=== PATIENT | male | born 1955 | race Caucasian/White ===

== ENCOUNTER → 2016-06-13 | Outpatient (CLI) | payer BC, OTHER ==
[~2016-06-13] MED LIST: ATOR-24 PO; DILT120C68 PO; ENOX120I SQ; GABA1CAP5 PO; INSDGI SC; INSDGIPEN SC; LISI1TAB3 PO; MELA1TAB54 PO; MELATAB2 PO; NVLGI SC; NVLGI/PEN SC; NYST100033 TOP; NYSTATIN POWDER EXT; PIOG1TAB23 PO; SIMV20TA2 PO; TADA20TA PO; TEMA30CA4 PO; TRAZ100T29 PO; VENL150C PO; VENL150T33 PO; VNTHFA/IN INH
--- NOTE | 2016-06-14 05:36 | PAP/PSG TECHNICIAN REPORT ---
[facility] Business Applications Analyst Polysomnogram Report Study name: None Report date: 06/14/2016 Study date: 06/13/2016 Referring Physician: Dr. Rodríguez Name: MAGGIE PIERRE Interpreting Physician: Zenon Rodríguez D.O. Date of : 1955 Business Applications Analyst: Alex Hooper RPSGT. Sex: Male Age: 60 StudyType: PSG Weight: 280 lbs 16 INCHES Height: 60 years, Height 6' 1" Neck Circum: BMI: 36.94 Medications: INSULIN SYRINGE, BD PEN NEEDLE, LANTUS, NOVOLOG FLEX PEM, LISINOPRIL 30 MG, GABAPENTIN 400 MG, ATORVASTATIN CALCIUM 40 MG, MELATONIN 5 MG, TEMAZEPAM 30 MG, CIALIS 20 MG, ENOXAPAIN SODIUM, EFFEXOR XR 150 MG, NYSTATIN, ERGOCALCIFEROL Patient History PATIENT HAS HISTORY OF HYPERTENSION AND DIABETES. HIS STATES THAT HE HE STOPS BREATHING AT NIGHT AND HAS SOME SNORING. THE PATIENT'S NORMAL BEDTIME IS AROUND 12:30 AM. PATIENT ALSO HAS HISTORY OF INSOMNIA. HE IS HERE TODAY FOR AN EVALUATION OF FRANCES. ESS= 7 RM 2 Parameters Monitored NPSG: E1-M2, E2-M1, Fp1-M2, Fp2-M1, F3-M2, F4-M2, F4-M1, C3-M2, C4-M2, C4-M1, O1-M2, O2-M2, O2-M1, T3-M2, T4-M1, P3-M2, P4-M1, CHIN1, CHIN2, HR, EKG, Legs, PFLOW, SNOR, FLOW, CFLOW, Tidal Volume, THOR, ABDO, SpO2, PLTH, CPRESS, ETCO2 Wave, ETCO2, pH Sleep Architecture Sleep Stages Time at Lights Off 10:40:26 PM STAGES Time (min.) TST (%) Time at Lights On 5:08:56 AM Wake 299.5 -- Total Recording Time (TRT) 389.00 min. N1 28.0 31 Total Sleep Period (TSP) 346.0 min. N2 61.0 69 Total Sleep Time (TST) 89.0min. N3 0.0 0 Awake Time 300.0 min. REM 0.0 0 Wake after Sleep Onset 272.5 min. Sleep Efficiency (SE) 23 % Sleep Onset Latency (SUKHWINDER) 27.0 min. Number of Stage 1 Shifts None Awakenings 35 Stage Changes 115 Number of REM periods N/A REM 0.0 0 REM Latency NONE min. NREM 89.0 100 Body Position Analysis Supine Right Left Side Prone Vertical Total Sleep Time (min.) 242.3 40.9 14.5 55.35 0.0 0.0 Total Sleep Time (%) 38% 46% 16% 62 0% N/A% Total Sleep Time REM (min.) 0.0 0.0 0.0 None 0.0 0.0 Total Sleep Time NREM (min.) 33.7 40.9 14.5 None 0.0 0.0 Intermittent Wake (min.) 208.7 78.8 12.0 None 0.0 0.0 Total Sleep Period (%) 61% None None None None None Arousals Myoclonus (PLM) * Events Count Index Events Count Index Spontaneous 31 21 Events Awake (PLMW) 293 58.7 Respiratory 63 42.5 Events Asleep w/ Arousal (PLMA) 14 9.4 PLM 11 9 Events Asleep w/o Arousal (PLMS) 123 82.9 Snoring 18 12 Total Asleep 137 92.4 Total 123 83 Total 430 66 Respiratory Analysis * CA OA MA CH H RERA Total Count 3 6 0 0 102 2 111 Index 2.0 4.0 0.0 0 68.8 1 76.2 Mean Duration 17.7 12.7 0.0 0.00 14.1 14.5 14.1 Longest Duration 20.6 15.0 0.0 0.00 0.0 16.3 21.6 Respiratory Event Summary Total Supine ~Supine Right Left Prone REM NREM Apneas Count 9 7 2 2 0 N/A N/A 9 Index 6.1 12 2 2.9 0.0 N/A N/A 6 Hypopneas (4% Desat) Count 102 46 56 51 5 N/A N/A 102 Index 68.8 82.0 61 74.9 20.7 N/A N/A 68.8 Apneas & All Hypopneas Count 111 53 58 53 5 N/A N/A 111 Index 74.8 95 63 78 21 N/A N/A 74.8 Respiratory Events (Psychologist Engineering+All Hyp+RERA) Count 111 54 59 53 6 N/A N/A 111 Index 76.2 96 64 77.8 24.8 N/A N/A 76.2 Respiratory Related Arousal Count 63 54 33 29 4 N/A N/A 63 Index 42.5 53 36 43 17 N/A N/A 42 Snoring Analysis Supine Right Left Prone REM NREM Total Snore duration 7.0 min Snores count 37 174 44 N/A N/A 255 255 Snore mean duration 1.7 Sec Snores index 66 255 182 N/A N/A 171.9 171.9 TST with snoring (%) 7.9% Desaturation Event Summary: Minimum %SpO2 Event Count Mean/Min/Max Duration(sec.) Desaturation Index % Time In Bed > 90 104 14.9 / 6.0 / 51.5 53.2 33.0 86 - 90 95 14.8 / 6.0 / 51.5 24.7 64.9 81 - 85 0 N/A 0.0 2.1 76 - 80 0 N/A 0.0 0.0 71 - 75 0 N/A 0.0 0.0 66 - 70 0 N/A 0.0 0.0 61 - 65 0 N/A 0.0 0.0 56 - 60 0 N/A 0.0 0.0 51 - 55 0 N/A 0.0 0.0 < 50 0 N/A 0.0 0.0 Total REM NREM Awake <50% 0.0 min. 0.0 min. 0.0 min. 0.0 min. 51 - 60% 0.0 min. 0.0 min. 0.0 min. 0.0 min. 61 - 70% 0.0 min. 0.0 min. 0.0 min. 0.0 min. 71 - 80% 0.0 min. 0.0 min. 0.0 min. 0.0 min. 81 - 90% 238.3 min. 0.0 min. 72.7 min. 165.6 min. 91 - 100% 117.3 min. 0.0 min. 16.2 min. 101.1 min. Average 90 0 89 90 Minimum SpO2 83 N/A 83 83 Desaturation Event Index 20.1 0.0 73.5 4.6 # Desat. Events below 89% 123 N/A 104 19 Time(%) with Saturation below 89% 22.2 0.0 12.3 9.9 Time(min.) with Saturation below 89% 78.8 0.0 43.7 35.1 Time (mins) REM (mins) NREM (mins) % of TST SpO2 Below 90% 107 N/A N107 67.1 SpO2 Below 88% 25 0 0 32 Heart Rate Analysis Min (bpm) Max (bpm) Average (bpm) Awake 65 188 84 NREM 63 94 83 REM N/A N/A N/A Overall 63 94 83 Supplemental O2 Values Minimum O2 level: None Value Start Time End Time Business Applications Analyst Comments Mr. Pierre slept in the right, left and supine positions. PAC's noted. Leg movements noted. No bruxism noted. Snoring was noted and scored as a 3 on a scale of 1 through 5. (0=no snoring, 5=snoring loud enough to be heard through a closed door or down the bueno way) Mr. Pierre awoke to use the restroom 2 times during the night. Mr. Pierre stated I did not sleep as well as I do when I am in my own bed. I determined that this patient was not a good fit for a split study due to the limited amount of the sleep time the patient achieved. This patient has history of insomnia and really struggled to maintain sleep for the study. It was also noted that the patient did not take his normal sleep medication because he never got a refill for it. The patient said that he usually sleeps better during the day and will wake up around noon. The final report will be interpreted and signed by a sleep physician. The completed physician report will then be placed in the patient medical record. Therapy (cm H2O) 0 TIB (min.) 388.5 TST (min.) 89.0 Sleep Onset (min.) 27.0 REM Onset From Sleep (min.) NONE Sleep Efficiency % 23 Wakefulness (%) 77 Wakefulness (min.) 300.0 NREM 1 (%) 31 NREM 1 (min.) 28.0 NREM 2 (%) 69 NREM 2 (min.) 61.0 NREM 3 (%) 0 NREM 3 (min.) 0.0 REM (%) 0 REM (min.) 0.0 # Arousals 123 Arousal Index 83 # Snore 255 Snore Index 171.9 AHI 74.8 AHI Supine 95 AHI Non-Supine 63 NREM AHI 74.8 REM AHI N/A RDI 76.2 # Obstructive Apnea 6 # Central Apnea 3 # Mixed Apnea 0 # Hypopneas 102 RERAs 2 Total Respiratory Events 118 Time Below SpO2 89% (min.) 43.7 Mean NREM SpO2 (%) 89 Mean REM SpO2 (%) N/A Mean Sleep SpO2 (%) 89 Min NREM SpO2 (%) 83 Min REM SpO2 (%) N/A Position Supine (min.) 242.3 Position Non-supine (min.) 55.3 LM Index Sleep 92.4 LM Index NREM 92.4 LM Index REM N/A Mean Heart Rate (bpm) 83 Min Heart Rate (bpm) 63
--- NOTE | 2016-06-17 12:54 | POLYSOMNOGRAPH REPORT ---
CLINICAL DATA: The patient is a 60-year-old male with a BMI elevated at 36.94. He is referred by Dr. Freed and Dr. Ling. His history is that of snoring, observed apneas and chronic insomnia. He also has disturbed nocturnal sleep. The [place] Sleepiness Scale score was 7 out of a possible 24. This was a diagnostic sleep study done in the sleep lab. SLEEP ARCHITECTURE: The patient had a total sleep period of 346 minutes with total sleep time of 89 minutes. The sleep efficiency was severely reduced at 23%. The sleep latency was 27 minutes. Wake after sleep onset was elevated at 272.5 minutes. There were 35 awakenings. Sleep consisted of stage N1 31%, stage N2 69%, stage N3 0%, REM sleep 0%. AROUSAL DATA: The patient had a total of 123 arousals for an index of 83.5. These consisted of 31 spontaneous arousals, 63 respiratory arousals, 11 PLM arousals and 18 snoring arousals. PLM DATA: The patient had 137 periodic limb movements of sleep for an index of 92.4. However, the PLM arousal index was only 9.4. EKG: The underlying rhythm was normal sinus. He had PACs. The minimum heart rate was 63 and the maximum was 94. RESPIRATORY DATA: The patient had a total of 111 events including 3 central apneas, 6 obstructive apneas and 102 hypopneas. The apnea-hypopnea index was severely elevated at 74.8 events per hour. There were 63 respiratory arousals for a respiratory arousal index of 42.5. OXIMETRY DATA: The patient's lowest oxygen saturation was 83%. He had a total of 238.3 minutes with saturations between 81 and 90%. There was a total of 25 minutes with saturations less than 88%. FINANCIAL REPORTING SPECIALIST COMMENTS: The patient slept in the right, left and supine positions. Snoring was noted as a score of 3 on a scale of 1 through 5. The database software technician determined the patient was not a good fit for a split study due to the limited amount of sleep time the patient achieved. IMPRESSION: 1. Obstructive sleep apnea -- severe. 2. Periodic limb movement disorder. 3. Insomnia. COMMENTS: The patient had a very poor sleep efficiency. This was in part related to the fact he did not take the temazepam he typically takes at home. Apparently, he had run out of his medicines and not gotten it refilled. For the time that he did sleep, he had severe sleep apnea. He had frequent respiratory events and arousals. There were frequent periodic limb movements but just with a modest number of arousals. These do not need treatment at present. The underlying sleep apnea should be treated first. The patient has comorbidities including hypertension and diabetes. RECOMMENDATIONS: 1. It is advised that the patient be given a trial of nasal CPAP or BiPAP. 2. Weight reduction is advised in light of the significant elevation of body mass index. 3. The patient ideally should avoid sleeping in the supine position if possible. 4. Further suggestions will be made after the trial of nasal CPAP.
== END | disposition home or self-care (01) ==
LOC: C.NEUR 20:00
PROVIDERS: ATTEND Internal Medicine Pulmonary Disease
DX: G47.30 Sleep apnea, unspecified (principal)

== ENCOUNTER → 2016-06-24 | Day surgery (SDC) | payer BC, OTHER ==
[2016-06-14 13:12] VITALS: BMI 37.0
[~2016-06-24] VITALS: Ht 185.4 cm; Wt 129.1 kg
[~2016-06-24] MED LIST changes: +ATROPINE SULFATE 0.1 MG/ML 5ML SYR IV PRN; +EpHEDrine SULFATE INJ 50 MG/ML AMP IV PRN; -INSDGI SC; +LIDOCAINE HCL 2% 2 ML VIAL (20MG/ML) ONE; -MELA1TAB54 PO; -NVLGI SC; -PIOG1TAB23 PO; +PROPOFOL IV EMULSION 10 MG/ML 20 ML VIAL IV ONE; -SIMV20TA2 PO; +SODIUM CHLORIDE 0.9% 500ML 500 ML IV ONE; -TEMA30CA4 PO; -VENL150T33 PO
[2016-06-24 09:00] VITALS: Ht 185.4 cm; Wt 129.1 kg
--- NOTE | 2016-06-24 09:08 | Endo History and Physical ---
History & Physical Date of Service: Jun 24, 2016. Chief Complaint: History of colon polyps Referring Physician: Dr. Ling History of Present Illness 60 yo CM who presents for colonoscopy secondary to history of polyps Past Surgical History Hx Cardiac Surgery: No Hx Internal Defibrillator: No Hx Pacemaker: No Hx Abdominal Surgery: Yes (UMBILICAL HERNIA) Hx of Implantable Prosthesis: No Hx Post-Op Nausea and Vomiting: No Hx Cancer Surgery: No Hx Thoracic Surgery: No Hx Orthopedic: Yes (LEFT KNEE ARTHROSCOPY) Hx Urinary Tract Surgery: No Family History IBD Social History Smoking Status: Current Some Day Smoker Hx Substance Use: No Hx Alcohol Use: Yes (OCCASSIONALLY) Allergies Coded Allergies: Lanolin (Verified Allergy, Unknown, WOOL WAX ALCOHOL, 06/14/16) Moxifloxacin (Verified Allergy, Unknown, hives, 06/14/16) pt SOAPCLEAN (Verified Allergy, Unknown, DETERGENTS, 06/14/16) Aspirin (Verified Adverse Reaction, Mild, STOMACH DISTRESS, 06/14/16) Current Medications Reported Home Medications Medications Dose Route/Sig Max Daily Dose Days Date Category Dose Instructions Trazodone (Trazodone HCl) 100 Mg Tab 100 Mg PO HS 06/14/16 Reported [Nystatin Powder] 1 Dose EXT DIRECTED PRN 06/14/16 Reported Novolog Flexpen (Insulin Aspart) 100 Units/Ml Inj 1 Dose SC TID 06/14/16 Reported 35 UNITS AM 45 UNITS AT LUNCH 120 UNITS AT HS IN ADDITION TO SLIDING SCALE FOR ALL ABOVE Melatonin Maximum Strengt (Melatonin) 5 Mg Tab 3 Tab PO HS 30 06/14/16 Reported Zestril (Lisinopril) 30 Mg Tab 30 Mg PO QAM 06/14/16 Reported Lantus Solostar (Insulin Glargine) 100 Unit/Ml Inj 1 Dose SC AMPM 06/14/16 Reported 60 UNITS AM 40 UNITS PM Neurontin (Gabapentin) 400 Mg Cap 400 Mg PO BID 06/14/16 Reported Lovenox (Enoxaparin Sodium) 120 Mg/0.8 Ml Inj 120 Mg SQ Q12H 06/14/16 Reported Effexor Xr (Venlafaxine Hcl) 150 Mg Cap 1 Cap PO QAM 30 06/14/16 Reported Tiazac (Diltiazem HCl) 120 Mg Capcr 120 Mg PO QAM 06/14/16 Reported Lipitor (Atorvastatin Calcium) 40 Mg Tab 40 Mg PO QAM 06/14/16 Reported Vital Signs Weight (Kilograms): 129.09 Height (Feet): 6 Height (Inches): 1 Physical Exam General Appearance: WD/WN, no apparent distress Respiratory/Chest: Auscultation: breath sounds normal Cardiovascular: Heart Auscultation: RRR Abdomen: Bowel Sounds: normal Inspection & Palpation: soft, non-distended, no tenderness, guarding & rebound Assessment and Plan Assessment: 60 yo CM who presents for colonoscopy secondary to history of polyps Plan: Proceed with colonoscopy.
--- NOTE | 2016-06-24 09:48 | Discharge Instructions ---
Endoscopy Patient Instructions Date / Procedure(s) Performed Jun 24, 2016. Colonoscopy Allergy Information Coded Allergies: Lanolin (Verified Allergy, Unknown, WOOL WAX ALCOHOL, 06/14/16) Moxifloxacin (Verified Allergy, Unknown, hives, 06/14/16) pt SOAPCLEAN (Verified Allergy, Unknown, DETERGENTS, 06/14/16) Aspirin (Verified Adverse Reaction, Mild, STOMACH DISTRESS, 06/14/16) Discharge Date / Findings Jun 24, 2016. Colon polyp Diverticulosis Internal hemorrhoids Medication Instructions OK to resume all medications today as prescribed Reported Home Medications Medications Dose Route/Sig Max Daily Dose Days Date Category Dose Instructions Trazodone (Trazodone HCl) 100 Mg Tab 100 Mg PO HS 06/14/16 Reported [Nystatin Powder] 1 Dose EXT DIRECTED PRN 06/14/16 Reported Novolog Flexpen (Insulin Aspart) 100 Units/Ml Inj 1 Dose SC TID 06/14/16 Reported 35 UNITS AM 45 UNITS AT LUNCH 120 UNITS AT HS IN ADDITION TO SLIDING SCALE FOR ALL ABOVE Melatonin Maximum Strengt (Melatonin) 5 Mg Tab 3 Tab PO HS 30 06/14/16 Reported Zestril (Lisinopril) 30 Mg Tab 30 Mg PO QAM 06/14/16 Reported Lantus Solostar (Insulin Glargine) 100 Unit/Ml Inj 1 Dose SC AMPM 06/14/16 Reported 60 UNITS AM 40 UNITS PM Neurontin (Gabapentin) 400 Mg Cap 400 Mg PO BID 06/14/16 Reported Lovenox (Enoxaparin Sodium) 120 Mg/0.8 Ml Inj 120 Mg SQ Q12H 06/14/16 Reported Effexor Xr (Venlafaxine Hcl) 150 Mg Cap 1 Cap PO QAM 30 06/14/16 Reported Tiazac (Diltiazem HCl) 120 Mg Capcr 120 Mg PO QAM 06/14/16 Reported Lipitor (Atorvastatin Calcium) 40 Mg Tab 40 Mg PO QAM 06/14/16 Reported Provider Instructions Activity Restrictions - No exercising or heavy lifting for 24 hours. - Do not drink alcohol the day of the procedure. - Do not drive a car or operate machinery until the day after the procedure. - Do not make any important decisions or sign important papers in 24 hours after the procedure. Following Day: - Return to full activity which may include returning to work/school. Diet Start your diet with liquids and light foods (jello, soup, juice, toast). Then eat your usual diet if not nauseated. Treatment For Common After Affects For mild abdominal pain, bloating, or excessive gas: - Rest - Eat lightly - Lie on right side Follow-Up Information Follow-up with Dr. Ling as scheduled Anesthesia Information What You Should Know You have had a procedure that required some medicine to reduce anxiety and discomfort. This treatment is called moderate sedation. After receiving the treatment, you may be sleepy, but you will be able to breathe on your own. The effects of the treatment may last for several hours. Follow these instructions along with Activity/Diet recommendations noted above: * Do NOT do anything where dizziness or clumsiness would be dangerous. * Rest quietly at home today, then you can be up and about tomorrow. * Have a responsible person stay with you the rest of today. * You may have had an I.V. today. If so, you may take the dressing off later today. Recommendations Call your doctor if: * Trouble breathing * Continuous vomiting for more than 24 hours * Temperature above 101 degrees * Severe abdominal pain or bloating * Pain not relieved by pain medicine ordered * There is increased drainage or redness from any incision * A large amount of rectal bleeding greater than 2-3 tablespoons. (If you had a polyp/s removed or have hemorrhoids, a small amount of blood - from the rectum is to be expected.) * You have any unanswered questions or concerns. IN THE EVENT OF A SERIOUS EMERGENCY, GO TO THE NEAREST EMERGENCY ROOM Your discharge instructions were prepared by provider Fletcher Rivero. Patient Instructions Signature Page Abdiaziz Haney Patient (or Guardian) Signature/Date: I have read and understand the instructions given to me by my caregivers. Caregiver/RN/Doctor Signature/Date: The above-named patient and/or guardian has received patient instructions on this date. + Original Patient Signature Page (only) stays with chart. Please make copy for patient.
--- NOTE | 2016-06-24 09:53 | GI REPORT ---
Procedure Date: 06/24/2016 9:24 AM Procedure: Colonoscopy Indications: High risk colon cancer surveillance: Personal history of colonic polyps Medicines: Monitored Anesthesia Care Complications: No immediate complications. Estimated Blood Loss: Estimated blood loss: none. Procedure: Pre-Anesthesia Assessment: - Prior to the procedure, a History and Physical was performed, and patient medications and allergies were reviewed. The patient's tolerance of previous anesthesia was also reviewed. The risks and benefits of the procedure and the sedation options and risks were discussed with the patient. All questions were answered, and informed consent was obtained. Prior Anticoagulants: The patient has taken Lovenox (enoxaparin), last dose was 1 day prior to procedure. ASA Grade Assessment: III - A patient with severe systemic disease. After reviewing the risks and benefits, the patient was deemed in satisfactory condition to undergo the procedure. After I obtained informed consent, the scope was passed under direct vision. Throughout the procedure, the patient's blood pressure, pulse, and oxygen saturations were monitored continuously. The On-site loaner was introduced through the anus and advanced to the terminal ileum. The colonoscopy was performed without difficulty. The patient tolerated the procedure well. The quality of the bowel preparation was good. The terminal ileum, ileocecal valve, appendiceal orifice, and rectum were photographed. Findings: A 6 mm polyp was found in the transverse colon. The polyp was sessile. The polyp was removed with a hot snare. Resection and retrieval were complete. Multiple small-mouthed diverticula were found in the sigmoid colon. Non-bleeding internal hemorrhoids were found during retroflexion. The hemorrhoids were small. Impression: - One 6 mm polyp in the transverse colon, removed with a hot snare. Resected and retrieved. - Diverticulosis in the sigmoid colon. - Non-bleeding internal hemorrhoids. Recommendation: - Resume previous diet. - Continue present medications. - Repeat colonoscopy for surveillance based on pathology results. - Return to primary care physician as previously scheduled. Fletcher Rivero, DO 06/24/2016 9:51:43 AM This report has been signed electronically. Note Initiated On: 06/24/2016 9:24 AM
--- NOTE | 2016-06-24 10:08 | Anesthesiology Progress Note ---
Anesthesia Post Op Note Date & Time Jun 24, 2016 at 10:07 Vital Signs Pain Intensity: 0 Vital Signs Past 12 Hours Date Time Temp Pulse Resp B/P Pulse Ox O2 Delivery O2 Flow Rate FiO2 06/24/16 10:02 78 16 146/90 96 Room Air 06/24/16 09:47 75 16 137/80 95 Room Air 06/24/16 09:15 36.5 74 20 179/100 94 Room Air Notes Mental Status: alert / awake / arousable, participated in evaluation Pt Amnestic to Procedure: Yes Nausea / Vomiting: adequately controlled Pain: adequately controlled Airway Patency, RR, SpO2: stable & adequate BP & HR: stable & adequate Hydration State: stable & adequate Anesthetic Complications: no major complications apparent
[2016-06-24 10:17] VITALS: BP 151/97; PULSE 70; O2SAT 95
== END | disposition home or self-care (01) ==
LOC: C.GI 08:45
PROVIDERS: ATTEND Internal Medicine
DX: Z12.11 Encounter for screening for malignant neoplasm of colon (principal); D12.3 Benign neoplasm of transverse colon; Z86.010 Personal history of colon polyps; K57.90 Diverticulosis of intestine, part unspecified, without perforation or abscess without bleeding; K64.8 Other hemorrhoids

== ENCOUNTER → 2016-06-26 | Outpatient (CLI) | payer BC, OTHER ==
[~2016-06-26] VITALS: Ht 185.4 cm; Wt 130.8 kg
[~2016-06-26] MED LIST changes: -ATROPINE SULFATE 0.1 MG/ML 5ML SYR IV PRN; -EpHEDrine SULFATE INJ 50 MG/ML AMP IV PRN; -LIDOCAINE HCL 2% 2 ML VIAL (20MG/ML) ONE; -PROPOFOL IV EMULSION 10 MG/ML 20 ML VIAL IV ONE; -SODIUM CHLORIDE 0.9% 500ML 500 ML IV ONE
[2016-06-26 11:40] VITALS: BP 159/95; PULSE 91; Ht 185.4 cm; Wt 130.8 kg
== END | disposition home or self-care (01) ==
LOC: C.NEUR 10:51
PROVIDERS: ATTEND Internal Medicine Pulmonary Disease
DX: G47.33 Obstructive sleep apnea (adult) (pediatric) (principal); E66.9 Obesity, unspecified; J34.2 Deviated nasal septum

== ENCOUNTER → 2016-08-13 | Outpatient (CLI) | payer BC, OTHER ==
[2016-08-13 12:23] LABS: BASO % 0.5 %; BASO ABS # 0.04 K/uL (0-0.2); COMPLETE YES; EOS % 2.6 %; HEMATOCRIT 46.7 % (42-52); IG% 0.3 %; LYMPH % 21.2 %; LYMPH ABS # 1.62 K/uL (1.2-3.4); MEAN CELL VOLUME 88.4 fL (80-100); MEAN CORPUSCULAR HGB CONC 32.8 g/dl (32-36); MEAN PLATELET VOLUME 12.2 fL (7.4-10.4); MONO % 8.6 %; NEUT % 66.8 %; PLATELET COUNT 207 K/uL (130-400); RED BLOOD COUNT 5.28 M/uL (4.7-6.1); WHITE BLOOD COUNT 7.64 K/uL (4.8-10.8)
[2016-08-13 12:28] LABS: URINE APPEARANCE CLEAR (CLEAR); URINE BILIRUBIN NEG (NEG); URINE COLOR YELLOW; URINE EPITHELIAL CELL AUTO 0-5 /lpf (0-5); URINE NITRITE NEG (NEG); URINE SPECIFIC GRAVITY 1.022 (1.000-1.030); UROBILINOGEN NEG (NEG); ZZUR CULT IF INDIC CLEAN CATCH NO
[2016-08-13 12:37] LABS: MANUAL MICROSCOPIC REQUIRED? NO; REVIEW REQ? NO
[2016-08-13 12:42] LABS: BLOOD UREA NITROGEN 26 mg/dl (7-18); BUN/CREATININE RATIO 17.5 (10-20); CALCIUM 8.8 mg/dl (8.5-10.1); CARBON DIOXIDE 27 mmol/L (21-32); CHLORIDE 101 mmol/L (98-107); GLUCOSE 428 mg/dl (70-99); PHOSPHORUS 2.4 mg/dl (2.5-4.9); SODIUM 138 mmol/L (136-145)
[2016-08-13 12:49] LABS: ESTIMATED AVERAGE GLUCOSE 255 mg/dl; HA1C FLAG Normal (Normal)
[2016-08-13 12:57] LABS: URINE PROTIEN/CREAT RATIO 0.5 (0-0.2); URINE TOTAL PROTEIN 19.1 mg/dl (0-11.9)
[2016-08-13 13:04] LABS: BETA-HYDROXYBUTYRATE 1.04 mg/dL (0.2-2.81)
== END | disposition home or self-care (01) ==
LOC: C.LABBFT 08:43
PROVIDERS: ATTEND Internal Medicine Nephrology
DX: Z11.59 Encounter for screening for other viral diseases (principal); E29.1 Testicular hypofunction; E11.65 Type 2 diabetes mellitus with hyperglycemia; N18.3 Chronic kidney disease, stage 3 (moderate)

== ENCOUNTER → 2016-08-28 | Outpatient (CLI) | payer BC, OTHER ==
[~2016-08-28] VITALS: Ht 182.9 cm; Wt 128.0 kg
[2016-08-28 10:13] VITALS: BP 154/87; PULSE 91; Ht 182.9 cm; Wt 128.0 kg
== END | disposition home or self-care (01) ==
LOC: C.NEUR 09:30
PROVIDERS: ATTEND Internal Medicine Pulmonary Disease
DX: G47.33 Obstructive sleep apnea (adult) (pediatric) (principal); E66.9 Obesity, unspecified; J34.2 Deviated nasal septum

== ENCOUNTER → 2016-11-14 | Outpatient (CLI) | payer BC, OTHER ==
[2016-11-14 17:34] LABS: BLOOD UREA NITROGEN 23 mg/dl (7-18)
[2016-11-14 17:44] LABS: FERRITIN 155.1 ng/ml (8.0-388.0)
[2016-11-14 17:47] LABS: PROLACTIN 7.65 ng/mL
== END | disposition home or self-care (01) ==
LOC: C.LABBFT 12:23
PROVIDERS: ATTEND Internal Medicine Endocrinology, Diabetes & Metabolism
DX: E29.1 Testicular hypofunction (principal); G47.33 Obstructive sleep apnea (adult) (pediatric)

== ENCOUNTER 2017-02-12 19:21 | Inpatient (IN) | payer BC, OTHER ==
[~2017-02-12] VITALS: Ht 185.4 cm; Wt 124.1 kg
[~2017-02-12 19:21] MED LIST changes: -NYST100033 TOP; -TADA20TA PO; -VNTHFA/IN INH
[2017-02-12] MEDS ORDERED: SODIUM CHLORIDE 0.9% 1000ML 1,000 ML IV STA (19:44)
[2017-02-12] MEDS ORDERED: SODIUM CHLORIDE 0.9% 1000ML 1,000 ML IV ONE (19:44)
[2017-02-12] MEDS ORDERED: VNTHFA/IN INH (20:05)
[2017-02-12] MEDS ORDERED: TADA20TA PO (20:05)
[2017-02-12] MEDS ORDERED: NYST100033 TOP (20:05)
--- NOTE | 2017-02-12 20:08 | EMERGENCY ROOM VISIT NOTE ---
History Report prepared by Cruz: Lindsey Casey Under the Supervision of: Dr. Sha Mondragon M.D. First contact with patient: 19:33 Chief Complaint: DIZZY Stated Complaint: VERY WEAK, FAINTING History of Present Illness The patient is a 61 year old male who presents to the Emergency Room with complaints of constant dizziness beginning a couple days ago. The patient notes that he has stomach cramps three weeks ago that lasted two weeks. Last weekend, he had an episode of severe abdominal pain that has not resided. He also notes he is fatigued and urinating more than normal. He denies fever, chest pain, or blood in his stool. The patient has a history of neuropathy, diabetes, high cholesterol and hypertension. The patient is on blood thinners for previous DVTs Source of History: patient, spouse/significant other Onset: a couple days ago Timing: constant Associated Symptoms: + abdominal pain, + urinary symptoms, + fatigue, No fevers, No chest pain Note: Pt denies blood in stool. Review of Systems See HPI for pertinent positives & negatives. A total of 10 systems reviewed and were otherwise negative. Past Medical & Surgical Medical Problems: (1) Anemia (2) Deep venous thrombosis of lower extremity (3) Diabetes (4) Gall stone pancreatitis (5) Yo filter in place (6) Hypercholesteremia (7) Hypertension Surgical Problems: (1) H/O hernia repair Old medical records were reviewed. Nurse's notes were reviewed and I agree with. Family History no pertinent family history stated. Social History Smoking Status: Current Every Day Smoker Alcohol Use: none Marital Status: Current/Historical Medications Scheduled Atorvastatin (Lipitor), 40 MG PO QAM Diltiazem Hcl Ext Rel (Tiazac), 120 MG PO QAM Enoxaparin (Lovenox), 120 MG SQ Q12H Gabapentin (Neurontin), 400 MG PO BID Insulin Aspart (Novolog Flexpen), 1 DOSE SC TID Insulin Glargine (Lantus Solostar), 50 DOSE SC AMPM Lisinopril (Zestril), 30 MG PO QAM Melatonin (Melatonin Maximum Strengt), 3 TAB PO HS Nystatin (Topical) (Nystatin), 1 APPLN TOP PRN UD Tadalafil (Cialis), 20 MG PO UD Trazodone Hcl (Trazodone), 100 MG PO HS Venlafaxine Hcl (Effexor Xr), 1 CAP PO QAM Scheduled PRN Albuterol Hfa (Ventolin Hfa), 2 PUFF INH Q4 PRN for SOB/Wheezing Allergies Coded Allergies: Lanolin (Verified Allergy, Unknown, WOOL WAX ALCOHOL, 06/14/16) Moxifloxacin (Verified Allergy, Unknown, hives, 06/14/16) pt SOAPCLEAN (Verified Allergy, Unknown, DETERGENTS, 06/14/16) Aspirin (Verified Adverse Reaction, Mild, STOMACH DISTRESS, 06/14/16) Physical Exam Vital Signs Date Time Temp Pulse Resp B/P (MAP) Pulse Ox O2 Delivery O2 Flow Rate FiO2 02/13/17 00:15 92 20 144/97 94 Room Air 02/12/17 22:27 89 18 137/95 98 Room Air 02/12/17 19:26 36.9 93 18 126/77 94 Room Air Physical Exam General: Non ill appearing middle aged male in no acute distress, breathing comfortably on room air. Normal speech HEENT: Normal cephalic atraumatic. Pupils are equal round and reactive to light. Sclerae anicteric. Extraocular movements are intact. Oropharynx is pink with moist mucous membranes. No swelling of the mouth lips or tongue. Neck: Supple with a midline trachea. No meningeal signs or stiffness, no JVD or bruits. No Stridor. Chest: Clear to auscultation bilaterally. No wheezes or rhonchi. No increased work of breathing. Heart: regular rate and rhythm. Abdomen: Soft nontender, nondistended without rebound guarding or rigidity. Extremities: No cyanosis clubbing or edema. No calf tenderness or assymetry Spine/Back. Non tender to palpation. No CVA tenderness Skin: Good turgor without rashes. Neurologic exam: Cranial nerves two through 12 are intact. Motor and sensation are intact and symmetrical throughout. Medical Decision & Procedures ER Provider Diagnostic Interpretation: Radiology results as stated below per my review and radiologist interpretation: CHEST ONE VIEW PORTABLE FINDINGS: Lung volumes are diminished. There is no pneumothorax or pleural effusion. There is no evidence of pulmonary edema. There is no consolidation to suggest pneumonia. Mild left basilar opacity suggests atelectasis. The appearance of the chest is unchanged. IMPRESSION: No acute cardiopulmonary findings. No change in appearance of the chest. Electronically signed by: Clovis Bender M.D. CT OF THE ABDOMEN AND PELVIS WITHOUT CONTRAST FINDINGS: A small gallstone is noted within the gallbladder. There is no pericholecystic infiltration. Note is made of moderate infiltration centered on the pancreatic head which is mildly enlarged and edematous. Evaluation is suboptimal on this unenhanced exam. There is no biliary or pancreatic ductal dilatation. A 4 mm calcification within the uncinate process of the pancreas is unlikely to represent a common bile duct calculus. Unenhanced images of the spleen, adrenal glands are unremarkable. There are small bilateral renal calculi which measure up to 3 mm. There are no ureteral calculi. There is no evidence for a bowel obstruction. The appendix is normal. An IVC filter is in place. There is a fat-containing umbilical hernia. There are no suspicious osseous lesions. There is no lymphadenopathy. IMPRESSION: 1. Moderate infiltration centered on the pancreatic head extending into the mesentery. The findings are consistent with acute pancreatitis. A follow-up abdominal CT in one month is recommended to exclude the unlikely possibility of an underlying mass. 2. Cholelithiasis. 4 mm calcification within the uncinate process of the pancreas is unlikely to represent a common bile duct calculus given its inferior location. This may reflect the sequela of chronic pancreatitis. 3. Bilateral nephrolithiasis. No ureteral calculi. Electronically signed by: Clovis Bender M.D. Laboratory Results 02/12/17 21:22 Red Blood Count 5.36, Mean Corpuscular Volume 83.2, Mean Corpuscular Hemoglobin 29.0, Mean Corpuscular Hemoglobin Concent 34.8, Neutrophils (%) (Auto) 71.8, Lymphocytes (%) (Auto) 16.3, Monocytes (%) (Auto) 9.2, Eosinophils (%) (Auto) 2.0, Basophils (%) (Auto) 0.5, Neutrophils # (Auto) 5.79, Lymphocytes # (Auto) 1.31, Monocytes # (Auto) 0.74, Eosinophils # (Auto) 0.16, Basophils # (Auto) 0.04 Test 02/12/17 20:11 02/12/17 20:17 02/12/17 21:22 02/12/17 23:49 Prothrombin Time 10.3 SECONDS (9.0-12.0) Prothromb Time International Ratio 1.0 (0.9-1.1) Activated Partial Thromboplast Time 27.8 SECONDS (21.0-31.0) Partial Thromboplastin Ratio 1.1 Est Creatinine Clear Calc Drug Dose 46.5 ml/min Total Bilirubin 0.7 mg/dl (0.2-1) Direct Bilirubin 0.1 mg/dl (0-0.2) Aspartate Amino Transf (AST/SGOT) 10 U/L (15-37) Alanine Aminotransferase (ALT/SGPT) 24 U/L (12-78) Alkaline Phosphatase 130 U/L (45-117) Total Protein 7.8 gm/dl (6.4-8.2) Albumin 3.3 gm/dl (3.4-5.0) Lipase 664 U/L (73-393) Beta-Hydroxybutyric Acid 2.19 mg/dL (0.2-2.81) Bedside Troponin I < 0.030 ng/ml (0-0.045) White Blood Count 8.06 K/uL (4.8-10.8) Red Blood Count 5.36 M/uL (4.7-6.1) Hemoglobin 16.1 g/dL (14.0-18.0) Hematocrit 46.2 % (42-52) Mean Corpuscular Volume 83.2 fL (80-100) Mean Corpuscular Hemoglobin 29.0 pg (25-34) Mean Corpuscular Hemoglobin Concent 34.8 g/dl (32-36) Platelet Count 154 K/uL (130-400) Neutrophils (%) (Auto) 71.8 % Lymphocytes (%) (Auto) 16.3 % Monocytes (%) (Auto) 9.2 % Eosinophils (%) (Auto) 2.0 % Basophils (%) (Auto) 0.5 % Neutrophils # (Auto) 5.79 K/uL (1.4-6.5) Lymphocytes # (Auto) 1.31 K/uL (1.2-3.4) Monocytes # (Auto) 0.74 K/uL (0.11-0.59) Eosinophils # (Auto) 0.16 K/uL (0-0.5) Basophils # (Auto) 0.04 K/uL (0-0.2) Immature Granulocyte % (Auto) 0.2 % Immature Granulocyte # (Auto) 0.02 K/uL (0.00-0.02) Test 02/13/17 00:06 Bedside Glucose 513 mg/dl (70-99) Laboratory studies as stated above per my review. Medications Administered Medications (Trade) Dose Ordered Sig/Bob Route Start Time Stop Time Status Last Admin Dose Admin Sodium Chloride 1,000 ml @ 999 mls/hr Q1H1M STAT IV 02/12/17 19:44 02/12/17 20:44 DC 02/12/17 20:32 999 MLS/HR Sodium Chloride 1,000 ml @ 200 mls/hr Q5H ONCE IV 02/12/17 19:44 02/13/17 00:43 02/12/17 20:32 200 MLS/HR Insulin Human Regular (novoLIN-R U-100 PER UNIT) 10 units NOW STAT IV 02/12/17 21:28 02/12/17 21:29 DC 02/12/17 23:18 10 UNITS ECG Indication: other (Dizziness) Rate (beats per minute): 83 Rhythm: normal sinus Findings: no ectopy, other (LVH) Comparison ECG Date: 12/09/14 Change: no significant change ED Course 1934: Past medical records reviewed. The patient was evaluated in room B8, and a complete history and physical examination were performed. 1943: Sodium Chloride 1000 ml @ 200 mls/hr IV, Sodium Chloride 1000 ml @ 999 mls /hr IV. 2127: Insulin Human Regular 10 units IV. 2133: [facility] The patient will be evaluated for further management. 2137: Upon reevaluation, the patient is resting comfortably. I discussed the results and treatment plan with the patient. He verbalized agreement of the treatment plan. The patient will be evaluated for further management. Medical Decision Differential diagnosis includes but is not limited to: anemia, cardiac disease, infection intraabdominal process, and electrolyte metabolic abnormality. This patient comes in as described above. He was placed in room B8. He comes in with feeling dizziness and just not feeling well. He looks well on exam and is stable vital signs. He does have multiple medical problems. IV access established and he was hydrated with IV normal saline and was given 1 L IV normal saline bolus and 200 mL an hour IV normal saline. His blood work came back markedly abnormal with a blood sugar in 100s however he is not acidotic and is not in DKA. He was given regular insulin 10 units IV. His lipase is moderately elevated and a CAT scan of asthma is abdomen shows pancreatitis findings. Additionally, he was hyponatremic with 124 although some of this may be pseudohyponatremia. His BUN and creatinine are elevated compared to baseline and likely prerenal. I do think he needs to be admitted for further treatment and evaluation and hydration. I have consulted Dr. Flores who saw the patient in the ER. Medication Reconcilliation Current Medication List: was personally reviewed by me Blood Pressure Screening Patient's blood pressure: Normal blood pressure Consults Time Called: 2129 Consulting Physician: Dr. Gilbert[facility] Returned Call: [phone] Discussed the patient's case. The patient will be evaluated for further management. Impression Primary Impression: Hyperglycemia Additional Impressions: Hyponatremia Dehydration Pancreatitis Scribe Attestation The scribe's documentation has been prepared under my direction and personally reviewed by me in its entirety. I confirm that the note above accurately reflects all work, treatment, procedures, and medical decision making performed by me. Departure Information Dispostion Being Evaluated By Hospitalist Referrals Johann Ling M.D. (PCP) Patient Instructions My [facility] Problem Qualifiers
--- NOTE | 2017-02-12 20:18 | DIAGNOSTIC IMAGING REPORT ---
CHEST ONE VIEW PORTABLE CLINICAL HISTORY: Chest pain. COMPARISON STUDY: Chest CT November 26, 2013. FINDINGS: Lung volumes are diminished. There is no pneumothorax or pleural effusion. There is no evidence of pulmonary edema. There is no consolidation to suggest pneumonia. Mild left basilar opacity suggests atelectasis. The appearance of the chest is unchanged. IMPRESSION: No acute cardiopulmonary findings. No change in appearance of the chest. Electronically signed by: Clovis Bender M.D. 02/12/2017 8:17 PM Dictated Date/Time: 02/12/2017 8:16 PM
[2017-02-12 20:44] LABS: PARTIAL THROMBOPLASTIN RATIO 1.1; PROTHROMBIN TIME (PATIENT) 10.3 SECONDS (9.0-12.0)
[2017-02-12 20:59] LABS: BUN/CREATININE RATIO 17.7 (10-20); CALCIUM 10.2 mg/dl (8.5-10.1); CREATININE 2.2 mg/dl (0.60-1.40); POTASSIUM 4.9 mmol/L (3.5-5.1)
--- NOTE | 2017-02-12 21:15 | DIAGNOSTIC IMAGING REPORT ---
CT OF THE ABDOMEN AND PELVIS WITHOUT CONTRAST CLINICAL HISTORY: Abdominal pain and weakness. COMPARISON STUDY: CT of the abdomen and pelvis June 04, 2013. TECHNIQUE: Axial images of the abdomen and pelvis were obtained without IV contrast. Images were reviewed in the axial, sagittal, and coronal planes. A dose lowering technique was utilized adhering to the principles of ALARA. FINDINGS: A small gallstone is noted within the gallbladder. There is no pericholecystic infiltration. Note is made of moderate infiltration centered on the pancreatic head which is mildly enlarged and edematous. Evaluation is suboptimal on this unenhanced exam. There is no biliary or pancreatic ductal dilatation. A 4 mm calcification within the uncinate process of the pancreas is unlikely to represent a common bile duct calculus. Unenhanced images of the spleen, adrenal glands are unremarkable. There are small bilateral renal calculi which measure up to 3 mm. There are no ureteral calculi. There is no evidence for a bowel obstruction. The appendix is normal. An IVC filter is in place. There is a fat-containing umbilical hernia. There are no suspicious osseous lesions. There is no lymphadenopathy. IMPRESSION: 1. Moderate infiltration centered on the pancreatic head extending into the mesentery. The findings are consistent with acute pancreatitis. A follow-up abdominal CT in one month is recommended to exclude the unlikely possibility of an underlying mass. 2. Cholelithiasis. 4 mm calcification within the uncinate process of the pancreas is unlikely to represent a common bile duct calculus given its inferior location. This may reflect the sequela of chronic pancreatitis. 3. Bilateral nephrolithiasis. No ureteral calculi. Electronically signed by: Clovis Bender M.D. 02/12/2017 9:13 PM Dictated Date/Time: 02/12/2017 8:47 PM
[2017-02-12 21:19] LABS: BETA-HYDROXYBUTYRATE 2.19 mg/dL (0.2-2.81)
[2017-02-12] MEDS ORDERED: NovoLIN-R INSULIN PER UNIT CHARGE IV STA (21:28)
[2017-02-12 22:25] LABS: HEMATOCRIT 46.2 % (42-52); MEAN CELL VOLUME 83.2 fL (80-100); MEAN CORPUSCULAR HGB CONC 34.8 g/dl (32-36); PLATELET COUNT 154 K/uL (130-400); RED BLOOD COUNT 5.36 M/uL (4.7-6.1); WHITE BLOOD COUNT 8.06 K/uL (4.8-10.8)
[2017-02-12 22:30] LABS: BASO % 0.5 %; BASO ABS # 0.04 K/uL (0-0.2); COMPLETE YES; IG% 0.2 %; LYMPH % 16.3 %; LYMPH ABS # 1.31 K/uL (1.2-3.4); MONO % 9.2 %; NEUT % 71.8 %
--- NOTE | 2017-02-12 22:55 | History and Physical ---
History & Physical Date & Time of Service: Feb 12, 2017 at 22:55 Chief Complaint: Very Weak, Fainting Primary Care Physician: Johann Ling M.D. History of Present Illness Source: patient 61-year-old male with a past medical history of diabetes mellitus type II, hyperlipidemia, hypertension, DVT present to the ER with complaints of dizziness and tiredness. 3 weeks ago he had nausea and vomiting and diarrhea which resolved in about 2 weeks and over the weekend he developed abdominal pain in the mid abdominal area , 5/10 in severity with no radiation. He denied any fevers or chills but noticed that he had increased urinary frequency. Denied any dysuria, hematuria. Denies any chest pain, shortness of breath, palpitations but complained of persistent tiredness and dizziness. Denies any hearing loss or tinnitus. Denies any bright red bleeding per rectum or melena. Past Medical/Surgical History Medical Problems: (1) Anemia Status: Resolved (2) Deep venous thrombosis of lower extremity Status: Chronic (3) Diabetes Status: Chronic (4) Yo filter in place Status: Chronic (5) Hypercholesteremia Status: Chronic (6) Hypertension Status: Chronic Surgical Problems: (1) H/O hernia repair Status: Resolved Family History Noncontributory Social History Smoking Status: Current Every Day Smoker Smokeless Tobacco Use: No Alcohol Use: none Drug Use: none Marital Status: Housing status: lives with family Occupational Status: employed Immunizations History of Influenza Vaccine: No History of Tetanus Vaccine?: Yes Tetanus Immunization Date: Dec 21, 2003 History of Pneumococcal: No Pneumococcal Date: Dec 21, 2007 History of Hepatitis B Vaccine: No Multi-Drug Resistant Organisms History of MDRO: No Allergies Coded Allergies: Lanolin (Verified Allergy, Unknown, WOOL WAX ALCOHOL, 06/14/16) Moxifloxacin (Verified Allergy, Unknown, hives, 06/14/16) pt SOAPCLEAN (Verified Allergy, Unknown, DETERGENTS, 06/14/16) Aspirin (Verified Adverse Reaction, Mild, STOMACH DISTRESS, 06/14/16) Home Medications Scheduled Atorvastatin (Lipitor), 40 MG PO QAM Diltiazem Hcl Ext Rel (Tiazac), 120 MG PO QAM Enoxaparin (Lovenox), 120 MG SQ Q12H Gabapentin (Neurontin), 400 MG PO BID Insulin Aspart (Novolog Flexpen), 1 DOSE SC TID Insulin Glargine (Lantus Solostar), 50 DOSE SC AMPM Lisinopril (Zestril), 30 MG PO QAM Melatonin (Melatonin Maximum Strengt), 3 TAB PO HS Nystatin (Topical) (Nystatin), 1 APPLN TOP PRN UD Tadalafil (Cialis), 20 MG PO UD Trazodone Hcl (Trazodone), 100 MG PO HS Venlafaxine Hcl (Effexor Xr), 1 CAP PO QAM Scheduled PRN Albuterol Hfa (Ventolin Hfa), 2 PUFF INH Q4 PRN for SOB/Wheezing Review of Systems Constitutional: + problem reported (dizziness and lightheadedness), No fever, No chills Eyes: No worsening of vision ENT: No hearing loss Respiratory: No cough, No sputum Cardiovascular: No chest pain Abdomen: + pain (mid abdominal area), + nausea, + vomiting Musculoskeletal: No joint pain Genitourinary - Male: No hematuria, No dysuria Neurologic: No memory loss Psychiatric: No depression symptoms Endocrine: No fatigue Hematologic / Lymphatic: No abnormal bleeding/bruising Integumentary: No rash Physical Exam Vital Signs Date Time Temp Pulse Resp B/P (MAP) Pulse Ox O2 Delivery O2 Flow Rate FiO2 02/12/17 22:27 89 18 137/95 98 Room Air 02/12/17 19:26 36.9 93 18 126/77 94 Room Air General Appearance: WD/WN, no apparent distress Head: atraumatic ENT: normal ENT inspection, hearing grossly normal Neck: supple Respiratory/Chest: chest non-tender, lungs clear Cardiovascular: regular rate, rhythm Abdomen/GI: normal bowel sounds, soft, + tenderness (mid abdominal area), + pertinent finding (umbilical hernia) Extremities/Musculoskelatal: no pedal edema Neurologic/Psych: alert, normal mood/affect, oriented x 3 Skin: normal color Diagnostics Laboratory Results Results Past 24 Hours Test 02/12/17 20:11 02/12/17 20:17 02/12/17 21:22 Range/Units Prothrombin Time 10.3 9.0-12.0 SECONDS Prothromb Time International Ratio 1.0 0.9-1.1 Activated Partial Thromboplast Time 27.8 21.0-31.0 SECONDS Partial Thromboplastin Ratio 1.1 Sodium Level 124 136-145 mmol/L Potassium Level 4.9 3.5-5.1 mmol/L Chloride Level 88 98-107 mmol/L Carbon Dioxide Level 28 21-32 mmol/L Anion Gap 8.0 3-11 mmol/L Blood Urea Nitrogen 39 7-18 mg/dl Creatinine 2.20 0.60-1.40 mg/dl Est Creatinine Clear Calc Drug Dose 46.5 ml/min Estimated GFR () 35.6 Estimated GFR (Non- 30.7 BUN/Creatinine Ratio 17.7 10-20 Random Glucose 859 70-99 mg/dl Calcium Level 10.2 8.5-10.1 mg/dl Total Bilirubin 0.7 0.2-1 mg/dl Direct Bilirubin 0.1 0-0.2 mg/dl Aspartate Amino Transf (AST/SGOT) 10 15-37 U/L Alanine Aminotransferase (ALT/SGPT) 24 12-78 U/L Alkaline Phosphatase 130 45-117 U/L Total Protein 7.8 6.4-8.2 gm/dl Albumin 3.3 3.4-5.0 gm/dl Lipase 664 73-393 U/L Beta-Hydroxybutyric Acid 2.19 0.2-2.81 mg/dL Bedside Troponin I < 0.030 0-0.045 ng/ml White Blood Count 8.06 4.8-10.8 K/uL Red Blood Count 5.36 4.7-6.1 M/uL Hemoglobin 16.1 14.0-18.0 g/dL Hematocrit 46.2 42-52 % Mean Corpuscular Volume 83.2 80-100 fL Mean Corpuscular Hemoglobin 29.0 25-34 pg Mean Corpuscular Hemoglobin Concent 34.8 32-36 g/dl Platelet Count 154 130-400 K/uL Neutrophils (%) (Auto) 71.8 % Lymphocytes (%) (Auto) 16.3 % Monocytes (%) (Auto) 9.2 % Eosinophils (%) (Auto) 2.0 % Basophils (%) (Auto) 0.5 % Neutrophils # (Auto) 5.79 1.4-6.5 K/uL Lymphocytes # (Auto) 1.31 1.2-3.4 K/uL Monocytes # (Auto) 0.74 0.11-0.59 K/uL Eosinophils # (Auto) 0.16 0-0.5 K/uL Basophils # (Auto) 0.04 0-0.2 K/uL Immature Granulocyte % (Auto) 0.2 % Immature Granulocyte # (Auto) 0.02 0.00-0.02 K/uL Diagnostic Radiology CHEST ONE VIEW PORTABLE CLINICAL HISTORY: Chest pain. COMPARISON STUDY: Chest CT November 26, 2013. FINDINGS: Lung volumes are diminished. There is no pneumothorax or pleural effusion. There is no evidence of pulmonary edema. There is no consolidation to suggest pneumonia. Mild left basilar opacity suggests atelectasis. The appearance of the chest is unchanged. IMPRESSION: No acute cardiopulmonary findings. No change in appearance of the chest. CT OF THE ABDOMEN AND PELVIS WITHOUT CONTRAST CLINICAL HISTORY: Abdominal pain and weakness. COMPARISON STUDY: CT of the abdomen and pelvis June 04, 2013. TECHNIQUE: Axial images of the abdomen and pelvis were obtained without IV contrast. Images were reviewed in the axial, sagittal, and coronal planes. A dose lowering technique was utilized adhering to the principles of ALARA. FINDINGS: A small gallstone is noted within the gallbladder. There is no pericholecystic infiltration. Note is made of moderate infiltration centered on the pancreatic head which is mildly enlarged and edematous. Evaluation is suboptimal on this unenhanced exam. There is no biliary or pancreatic ductal dilatation. A 4 mm calcification within the uncinate process of the pancreas is unlikely to represent a common bile duct calculus. Unenhanced images of the spleen, adrenal glands are unremarkable. There are small bilateral renal calculi which measure up to 3 mm. There are no ureteral calculi. There is no evidence for a bowel obstruction. The appendix is normal. An IVC filter is in place. There is a fat-containing umbilical hernia. There are no suspicious osseous lesions. There is no lymphadenopathy. IMPRESSION: 1. Moderate infiltration centered on the pancreatic head extending into the mesentery. The findings are consistent with acute pancreatitis. A follow-up abdominal CT in one month is recommended to exclude the unlikely possibility of an underlying mass. 2. Cholelithiasis. 4 mm calcification within the uncinate process of the pancreas is unlikely to represent a common bile duct calculus given its inferior location. This may reflect the sequela of chronic pancreatitis. 3. Bilateral nephrolithiasis. No ureteral calculi. Electronically signed by: Clovis Bender M.D. 02/12/2017 9:13 PM Electronically signed by: Clovis Bender M.D. 02/12/2017 8:17 PM Impression Assessment and Plan 61-year-old male with a past medical history of diabetes mellitus type II, hyperlipidemia, hypertension, DVT present to the ER with complaints of dizziness and tiredness. Associated with abdominal pain and nausea and vomiting. Acute on chronic pancreatitis: - Likely secondary to gallstones as evidenced by CT - CT abdomen and pelvis revealed findings consistent with acute pancreatitis and calcification suggestive of chronic pancreatitis - Lipase at 664, alkaline phosphatase at 130 - Nothing by mouth - Continue IV fluids - GI consult Nonketotic hyperglycemia: - Blood sugars on arrival at 859, received 10 units of regular insulin in the ER - 50 units twice a day Lantus with sliding scale, later added insulin drip due to persistent hyperglycemia - Hemoglobin A1c in August 2016 was 10.5 - Recheck hemoglobin A1c -Monitor electrolytes Pseudohyponatremia: Sodium on arrival at 124, likely secondary to elevated blood sugar - Corrected sodium 136 - Continue IV fluids and monitor Acute kidney injury: - Creatinine at 2.2, baseline at 1.6 - Likely secondary to dehydration - Continue IV fluids Dizziness or lightheadedness/fatigue: - Secondary to dehydration/hyperglycemia - Orthostatic vitals, monitor blood sugars - IV hydration -Hayde is currently on hold History of DVT: - Has a [place] filter - Continue Lovenox Depression: - Continue Effexor Peripheral neuropathy: - Continue Neurontin Hypertension: - Continue Zestril and diltiazem Attending Addendum: I have physically seen and examined this patient, have directed the resident's medical activities, and agree with the H&P as noted above with the following exceptions as noted. The patient is awake, alert and oriented 3, well-developed and well-nourished , normocephalic and atraumatic, lying in bed and in no acute distress. HEENT--PERRL, EOMI, mucous membranes and oropharynx dry. Neck--supple, no JVD or bruits, thyroid normal, trachea midline, no adenopathy. Heart--normal S1 and S2, no extra beats, no murmurs, rubs or gallops. Lungs--clear bilaterally with good air movement, no respiratory distress, no accessory muscle use. Abdomen--normal bowel sounds and soft, nontender and nondistended, no hernias or masses, no organomegaly. Extremities--no cyanosis, clubbing or edema. There are good distal pulses b/l. Dermatologic--normal skin turgor, normal color, warm and dry, no abnormal lymph nodes, no rash. Neurologic--cranial nerves II through XII grossly intact, motor and sensory examination normal. Rheumatologic--normal range of motion, nontender, muscles and joints. Psychiatric--normal affect. Assessment and Plan: Acute on chronic pancreatitis-- CT does not suggest gallstone etiology, this is only a single gallstone within the gallbladder, although additional gallbladder studies may be performed. Lipase mildly elevated at 664, will repeat daily labs in the a.m. Nothing by mouth. Normal saline at 100 mils per hour due to mild increase in acute kidney injury. Consult gastroenterology. Nonketotic hyperglycemia-- Patient admits that his blood sugar is usually in the 280 and above range. Suspect his insulin requirements are significantly higher than his present usage. For now we'll continue Lantus from increased from 50 twice a day to 60 twice a day and hydrate with IV fluids. He did receive IV regular insulin 10 units in the ED. His dosages of insulin will ultimately likely need to be significantly higher, probably closer to 90 units subcutaneous twice a day to get better control. Acute kidney injury/pseudohyponatremia-- Had noted above IV fluids, serial BMP and magnesium levels. Hold lisinopril, continue diltiazem. Level of Care Telemetry Advanced Directives Existing Advance Directive: No Existing Living Will: No Existing Power of Beadworker: No Resuscitation Status FULL RESUSCITATION VTE Prophylaxis VTE Risk Assessment Done? Y/N: Yes Risk Level: Moderate Given or contraindicated: Enoxaparin (Lovenox)SQ Social Service Consult None Apply Resident Tracking Resident Involvement: Resident Care Provided Care Provided: Adult Hospital Medicine
[2017-02-12] MEDS ORDERED: ONDANSETRON INJ 2 MG/ML 2 ML VIAL IV PRN (23:00)
[2017-02-12] MEDS ORDERED: ACETAMINOPHEN 325 MG TAB PO PRN (23:00)
[2017-02-12] MEDS ORDERED: POLYETHYLENE (MIRALAX) 17 GM PACK PO PRN (23:00)
[2017-02-12] MEDS ORDERED: ALBUTEROL HFA 8 GM INHALER INH PRN (23:30)
[2017-02-13 00:46] LABS: BUN/CREATININE RATIO 18.2 (10-20); CALCIUM 10.2 mg/dl (8.5-10.1); CREATININE 2.1 mg/dl (0.60-1.40); POTASSIUM 3.9 mmol/L (3.5-5.1)
[2017-02-13 00:54] VITALS: BP 132/79; PULSE 91; TEMP 37; O2SAT 92; BMI 34.7
[2017-02-13 00:57] LABS: BETA-HYDROXYBUTYRATE 2.93 mg/dL (0.2-2.81)
[2017-02-13] MEDS ORDERED: INSULIN GLARGINE SOLOSTAR 100 UNITS/ML 3 ML PEN SC SCH (01:15)
[2017-02-13] MEDS ORDERED: GLUCOSE 40% GEL 15 GM TUBE PO PRN (01:30)
[2017-02-13] MEDS ORDERED: GLUCOSE 10 TABS/TUBE PO PRN (01:30)
[2017-02-13] MEDS ORDERED: DEXTROSE 50% 50 ML SYR IV PRN (01:30)
[2017-02-13] MEDS ORDERED: GLUCAGON FOR INJ 1 MG VIAL SQ PRN (01:30)
[2017-02-13] MEDS: SODIUM CHLORIDE 0.9% 1000ML 1,000 ML IV SCH ×2 (01:49→08:28)
[2017-02-13 04:00] VITALS: BP 130/75; PULSE 94; TEMP 36.9; O2SAT 91
[2017-02-13] MEDS: INSULIN ASPART 100 UNITS/ML 3 ML PEN SC SCH ×6 (05:27→20:47)
[2017-02-13] MEDS: ENOXAPARIN 120 MG/0.8 ML SYR SQ SCH ×2 (05:27→15:55)
[2017-02-13 05:43] LABS: HEMATOCRIT 45.2 % (42-52); MEAN CORPUSCULAR HEMOGLOBIN 29.9 pg (25-34); MEAN CORPUSCULAR HGB CONC 35.6 g/dl (32-36); MEAN PLATELET VOLUME 12.3 fL (7.4-10.4); PLATELET COUNT 185 K/uL (130-400); RED BLOOD COUNT 5.38 M/uL (4.7-6.1); WHITE BLOOD COUNT 10.11 K/uL (4.8-10.8)
[2017-02-13 06:25] LABS: ALB/GLOB RATIO 0.7 (0.9-2); BUN/CREATININE RATIO 19.1 (10-20); CALCIUM 9.5 mg/dl (8.5-10.1); CREATININE 1.8 mg/dl (0.60-1.40); MAGNESIUM 2.3 mg/dl (1.8-2.4); PHOSPHORUS 2.8 mg/dl (2.5-4.9); POTASSIUM 4.2 mmol/L (3.5-5.1)
[2017-02-13 06:39] LABS: BETA-HYDROXYBUTYRATE 5.5 mg/dL (0.2-2.81)
[2017-02-13 07:12] LABS: ESTIMATED AVERAGE GLUCOSE 309 mg/dl; HA1C FLAG Normal (Normal)
[2017-02-13] MEDS ORDERED: INSULIN IV INFUSION PROTOCOL SCH (07:15)
[2017-02-13] MEDS ORDERED: PHARMACY GLYCEMIC MGMT CONSULT PRN (07:15)
[2017-02-13 07:32] VITALS: BP 139/87; PULSE 104; TEMP 37; O2SAT 92
[2017-02-13] MEDS ORDERED: INSULIN HUMAN REGULAR IV BOLUS 3 UNIT in SYRINGE 0 ML IV SCH (08:00)
[2017-02-13] MEDS: INSULIN REGULAR 250 UNITS in SODIUM CHLORIDE 0.9% 250ML 250 ML IV SCH ×5 (08:28→18:32)
[2017-02-13] MEDS ORDERED: ALBUTEROL HFA 8 GM INHALER INH PRN (08:45)
[2017-02-13] MEDS: LACTATED RINGER'S 1000ML 1,000 ML IV SCH ×4 (08:59→23:03)
[2017-02-13] MEDS: LISINOPRIL 20 MG TAB PO SCH (09:00)
[2017-02-13] MEDS: NYSTATIN POWDER 15GM BTL EXT SCH ×3 (09:00→20:44)
[2017-02-13] MEDS: ATORVASTATIN 20 MG TAB PO SCH (09:00)
[2017-02-13] MEDS: GABAPENTIN 400 MG CAP PO SCH ×2 (09:00→20:43)
[2017-02-13] MEDS: DILTIAZEM HCL 120 MG EXT REL CAP PO SCH (09:00)
[2017-02-13] MEDS: VENLAFAXINE HCL XR 150 MG CAPXR PO SCH (09:00)
--- NOTE | 2017-02-13 10:09 | Gastrointestinal Consultation ---
Gastrointestinal Consultation Date of Consultation: Feb 13, 2017 Attending Physician: Dr. Walters Consulting Physician: Rhonda Grijalva PA-C Reason for Consultation: Pancreatitis History of Present Illness Patient is a 61 year old male with a past medical history of type 2 diabetes mellitus, hyperlipidemia, hypertension, & DVT who presented to the hospital after experiencing 3 weeks of epigastric discomfort. He reports his symptoms were accompanied by nausea, vomiting, & diarrhea for the first two weeks. These symptoms resolved, however his pain persisted. He reports he finally presented to the hospital because his forced him to be evaluated. He reports his pain is an aching pain that begins in the epigastric region and radiates to the back. He rates it as a 5/10 in severity. Upon presentation to the hospital, a CT scan noted moderate infiltration of the pancreatic head that appeared enlarged and edematous. Unfortunately, no contrast was given for the imaging study so evaluation was somewhat limited. There was a small 4 mm calcification noted within the uncinate process of the pancreas, but was not felt to represent a stone in the CBD. His LFTs & bilirubin are unremarkable. The patient 's lipase was 664 upon presentation to the hospital. He reports that his abdominal pain is improving. His Lipase is 470 today. He is a poorly controlled type 2 diabetic as evidenced by his HA1C of 12.4. He is unsure which particular diabetes meds he takes, but the chart reflects he is prescribed Novalog & Lantus. His glucose is 482. His BUN/CR is 34/1.8. The patient denies family history of pancreatic issues or GI malignancy. Past Medical/Surgical History Medical Problems: (1) Dehydration Status: Acute (2) Hyperglycemia Status: Acute (3) Hyponatremia Status: Acute (4) Pancreatitis Status: Acute Past Medical History: DM2, HLD, HTN, DVT Past Surgical History: [place] filter placement hernia repair Social History Smoking Status: Current Every Day Smoker Alcohol Use: none Marital Status: Allergies Coded Allergies: Lanolin (Verified Allergy, Unknown, WOOL WAX ALCOHOL, 06/14/16) Moxifloxacin (Verified Allergy, Unknown, hives, 06/14/16) pt SOAPCLEAN (Verified Allergy, Unknown, DETERGENTS, 06/14/16) Aspirin (Verified Adverse Reaction, Mild, STOMACH DISTRESS, 06/14/16) Current Medications Home Meds and Scripts Medications Dose Route/Sig Max Daily Dose Days Date Category Dose Instructions Nystatin (Nystatin (Topical)) 100,000 Unit/Gm Pow 1 Appln TOP PRN UD 02/12/17 Reported Ventolin Hfa (Albuterol) 200 Puffs/57759 Mcg Aers 2 Puff INH Q4 PRN 02/12/17 Reported Cialis (Tadalafil) 20 Mg Tab 20 Mg PO UD 02/12/17 Reported Trazodone (Trazodone HCl) 100 Mg Tab 100 Mg PO HS 06/14/16 Reported Novolog Flexpen (Insulin Aspart) 100 Units/Ml Inj 1 Dose SC TID 06/14/16 Reported 35 UNITS AM 45 UNITS AT LUNCH 120 UNITS AT HS IN ADDITION TO SLIDING SCALE FOR ALL ABOVE Melatonin Maximum Strengt (Melatonin) 5 Mg Tab 3 Tab PO HS 30 06/14/16 Reported Zestril (Lisinopril) 30 Mg Tab 30 Mg PO QAM 06/14/16 Reported Lantus Solostar (Insulin Glargine) 100 Unit/Ml Inj 50 Dose SC AMPM 06/14/16 Reported 60 UNITS AM 40 UNITS PM Neurontin (Gabapentin) 400 Mg Cap 400 Mg PO BID 06/14/16 Reported Lovenox (Enoxaparin Sodium) 120 Mg/0.8 Ml Inj 120 Mg SQ Q12H 06/14/16 Reported Effexor Xr (Venlafaxine Hcl) 150 Mg Cap 1 Cap PO QAM 30 06/14/16 Reported Tiazac (Diltiazem HCl) 120 Mg Capcr 120 Mg PO QAM 06/14/16 Reported Lipitor (Atorvastatin Calcium) 40 Mg Tab 40 Mg PO QAM 06/14/16 Reported Review of Systems Constitutional: No fever, No chills Eyes: No problem reported Respiratory: No problem reported Cardiac: No chest pain Abdomen: + pain, + nausea, No vomiting, No diarrhea, No constipation, No GI bleeding Musculoskeletal: No joint pain Neuro: No problem reported Psych: No problem reported Skin: No problem reported Physical Exam Date Time Temp Pulse Resp B/P (MAP) Pulse Ox O2 Delivery O2 Flow Rate FiO2 02/13/17 08:00 Room Air 02/13/17 07:32 37.0 104 18 139/87 (104) 92 02/13/17 04:00 36.9 94 20 130/75 (93) 91 Room Air 02/13/17 04:00 Room Air 02/13/17 00:54 37.0 91 20 132/79 92 Room Air 02/13/17 00:15 92 20 144/97 94 Room Air 02/12/17 22:27 89 18 137/95 98 Room Air 02/12/17 19:26 36.9 93 18 126/77 94 Room Air General Appearance: WD/WN, no apparent distress Eyes: normal inspection, PERRL Respiratory/Chest: lungs clear, normal breath sounds Cardiovascular: regular rate, rhythm Abdomen: normal bowel sounds, non tender, soft Extremities: non-tender Neurologic/Psych: alert, oriented x 3 Skin: normal color Laboratory Results Last 24 Hours Test 02/12/17 20:11 02/12/17 20:17 02/12/17 21:22 02/12/17 23:49 Prothrombin Time 10.3 SECONDS Prothromb Time International Ratio 1.0 Activated Partial Thromboplast Time 27.8 SECONDS Partial Thromboplastin Ratio 1.1 Sodium Level 124 mmol/L 132 mmol/L Potassium Level 4.9 mmol/L 3.9 mmol/L Chloride Level 88 mmol/L 97 mmol/L Carbon Dioxide Level 28 mmol/L 28 mmol/L Anion Gap 8.0 mmol/L 7.0 mmol/L Blood Urea Nitrogen 39 mg/dl 38 mg/dl Creatinine 2.20 mg/dl 2.10 mg/dl Est Creatinine Clear Calc Drug Dose 46.5 ml/min 48.8 ml/min Estimated GFR () 35.6 37.7 Estimated GFR (Non- 30.7 32.5 BUN/Creatinine Ratio 17.7 18.2 Random Glucose 859 mg/dl 590 mg/dl Calcium Level 10.2 mg/dl 10.2 mg/dl Total Bilirubin 0.7 mg/dl Direct Bilirubin 0.1 mg/dl Aspartate Amino Transf (AST/SGOT) 10 U/L Alanine Aminotransferase (ALT/SGPT) 24 U/L Alkaline Phosphatase 130 U/L Total Protein 7.8 gm/dl Albumin 3.3 gm/dl Lipase 664 U/L Beta-Hydroxybutyric Acid 2.19 mg/dL 2.93 mg/dL Bedside Troponin I < 0.030 ng/ml White Blood Count 8.06 K/uL Red Blood Count 5.36 M/uL Hemoglobin 16.1 g/dL Hematocrit 46.2 % Mean Corpuscular Volume 83.2 fL Mean Corpuscular Hemoglobin 29.0 pg Mean Corpuscular Hemoglobin Concent 34.8 g/dl Platelet Count 154 K/uL Neutrophils (%) (Auto) 71.8 % Lymphocytes (%) (Auto) 16.3 % Monocytes (%) (Auto) 9.2 % Eosinophils (%) (Auto) 2.0 % Basophils (%) (Auto) 0.5 % Neutrophils # (Auto) 5.79 K/uL Lymphocytes # (Auto) 1.31 K/uL Monocytes # (Auto) 0.74 K/uL Eosinophils # (Auto) 0.16 K/uL Basophils # (Auto) 0.04 K/uL Immature Granulocyte % (Auto) 0.2 % Immature Granulocyte # (Auto) 0.02 K/uL Test 02/13/17 00:06 02/13/17 01:31 02/13/17 04:03 02/13/17 05:20 Bedside Glucose 513 mg/dl 542 mg/dl 419 mg/dl White Blood Count 10.11 K/uL Red Blood Count 5.38 M/uL Hemoglobin 16.1 g/dL Hematocrit 45.2 % Mean Corpuscular Volume 84.0 fL Mean Corpuscular Hemoglobin 29.9 pg Mean Corpuscular Hemoglobin Concent 35.6 g/dl RDW Standard Deviation 40.3 fL RDW Coefficient of Variation 13.2 % Platelet Count 185 K/uL Mean Platelet Volume 12.3 fL Sodium Level 134 mmol/L Potassium Level 4.2 mmol/L Chloride Level 99 mmol/L Carbon Dioxide Level 31 mmol/L Anion Gap 4.0 mmol/L Blood Urea Nitrogen 34 mg/dl Creatinine 1.80 mg/dl Est Creatinine Clear Calc Drug Dose 56.5 ml/min Estimated GFR () 45.4 Estimated GFR (Non- 39.2 BUN/Creatinine Ratio 19.1 Random Glucose 482 mg/dl Estimated Average Glucose 309 mg/dl Hemoglobin A1c 12.4 % Calcium Level 9.5 mg/dl Phosphorus Level 2.8 mg/dl Magnesium Level 2.3 mg/dl Total Bilirubin 0.8 mg/dl Aspartate Amino Transf (AST/SGOT) 7 U/L Alanine Aminotransferase (ALT/SGPT) 23 U/L Alkaline Phosphatase 100 U/L Total Protein 7.3 gm/dl Albumin 2.9 gm/dl Globulin 4.4 gm/dl Albumin/Globulin Ratio 0.7 Lipase 470 U/L Beta-Hydroxybutyric Acid 5.50 mg/dL Hepatitis C Antibody Screen NEG Test 02/13/17 06:30 02/13/17 07:30 Bedside Glucose 443 mg/dl 347 mg/dl Impression Patient is a 61 year old male with acute pancreatitis in the setting of poorly- controlled diabetes, hyperlipidemia, & recent viral infection. Plan 1) NPO. 2) Aggressive IV fluid hydration. 3) Pain control and anti-emetics per primary team. 4) Agree with radiology--CT scan (with contrast) in 1 month to exclude underlying pancreatic mass. 5) Recommend optimizing control of blood sugars. Recommend patient get established with an agent contract clerk as an outpatient for his poorly controlled type 2 diabetes mellitus. Would recommend continuation of his outpatient statin therapy as well and consideration of a baby aspirin daily. 6) Supportive care per primary team. Thank you for allowing us to participate in the care of this patient. If you should have any further questions or concerns, do not hesitate to contact us. Agree with [facility] Real as above Abd: Soft, NT, ND, +BS Continue current therapy Continue supportive care Consider advancing diet in AM if pain free
[2017-02-13 11:17] VITALS: BP 120/73; PULSE 96; TEMP 37.4; O2SAT 96
[2017-02-13 11:19] VITALS: BMI 34.3
[2017-02-13 11:21] VITALS: Ht 185.4 cm; Wt 124.1 kg
[2017-02-13 12:36] LABS: BUN/CREATININE RATIO 19.4 (10-20); CALCIUM 9.1 mg/dl (8.5-10.1); CREATININE 1.6 mg/dl (0.60-1.40)
[2017-02-13] MEDS ORDERED: INSULIN GLARGINE SOLOSTAR 100 UNITS/ML 3 ML PEN SC ONE (13:30)
--- NOTE | 2017-02-13 13:42 | Pharmacy Progress Note ---
Glycemic Control Intl Consult Date of Service Feb 13, 2017. Scope Glycemic Pharmacist consulted by Dr Sanchez on 02/13/17 for glycemic control and to write orders per [facility] inpatient glycemic control protocol Objective Weight (Kilograms): 117.800 Accuchecks BSG (last 24hrs): Test 02/12/17 20:11 02/12/17 23:49 02/13/17 00:06 02/13/17 01:31 Random Glucose 859 mg/dl (70-99) 590 mg/dl (70-99) Bedside Glucose 513 mg/dl (70-99) 542 mg/dl (70-99) Test 02/13/17 04:03 02/13/17 05:20 02/13/17 06:30 02/13/17 07:30 Bedside Glucose 419 mg/dl (70-99) 443 mg/dl (70-99) 347 mg/dl (70-99) Random Glucose 482 mg/dl (70-99) Test 02/13/17 09:29 02/13/17 10:49 Bedside Glucose 161 mg/dl (70-99) 157 mg/dl (70-99) Laboratory Data (last 24hrs) Test 02/12/17 20:11 02/12/17 21:22 02/12/17 23:49 02/13/17 05:20 Anion Gap 8.0 mmol/L 7.0 mmol/L 4.0 mmol/L BUN/Creatinine Ratio 17.7 18.2 19.1 Blood Urea Nitrogen 39 mg/dl 38 mg/dl 34 mg/dl Creatinine 2.20 mg/dl 2.10 mg/dl 1.80 mg/dl Potassium Level 4.9 mmol/L 3.9 mmol/L 4.2 mmol/L Sodium Level 124 mmol/L 132 mmol/L 134 mmol/L White Blood Count 8.06 K/uL 10.11 K/uL Red Blood Count 5.36 M/uL Hemoglobin 16.1 g/dL Hematocrit 46.2 % Mean Corpuscular Volume 83.2 fL Mean Corpuscular Hemoglobin 29.0 pg Mean Corpuscular Hemoglobin Concent 34.8 g/dl Platelet Count 154 K/uL Neutrophils (%) (Auto) 71.8 % Lymphocytes (%) (Auto) 16.3 % Monocytes (%) (Auto) 9.2 % Eosinophils (%) (Auto) 2.0 % Basophils (%) (Auto) 0.5 % Neutrophils # (Auto) 5.79 K/uL Lymphocytes # (Auto) 1.31 K/uL Monocytes # (Auto) 0.74 K/uL Eosinophils # (Auto) 0.16 K/uL Basophils # (Auto) 0.04 K/uL Hemoglobin A1c 12.4 % HbA1c Test 02/13/17 05:20 Hemoglobin A1c 12.4 % (4.5-5.6) H Recent Pertinent Medications Outpatient Anti-diabetic Regimen: * per patient: * Lantus per scale in morning (scale starts at 50 units but typically gives self 65-70 units) * Lantus 40 units in evening * Novolog with meals about 65-70 units * per diabetes notes in [employer] * Lantus 40 units in evening * Novolog 40 units with meals (twice daily for TDD of 120 units) The patient is currently receiving: * Basal insulin: Lantus 50 units at 0152 * Correctional Insulin: PATIENT ON INSULIN GTT * Prandial insulin: PATIENT ON INSULIN GTT Risk Factors for Insulin Resistance: * Infection: pancreatitis * IVF: LR @ 200 mls/hr * Diet: NPO Assessment & Plan ASSESSMENT: * ADA & AACE recommend a goal blood sugar range 140-180 mg/dl for the majority of critically ill & non-critically ill patients. However, more stringent targets may be selected in individual cases. * Mr Haney is a 61 y/o M with a PMH of HTN and DVT admitted with pancreatitis. His A1C is 12.4% indicating patient is not controlled. * I interviewed the patient this morning via telephone. The patient could not recall his doses of insulin very well and had some hesitancy. I'm not sure if patient is a reliable historian. The doses that he reports differ vastly from diabetes notes in [employer] which indicate diet (drinks many sugary drinks) and immobility are barroso problems for patient. Patient notes he misses doses maybe two times per week. His blood sugars in the morning are around 250 mg/dL and 300 mg/dL in the evening. Patient's HbA1C has increased recently from 10 to 12%. * The patient initially presented with blood sugars in the 800s. He was given 10 units IV insulin in ED and started on home dose of Lantus 50 units SQ BID ( first dose at 0152). Patient's blood sugars remained in the 400s and an insulin infusion was started. In the mid-morning, the patient's insulin infusion stabilized at 1.7 units/hr. He remains NPO for pancreatitis. * Since the patient received Lantus 50 units at 0200, it is reasonable to project his total daily dose is probably around 80-90 units/day. Plan to give Lantus 40 units today to equal 90 units plus additional 20 units at bedtime if blood sugar over 200 mg/dL. Based upon this total basal insulin dose, plan for correction factor of 10. PLAN FOR INPATIENT GLYCEMIC CONTROL: * Starting IV insulin infusion per moderate (moderate/severe) stress protocol -- > discontinue at 1930, 6 hours after SQ Lantus given * Goal Range 140 - 180 mg/dl * In the critical care setting, continuous IV insulin infusion has been shown to be the best method for achieving glycemic targets. * Basal insulin with LANTUS 40 units SQ x 1 then Lantus 20 units tonight if BSG greater than 180 mg/dL. Lantus 45 units SQ BID starting tomorrow evening. * Correctional Insulin with NOVOLOG / REGULAR per scale ACHS or Q6hrs while NPO * Goal Range: Low 110 mg/dL - High 140 mg/dL * Correction Factor: 10 mg/dL/unit * Nutritional / Prandial insulin per carb ratio of 1 unit per 3 grams CHO consumed * Please note that the plan above was derived based on current level of insulin resistance and hospital stress. These recommendations are appropriate for inpatient admission only. Plan of care upon discharge will need to be reassessed to avoid potential outpatient hypo/hyperglycemia. Thank you.
--- NOTE | 2017-02-13 15:41 | Family Medicine Progress Note ---
Progress Note Date of Service Feb 13, 2017. Subjective Pt evaluation today including: conversation w/ patient, physical exam, chart review, lab review, review of studies Pain: 8/10 intermittent epigastric pain Voiding: no voiding problems, no incontinence Constitutional: No fever, No chills, No sweats, No fatigue Respiratory: No cough, No sputum, No wheezing, No shortness of breath Cardiovascular: No chest pain Abdomen: + pain, No nausea, No vomiting, No diarrhea, No constipation Medications Current Inpatient Medications Medications (Trade) Dose Ordered Sig/Bob Route Start Time Stop Time Status Last Admin Dose Admin Acetaminophen (Tylenol Tab) 650 mg Q4H PRN PO 02/12/17 23:00 03/14/17 22:59 Ondansetron HCl (Zofran Inj) 4 mg Q6H PRN IV 02/12/17 23:00 03/14/17 22:59 Polyethylene (Miralax Powder Packet) 17 gm DAILY PRN PO 02/12/17 23:00 03/14/17 22:59 Atorvastatin Calcium (Lipitor Tab) 40 mg QAM PO 02/13/17 09:00 03/15/17 08:59 Diltiazem HCl (TIAzac CAP) 120 mg QAM PO 02/13/17 09:00 03/15/17 08:59 Enoxaparin Sodium (Lovenox Inj) 120 mg Q12H SQ 02/13/17 04:00 03/15/17 03:59 02/13/17 05:27 120 MG Gabapentin (Neurontin Cap) 400 mg BID PO 02/13/17 09:00 03/15/17 08:59 Lisinopril (Zestril Tab) 30 mg QAM PO 02/13/17 09:00 03/15/17 08:59 Nystatin (Mycostatin Powder) 1 appln TID EXT 02/13/17 09:00 03/15/17 08:59 02/13/17 14:22 1 APPLN Trazodone HCl (Desyrel Tab) 100 mg HS PO 02/13/17 21:00 03/15/17 20:59 Venlafaxine HCl (effeXOR EXTENDED REL CAP) 150 mg QAM PO 02/13/17 09:00 03/15/17 08:59 Glucose (Glucose 40% Gel) 15-30 GRAMS 15 GRAMS... UD PRN PO 02/13/17 01:30 03/15/17 01:29 Glucose (Glucose Chew Tab) 4-8 Tablets 4 Tabl... UD PRN PO 02/13/17 01:30 03/15/17 01:29 Dextrose (Dextrose 50% 50ML Syringe) 25-50ML OF 50% DW IV FOR... UD PRN IV 02/13/17 01:30 03/15/17 01:29 Glucagon (Glucagon Inj) 1 mg UD PRN SQ 02/13/17 01:30 03/15/17 01:29 Miscellaneous Information (Consult Glycemic Management Pharmacy) 1 ea UD PRN N/A 02/13/17 07:15 03/15/17 07:14 Insulin Human Regular 250 units/ Sodium Chloride 252.5 ml @ 0 mls/hr DAILY@1130 IV 02/13/17 08:00 02/13/17 19:30 02/13/17 14:37 2.4 MLS/HR Insulin Aspart (novoLOG ASPART) SLIDING SCALE PCHS AR 02/13/17 09:00 02/13/17 19:30 Albuterol (Ventolin Hfa Inhaler) 2 puffs Q4 PRN INH 02/13/17 08:45 03/14/17 23:29 Lactated Ringer's 1,000 ml @ 200 mls/hr Q5H IV 02/13/17 08:45 03/15/17 08:44 02/13/17 14:22 200 MLS/HR Miscellaneous (Stop Order) 1 ea ONE ONCE N/A 02/13/17 19:30 02/13/17 19:31 Insulin Aspart (novoLOG ASPART) SLIDING SCALE ACHS AR 02/13/17 21:00 03/15/17 20:59 Insulin Aspart (novoLOG ASPART) SLIDING SCALE TODAY@0000,0400 AR 02/14/17 00:00 02/14/17 04:01 Miscellaneous Information (Pending Order) 1 ea TODAY@2100 N/A 02/13/17 21:00 02/13/17 21:01 Insulin Glargine (Lantus Solostar Pen) 20 units HS PRN SC 02/13/17 21:00 02/13/17 23:59 Insulin Glargine (Lantus Solostar Pen) 45 units BID AR 02/14/17 09:00 03/16/17 08:59 Objective Vital Signs Date Time Temp Pulse Resp B/P (MAP) Pulse Ox O2 Delivery O2 Flow Rate FiO2 02/13/17 12:50 Room Air 02/13/17 12:00 Room Air 02/13/17 11:17 37.4 96 16 120/73 (89) 96 Room Air 02/13/17 08:00 Room Air 02/13/17 07:32 37.0 104 18 139/87 (104) 92 02/13/17 04:00 36.9 94 20 130/75 (93) 91 Room Air 02/13/17 04:00 Room Air 02/13/17 00:54 37.0 91 20 132/79 92 Room Air 02/13/17 00:15 92 20 144/97 94 Room Air 02/12/17 22:27 89 18 137/95 98 Room Air 02/12/17 19:26 36.9 93 18 126/77 94 Room Air Physical Exam General Appearance: WD/WN, no apparent distress Eyes: normal inspection, sclerae normal Neck: supple, trachea midline Respiratory/Chest: chest non-tender, lungs clear, normal breath sounds Cardiovascular: regular rate, rhythm, no edema, no gallop Abdomen: normal bowel sounds, soft, + tenderness (2/10 with palpatiion) Extremities: no pedal edema, no calf tenderness Neurologic/Psychiatric: alert, normal mood/affect, oriented x 3 Laboratory Results Results Past 24 Hours Test 02/12/17 20:11 02/12/17 20:17 02/12/17 21:22 02/12/17 23:49 Range/Units Prothrombin Time 10.3 9.0-12.0 SECONDS Prothromb Time International Ratio 1.0 0.9-1.1 Activated Partial Thromboplast Time 27.8 21.0-31.0 SECONDS Partial Thromboplastin Ratio 1.1 Sodium Level 124 132 136-145 mmol/L Potassium Level 4.9 3.9 3.5-5.1 mmol/L Chloride Level 88 97 98-107 mmol/L Carbon Dioxide Level 28 28 21-32 mmol/L Anion Gap 8.0 7.0 3-11 mmol/L Blood Urea Nitrogen 39 38 7-18 mg/dl Creatinine 2.20 2.10 0.60-1.40 mg/dl Est Creatinine Clear Calc Drug Dose 46.5 48.8 ml/min Estimated GFR () 35.6 37.7 Estimated GFR (Non- 30.7 32.5 BUN/Creatinine Ratio 17.7 18.2 10-20 Random Glucose 859 590 70-99 mg/dl Calcium Level 10.2 10.2 8.5-10.1 mg/dl Total Bilirubin 0.7 0.2-1 mg/dl Direct Bilirubin 0.1 0-0.2 mg/dl Aspartate Amino Transf (AST/SGOT) 10 15-37 U/L Alanine Aminotransferase (ALT/SGPT) 24 12-78 U/L Alkaline Phosphatase 130 45-117 U/L Total Protein 7.8 6.4-8.2 gm/dl Albumin 3.3 3.4-5.0 gm/dl Lipase 664 73-393 U/L Beta-Hydroxybutyric Acid 2.19 2.93 0.2-2.81 mg/dL Bedside Troponin I < 0.030 0-0.045 ng/ml White Blood Count 8.06 4.8-10.8 K/uL Red Blood Count 5.36 4.7-6.1 M/uL Hemoglobin 16.1 14.0-18.0 g/dL Hematocrit 46.2 42-52 % Mean Corpuscular Volume 83.2 80-100 fL Mean Corpuscular Hemoglobin 29.0 25-34 pg Mean Corpuscular Hemoglobin Concent 34.8 32-36 g/dl Platelet Count 154 130-400 K/uL Neutrophils (%) (Auto) 71.8 % Lymphocytes (%) (Auto) 16.3 % Monocytes (%) (Auto) 9.2 % Eosinophils (%) (Auto) 2.0 % Basophils (%) (Auto) 0.5 % Neutrophils # (Auto) 5.79 1.4-6.5 K/uL Lymphocytes # (Auto) 1.31 1.2-3.4 K/uL Monocytes # (Auto) 0.74 0.11-0.59 K/uL Eosinophils # (Auto) 0.16 0-0.5 K/uL Basophils # (Auto) 0.04 0-0.2 K/uL Immature Granulocyte % (Auto) 0.2 % Immature Granulocyte # (Auto) 0.02 0.00-0.02 K/uL Test 02/13/17 00:06 02/13/17 01:31 02/13/17 04:03 02/13/17 05:20 Range/Units Bedside Glucose 513 542 419 70-99 mg/dl White Blood Count 10.11 4.8-10.8 K/uL Red Blood Count 5.38 4.7-6.1 M/uL Hemoglobin 16.1 14.0-18.0 g/dL Hematocrit 45.2 42-52 % Mean Corpuscular Volume 84.0 80-100 fL Mean Corpuscular Hemoglobin 29.9 25-34 pg Mean Corpuscular Hemoglobin Concent 35.6 32-36 g/dl RDW Standard Deviation 40.3 36.4-46.3 fL RDW Coefficient of Variation 13.2 11.5-14.5 % Platelet Count 185 130-400 K/uL Mean Platelet Volume 12.3 7.4-10.4 fL Sodium Level 134 136-145 mmol/L Potassium Level 4.2 3.5-5.1 mmol/L Chloride Level 99 98-107 mmol/L Carbon Dioxide Level 31 21-32 mmol/L Anion Gap 4.0 3-11 mmol/L Blood Urea Nitrogen 34 7-18 mg/dl Creatinine 1.80 0.60-1.40 mg/dl Est Creatinine Clear Calc Drug Dose 56.5 ml/min Estimated GFR () 45.4 Estimated GFR (Non- 39.2 BUN/Creatinine Ratio 19.1 10-20 Random Glucose 482 70-99 mg/dl Estimated Average Glucose 309 mg/dl Hemoglobin A1c 12.4 4.5-5.6 % Calcium Level 9.5 8.5-10.1 mg/dl Phosphorus Level 2.8 2.5-4.9 mg/dl Magnesium Level 2.3 1.8-2.4 mg/dl Total Bilirubin 0.8 0.2-1 mg/dl Aspartate Amino Transf (AST/SGOT) 7 15-37 U/L Alanine Aminotransferase (ALT/SGPT) 23 12-78 U/L Alkaline Phosphatase 100 45-117 U/L Total Protein 7.3 6.4-8.2 gm/dl Albumin 2.9 3.4-5.0 gm/dl Globulin 4.4 2.5-4.0 gm/dl Albumin/Globulin Ratio 0.7 0.9-2 Lipase 470 73-393 U/L Beta-Hydroxybutyric Acid 5.50 0.2-2.81 mg/dL Hepatitis C Antibody Screen NEG NEG Test 02/13/17 06:30 02/13/17 07:30 02/13/17 09:29 02/13/17 10:49 Range/Units Bedside Glucose 443 347 161 157 70-99 mg/dl Test 02/13/17 11:39 02/13/17 12:06 02/13/17 12:25 02/13/17 13:31 Range/Units Bedside Glucose 177 183 181 70-99 mg/dl Sodium Level 140 136-145 mmol/L Potassium Level 4.0 3.5-5.1 mmol/L Chloride Level 105 98-107 mmol/L Carbon Dioxide Level 30 21-32 mmol/L Anion Gap 5.0 3-11 mmol/L Blood Urea Nitrogen 31 7-18 mg/dl Creatinine 1.60 0.60-1.40 mg/dl Est Creatinine Clear Calc Drug Dose 63.5 ml/min Estimated GFR () 52.4 Estimated GFR (Non- 45.2 BUN/Creatinine Ratio 19.4 10-20 Random Glucose 189 70-99 mg/dl Calcium Level 9.1 8.5-10.1 mg/dl Test 02/13/17 14:32 Range/Units Bedside Glucose 205 70-99 mg/dl Assessment and Plan Patient is a 61 year old male that presents with a 3 week history of epigastric pain 1) Acute on Chronic Pancreatitis - Most likely related to chronic metabolic issues including severely uncontrolled diabetes with blood glucose of 859 on presentation - CT Scan: Moderate infiltration centered on the pancreatic head extending into the mesentery. The findings are consistent with acute pancreatitis. Follow-up abdominal CT in one month is recommended to exclude the unlikely possibility of an underlying mass. - Lipase improved from 664 --> 470 - IV Fluids --> Lactate Ringers at 200mls/hr - NPO - GI Consult --> Continue with fluids and keep NPO 2) Nonketotic Hyperglycemia - Uncontrolled Diabetes Mellitus --> Current home dose of Lantus 50mg BID with questionable diet and postprandial coverage - Sugars became well controlled on IV Insulin Drip - Blood sugars on arrival at 859, received 10 units of regular insulin in the ER - Hemoglobin A1c today found to be 12.4, was previously 10.5 in August - CMP q6h 3) Pseudohyponatremia - Resolved with IV Insulin therapy --> 139 this evening - Sodium on arrival at 124, likely secondary to elevated blood sugar - Continue IV fluids and CMP ordered for tomorrow 4) Acute kidney injury - Creatinine at 2.2, baseline at 1.6 - Likely secondary to dehydration - Continue IV fluids 5) Dizziness or lightheadedness/fatigue - Resolved this morning with IV hydration - Secondary to dehydration/hyperglycemia - Continue IV Lactate Ringers 6) History of DVT - Has a Colton filter - Continue Lovenox 7) Depression - Continue Effexor 8) Peripheral neuropathy - Continue Neurontin 9) Hypertension - Continue Zestril and diltiazem 10) Disposition - Plan to hopefully transition to PO tomorrow and continue to monitor Resident Physician Supervision Note: I interviewed and examined the patient. Discussed with Dr. Rizo and agree with findings and plan as documented in the note. Any exceptions or clarifications are listed here: None Documented By: Delmar Walters feeling better less abdominal pain vitals noted nad abd soft surprisingly nontender no guarding/rebound labs reviewed, outpt records reviewed pancreatitis - appearing to be acute on chronic probably from uncontrolled DM and metabolic duress -IVF, NPO but since improving so much can have sips/meds uncontrolled DM -insulin gtt for now, extensive education to be done Resident Tracking Resident Involvement: Resident Care Provided Care Provided: Adult Hospital Medicine
[2017-02-13 16:56] LABS: BUN/CREATININE RATIO 19.5 (10-20); CALCIUM 9.3 mg/dl (8.5-10.1); CREATININE 1.5 mg/dl (0.60-1.40)
[2017-02-13] MEDS ORDERED: [UNRECOGNIZED DRUG - REMARK] ONE (19:30)
[2017-02-13 19:31] VITALS: BP 146/94; PULSE 94; TEMP 36.9; O2SAT 95
[2017-02-13] MEDS: TRAZODONE HCL 100 MG TAB PO SCH (20:44)
[2017-02-13] MEDS ORDERED: INSULIN GLARGINE SOLOSTAR 100 UNITS/ML 3 ML PEN SC PRN (21:00)
[2017-02-13] MEDS ORDERED: MELATONIN PO SCH (21:00)
[2017-02-14] VITALS: BP 159/93; PULSE 96; TEMP 37; O2SAT 92
[2017-02-14 04:00] VITALS: BP 147/90; PULSE 94; TEMP 37; O2SAT 95
[2017-02-14] MEDS: LACTATED RINGER'S 1000ML 1,000 ML IV SCH ×5 (04:13→23:22)
[2017-02-14] MEDS: INSULIN ASPART 100 UNITS/ML 3 ML PEN SC SCH ×5 (04:15→17:33)
[2017-02-14] MEDS: ENOXAPARIN 120 MG/0.8 ML SYR SQ SCH ×2 (04:16→15:14)
[2017-02-14 07:07] LABS: HEMATOCRIT 44.9 % (42-52); MEAN CELL VOLUME 85.7 fL (80-100); MEAN CORPUSCULAR HEMOGLOBIN 29.4 pg (25-34); MEAN CORPUSCULAR HGB CONC 34.3 g/dl (32-36); MEAN PLATELET VOLUME 11.7 fL (7.4-10.4); PLATELET COUNT 181 K/uL (130-400); RED BLOOD COUNT 5.24 M/uL (4.7-6.1); WHITE BLOOD COUNT 10.13 K/uL (4.8-10.8)
[2017-02-14 07:46] LABS: BUN/CREATININE RATIO 16.7 (10-20); CALCIUM 8.9 mg/dl (8.5-10.1); CREATININE 1.4 mg/dl (0.60-1.40); MAGNESIUM 1.8 mg/dl (1.8-2.4); POTASSIUM 3.4 mmol/L (3.5-5.1)
[2017-02-14 07:48] VITALS: BP 154/75; PULSE 92; TEMP 36.6; O2SAT 94
[2017-02-14 07:54] LABS: ALB/GLOB RATIO 0.7 (0.9-2); CHOLESTEROL/HDL RATIO 6.7
[2017-02-14] MEDS: NYSTATIN POWDER 15GM BTL EXT SCH ×3 (08:42→20:24)
[2017-02-14] MEDS: LISINOPRIL 20 MG TAB PO SCH (08:42)
[2017-02-14] MEDS: DILTIAZEM HCL 120 MG EXT REL CAP PO SCH (08:42)
[2017-02-14] MEDS: ATORVASTATIN 20 MG TAB PO SCH (08:42)
[2017-02-14] MEDS: GABAPENTIN 400 MG CAP PO SCH ×2 (08:42→21:18)
[2017-02-14] MEDS: VENLAFAXINE HCL XR 150 MG CAPXR PO SCH (08:42)
[2017-02-14] MEDS: INSULIN GLARGINE SOLOSTAR 100 UNITS/ML 3 ML PEN SC SCH ×2 (08:48→20:28)
[2017-02-14] MEDS: POTASSIUM CHLORIDE 20 MEQ TABCR PO SCH (08:58)
--- NOTE | 2017-02-14 09:59 | Pharmacy Progress Note ---
Glycemic Control Progress Note Date of Service Feb 14, 2017. Scope Glycemic Pharmacist consulted for glycemic control to write orders per [facility] inpatient glycemic control protocol. Objective Accuchecks BSG (last 24hrs): Test 02/13/17 10:49 02/13/17 11:39 02/13/17 12:06 02/13/17 12:25 Bedside Glucose 157 mg/dl (70-99) 177 mg/dl (70-99) 183 mg/dl (70-99) Random Glucose 189 mg/dl (70-99) Test 02/13/17 13:31 02/13/17 14:32 02/13/17 15:28 02/13/17 16:22 Bedside Glucose 181 mg/dl (70-99) 205 mg/dl (70-99) 178 mg/dl (70-99) Random Glucose 182 mg/dl (70-99) Test 02/13/17 16:40 02/13/17 17:28 02/13/17 18:31 02/13/17 19:50 Bedside Glucose 173 mg/dl (70-99) 156 mg/dl (70-99) 138 mg/dl (70-99) 141 mg/dl (70-99) Test 02/14/17 00:05 02/14/17 04:12 02/14/17 06:40 02/14/17 07:03 Bedside Glucose 136 mg/dl (70-99) 147 mg/dl (70-99) 171 mg/dl (70-99) Random Glucose 180 mg/dl (70-99) HbA1c: Test 02/13/17 05:20 Hemoglobin A1c 12.4 % (4.5-5.6) H Recent Pertinent Medications The patient is currently receiving: * Basal insulin: Lantus 45 units every 12 hours * Correctional Insulin: Novolog Correction per scale ACHS + overnight accuchecks Goal Range: Low 140 mg/dL - High 180 mg/dL Correction Factor: 10 mg/dL/unit * Prandial insulin: Per carb ratio of 1 unit per 3 grams CHO consumed Outpatient Anti-Diabetic Meds * per patient: * Lantus per scale in morning (scale starts at 50 units but typically gives self 65-70 units) * Lantus 40 units in evening * Novolog with meals about 65-70 units * per diabetes notes in [employer] * Lantus 40 units in evening * Novolog 40 units with meals (twice daily for TDD of 120 units) Assessment & Plan ASSESSMENT: * See progress note from 02/13 for more background info, in short: * Pt receiving SQ basal bolus insulin regimen for hyperglycemia secondary to significantly uncontrolled baseline DM (outpatient regimen on hold),stress/ infection * Patient is currently receiving an average of 100 units of insulin per day * 90 units of basal insulin - patient NPO * BSGs ranging 136 - 180 mg/dl over the past 24hrs * Changes needed to insulin regimen: * AM Fasting BSG = 171 mg/dl. This is slightly above goal range for patient based on inpatient targets and co-morbidities but Lantus doses were given earlier yesterday so this may be the reason. * Current CF/CR reflective of ~100 units/day of basal. Will continue for now and adjust if necessary PLAN FOR INPATIENT GLYCEMIC CONTROL: * Continue Lantus 45 units BID * Continue Novolog but change to q6h since patient NPO * Continue CF 10 * Continue CR 3 RECOMMENDATIONS FOR DISCHARGE: * Will wait to see what BSGs look like w/ current basal dose but patient may require close to 100 units/day in basal dosing - more to follow * Please note that the plan above was derived based on current level of insulin resistance and hospital stress. These recommendations are appropriate for inpatient admission only. Plan of care upon discharge will need to be reassessed to avoid potential outpatient hypo/hyperglycemia. Thank you.
[2017-02-14 11:57] VITALS: BP 170/93; PULSE 91; TEMP 36.9; O2SAT 93
--- NOTE | 2017-02-14 12:35 | Clinical Documentation Query ---
CLINICAL DOCUMENTATION QUERY Dr. BEATTY, In your clinical opinion is this patient being managed for: ( x ) Diabetes Mellitus type II with Hyperosmolar hyperglycemic state (HHS) ( ) Not Agree ( ) Other explanation of clinical findings (Please Explain) ( ) Unable to determine (Please Define) ( ) Need to Discuss The medical record reflects the following clinical findings, treatment, and risk factors. Clinical Indicators:61 yo male presenting with abd, fatigue, increased urination, abd cramps. Random glucose 859, Na 124, Cr 2.20, Beta hydroxybutyric acid 2.93/5.50 Treatment: 1L NSS bolus, then continuous IV fluids, IV insulin gtt, lantus, diabetic education Risk Factors:uncontrolled DM, pancreatitis, Older names for HHS are: hyperosmolar hyperglycemic nonketotic coma (HHNC), hyperosmolar non-ketotic coma (HONK), nonketotic hyperosmolar coma, and hyperosmolar hyperglycemic nonketotic syndrome. Please clarify and document your clinical opinion in the progress notes and discharge summary. Terms such as "probable", "suspected", "likely", "questionable", "possible", or "still to be ruled out" are acceptable. IF IN AGREEMENT, YOU MUST DOCUMENT ABOVE DIAGNOSTIC STATEMENT IN DAILY PROGRESS NOTES AND DISCHARGE SUMMARY. This document is not part of the patient's record. Please clarify and document your clinical opinion in the progress notes and discharge summary. Terms such as "probable", "suspected", "likely", "questionable", "possible", or "still to be ruled out" are acceptable. IF IN AGREEMENT, YOU MUST DOCUMENT ABOVE DIAGNOSTIC STATEMENT IN DAILY PROGRESS NOTES AND DISCHARGE SUMMARY. This document is not part of the patient's record. Thank You, Tracy Moon, RN [phone]
--- NOTE | 2017-02-14 12:37 | Clinical Documentation Query ---
CLINICAL DOCUMENTATION QUERY Dr. HOPKINS, In your clinical opinion is this patient being managed for: ( ) Diabetes Mellitus type II with Hyperosmolar hyperglycemic state (HHS) ( ) Not Agree ( ) Other explanation of clinical findings (Please Explain) ( ) Unable to determine (Please Define) ( ) Need to Discuss The medical record reflects the following clinical findings, treatment, and risk factors. Clinical Indicators:61 yo male presenting with abd, fatigue, increased urination, abd cramps. Random glucose 859, Na 124, Cr 2.20, Beta hydroxybutyric acid 2.93/5.50 Treatment: 1L NSS bolus, then continuous IV fluids, IV insulin gtt, lantus, diabetic education Risk Factors:uncontrolled DM, pancreatitis, Older names for HHS are: hyperosmolar hyperglycemic nonketotic coma (HHNC), hyperosmolar non-ketotic coma (HONK), nonketotic hyperosmolar coma, and hyperosmolar hyperglycemic nonketotic syndrome. Please clarify and document your clinical opinion in the progress notes and discharge summary. Terms such as "probable", "suspected", "likely", "questionable", "possible", or "still to be ruled out" are acceptable. IF IN AGREEMENT, YOU MUST DOCUMENT ABOVE DIAGNOSTIC STATEMENT IN DAILY PROGRESS NOTES AND DISCHARGE SUMMARY. This document is not part of the patient's record. Thank You, Tracy Moon RN [phone]
[2017-02-14] MEDS: POTASSIUM CHLR 10 MEQ / WTR 10 MEQ in PREMIXED WATER 100 ML IV SCH ×2 (12:39→14:06)
[2017-02-14 15:17] VITALS: BP 154/94; PULSE 87; TEMP 37; O2SAT 95
[2017-02-14 19:06] VITALS: BP 154/100; PULSE 92; TEMP 37; O2SAT 96
--- NOTE | 2017-02-14 19:15 | Family Medicine Progress Note ---
Progress Note Date of Service Feb 14, 2017. Subjective Pt evaluation today including: conversation w/ patient, physical exam, chart review, lab review, review of studies Pain: No pain reported this morning Voiding: no voiding problems, no incontinence Patient resting comfortably in bed this morning with no acute complaints. Denies any abdominal pain, nausea, or vomiting Constitutional: No fever, No chills, No fatigue Respiratory: No cough, No sputum, No wheezing Cardiovascular: No chest pain, No palpitations Abdomen: No pain, No nausea, No vomiting Medications Current Inpatient Medications Medications (Trade) Dose Ordered Sig/Bob Route Start Time Stop Time Status Last Admin Dose Admin Acetaminophen (Tylenol Tab) 650 mg Q4H PRN PO 02/12/17 23:00 03/14/17 22:59 Ondansetron HCl (Zofran Inj) 4 mg Q6H PRN IV 02/12/17 23:00 03/14/17 22:59 Polyethylene (Miralax Powder Packet) 17 gm DAILY PRN PO 02/12/17 23:00 03/14/17 22:59 Atorvastatin Calcium (Lipitor Tab) 40 mg QAM PO 02/13/17 09:00 03/15/17 08:59 Diltiazem HCl (TIAzac CAP) 120 mg QAM PO 02/13/17 09:00 03/15/17 08:59 Enoxaparin Sodium (Lovenox Inj) 120 mg Q12H SQ 02/13/17 04:00 03/15/17 03:59 02/14/17 15:14 120 MG Gabapentin (Neurontin Cap) 400 mg BID PO 02/13/17 09:00 03/15/17 08:59 02/13/17 20:43 400 MG Lisinopril (Zestril Tab) 30 mg QAM PO 02/13/17 09:00 03/15/17 08:59 Nystatin (Mycostatin Powder) 1 appln TID EXT 02/13/17 09:00 03/15/17 08:59 02/14/17 14:06 1 APPLN Trazodone HCl (Desyrel Tab) 100 mg HS PO 02/13/17 21:00 03/15/17 20:59 02/13/17 20:44 100 MG Venlafaxine HCl (effeXOR EXTENDED REL CAP) 150 mg QAM PO 02/13/17 09:00 10/7/17 08:59 Glucose (Glucose 40% Gel) 15-30 GRAMS 15 GRAMS... UD PRN PO 02/13/17 01:30 03/15/17 01:29 Glucose (Glucose Chew Tab) 4-8 Tablets 4 Tabl... UD PRN PO 02/13/17 01:30 03/15/17 01:29 Dextrose (Dextrose 50% 50ML Syringe) 25-50ML OF 50% DW IV FOR... UD PRN IV 02/13/17 01:30 03/15/17 01:29 Glucagon (Glucagon Inj) 1 mg UD PRN SQ 02/13/17 01:30 03/15/17 01:29 Miscellaneous Information (Consult Glycemic Management Pharmacy) 1 ea UD PRN N/A 02/13/17 07:15 03/15/17 07:14 Albuterol (Ventolin Hfa Inhaler) 2 puffs Q4 PRN INH 02/13/17 08:45 03/14/17 23:29 Lactated Ringer's 1,000 ml @ 200 mls/hr Q5H IV 02/13/17 08:45 03/15/17 08:44 02/14/17 15:14 200 MLS/HR Insulin Glargine (Lantus Solostar Pen) 45 units BID SC 02/14/17 09:00 03/16/17 08:59 02/14/17 08:48 45 UNITS Potassium Chloride (Klor-Con Tab) 40 meq QAM PO 02/14/17 09:00 03/16/17 08:59 Insulin Aspart (novoLOG ASPART) SLIDING SCALE Q6 SC 02/14/17 12:00 03/16/17 11:59 02/14/17 12:47 15 UNITS Objective Vital Signs Date Time Temp Pulse Resp B/P (MAP) Pulse Ox O2 Delivery O2 Flow Rate FiO2 02/14/17 16:00 Room Air 02/14/17 15:17 37.0 87 20 154/94 (114) 95 Room Air 02/14/17 12:00 Room Air 02/14/17 11:57 36.9 91 16 170/93 (118) 93 Room Air 02/14/17 08:00 Room Air 02/14/17 07:48 36.6 92 16 154/75 (101) 94 Room Air 02/14/17 04:00 37.0 94 16 147/90 (109) 95 Room Air 02/14/17 04:00 Room Air 02/14/17 00:00 37.0 96 20 159/93 (115) 92 Room Air 02/14/17 00:00 Room Air 02/13/17 20:00 Room Air 02/13/17 19:31 36.9 94 18 146/94 (111) 95 Room Air Physical Exam General Appearance: WD/WN, no apparent distress Respiratory/Chest: chest non-tender, lungs clear, normal breath sounds Cardiovascular: regular rate, rhythm, no edema, no gallop Abdomen: normal bowel sounds, soft, + tenderness (1/10 epigastric tenderness with palpation) Neurologic/Psychiatric: alert, normal mood/affect, oriented x 3 Laboratory Results Results Past 24 Hours Test 02/13/17 19:50 02/14/17 00:05 02/14/17 04:12 02/14/17 06:40 Range/Units Bedside Glucose 141 136 147 70-99 mg/dl White Blood Count 10.13 4.8-10.8 K/uL Red Blood Count 5.24 4.7-6.1 M/uL Hemoglobin 15.4 14.0-18.0 g/dL Hematocrit 44.9 42-52 % Mean Corpuscular Volume 85.7 80-100 fL Mean Corpuscular Hemoglobin 29.4 25-34 pg Mean Corpuscular Hemoglobin Concent 34.3 32-36 g/dl RDW Standard Deviation 41.7 36.4-46.3 fL RDW Coefficient of Variation 13.3 11.5-14.5 % Platelet Count 181 130-400 K/uL Mean Platelet Volume 11.7 7.4-10.4 fL Sodium Level 140 136-145 mmol/L Potassium Level 3.4 3.5-5.1 mmol/L Chloride Level 105 98-107 mmol/L Carbon Dioxide Level 30 21-32 mmol/L Anion Gap 5.0 3-11 mmol/L Blood Urea Nitrogen 23 7-18 mg/dl Creatinine 1.40 0.60-1.40 mg/dl Est Creatinine Clear Calc Drug Dose 73.4 ml/min Estimated GFR () 61.5 Estimated GFR (Non- 53.1 BUN/Creatinine Ratio 16.7 10-20 Random Glucose 180 70-99 mg/dl Calcium Level 8.9 8.5-10.1 mg/dl Magnesium Level 1.8 1.8-2.4 mg/dl Total Bilirubin 0.8 0.2-1 mg/dl Aspartate Amino Transf (AST/SGOT) 14 15-37 U/L Alanine Aminotransferase (ALT/SGPT) 20 12-78 U/L Alkaline Phosphatase 71 45-117 U/L Total Protein 6.5 6.4-8.2 gm/dl Albumin 2.6 3.4-5.0 gm/dl Globulin 3.9 2.5-4.0 gm/dl Albumin/Globulin Ratio 0.7 0.9-2 Triglycerides Level 347 0-150 mg/dl Cholesterol Level 221 0-200 mg/dl HDL Cholesterol 33 mg/dl LDL Cholesterol, Calculated 119 mg/dl VLDL Cholesterol, Calculated 69 mg/dl Cholesterol/HDL Ratio 6.7 Test 02/14/17 07:03 02/14/17 11:05 02/14/17 16:35 Range/Units Bedside Glucose 171 158 72 70-99 mg/dl Assessment and Plan Patient is a 61 year old male that presents with a 3 week history of epigastric pain 1) Acute on Chronic Pancreatitis - Patient denies any current abdominal pain and started liquid diet - Advance as tolerated to low fat diabetic diet - Most likely related to chronic metabolic issues including severely uncontrolled diabetes with blood glucose of 859 on presentation - CT Scan: Moderate infiltration centered on the pancreatic head extending into the mesentery. The findings are consistent with acute pancreatitis. Follow-up abdominal CT in one month is recommended to exclude the unlikely possibility of an underlying mass. - Lipase improved from 664 --> 470 - Hypertriglyceridemia - 347 - IV Fluids --> Lactate Ringers at 200mls/hr - GI Consult 2) Diabetes mellitus type 2 with Hyperosmolar Hyperglycemic state (HHS) - Uncontrolled Diabetes Mellitus --> Current home dose of Lantus 50mg BID with questionable diet and postprandial coverage - Converted from Insulin drip to Lantus 45mg BID + ISS - Blood sugars on arrival at 859, received 10 units of regular insulin in the ER - Hemoglobin A1c today found to be 12.4, was previously 10.5 in August 3) Hypokalemia (3.4) - Most likely dilutional secondary to IV fluids - Repleted with 40mEq IV K+ 4) Pseudohyponatremia - Resolved with IV Insulin therapy --> 139 this evening - Sodium on arrival at 124, likely secondary to elevated blood sugar - Continue IV fluids and CMP ordered for tomorrow 5) Acute kidney injury - Creatinine at 2.2, baseline at 1.6 - Likely secondary to dehydration - Continue IV fluids 6) Dizziness or lightheadedness/fatigue - Resolved this morning with IV hydration - Secondary to dehydration/hyperglycemia - Continue IV Lactate Ringers 7) History of DVT - Has a Yo filter - Continue Lovenox 8) Depression - Continue Effexor 9) Peripheral neuropathy - Continue Neurontin 10) Hypertension - Continue Zestril and diltiazem 11) Disposition - Plan to transition to regular diet tomorrow and discharge home Resident Physician Supervision Note: I interviewed and examined the patient. Discussed with Dr. Rizo and agree with findings and plan as documented in the note. Any exceptions or clarifications are listed here: None Documented By: Delmar Walters feeling better eating better no new complaints nad breathing unlabored no pallor or icterus acute on chronic pancreatitis due to uncontrolled DM - improving uncontrolled DM - improving, educated extensively by R2, reviewed by me, pt expresses better understanding of DM2 and need for better self care. encouraged to also check 2hr pp glucoses at times to learn from eating Resident Tracking Resident Involvement: Resident Care Provided Care Provided: Adult Hospital Medicine
[2017-02-14] MEDS: TRAZODONE HCL 100 MG TAB PO SCH (21:18)
[2017-02-15] VITALS (8 sets, daily range): BP systolic 113–167; BP diastolic 65–115; PULSE 85–101; TEMP 36.7–37.2; O2SAT 93–97
[2017-02-15] MEDS: INSULIN ASPART 100 UNITS/ML 3 ML PEN SC SCH ×2 (00:33→06:00)
[2017-02-15] MEDS: LACTATED RINGER'S 1000ML 1,000 ML IV SCH ×2 (04:21→09:08)
[2017-02-15] MEDS: ENOXAPARIN 120 MG/0.8 ML SYR SQ SCH (04:22)
[2017-02-15 07:32] LABS: BUN/CREATININE RATIO 11.8 (10-20); CALCIUM 7.8 mg/dl (8.5-10.1); CREATININE 1.3 mg/dl (0.60-1.40); POTASSIUM 3.2 mmol/L (3.5-5.1)
[2017-02-15 07:39] LABS: ALB/GLOB RATIO 0.6 (0.9-2)
[2017-02-15] MEDS: DILTIAZEM HCL 120 MG EXT REL CAP PO SCH (08:36)
[2017-02-15] MEDS: POTASSIUM CHLORIDE 20 MEQ TABCR PO SCH (08:36)
[2017-02-15] MEDS: NYSTATIN POWDER 15GM BTL EXT SCH ×2 (08:37→13:04)
[2017-02-15] MEDS ORDERED: INSULIN GLARGINE SOLOSTAR 100 UNITS/ML 3 ML PEN SC SCH (09:00)
[2017-02-15] MEDS: VENLAFAXINE HCL XR 150 MG CAPXR PO SCH (09:05)
[2017-02-15] MEDS: ATORVASTATIN 20 MG TAB PO SCH (09:05)
[2017-02-15] MEDS: GABAPENTIN 400 MG CAP PO SCH (09:06)
[2017-02-15] MEDS: LISINOPRIL 20 MG TAB PO SCH (09:06)
--- NOTE | 2017-02-15 10:30 | Pharmacy Progress Note ---
Glycemic Control Progress Note Date of Service Feb 15, 2017. Scope Glycemic Pharmacist consulted for glycemic control to write orders per [facility] inpatient glycemic control protocol. Objective Accuchecks BSG (last 24hrs): Test 02/14/17 11:05 02/14/17 16:35 02/14/17 20:09 02/15/17 00:13 Bedside Glucose 158 mg/dl (70-99) 72 mg/dl (70-99) 232 mg/dl (70-99) 170 mg/dl (70-99) Test 02/15/17 06:09 02/15/17 06:20 02/15/17 08:32 Bedside Glucose 71 mg/dl (70-99) 97 mg/dl (70-99) Random Glucose 66 mg/dl (70-99) HbA1c: Test 02/13/17 05:20 Hemoglobin A1c 12.4 % (4.5-5.6) H Recent Pertinent Medications The patient is currently receiving: * Basal insulin: Lantus 45 units every 12 hours * Correctional Insulin: Novolog Correction per scale ACHS Goal Range: Low 110 mg/dL - High 140 mg/dL Correction Factor: 10 mg/dL/unit * Prandial insulin: Per carb ratio of 1 unit per 3 grams CHO consumed Outpatient Anti-Diabetic Meds [Oral Agents] [Basal Insulin] [Bolus Insulin] or [GLP-1 RA] Assessment & Plan ASSESSMENT: * See progress note from 02/14 for more background info, in short: * Pt receiving SQ basal bolus insulin regimen for hyperglycemia secondary to significantly uncontrolled baseline DM (outpatient regimen on hold),stress/ infection * Patient is currently receiving an average of 113 units of insulin per day * BSGs ranging 72-232 mg/dl over the past 24hrs * Changes needed to insulin regimen: * AM Fasting BSG = 71 mg/dl. This is below goal range for patient based on inpatient targets and co-morbidities so will decrease basal by ~20% * Will also loosen the CF PLAN FOR INPATIENT GLYCEMIC CONTROL: * Decrease Lantus to 36 units BID * Change Novolog to ACHS now that patient taking po * LOOSEN CF to 15 * Continue CR of 3 RECOMMENDATIONS FOR DISCHARGE: * Will wait to see what BSGs look like w/ current basal dose but patient may require close to ~70 units/day in basal dosing - more to follow * Please note that the plan above was derived based on current level of insulin resistance and hospital stress. These recommendations are appropriate for inpatient admission only. Plan of care upon discharge will need to be reassessed to avoid potential outpatient hypo/hyperglycemia. Thank you.
--- NOTE | 2017-02-15 10:37 | Discharge Instructions ---
Discharge Instructions Date of Service Feb 15, 2017. Admission Reason for Admission: Gall Stone Pancreatitis, Hyperglycemia Discharge Discharge Diagnosis / Problem: Uncontrolled type 2 DM, pancreatitis Discharge Goals Goal(s): Improve disease control Activity Recommendations Activity Limitations: per Instructions/Follow-up section Exercise/Sports Limitations: as tolerated May Resume Sexual Activity: when tolerated Shower/Bathe: no limitations Driving or Machine Use: no limitations . Instructions / Follow-Up Instructions / Follow-Up Your pancreatitis will slowly improve with time. We recommend you also maintain a low fat diet to avoid making it worse. Items high in fat include chicken fat, steaks, and other fatty foods. A major contributor to this disease occurring was your diabetes. We can tell your diabetes needs to be better controlled by a blood test called a Hemoglobin A1c. As we discussed, the reason we care about your diabetes is because high sugar levels can clog arteries. Once arteries are clogged with sugar, it is hard to get the arteries back and clean again. Eventually, this damages your eyes, kidneys, and feet, AND puts you at higher risk of strokes and heart attacks. We can prevent ALL of those by keeping your sugar levels lower. We want you to CHANGE YOUR DIET - and this can definitely help keep your blood sugars low, to stop you from further clogging any arteries. Check your blood sugar TWO HOURS after you eat anything. If it is above 150, then the food you ate is something you should eat less of. This is a great way to figure out what foods are best for you. It would be helpful for you to keep a log of the food you eat and the sugar level you get as well. As well as diet changes, EXERCISE is crucial as well. We recommend doing exercise for at least 150 minutes per week - that's about 5 times per week, 30 minutes each, or however else you want to arrange it. We recommend exercise that is high-intensity, for example walking briskly, then going faster for 2 minutes, then slowing down for another 2 minutes, then repeating. Please follow up with your primary care doctor, Dr Ling, in the next week. Show him a log of your blood sugars as well. Eventually, as you continue to change your diet and increase exercise, you may need less insulin. The goal would be to be so well controlled that you don't need any --- and that IS possible! Stay motivated, but please contact us if you have any questions or concerns. Current Hospital Diet Patient's current hospital diet: Low Fat Diet, Diabetes Type 1 Diet Discharge Diet Recommended Diet: Diabetes Type 2 Diet, Low Fat Diet Pending Studies Studies pending at discharge: no Laboratory Results Hemoglobin A1c Test 02/13/17 05:20 Range/Units Estimated Average Glucose 309 mg/dl Hemoglobin A1c 12.4 H 4.5-5.6 % Lipid Panel Test 02/14/17 06:40 Range/Units Triglycerides Level 347 H 0-150 mg/dl Cholesterol Level 221 H 0-200 mg/dl HDL Cholesterol 33 mg/dl Cholesterol/HDL Ratio 6.7 LDL Cholesterol, Calculated 119 mg/dl Medical Emergencies . Who to Call and When: Medical Emergencies: If at any time you feel your situation is an emergency, please call 911 immediately. . Non-Emergent Contact Non-Emergency issues call your: Primary Care Provider . . "Provider Documentation" section prepared by Jamila Yang. . VTE Core Measure Inpt VTE Proph given/why not?: Enoxaparin (Lovenox)SQ
--- NOTE | 2017-02-15 10:38 | Discharge Summary ---
Discharge Summary Date of Service Feb 15, 2017. (Jamila Yang MD) Discharge Summary Admission Date: Feb 12, 2017 at 23:14 Discharge Date: Feb 15, 2017 Discharge Disposition: Home Principal Diagnosis: Pancreatitis Problems/Secondary Diagnoses: Uncontrolled Type 2 DM Immunizations: Have You Had Influenza Vaccine: No History of Tetanus Vaccine?: Yes Tetanus Immunization Date: Dec 21, 2003 History of Pneumococcal: No Pneumococcal Date: Dec 21, 2007 History of Hepatitis B Vaccine: No Procedures: CT A/P IMPRESSION: 1. Moderate infiltration centered on the pancreatic head extending into the mesentery. The findings are consistent with acute pancreatitis. A follow-up abdominal CT in one month is recommended to exclude the unlikely possibility of an underlying mass. 2. Cholelithiasis. 4 mm calcification within the uncinate process of the pancreas is unlikely to represent a common bile duct calculus given its inferior location. This may reflect the sequela of chronic pancreatitis. 3. Bilateral nephrolithiasis. No ureteral calculi. CXR: IMPRESSION: No acute cardiopulmonary findings. No change in appearance of the chest. (Jamila Yang MD) Medication Reconciliation Continued Medications: Albuterol Hfa (Ventolin Hfa) 200 Puffs/92395 Mcg Aers 2 PUFF INH Q4 PRN for SOB/Wheezing, #18 Atorvastatin (Lipitor) 40 Mg Tab 40 MG PO QAM, TAB Diltiazem Hcl Ext Rel (Tiazac) 120 Mg Capcr 120 MG PO QAM, CAP Enoxaparin (Lovenox) 120 Mg/0.8 Ml Inj 120 MG SQ Q12H, SYR Gabapentin (Neurontin) 400 Mg Cap 400 MG PO BID, CAP Insulin Aspart (Novolog Flexpen) 100 Units/Ml Inj 1 DOSE SC TID 35 UNITS AM 45 UNITS AT LUNCH 120 UNITS AT HS IN ADDITION TO SLIDING SCALE FOR ALL ABOVE Insulin Glargine (Lantus Solostar) 100 Unit/Ml Inj 50 DOSE SC AMPM, PEN 60 UNITS AM 40 UNITS PM Lisinopril (Zestril) 30 Mg Tab 30 MG PO QAM, TAB Melatonin (Melatonin Maximum Strengt) 5 Mg Tab 3 TAB PO HS for 30 Days, #30 TAB 1 Refill Nystatin (Topical) (Nystatin) 100,000 Unit/Gm Pow 1 APPLN TOP PRN UD, #60 Tadalafil (Cialis) 20 Mg Tab 20 MG PO UD, TAB Trazodone Hcl (Trazodone) 100 Mg Tab 100 MG PO HS, TAB Venlafaxine Hcl (Effexor Xr) 150 Mg Cap 1 CAP PO QAM for 30 Days, #30 CAP 2 Refills Discharge Exam Review of Systems: Constitutional: No fever, No chills, No sweats Eyes: No worsening of vision ENT: No hearing loss Respiratory: No cough, No sputum, No wheezing Cardiovascular: No chest pain, No orthopnea Abdomen: No pain, No nausea Musculoskeletal: No joint pain, No muscle pain Genitourinary - Male: No hematuria, No dysuria, No urinary frequency, No urinary urgency Neurologic: No memory loss, No paralysis, No weakness Psychiatric: No depression symptoms, No anhedonism Endocrine: No fatigue Hematologic / Lymphatic: No abnormal bleeding/bruising Integumentary: No rash Physical Exam: General Appearance: WD/WN, no apparent distress Eyes: normal inspection, PERRL ENT: hearing grossly normal Neck: supple, no JVD Respiratory/Chest: chest non-tender, lungs clear, normal breath sounds, no respiratory distress Cardiovascular: regular rate, rhythm, no murmur, normal peripheral pulses Abdomen / GI: normal bowel sounds, non tender, soft Extremities: no calf tenderness, no pedal edema Neurologic/Psychiatric: alert, normal mood/affect, oriented x 3 Skin: no rash Lymphatic: no adenopathy (Jamila Yang MD) Hospital Course HPI per admitting Dr Sanchez: 61-year-old male with a past medical history of diabetes mellitus type II, hyperlipidemia, hypertension, DVT present to the ER with complaints of dizziness and tiredness. 3 weeks ago he had nausea and vomiting and diarrhea which resolved in about 2 weeks and over the weekend he developed abdominal pain in the mid abdominal area , 5/10 in severity with no radiation. He denied any fevers or chills but noticed that he had increased urinary frequency. Denied any dysuria, hematuria. Denies any chest pain, shortness of breath, palpitations but complained of persistent tiredness and dizziness. Denies any hearing loss or tinnitus. Denies any bright red bleeding per rectum or melena. HOSPITAL COURSE: Acute pancreatitis - Demonstrated on CT scan. Per CT report, recommended a [address] to evaluate for underlying mass - Diet advanced to low fat diabetic diet. - Underlying issue likely from uncontrolled DM. He had a blood glc of 859 on admission. He also has hypertriglyceridemia. Type 2 DM, with HbA1c 12.4% - Extensive education provided to patient. He was motivated during our conversations to change his lifestyle and diet. - Advised to track his BSG's for the next few weeks and call them into his PCPs. Advised to have a low-carb diet, and with regards to foods he should or should not be eating, he will check a 2 hour postprandial glc and eat less of that food if it is above 150. - For now, home insulin regime has been continued, with the expectation it will be adjusted as his diet improves Pseudohyponatremia - Resolved with correction of glucose, and was 140 on discharge Acute renal insufficiency - Cr 1.3 on discharge History of DVT, s/p [place] filter placement - Lovenox continued during admission and for dc Depression - Continue Effexor Peripheral neuropathy - Continue Neurontin Hypertension - Continue Zestril and diltiazem Discharged home in good condition on 02/15/17 Follow up: - BSG's over next few weeks, and adjusting insulin requirements. - Ensuring he changes his diet and lifestyle - CT in 1 mo to evaluate pancreas Total Time Spent: Greater than 30 minutes This includes examination of the patient, discharge planning, medication reconciliation, and communication with other providers. (Jamila Yang MD) Resident Physician Supervision Note: I interviewed and examined the patient. Discussed with Dr. Yang and agree with findings and plan as documented in the note. Any exceptions or clarifications are listed here: None Documented By: Delmar Walters feeling good eating good no abdominal pain vitals noted nad breathing unlabored no pallor or icterus abd soft nd nt acute on what appears to be chronic pancreatitis - improved. appears due to uncontrolled DM2. work on better control. repeat imaging in a month as above uncontrolled DM - educated extensively. set concrete goals and points to work on. close outpt f/u (Delmar Walters, D.O.) Discharge Instructions Please refer to the electronic Patient Visit Report (Discharge Instructions) for additional information. (Jamila Yang MD) Additional Copies To Johann Ling M.D. Resident Tracking Resident Involvement: Resident Care Provided Care Provided: [facility] (Jamila Yang MD)
[2017-02-15] MEDS ORDERED: INSULIN ASPART 100 UNITS/ML 3 ML PEN SC SCH (11:00)
== END 2017-02-15 14:00 | disposition home or self-care (01) | DRG 438 ==
LOC: C.EDB 19:22 → C.MED 23:14 → ENRESERV 23:26
PROVIDERS: ADMIT Family Medicine; ATTEND Family Medicine
DX: K85.90 Acute pancreatitis without necrosis or infection, unspecified (principal); E11.00 Type 2 diabetes mellitus with hyperosmolarity without nonketotic hyperglycemic-hyperosmolar coma (NKHHC); N17.9 Acute kidney failure, unspecified; K86.1 Other chronic pancreatitis; E78.5 Hyperlipidemia, unspecified; I10 Essential (primary) hypertension; F17.200 Nicotine dependence, unspecified, uncomplicated; Z79.4 Long term (current) use of insulin; F32.9 Major depressive disorder, single episode, unspecified; G62.9 Polyneuropathy, unspecified; E11.65 Type 2 diabetes mellitus with hyperglycemia

== ENCOUNTER → 2017-02-19 | Outpatient (CLI) | payer BC, OTHER ==
[~2017-02-19] MED LIST changes: +NYST100033 TOP; -NYSTATIN POWDER EXT; +TADA20TA PO; +VNTHFA/IN INH
[2017-02-19 17:18] LABS: BASO % 1.3 %; COMPLETE YES; EOS % 1.8 %; HEMATOCRIT 47.4 % (42-52); IG% 0.5 %; LYMPH % 25.3 %; LYMPH ABS # 1.95 K/uL (1.2-3.4); MEAN CELL VOLUME 87.8 fL (80-100); MEAN CORPUSCULAR HEMOGLOBIN 29.3 pg (25-34); MEAN CORPUSCULAR HGB CONC 33.3 g/dl (32-36); MONO % 11.4 %; NEUT % 59.7 %; PLATELET COUNT 252 K/uL (130-400); WHITE BLOOD COUNT 7.72 K/uL (4.8-10.8)
[2017-02-19 17:39] LABS: MANUAL MICROSCOPIC REQUIRED? NO; REVIEW REQ? NO; URINE APPEARANCE CLEAR (CLEAR); URINE BILIRUBIN NEG (NEG); URINE COLOR YELLOW; URINE NITRITE NEG (NEG); URINE SPECIFIC GRAVITY 1.027 (1.000-1.030); UROBILINOGEN NEG (NEG); ZZUR CULT IF INDIC CLEAN CATCH NO
[2017-02-19 17:46] LABS: ALT/SGPT 35 U/L (12-78); AST/SGOT 27 U/L (15-37); BLOOD UREA NITROGEN 24 mg/dl (7-18); BUN/CREATININE RATIO 14.1 (10-20); CALCIUM 9.7 mg/dl (8.5-10.1); CARBON DIOXIDE 30 mmol/L (21-32); CHLORIDE 99 mmol/L (98-107); GLUCOSE 283 mg/dl (70-99); MAGNESIUM 1.9 mg/dl (1.8-2.4); POTASSIUM 4.5 mmol/L (3.5-5.1); SODIUM 134 mmol/L (136-145); URINE PROTIEN/CREAT RATIO 0.2 (0-0.2); URINE TOTAL PROTEIN 34.9 mg/dl (0-11.9)
[2017-02-19 17:51] LABS: ALB/GLOB RATIO 0.8 (0.9-2); ALKALINE PHOSPHATASE 90 U/L (45-117); AMYLASE 50 U/L (25-115); PHOSPHORUS 2.9 mg/dl (2.5-4.9)
== END | disposition home or self-care (01) ==
LOC: C.LAB1850 15:43
PROVIDERS: ATTEND Internal Medicine Nephrology
DX: E29.1 Testicular hypofunction (principal); G47.33 Obstructive sleep apnea (adult) (pediatric); E11.65 Type 2 diabetes mellitus with hyperglycemia; N18.3 Chronic kidney disease, stage 3 (moderate); K85.90 Acute pancreatitis without necrosis or infection, unspecified

== ENCOUNTER → 2017-03-06 | Outpatient (CLI) | payer BC, OTHER ==
[~2017-03-06] MED LIST changes: +GADAVIST IV PRN
--- NOTE | 2017-03-06 15:29 | DIAGNOSTIC IMAGING REPORT ---
BRAIN COMBO FOR PITUITARY CLINICAL HISTORY: 61 years-old Male presenting with low testosterone. TECHNIQUE: Multisequence, multiplanar MR imaging of the brain was performed before and after the administration of intravenous contrast. IV contrast: 13 mL of Gadavist. COMPARISON: None. FINDINGS: Upper convexity of the pituitary gland is unexpected in a male patient of this age. Postcontrast imaging demonstrates no significant focal heterogeneity of the mildly enlarged pituitary gland to suggest an underlying microadenoma. The pituitary gland measures up to 8 mm in thickness. Ventricles and sulci normal in size. Limited foci of subcortical white matter T2/FLAIR hyperintensity, nonspecific but likely indicative of chronic small vessel ischemic change. No mass effect or midline shift. No restricted diffusion to suggest acute ischemia. No hemorrhage. No extra-axial fluid collection. T2 skull base flow voids preserved. Cranial nerves at the skull base normal. Bone marrow signal intensity within the calvarium within normal limits. IMPRESSION: 1. Enlarged pituitary gland. No evidence of a focal microadenoma. This may suggest pituitary hyperplasia. Electronically signed by: Jeffery Bejarano M.D. 03/06/2017 3:28 PM Dictated Date/Time: 03/06/2017 3:21 PM
== END | disposition home or self-care (01) ==
LOC: C.MRI 14:06
PROVIDERS: ATTEND Internal Medicine
DX: E29.1 Testicular hypofunction (principal); E23.6 Other disorders of pituitary gland

== ENCOUNTER → 2017-03-17 | Outpatient (CLI) | payer BC ==
[~2017-03-17] MED LIST changes: -GADAVIST IV PRN; +OPTIRAY 320 IV PRN
--- NOTE | 2017-03-17 12:54 | DIAGNOSTIC IMAGING REPORT ---
CT ABD/PELVIS IV AND ORAL CONT CLINICAL HISTORY: Abnormal CT scan with probable common bile duct calculus. Study. COMPARISON STUDY: 02/12/2017 TECHNIQUE: Following the IV administration of 93 mL of Optiray-320, CT scan of the abdomen and pelvis was performed from the lung bases to the proximal femurs. Images are reviewed in the axial, sagittal, and coronal planes. IV contrast was administered without complication. A dose lowering technique was utilized adhering to the principles of ALARA. CT DOSE: 1564.77 mGy.cm FINDINGS: Lower chest: There are bibasal atelectatic changes. Liver: The contrast-enhanced liver is normal in size, contour, and attenuation. There is no intrahepatic biliary ductal dilatation. The hepatic veins and portal veins are patent. Gallbladder: Unremarkable. Spleen: Normal in size and attenuation. Pancreas: The previously described peripancreatic infiltration has largely resolved. There is a stable nonspecific 4 x 4 x 8 mm calcification within the pancreatic head. This appears to lie inferior to the common bile duct. There is inhomogeneous enhancement of the pancreatic head. This is nonspecific but could represent the sequela of pancreatitis. A pancreatic mass could appear similar. There is however no evidence of ductal dilatation. Adrenal glands: Unremarkable. Kidneys: There is a 1 cm right renal cyst. There is no hydronephrosis. Bowel: There are no transition zones indicate bowel obstruction. There is no acute diverticulitis. The appendix appears normal. There is a fat-containing umbilical hernia containing a small knuckle of small bowel. No obstructive changes are evident. Peritoneum: There is no intraperitoneal free air or abdominal ascites. Vasculature: The abdominal aorta is normal in course and caliber. There is an indwelling IVC filter. Inferior struts extend beyond the IVC lumen. Adenopathy: There is no pathologic adenopathy by size criteria Pelvic viscera: The bladder, and pelvic viscera are unremarkable. Skeletal structures: There are multiple subcutaneous anterior abdominal wall nodules as well as infiltration the subcutaneous fat. This likely relates to prior injection sites. IMPRESSION: 1. No evidence of bowel obstruction. No evidence of free air 2. The previously identified peripancreatic infiltration has largely resolved 3. Inhomogeneous enhancement of the pancreatic head. While nonspecific this may represent the sequela of pancreatitis 4. 4 x 4 x 8 mm calcification within the pancreatic head. This appears to lie inferior to the common bile duct 5. No evidence of ductal dilatation 6. Umbilical hernia containing a small knuckle of small bowel. No current obstructive changes Electronically signed by: Rashaad Cherry M.D. 03/17/2017 12:52 PM Dictated Date/Time: 03/17/2017 12:44 PM
== END | disposition home or self-care (01) ==
LOC: C.CTS 11:40
PROVIDERS: ATTEND Internal Medicine
DX: R93.8 Abnormal findings on diagnostic imaging of other specified body structures (principal); K86.89 Other specified diseases of pancreas; K42.9 Umbilical hernia without obstruction or gangrene

== ENCOUNTER → 2017-04-22 | Outpatient (CLI) | payer BC ==
[~2017-04-22] MED LIST changes: -OPTIRAY 320 IV PRN
[2017-04-22 17:46] LABS: PROSTATE SPECIFIC ANTIGEN 3.1 ng/ml (0.000-4.000); THYROID STIMULATING HORMONE 1.68 uIu/ml (0.300-4.500)
[2017-04-23 06:07] LABS: ESTIMATED AVERAGE GLUCOSE 220 mg/dl; HA1C FLAG Normal (Normal)
== END | disposition home or self-care (01) ==
LOC: C.LABBFT 12:57
PROVIDERS: ATTEND Internal Medicine Endocrinology, Diabetes & Metabolism
DX: E23.7 Disorder of pituitary gland, unspecified (principal); E34.9 Endocrine disorder, unspecified; E11.65 Type 2 diabetes mellitus with hyperglycemia

== ENCOUNTER → 2017-06-12 | Outpatient (CLI) | payer BC ==
[~2017-06-12] VITALS: Ht 185.4 cm; Wt 277.6 kg
[~2017-06-12] MED LIST changes: +GABA-1220 PO; -GABA1CAP5 PO; +LISI-863 PO; -LISI1TAB3 PO; -VENL150C PO; +VENL150C2 PO
[2017-06-12 14:21] VITALS: BP 150/90; PULSE 97; Ht 185.4 cm; Wt 277.6 kg
== END | disposition home or self-care (01) ==
LOC: C.NEUR 13:50
PROVIDERS: ATTEND Internal Medicine Pulmonary Disease
DX: G47.33 Obstructive sleep apnea (adult) (pediatric) (principal); E66.9 Obesity, unspecified

== ENCOUNTER → 2017-06-27 | Outpatient (CLI) | payer BC ==
[~2017-06-27] MED LIST changes: -LISI-863 PO; +LISI1TAB3 PO; +VENL150C PO; -VENL150C2 PO
[2017-06-27 16:57] LABS: ALBUMIN 2.9 gm/dl (3.4-5.0); ALT/SGPT 32 U/L (12-78); BLOOD UREA NITROGEN 26 mg/dl (7-18); CALCIUM 8.5 mg/dl (8.5-10.1); CARBON DIOXIDE 31 mmol/L (21-32); CHOLESTEROL 124 mg/dl (0-200); CREATININE 1.51 mg/dl (0.60-1.40); POTASSIUM 4.7 mmol/L (3.5-5.1); SODIUM 135 mmol/L (136-145)
[2017-06-27 19:05] LABS: GLUCOSE 375 mg/dl (70-99)
[2017-06-27 19:36] LABS: LDL CHOLESTEROL CALCULATED 43 mg/dl
[2017-06-28 07:43] LABS: HEMOGLOBIN A1C 9.3 % (4.5-5.6)
--- NOTE | 2017-07-18 14:47 | CODING QUERY NO DIAGNOSIS ---
: 1955 TREATMENT RENDERED WITHOUT A DIAGNOSIS To promote full compliance with coding requirements relating to patient care, physician participation is requested in all cases of clerk stenographer uncertainty. Please assist us with providing a diagnosis/symptom for the test(s) below: A diagnosis/symptom was not documented on your Order. A valid diagnosis/symptom is required to bill all insurances. Please remember that we are unable to code a diagnosis of rule out, probable, possible, questionable, or suspected. Tests that require a diagnosis: DOS: 06/27/17 * Beta Hydroxybutyrate DIAGNOSIS: Provider Signature: Date: Thank you Perla Garcia Health Information Management Once completed, please kindly fax back to [phone] For questions please call [phone]
== END | disposition home or self-care (01) ==
LOC: C.LABBFT 13:54
PROVIDERS: ATTEND Physician Assistant
DX: E29.1 Testicular hypofunction (principal); E11.65 Type 2 diabetes mellitus with hyperglycemia; N18.3 Chronic kidney disease, stage 3 (moderate); E11.22 Type 2 diabetes mellitus with diabetic chronic kidney disease

== ENCOUNTER → 2017-08-05 | Outpatient (CLI) | payer BC ==
[2017-08-06 06:48] LABS: HEMOGLOBIN A1C 9.6 % (4.5-5.6)
== END | disposition home or self-care (01) ==
LOC: C.LAB1850 15:43
PROVIDERS: ATTEND Physician Assistant
DX: E11.65 Type 2 diabetes mellitus with hyperglycemia (principal)

== ENCOUNTER 2017-08-19 20:53 | Emergency (ER) | payer BC ==
[~2017-08-19] VITALS: Ht 188 cm; Wt 124.5 kg
[2017-08-19 21:12] VITALS: TEMP 36.9; Ht 188 cm; Wt 124.5 kg
[2017-08-19 22:51] LABS: BASO ABS # 0.08 K/uL (0-0.2); EOS ABS # 0.16 K/uL (0-0.5); HEMATOCRIT 47.6 % (42-52); IG# 0.04 K/uL (0.00-0.02); LYMPH ABS # 1.99 K/uL (1.2-3.4); MEAN CELL VOLUME 86.2 fL (80-100); MEAN CORPUSCULAR HGB CONC 33.6 g/dl (32-36); MEAN PLATELET VOLUME 11.3 fL (7.4-10.4); MONO % 11.3 %; NEUT % 60.2 %; NEUT ABS # 4.78 K/uL (1.4-6.5); PLATELET COUNT 190 K/uL (130-400); RED CELL DISTRIBUTION WIDTH CV 13.4 % (11.5-14.5); RED CELL DISTRIBUTION WIDTH SD 42.6 fL (36.4-46.3); WHITE BLOOD COUNT 7.95 K/uL (4.8-10.8)
[2017-08-19 23:01] LABS: PTT PATIENT 26.3 SECONDS (21.0-31.0)
--- NOTE | 2017-08-19 23:04 | DIAGNOSTIC IMAGING REPORT ---
RIGHT LOWER EXTREMITY VENOUS DOPPLER CLINICAL HISTORY: Right leg pain. Hx DVT COMPARISON STUDY: Bilateral lower extremity venous Doppler April 20, 2011. TECHNIQUE: Sonography of the deep venous system of the right lower extremity was performed. Compression and augmentation were evaluated. FINDINGS: There is nonocclusive thrombus within the right femoral vein. Similar findings were shown on exam of April 20, 2011. No additional sites of deep venous thrombus within the right lower extremity were identified. IMPRESSION: Nonocclusive thrombus within the right femoral vein. Although age indeterminate, this is likely chronic when correlating with exam of April 20, 2011. Electronically signed by: Clovis Bender M.D. 08/19/2017 11:02 PM Dictated Date/Time: 08/19/2017 11:01 PM
[2017-08-19 23:10] LABS: ALBUMIN 3.3 gm/dl (3.4-5.0); CALCIUM 8.6 mg/dl (8.5-10.1); CREATININE 1.65 mg/dl (0.60-1.40); POTASSIUM 4.1 mmol/L (3.5-5.1)
[2017-08-19 23:14] LABS: TOTAL PROTEIN 7.5 gm/dl (6.4-8.2)
--- NOTE | 2017-08-19 23:41 | EMERGENCY ROOM VISIT NOTE ---
ED Visit Note First contact with patient: 22:13 I have personally seen and evaluated the patient with the physician delivery assistant. I agree with the diagnostic/management decisions and have personally been involved in these decisions and agree with the diagnosis.
[2017-08-20 00:40] VITALS: BP 178/97; PULSE 89; O2SAT 94
--- NOTE | 2017-08-20 02:11 | EMERGENCY ROOM VISIT NOTE ---
History First contact with patient: 22:13 Chief Complaint: OTHER COMPLAINT Stated Complaint: POSSIBLE BLOOD CLOT IN R LEG,DIZZINESS History of Present Illness The patient is a 61 year old male who presents to the Emergency Room with complaints of increasing pain into his right lower leg over the past week. The patient states it feels more swollen than normal. He also reports that he has some mild dizziness for the past day, but admits this may be from his sugar which is poorly regulated. The patient is a diabetic and has a long-standing history of DVT. He uses Lovenox daily for treatment. He has a Yo filter. The patient does not have chest pain, chest tightness, or shortness of breath. No abdominal pain. He rates his discomfort a 4/10. He admits to being under increased stressors after his 29-year-old son following a bout of cancer less than a month ago. Review of Systems More than 10 systems were reviewed and otherwise negative with the exception of history of present illness. Past Medical/Surgical History Medical Problems: (1) Anemia (2) Deep venous thrombosis of lower extremity (3) Diabetes (4) Gall stone pancreatitis (5) [place] filter in place (6) Hypercholesteremia (7) Hypertension Surgical Problems: (1) H/O hernia repair Family History No additional pertinent family history Social History Smoking Status: Current Some Day Smoker Alcohol Use: none Drug Use: none Marital Status: Occupation Status: employed Current/Historical Medications Scheduled Atorvastatin (Lipitor), 40 MG PO QAM Diltiazem Hcl Ext Rel (Tiazac), 120 MG PO QAM Enoxaparin (Lovenox), 120 MG SQ Q12H Gabapentin (Neurontin), 400 MG PO BID Insulin Glargine (Lantus Solostar), 45 UNITS SC HS Lisinopril (Zestril), 30 MG PO QAM Melatonin (Melatonin Maximum Strengt), 15 MG PO HS Nystatin (Topical) (Nystatin), 1 APPLN TOP PRN UD Tadalafil (Cialis), 20 MG PO UD Trazodone Hcl (Trazodone), 100 MG PO HS Venlafaxine Hcl (Effexor Xr), 150 MG PO QAM Miscellaneous Medications Insulin Aspart (Novolog Flexpen), 1 DOSE SC Physical Exam Vital Signs Date Time Temp Pulse Resp B/P (MAP) Pulse Ox O2 Delivery O2 Flow Rate FiO2 08/20/17 00:40 89 20 178/97 94 08/19/17 23:27 80 24 175/102 96 Room Air 08/19/17 22:37 77 08/19/17 21:12 36.9 91 20 182/91 92 Room Air Physical Exam VITALS: Vitals are noted on the nurse's note and reviewed by myself. Vital signs stable. GENERAL: Well-developed, well-nourished, white male, who is in no acute distress and resting comfortably. Patient is cooperative with the examination. HEART: Regular rate and rhythm without murmurs gallops or rubs. LUNGS: Clear to auscultation bilaterally without wheezes, rales or rhonchi. No retractions or accessory muscle use. MUSCULOSKELETAL: There is mild right lower extremity edema when compared to the left. No palpable cord or significant ecchymosis or erythema. Neurovascular status appears intact distally. NEURO: Patient was alert and oriented to person place and time. CN II through XII grossly intact. Medical Decision & Procedures ER Provider Diagnostic Interpretation: RIGHT LOWER EXTREMITY VENOUS DOPPLER CLINICAL HISTORY: Right leg pain. Hx DVT COMPARISON STUDY: Bilateral lower extremity venous Doppler April 20, 2011. TECHNIQUE: Sonography of the deep venous system of the right lower extremity was performed. Compression and augmentation were evaluated. FINDINGS: There is nonocclusive thrombus within the right femoral vein. Similar findings were shown on exam of April 20, 2011. No additional sites of deep venous thrombus within the right lower extremity were identified. IMPRESSION: Nonocclusive thrombus within the right femoral vein. Although age indeterminate, this is likely chronic when correlating with exam of April 20, 2011. Laboratory Results 08/19/17 22:35 Red Blood Count 5.52, Mean Corpuscular Volume 86.2, Mean Corpuscular Hemoglobin 29.0, Mean Corpuscular Hemoglobin Concent 33.6, Mean Platelet Volume 11.3, Neutrophils (%) (Auto) 60.2, Lymphocytes (%) (Auto) 25.0, Monocytes (%) (Auto) 11.3, Eosinophils (%) (Auto) 2.0, Basophils (%) (Auto) 1.0, Neutrophils # (Auto ) 4.78, Lymphocytes # (Auto) 1.99, Monocytes # (Auto) 0.90, Eosinophils # (Auto ) 0.16, Basophils # (Auto) 0.08 08/19/17 22:35 Test 08/19/17 22:35 08/19/17 22:41 White Blood Count 7.95 K/uL (4.8-10.8) Red Blood Count 5.52 M/uL (4.7-6.1) Hemoglobin 16.0 g/dL (14.0-18.0) Hematocrit 47.6 % (42-52) Mean Corpuscular Volume 86.2 fL (80-100) Mean Corpuscular Hemoglobin 29.0 pg (25-34) Mean Corpuscular Hemoglobin Concent 33.6 g/dl (32-36) Platelet Count 190 K/uL (130-400) Mean Platelet Volume 11.3 fL (7.4-10.4) Neutrophils (%) (Auto) 60.2 % Lymphocytes (%) (Auto) 25.0 % Monocytes (%) (Auto) 11.3 % Eosinophils (%) (Auto) 2.0 % Basophils (%) (Auto) 1.0 % Neutrophils # (Auto) 4.78 K/uL (1.4-6.5) Lymphocytes # (Auto) 1.99 K/uL (1.2-3.4) Monocytes # (Auto) 0.90 K/uL (0.11-0.59) Eosinophils # (Auto) 0.16 K/uL (0-0.5) Basophils # (Auto) 0.08 K/uL (0-0.2) RDW Standard Deviation 42.6 fL (36.4-46.3) RDW Coefficient of Variation 13.4 % (11.5-14.5) Immature Granulocyte % (Auto) 0.5 % Immature Granulocyte # (Auto) 0.04 K/uL (0.00-0.02) Prothrombin Time 10.2 SECONDS (9.0-12.0) Prothromb Time International Ratio 1.0 (0.9-1.1) Activated Partial Thromboplast Time 26.3 SECONDS (21.0-31.0) Partial Thromboplastin Ratio 1.0 Anion Gap 6.0 mmol/L (3-11) Est Creatinine Clear Calc Drug Dose 64.3 ml/min Estimated GFR () 50.4 Estimated GFR (Non- 43.5 BUN/Creatinine Ratio 18.9 (10-20) Calcium Level 8.6 mg/dl (8.5-10.1) Magnesium Level 2.0 mg/dl (1.8-2.4) Total Bilirubin 0.7 mg/dl (0.2-1) Aspartate Amino Transf (AST/SGOT) 22 U/L (15-37) Alanine Aminotransferase (ALT/SGPT) 34 U/L (12-78) Alkaline Phosphatase 97 U/L (45-117) Total Protein 7.5 gm/dl (6.4-8.2) Albumin 3.3 gm/dl (3.4-5.0) Globulin 4.2 gm/dl (2.5-4.0) Albumin/Globulin Ratio 0.8 (0.9-2) Beta-Hydroxybutyric Acid 1.02 mg/dL (0.2-2.81) Thyroid Stimulating Hormone (TSH) 1.750 uIu/ml (0.300-4.500) Bedside Troponin I < 0.030 ng/ml (0-0.045) ED Course Physical exam and history were performed. Nursing notes, EMR, and Medication List were personally reviewed. Patient appears to have reports of some right lower leg swelling which is noted on examination. He is also with some mild dizziness today, but states that his sugar has been abnormal because he is under increased stress and has been traveling due to the of son. EKG was performed and reviewed by myself as normal sinus rhythm at 77 bpm without ischemia or ectopy. IV access was established and labs were obtained. Chest x-ray was ordered as well ultrasound of the right lower leg. The patient was placed on a lining baster. The patient is reviewed. He does not have a significantly elevated white blood cell count, gross anemia, bandemia, or significant electrolyte imbalance. Troponin 1 is negative. Chest x-ray does not show acute process. Ultrasound reveals what appears to be a chronic DVT when compared to ultrasound of 2011. The patient's blood sugar is greater than 300, but his ketones are negative. He states he can use his home insulin. I discussed the case with my attending physician, Dr. Morton, who also independently evaluated the patient. Overall we feel the patient is stable for discharge home. We suspect that his clot is chronic and he is adequately treated with Lovenox and a Yo filter. The patient will need to have close monitoring of his glucose, and ultimately will be referred back to his primary care physician. The patient understands importance of returning to the ER with any new, worsening, or concerning symptoms. He was pleased with this plan and voiced understanding. The chart was completed utilizing [employer] Speech Voice Recognition Software. Grammatical errors, random word insertions, pronoun errors, and incomplete sentences are an occasional consequence of this system due to software limitations, ambient noise, and hardware issues. Any formal questions or concerns about the content, text, or information contained within the body of this dictation should be directly addressed to the provider for clarification. . Medical Decision Differential diagnosis: Etiologies such as DVT, musculoskeletal, infection, joint effusion, trauma, lymphedema, idiopathic, CHF, as well as others were entertained.. Impression Primary Impression: Deep venous thrombosis of lower extremity Additional Impressions: Pain in right leg Hyperglycemia Departure Information Dispostion Home / Self-Care Condition GOOD Forms HOME CARE DOCUMENTATION FORM, IMPORTANT VISIT INFORMATION Patient Instructions My [facility] Additional Instructions You were seen and evaluated today on an emergency basis only. This is not a substitute for, or an effort to provide, complete comprehensive medical care. It is not possible to recognize and treat all injuries or illnesses in a single emergency department visit. For this reason it is recommended that you followup with your primary care physician later this week for a recheck of your condition. Continue your Lovenox as prescribed Monitor your sugar closely at home You are welcome to return to the emergency department anytime with new, worsening, or concerning symptoms. Problem Qualifiers
--- NOTE | 2017-08-20 06:41 | DIAGNOSTIC IMAGING REPORT ---
CHEST 2 VIEWS ROUTINE HISTORY: 61 years-old Male Dizzy acute dizziness COMPARISON: Chest radiograph 02/12/2017 TECHNIQUE: PA and lateral views of the chest FINDINGS: Cardiac silhouette is within normal limits. There is mild right hemidiaphragmatic elevation with linear subsegmental bibasilar opacities. No pneumothorax, pleural effusion or overt pulmonary edema. Bones of the chest appear grossly intact. Cholecystectomy clips noted. IMPRESSION: Mild subsegmental bibasilar atelectasis/scarring without acute process. The above report was generated using voice recognition software. It may contain grammatical, syntax or spelling errors. Electronically signed by: Go Felipe M.D. 08/20/2017 6:39 AM Dictated Date/Time: 08/20/2017 6:38 AM
== END 2017-08-20 00:40 | disposition home or self-care (01) ==
LOC: C.EDB 20:54 → C.EDA 08-20 00:40
DX: I82.411 Acute embolism and thrombosis of right femoral vein (principal); M79.661 Pain in right lower leg; E11.65 Type 2 diabetes mellitus with hyperglycemia; I10 Essential (primary) hypertension; E78.5 Hyperlipidemia, unspecified; D64.9 Anemia, unspecified; F17.200 Nicotine dependence, unspecified, uncomplicated; Z86.718 Personal history of other venous thrombosis and embolism; Z95.828 Presence of other vascular implants and grafts; Z79.01 Long term (current) use of anticoagulants; Z79.84 Long term (current) use of oral hypoglycemic drugs

== ENCOUNTER → 2017-10-13 | Outpatient (CLI) | payer BC ==
[~2017-10-13] MED LIST changes: -VNTHFA/IN INH
--- NOTE | 2017-10-14 06:17 | PAP/PSG TECHNICIAN REPORT ---
[facility] Narcotics Investigator Polysomnogram Report Study name: None Report date: 10/14/2017 Study date: 10/13/2017 Referring Physician: Dr. Rodríguez Name: MAGGIE HANEY Interpreting Physician: Zenon Rodríguez D.O. Date of : 1955 Narcotics Investigator: [place] Reza RPSGT. Sex: Male Age: 61 Study Type: PSG PAP Weight: 244 lbs Height: 61 years, Height 6' 1" BMI: 32.19 Medications: ANDROGEL PUMP, ATORVASTATIN 40 MG, CIALIS 20 MG, DILTIAZEM 120 MG, EFFEXOR 150 MG, ENOXAPARIN 120 MG/0.8 ML, GABAPENTIN 400 MG, LANTUS 100 UNIT/ML, LISINOPRIL 30 MG, MELATONIN 5 MG, NOVOLOG FLEXPEN 100 UNIT/ML, NYSTATIN, TRAZODONE 100 MG Patient History 61 yr-old male here for a CPAP treatment study. He was unable to tolerate CPAP in the past. He is back after his last sleep study showed continued severe FRANCES. He chose a Mirage FX Soft edge nasal mask size standard from [email or web address]. The test was started on room air and 4 CMH2O. ETCO2 testing was not utilized during this study. Room 1 Parameters Monitored NPSG: E1-M2, E2-M1, Fp1-M2, Fp2-M1, F3-M2, F4-M2, F4-M1, C3-M2, C4-M2, C4-M1, O1-M2, O2-M2, O2-M1, T3-M2, T4-M1, P3-M2, P4-M1, CHIN1, CHIN2, HR, EKG, Legs, PFLOW, SNOR, FLOW, CFLOW, Tidal Volume, THOR, ABDO, SpO2, PLTH, CPRESS, ETCO2 Wave, ETCO2, pH Sleep Architecture Sleep Stages Time at Lights Off 11:07:31 PM STAGES Time (min.) TST (%) Time at Lights On 5:30:01 AM Wake 34.5 -- Total Recording Time (TRT) 382.50 min. N1 39.5 11 Total Sleep Period (TSP) 378.5 min. N2 280.0 80 Total Sleep Time (TST) 348.0min. N3 28.5 8 Awake Time 34.5 min. REM 0.0 0 Wake after Sleep Onset 30.5 min. Sleep Efficiency (SE) 91 % Sleep Onset Latency (SUKHWINDER) 4.0 min. Number of Stage 1 Shifts None Awakenings 16 Stage Changes 112 Number of REM periods N/A REM 0.0 0 REM Latency NONE min. NREM 348.0 100 Body Position Analysis Supine Right Left Side Prone Vertical Total Sleep Time (min.) 298.7 72.9 4.3 77.15 0.0 0.0 Total Sleep Time (%) 78% 21% 1% 22 0% N/A% Total Sleep Time REM (min.) 0.0 0.0 0.0 None 0.0 0.0 Total Sleep Time NREM (min.) 270.9 72.9 4.3 None 0.0 0.0 Intermittent Wake (min.) 27.9 4.6 2.0 None 0.0 0.0 Total Sleep Period (%) 78% None None None None None Arousals Myoclonus (PLM) * Events Count Index Events Count Index Spontaneous 13 2 Events Awake (PLMW) 52 90.4 Respiratory 12 2.2 Events Asleep w/ Arousal (PLMA) 68 11.7 PLM 66 12 Events Asleep w/o Arousal (PLMS) 384 66.2 Snoring 5 1 Total Asleep 452 77.9 Total 96 17 Total 504 79 Respiratory Analysis * CA OA MA CH H RERA Total Count 6 3 0 0 28 3 37 Index 1.0 0.5 0.0 0 4.8 1 6.9 Mean Duration 15.6 13.9 0.0 0.00 16.5 18.1 16.3 Longest Duration 19.0 14.6 0.0 0.00 0.0 19.3 23.3 Respiratory Event Summary Total Supine ~Supine Right Left Prone REM NREM Apneas Count 9 8 1 1 0 N/A N/A 9 Index 1.6 2 1 0.8 0.0 N/A N/A 2 Hypopneas (4% Desat) Count 28 24 4 4 0 N/A N/A 28 Index 4.8 5.3 3 3.3 0.0 N/A N/A 4.8 Apneas & All Hypopneas Count 37 32 5 5 0 N/A N/A 37 Index 6.4 7 4 4 0 N/A N/A 6.4 Respiratory Events (Emergency Medical Tech+All Hyp+RERA) Count 37 34 6 6 0 N/A N/A 37 Index 6.9 8 5 4.9 0.0 N/A N/A 6.9 Respiratory Related Arousal Count 12 34 4 4 0 N/A N/A 13 Index 2.2 2 3 3 0 N/A N/A 2 Snoring Analysis Supine Right Left Prone REM NREM Total Snore duration 11.6 min Snores count 272 98 3 N/A N/A 373 373 Snore mean duration 1.9 Sec Snores index 60 81 42 N/A N/A 64.3 64.3 TST with snoring (%) 3.3% Desaturation Event Summary: Minimum %SpO2 Event Count Mean/Min/Max Duration(sec.) Desaturation Index % Time In Bed > 90 88 20.5 / 7.5 / 58.8 22.0 66.0 86 - 90 24 15.8 / 6.0 / 58.8 11.8 33.7 81 - 85 0 N/A 0.0 0.4 76 - 80 0 N/A 0.0 0.0 71 - 75 0 N/A 0.0 0.0 66 - 70 0 N/A 0.0 0.0 61 - 65 0 N/A 0.0 0.0 56 - 60 0 N/A 0.0 0.0 51 - 55 0 N/A 0.0 0.0 < 50 0 N/A 0.0 0.0 Total REM NREM Awake <50% 0.0 min. 0.0 min. 0.0 min. 0.0 min. 51 - 60% 0.0 min. 0.0 min. 0.0 min. 0.0 min. 61 - 70% 0.0 min. 0.0 min. 0.0 min. 0.0 min. 71 - 80% 0.0 min. 0.0 min. 0.0 min. 0.0 min. 81 - 90% 123.9 min. 0.0 min. 115.6 min. 8.3 min. 91 - 100% 240.2 min. 0.0 min. 221.8 min. 18.3 min. Average 91 0 91 91 Minimum SpO2 82 N/A 82 85 Desaturation Event Index 15.2 0.0 15.2 17.4 # Desat. Events below 89% 63 N/A 58 5 Time(%) with Saturation below 89% 3.6 0.0 3.1 0.5 Time(min.) with Saturation below 89% 13.1 0.0 11.4 1.7 Time (mins) REM (mins) NREM (mins) % of TST SpO2 Below 90% 88 N/A N88 8.7 SpO2 Below 88% 16 0 0 1 Heart Rate Analysis Min (bpm) Max (bpm) Average (bpm) Awake 49 127 74 NREM 46 127 69 REM N/A N/A N/A Overall 46 127 69 Supplemental O2 Values Minimum O2 level: None Value Start Time End Time Narcotics Investigator Comments Mr. Haney slept in the right, left, and supine positions. No cardiac arrhythmias were noted. PLMs were noted. His legs would move shaking his entire body at times. No bruxism noted. CPAP was initiated at +4 CMH2O and up-titrated to a level of +9 CMH2O, Cflex 2. A Mirage FX Soft edge nasal mask size standard from [email or web address] was used during titration. He awoke to use the restroom one time during the night. Mr. Haney stated that he slept the same as usual. The final report will be interpreted and signed by a sleep physician. The completed physician report will then be placed in the patient medical record. CPAP REPORT Therapy Detail Time / Page # Comment CPAP 4 cm H2O Nasal Mask Flex Pressure Relief Humidifier on 11:05:48 PM / pg. 382 CPAP 6 cm H2O Nasal Mask Flex Pressure Relief Humidifier on 11:46:40 PM / pg. 464 INCREASED FOR HYPOPNEAS CPAP 7 cm H2O Nasal Mask Flex Pressure Relief Humidifier on 1:07:50 AM / pg. 626 INCREASED FOR HYPOPNEAS CPAP 8 cm H2O Nasal Mask Flex Pressure Relief Humidifier on 2:51:03 AM / pg. 833 INCREASED FOR HYPOPNEAS AND RERAS CPAP 9 cm H2O Nasal Mask Flex Pressure Relief Humidifier on 5:00:33 AM / pg. 1092 INCREASED FOR HYPOPNEAS Therapy Event: Therapy (cm H20) 4 6 7 8 9 Total Time at Pressure (min.) 39.2 81.2 103.2 129.5 29.5 TST at Pressure (min.) 34.2 73.7 86.7 124.5 29.0 # Periods 1 1 1 1 1 Sleep Onset (min.) 4.0 0.0 0.0 0.0 0.0 REM Onset (min.) N/A N/A N/A N/A N/A Sleep Efficiency % 87 90 84 96 98 Wakefulness (%) 12.8 9.2 16.0 3.9 1.7 Wakefulness (min.) 5.0 7.5 16.5 5.0 0.5 NREM 1 (%) 17.0 5.4 7.3 11.6 20.2 NREM 1 (min.) 6.7 4.3 7.5 15.0 6.0 NREM 2 (%) 70.2 64.5 67.1 83.4 78.1 NREM 2 (min.) 27.5 52.3 69.2 108.0 23.0 NREM 3 (%) 0.0 20.9 9.7 1.2 0.0 NREM 3 (min.) 0.0 17.0 10.0 1.5 0.0 REM (%) 0.0 0.0 0.0 0.0 0.0 REM (min.) 0.0 0.0 0.0 0.0 0.0 # Arousals 19 17 29 23 8 Arousal Index 33.4 13.8 20.1 11.1 16.6 # Snore 75 130 130 22 16 Snore Index 131.8 105.9 89.9 10.6 33.1 AHI 12.3 8.1 6.9 3.9 4.1 AHI Supine 51.2 19.9 6.9 3.9 4.1 AHI Non-Supine 7.8 1.3 N/A N/A N/A NREM AHI 12.3 8.1 6.9 3.9 4.1 REM AHI N/A N/A N/A N/A N/A RDI 14.1 8.1 7.6 3.9 6.2 # Obstructive 0 2 1 0 0 # Central Ap 0 0 2 4 0 # Mixed 0 0 0 0 0 # Hypopneas 7 8 7 4 2 RERAS 1 0 1 0 1 Total Respiratory Events 8 10 11 8 3 Time Below SpO2 89.00% (min.) 0.8 2.7 4.0 2.7 1.2 Mean NREM SpO2 (%) 91 91 91 91 91 Mean REM SpO2 (%) N/A N/A N/A N/A N/A Mean Sleep SpO2 (%) 91 91 91 91 91 Min NREM SpO2 (%) 85 85 82 84 86 Min REM SpO2 (%) N/A N/A N/A N/A N/A Position Supine (min.) 3.5 27.1 86.7 124.5 29.0 Position Non-supine (min.) 30.6 46.5 0.0 0.0 0.0 LM Index Sleep 181.0 189.8 53.3 14.9 16.6 LM Index NREM 181.0 189.8 53.3 14.9 16.6 LM Index REM N/A N/A N/A N/A N/A Mean Heart Rate (bpm) 70 74 69 66 65 Min Heart Rate (bpm) 50 52 46 50 51
--- NOTE | 2017-10-18 14:19 | POLYSOMNOGRAPH REPORT ---
CLINICAL DATA: The patient is a 61-year-old male with a history of snoring, observed apneas, insomnia, and fatigue. He had a diagnostic sleep study done on 06/13/2016. His apnea hypopnea index was severely elevated at 74.8. He did not do well with treatment by auto CPAP. This was an in-lab overnight CPAP titration study. His BMI is 32.19. SLEEP ARCHITECTURE: The total sleep period was 378.5 minutes. The total sleep time was 348 minutes. The sleep efficiency was normal at 91%. The sleep latency was only 4 minutes. Wake after sleep onset was 30.5 minutes. Sleep consisted of stage N1 of 11%, stage N2 of 80%, stage N3 of 8%, stage REM 0%. AROUSAL DATA: The patient had a total of 96 arousals including 13 spontaneous arousals, 12 respiratory arousals, 66 PLM arousals, and 5 snoring arousals. The arousal index was 17. PLM DATA: The patient had 452 periodic limb movements for a PLM index of 77.9. There were 68 arousals associated with limb movements for a PLM arousal index of 11.7. EKG: The underlying cardiac rhythm was normal sinus with some degree of sinus arrhythmia. There were rare extrasystoles. The cardiac rates ranged from 46 to 90 beats per minute. The average heart rate was 69 beats per minute. RESPIRATORY DATA: The patient's respiratory events were treated with nasal CPAP, which was titrated to a final pressure of 9 cm. He had a total of 37 respiratory events including 6 central apneas, 3 obstructive apneas, and 28 hypopneas. In addition, there were 3 RERAs. The longest apnea was 19 seconds. The mean duration of the hypopneas was 16.5 seconds. The apnea hypopnea index was 6.4 events per hour. OXIMETRY DATA: The average saturation for the night was 91%. The minimum saturation was 82%. There was a total of 13.1 minutes with saturations less than 89%. DESIGN STUDIO CONSULTANT COMMENTS: Mr. Haney slept in the right, left, and supine positions. PLMs were noted. His legs would move shaking his entire body at times. No bruxism noted. CPAP was initiated at 4 cm and uptitrated to a level of 9 cm with C-Flex 2. ResMed Mirage FX soft edge nasal mask was utilized. He awakened to use the restroom one time during the night. Mr. Haney stated that he slept the same as usual. IMPRESSION: Obstructive sleep apnea, much improved with nasal CPAP at 9 cm. COMMENTS: The patient had a normal sleep efficiency. This was dramatically better than during his diagnostic sleep study when the sleep efficiency was only 23%. Although his sleep efficiency was normal, his sleep architecture was abnormal from the perspective of no REM sleep at all. He does take Effexor, which can suppress REM sleep. He tolerated CPAP well. His apnea hypopnea index was dramatically improved compared with his diagnostic study. The limb movements were severe for the first 2 hours but then became much less frequent for the rest of the night. No treatment is necessary at present for the underlying limb movement disorder. RECOMMENDATIONS: 1. It is advised that the patient be started on nasal CPAP at 9 cm with C-Flex 2. 2. It is advised that he be given a ResMed Mirage FX soft edge nasal mask size standard. 3. Weight loss is advised in light of the elevation of body mass index at 32.19. 4. It is suggested that he avoid sleeping in the supine position as there are typically more respiratory events while supine.
== END | disposition home or self-care (01) ==
LOC: C.NEUR 20:00
PROVIDERS: ATTEND Internal Medicine Pulmonary Disease
DX: G47.33 Obstructive sleep apnea (adult) (pediatric) (principal)

== ENCOUNTER → 2017-12-29 | Outpatient (CLI) | payer BC, OTHER ==
[~2017-12-29] MED LIST changes: +LISI-863 PO; -LISI1TAB3 PO; -VENL150C PO; +VENL150C71 PO
== END | disposition home or self-care (01) ==
LOC: C.MAMM 14:11
PROVIDERS: ATTEND Internal Medicine Endocrinology, Diabetes & Metabolism
DX: E55.9 Vitamin D deficiency, unspecified (principal); R79.89 Other specified abnormal findings of blood chemistry; R93.8 Abnormal findings on diagnostic imaging of other specified body structures; E23.0 Hypopituitarism

== ENCOUNTER 2023-04-06 18:39 | Inpatient (IN) ==
--- NOTE | 2023-04-06 18:59 | Emergency Department Note ---
Impression & Plan Deep venous thrombosis of lower extremity, Yo filter in place ED Provider Note NAME: MAGGIE PIERRE AGE: 67 SEX: M : 1955 ARRIVES VIA: Walk-In INFORMANT: Patient, ED PROVIDER(S): Zane Callahan MD CHIEF COMPLAINT: Thigh pain MEDICAL DECISION MAKING: Patient presents with thigh pain. Patient did have a right hip x-ray along with a DVT ultrasound. The patient has not been taking his blood thinning medication but does have an IVC filter in place. Patient's DVT ultrasound with extensive DVT in the right lower extremity. I did speak with Dr. Newton who recommended heparin and inpatient treatment. Blood work was obtained heparin was ordered. Blood work shows a normal white count H&H and platelet count. Patient's kidney function with a creatinine 1.64 which is about baseline. Glucose 195 not DKA anion gap is not elevated and bicarb is normal. I did speak with Dr. Flynn and the patient was admitted to the medicine service. Critical Care: I have personally spent 36 minutes of critical care time in direct management of this patient. This includes bedside care, interpretation of diagnostic studies, and testing, discussion with consultants, patient, and family members, and other require inpatient management activities. This 36 minutes is in excess of all separately billable procedures. Discussion w/ other healthcare providers: Dr. Newton hematology Dr. Flynn inpatient medicine service Prior /Outside records reviewed: I reviewed a primary care visit from March 31, [address] Macdonald. Patient does have a known history of type 2 diabetes and was seen for shortness of breath with exertion. Patient does have a history of DVT with lupus anticoagulant. Patient does have an IVC filter in place. Differential diagnosis: DVT, limb ischemia, musculoskeletal pain, infection, joint effusion, trauma, lymphedema, idiopathic, CHF, as well as other pathologies. Diagnostics, as interpreted by me: ECG: None Cardiac monitoring: An order was placed for continuous cardiac monitoring. The monitor shows a rate of 88 with sinus rhythm. Patient was placed on pulse oximetry Medical decision rules: None Imaging studies: I informally interpreted the patient's DVT ultrasound which does show DVT with formal report to follow. HPI: Patient presents due to concern for right thigh pain. Patient states that he developed this morning describes it is in the right mid and lateral thigh. The patient has not been taking his Xarelto for his blood clots of the last month as he has been confused and further history obtained from the states that he eats at different times of day and thus has not been taking it on a regular basis. Patient does have at home. [facility] here in [place]. Patient denies any chest pains or shortness of breath no nausea vomiting. The patient denies any falls or trauma and denies any inciting event i.e. overuse or injury. The patient did take 3G exercise Tylenol prior to arrival and did state that improved symptoms. PAST MEDICAL HISTORY: See Below PAST SURGICAL HISTORY: See Below SOCIAL HISTORY: See Below HOME MEDICATIONS: See Below ALLERGIES: See Below VITALS: See Below PHYSICAL EXAMINATION: GENERAL: NAD, non-toxic. EYE EXAM: Normal conjunctiva. PERRL, no anisocoria and EOM's grossly intact w/o pain. OROPHARYNX: Moist mucus membranes, grossly normal dentition. NECK: Supple, no nuchal rigidity, no adenopathy, non-tender. No signs of meningismus. FROM of the neck with good chin to chest and neck extension. No stridor. LUNGS: Clear to auscultation. Normal chest wall mechanics. HEART: NSR, no MRG. ABDOMEN: Abdomen soft, non-tender, no masses, no rebound or guarding. BACK: No CVA TTP. SKIN: No rashes and no bruising. UPPER EXTREMITIES: Upper extremities are grossly normal. LOWER EXTREMITIES: Reproducible right hip pain, no reproducible thigh pain and no overlying skin changes crepitus or ecchymosis, good DP pulse, neurovascular tact distally. NEURO EXAM: A&O x3, cranial nerves II-XII grossly intact, normal speech, moves all 4 extremities. Past Med/Surg History Medical History Anxiety and depression Chronic pain syndrome Deep venous thrombosis of lower extremity (04/23/11) Diabetes mellitus type 2, uncontrolled Diabetic peripheral neuropathy Dyslipidemia GERD (gastroesophageal reflux disease) [place] filter in place History of COVID-19 05/2021 *FLU LIKE SYMPTOMS (ALL RESOLVED) Hypertension Insulin pump in place PTSD (post-traumatic stress disorder) Severe sleep apnea HAS NOT USED CPAP MACHINE IN YEARS Stage III chronic kidney disease Systemic lupus erythematosus REASON FOR LOVENOX Surgical History H/O inguinal hernia repair History of arthroscopy of knee History of cholecystectomy History of colonoscopy History of colonoscopy History of umbilical hernia repair Family History Unknown Brain cancer Mother Nephrolithiasis Myocardial infarction Sister Nephrolithiasis Other No family history of adverse response to anesthesia Denies family history of Ovarian cancer Prostate cancer Diabetes Coronary heart disease Breast cancer Colorectal cancer Social History Smoking Status: Light tobacco smoker Tobacco Type: Cigars Age Started Using Tobacco: 61; Age Quit Using Tobacco: 64; Cigarettes Per Day: smokes 1 cigar weekly IN THE SUMMER TIME ONLY; Second Hand Exposure: Yes (hx); Do You Dip or Chew Tobacco: No; Hx Alcohol Use: No Hx Substance Use: No Preferred Language: [place] Communication Ability: Effective Visual Impairment: No Limitations Hearing Ability: Use of Hearing Aid Counter Maker Required: No Beliefs That Will Affect Care: None marital status: Current Living Situation: Spouse current occupational status: retired current occupation: retired from career as a [employer] Feels Safe at Home: Yes Childhood Exposure to Second-Hand Smoke: Yes Diet: regular caffeine: Yes Dental Care, Regularly: Yes Physical Activity Frequency: Does not Exercise Seatbelt Use: always Sunscreen Use: Yes Assistive Devices: Glasses Allergies Allergies Allergy/AdvReac Type Severity Reaction Status Date / Time lanolin Allergy Intermediate WOOL WAX Verified 03/31/23 12:58 ALCOHOL moxifloxacin Allergy Intermediate hives Verified 03/31/23 12:58 aspirin AdvReac Mild STOMACH Verified 03/31/23 12:58 DISTRESS SOAPCLEAN Allergy Unknown DETERGENTS Uncoded 03/31/23 12:58 CAUSED RASH Home Meds Home Medications Medication Instructions Recorded Confirmed trazodone 100 mg tablet 100 mg PO HS 11/16/18 04/06/23 venlafaxine 150 mg 150 mg PO QAM 11/16/18 04/06/23 capsule,extended release 24 hr lorazepam 0.5 mg tablet 0.5 mg PO Q8H PRN Anxiety #15 tabs 12/29/18 04/06/23 lisinopril 20 mg tablet 20 mg PO QAM 04/05/23 10/29/23 dulaglutide 0.75 mg/0.5 mL 0.75 mg subcut .COMPLEX 03/05/23 04/06/23 subcutaneous pen injector (Trulicity) Previous Rx's Medication Instructions Recorded atorvastatin 80 mg tablet 80 mg PO QPM Hyperlipidemia #90 03/04/22 tabs famotidine 20 mg tablet 20 mg PO BID #180 tabs 06/13/22 gabapentin 400 mg capsule 400 mg PO BID #180 caps 01/28/23 diltiazem HCl 360 mg capsule,24 360 mg PO QAM #90 caps 03/18/23 hr,extended release metoprolol succinate 50 mg 50 mg PO DAILY #90 tabs 03/27/23 tablet,extended release 24 hr nitroglycerin 0.4 mg sublingual 0.4 mg sublingual Q5M PRN chest 03/27/23 tablet pain #25 tabs insulin glargine 100 unit/mL (3 20 unit (0.2 mL) subcut QAM #15 mL 03/31/23 mL) subcutaneous pen rivaroxaban 20 mg tablet 20 mg PO QPM #90 tabs 03/31/23 Results & Data (ED) Vital Signs Vital Signs - 24 hr 04/06/23 18:51 04/06/23 21:11 04/06/23 21:18 Temperature 36.7 C Temperature Source Temporal Artery Scan Pulse Rate 97 H 81 Pulse Rate [Right Finger] 90 Pulse Rhythm Regular Pulse Rhythm [Right Finger] Regular Pulse Strength [Right Finger] Normal Respiratory Rate 18 18 Respiratory Effort / Characteristics Non-Labored Non-Labored Spontaneous Respiratory Depth Normal Normal Respiratory Pattern Regular Regular Blood Pressure 152/94 H Blood Pressure [Right Arm] 165/109 H Blood Pressure Mean 113 Blood Pressure Mean [Right Arm] 127 Pulse Oximetry 95 96 96 Oxygen Delivery Method Room Air Room Air Room Air Sepsis Recent Fever Within 48 Hours No Sepsis New/Unexplained Change in Mental Status N/A Sepsis Action Taken by Nursing No Action Required 04/06/23 19:20 Temperature Temperature Source Pulse Rate 86 Pulse Rate [Right Finger] Pulse Rhythm Pulse Rhythm [Right Finger] Pulse Strength [Right Finger] Respiratory Rate Respiratory Effort / Characteristics Respiratory Depth Respiratory Pattern Blood Pressure Blood Pressure [Right Arm] Blood Pressure Mean Blood Pressure Mean [Right Arm] Pulse Oximetry Oxygen Delivery Method Sepsis Recent Fever Within 48 Hours Sepsis New/Unexplained Change in Mental Status Sepsis Action Taken by Prison Medications Current Medication List: was personally reviewed by me Laboratory Data Attestation: I reviewed the patient's lab results. 04/06/23 21:19 04/06/23 21:19 Lab Results 04/06/23 04/06/23 04/06/23 Range/Units 21:19 21:19 21:19 WBC 7.16 (4.8-10.8) K/ul RBC 5.21 (4.70-6.10) M/uL Hgb 14.9 (14.0-18.0) g/dl Hct 45.9 (42.0-52.0) % MCV 88.1 (80.0-100.0) fL MCH 28.6 (25.0-34.0) pg MCHC 32.5 (32.0-36.0) g/dL RDW Std Deviation 42.2 (36.4-46.3) fL RDW Coeff of Na 13.1 (11.5-14.5) % Plt Count 218 (130-400) K/uL MPV 10.6 (9.4-12.4) fL Immature Gran % (Auto) 0.3 % Neut % (Auto) 55.6 % Lymph % (Auto) 30.4 % Freestone % (Auto) 9.5 % Eos % (Auto) 3.2 % Baso % (Auto) 1.0 % Neut # (Auto) 3.98 (1.40-6.50) K/uL Lymph # (Auto) 2.18 (1.20-3.40) K/uL Fre[place] # (Auto) 0.68 H (0.11-0.59) K/uL Eos # (Auto) 0.23 (0.00-0.50) K/uL Baso # (Auto) 0.07 (0.00-0.20) K/uL Immature Gran # (Auto) 0.02 (0.01-0.20) K/uL PT 10.4 (9.0-12.0) Seconds INR 0.9 (0.9-1.1) APTT 25.4 (21.0-31.0) Seconds PTT Ratio 0.9 Sodium 139 (136-145) mmol/L Potassium 4.4 (3.5-5.1) mmol/L Chloride 106 (98-107) mmol/L Carbon Dioxide 31 (21-32) mmol/L Anion Gap 2 L (3-11) BUN 22 (6-23) mg/dl Creatinine 1.64 H (0.6-1.4) mg/dl Est Cr Clr Drug Dosing 56.2 ml/min Est GFR ( Amer) 48.7 ml/min Est GFR (Non-Af Amer) 42.0 ml/min BUN/Creatinine Ratio 13.4 (10-20) Glucose 195 H (70-99(Fasting)) mg/dl Calcium 9.0 (8.6-10.3) mg/dl Magnesium 1.9 (1.7-2.4) mg/dl Total Bilirubin 0.6 (0.2-1.0) mg/dl AST 21 (13-39) U/L ALT 26 (7-52) U/L Alkaline Phosphatase 69 (34-104) U/L Total Protein 6.8 (6.0-8.3) gm/dl Albumin 3.4 (3.4-5.0) gm/dl Globulin 3.4 (2.5-4.0) gm/dl Albumin/Globulin Ratio 1.0 (0.9-2) Administered Medications Heparin Sodium/Dextrose (Heparin Sodium/Dextrose) 25,000 units in 500 mls @ 34 mls/hr IV .[id number] [facility]; Protocol Stop: 05/06/23 21:29 Last Admin: 04/06/23 22:36 Dose: 1,700 units/hr, 34 mls/hr Documented By: CYNDI Co-signed By: DONOVAN Discontinued Medications Heparin Sodium (Porcine) (Heparin Sod (Porcine) 1000 Unit/Ml) 7,000 units IV NOW ONE Stop: 04/06/23 22:31 Last Admin: 04/06/23 22:35 Dose: 7,000 units Documented By: CYNDI Co-signed By: DONOVAN Heparin Sodium/Dextrose (Heparin Iv Adult Wt-Based Standard With Bolus Protocol) 1 each IV NOW STA; Protocol Stop: 04/06/23 21:12 Last Admin: 04/06/23 22:39 Dose: Not Given Documented By: CYNDI Imaging Data Radiologist's Impression: Hip/Pelvis X-Ray 04/06/23 19:18 XR hip RT 2V w pelvis HISTORY: 67 years-old Male hip pain acute right hip pain COMPARISON: 12/07/2022 TECHNIQUE: AP view of the pelvis with 2 views of the right hip FINDINGS: Mild osteoarthritis of the hips. No acute fracture, dislocation or avascular necrosis. Partially imaged IVC filter. Unremarkable soft tissues. IMPRESSION: No acute fracture or dislocation. ACT 112: Negative or not required by law. The above report was generated using voice recognition software. It may contain grammatical, syntax or spelling errors. Electronically signed by: Thomas Felipe M.D. 04/06/2023 7:49 PM Venous Doppler Study 04/06/23 19:18 CR Exam(s): US VENOUS RIGHT LOWER EXTREMITY EXAM: US Duplex Right Lower Extremity Veins CLINICAL HISTORY: Pain. TECHNIQUE: Real-time duplex ultrasound scan of the right lower extremity veins integrating B-mode two-dimensional vascular structure, Doppler spectral analysis, color flow Doppler imaging and compression. COMPARISON: DVT scan 10/20/2021. FINDINGS: Deep veins: Near-complete occlusive thrombus of the right femoral vein, popliteal vein, peroneal and posterior tibial veins. Superficial veins: Unremarkable. No thrombus in the visualized great saphenous vein. Soft tissues: No acute findings. No popliteal cyst. IMPRESSION: Near-complete occlusive thrombus of the right femoral vein, popliteal vein, peroneal and posterior tibial veins. Communications: Call Doctor DVT acute, progressing Electronically signed by: Tequila Yo MD 04/06/23 20:59 PM Discharge Plan Visit Data Chief Complaint: Leg Injury/Pain Stated Complaint: PAIN IN R LEG ED Provider: Zane Callahan Discharge Problem: Deep venous thrombosis of lower extremity, [place] filter in place Forms Stand Alone Forms: My [facility] [place] Prescriptions Prescriptions: No Action atorvastatin 80 mg tablet 80 mg PO QPM Qty: 90 3RF famotidine 20 mg tablet 20 mg PO BID Qty: 180 3RF gabapentin 400 mg capsule 400 mg PO BID Qty: 180 3RF diltiazem HCl 360 mg capsule,extended release 24 hr 360 mg PO QAM Qty: 90 3RF metoprolol succinate 50 mg tablet extended release 24 hr 50 mg PO DAILY Qty: 90 3RF nitroglycerin 0.4 mg tablet, sublingual 0.4 mg sublingual Q5M PRN (Reason: chest pain) Qty: 25 1RF Rx Instructions: until response; do not exceed 3 doses per episode rivaroxaban 20 mg tablet 20 mg PO QPM Qty: 90 3RF Rx Instructions: must administer with evening meal Trulicity 0.75 mg/0.5 mL pen injector 0.75 mg subcut .COMPLEX Rx Instructions: 0.75 mg subcutaneously weekly; lorazepam 0.5 mg tablet 0.5 mg PO Q8H PRN (Reason: Anxiety) Qty: 15 insulin glargine 100 unit/mL (3 mL) insulin pen 20 unit subcut QAM Qty: 15 2RF venlafaxine 150 mg capsule,extended release 24hr 150 mg PO QAM trazodone 100 mg tablet 100 mg PO HS lisinopril 20 mg tablet 20 mg PO QAM Rx Instructions: *Note dose* Referrals Referrals: Dennis Macdonald DO [Primary Care Provider] -
--- NOTE | 2023-04-06 19:51 | XRay Report ---
XR hip RT 2V w pelvis HISTORY: 67 years-old Male hip pain acute right hip pain COMPARISON: 12/07/2022 TECHNIQUE: AP view of the pelvis with 2 views of the right hip FINDINGS: Mild osteoarthritis of the hips. No acute fracture, dislocation or avascular necrosis. Partially imag ed IVC filter. Unremarkable soft tissues. IMPRESSION: No acute fracture or dislocation. ACT 112: Negative or not required by law. The above report was generated using voice recognition software. It may contain grammatical, syntax o r spelling errors. Electronically signed by: Thomas Felipe M.D. 04/06/2023 7:49 PM
--- NOTE | 2023-04-06 21:01 | Ultrasound Report ---
Exam(s): US VENOUS RIGHT LOWER EXTREMITY EXAM: US Duplex Right Lower Extremity Veins CLINICAL HISTORY: Pain. TECHNIQUE: Real-time duplex ultrasound scan of the right lower extremity veins integrating B-mode two-dimensional vascular structure, Doppler spectral analysis, color flow Doppler imaging and compression. COMPARISON: DVT scan 10/20/2021. FINDINGS: Deep veins: Near-complete occlusive thrombus of the right femoral vein, popliteal vein, peroneal and posterior tibial veins. Superficial veins: Unremarkable. No thrombus in the visualized great saphenous vein. Soft tissues: No acute findings. No popliteal cyst. IMPRESSION: Near-complete occlusive thrombus of the right femoral vein, popliteal vein, peroneal and posterior tibial veins. Communications: Call Doctor DVT acute, progressing Electronically signed by: Tequila Yo MD 04/06/23 20:59 PM
[2023-04-06] MEDS ORDERED: Heparin IV Adult Wt-Based Standard WITH Bolus Protocol IV STA (21:11)
[2023-04-06] MEDS ORDERED: HEPARIN SOD (PORCINE) 1000 UNIT/ML IV ONE ×2 (21:30→22:30)
--- NOTE | 2023-04-06 21:45 | History & Physical Report ---
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 #DVT -presented with 2 days R thigh pain. He is with increased clotting risk due to antiphospholipid syndrome and lupus anticoagulant. Has history or recurrent DVT. With IVC filter in place and on chronic anticoagulation however has not been taking his xarelto for the past month. Vitals wnl, afebrile. -US R LE: Near-complete occlusive thrombus of the right femoral vein, popliteal vein, peroneal and posterior tibial veins. -started on heparin gtt in ED. Continue this for now. Should be able to transition back on to xarelto in the morning. May require loading dose. #CAD -cont. lisinopril, metoprolol, statin -unable to tolerate aspirin in the past -scheduled for outpatient in upcoming weeks for suspected ischemia. Follows with cardiology. #HTN -cont. lisinopril, diltiazem, metoprolol #CKD -followed by Dr. Hernandez.Stage IIIA2. Baseline creatinine 1.6-1.9. -Cr 1.64 on admission. #HLD -cont. statin #DM2 -hold home medications. -cont. lantus 20units qpm + SSI #Diabetic neuropathy -cont. gabapentin #GERD -cont. famotidine #Anxiety/depression -cont. trazodone, venlafaxine #Insomnia -cont. trazodone, melatonin DVT ppx: heparin gtt FEN/GI: HH, DM2 Code Status: full Dispo: [employer] (2) Shortness of breath on exertion: (3) Yo filter in place: (4) Diabetic nephropathy: (5) retirement current use of anticoagulant therapy: (6) Uncontrolled type 2 diabetes mellitus with insulin therapy: (7) Obesity: (8) Stage III chronic kidney disease: (9) Dyslipidemia: (10) Hypertension: (11) Anxiety: (12) Depression: (13) Insomnia: (14) CAD (coronary artery disease): (15) Antiphospholipid syndrome: (16) Lupus anticoagulant disorder: History of Present Illness Chief Complaint: Leg pain Primary Care Provider: Dennis Macdonald DO 67 yo male with PMHx HLD, DM2, HTN, diabetic neuropathy, CKD, GERD, CAD, anxiety, depression, insomnia, antiphospholipid syndrome, lupus anticoagulant, and 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 2 days ago started feeling pain in his right leg from his lateral knee up to his hip. Otherwise denies headache, chest pain, abdominal pain, nausea, vomiting, fatigue, new extremity weakness/numbness/tingling. Does endorse some chronic changes in his bowel movements but attributes this to diabetic medications. Also with chronic shortness of breath on exertion which is being evaluated by cardiology. With his history of thrombophilia and recurrent DVT, he does have a IVC filter in place has been on chronic anticoagulation. He states that he is supposed to be on Xarelto however has not been taking his medication for the last month. He says this is because he is supposed to take the medication with meals and his meals are so sporadic that he just forgets to take the medication. Allergies Allergy/AdvReac Type Severity Reaction Status Date / Time lanolin Allergy Intermediate WOOL WAX Verified 03/31/23 12:58 ALCOHOL moxifloxacin Allergy Intermediate hives Verified 03/31/23 12:58 aspirin AdvReac Mild STOMACH Verified 03/31/23 12:58 DISTRESS SOAPCLEAN Allergy Unknown DETERGENTS Uncoded 03/31/23 12:58 CAUSED RASH Home Medications Medication Instructions Recorded Confirmed Type trazodone 100 mg tablet 100 mg PO HS 11/16/18 04/06/23 History venlafaxine 150 mg 150 mg PO QAM 11/16/18 04/06/23 History capsule,extended release 24 hr lorazepam 0.5 mg tablet 0.5 mg PO Q8H PRN Anxiety #15 tabs 12/29/18 04/06/23 History atorvastatin 80 mg tablet 80 mg PO QPM Hyperlipidemia #90 03/04/22 04/06/23 Rx tabs famotidine 20 mg tablet 20 mg PO BID #180 tabs 06/13/22 04/06/23 Rx lisinopril 20 mg tablet 20 mg PO QAM 09/11/22 04/06/23 History gabapentin 400 mg capsule 400 mg PO BID #180 caps 01/28/23 04/06/23 Rx dulaglutide 0.75 mg/0.5 mL 0.75 mg subcut .COMPLEX 03/05/23 04/06/23 History subcutaneous pen injector (Trulicity) diltiazem HCl 360 mg capsule,24 360 mg PO QAM #90 caps 03/18/23 04/06/23 Rx hr,extended release metoprolol succinate 50 mg 50 mg PO DAILY #90 tabs 03/27/23 04/06/23 Rx tablet,extended release 24 hr nitroglycerin 0.4 mg sublingual 0.4 mg sublingual Q5M PRN chest 03/27/23 04/06/23 Rx tablet pain #25 tabs insulin glargine 100 unit/mL (3 20 unit (0.2 mL) subcut QAM #15 mL 03/31/23 04/06/23 Rx mL) subcutaneous pen rivaroxaban 20 mg tablet 20 mg PO QPM #90 tabs 03/31/23 04/06/23 Rx Past Med/Surg History Medical History Anxiety and depression Chronic pain syndrome Deep venous thrombosis of lower extremity (04/23/11) Diabetes mellitus type 2, uncontrolled Diabetic peripheral neuropathy Dyslipidemia GERD (gastroesophageal reflux disease) [place] filter in place History of COVID-19 05/2021 *FLU LIKE SYMPTOMS (ALL RESOLVED) Hypertension Insulin pump in place PTSD (post-traumatic stress disorder) Severe sleep apnea HAS NOT USED CPAP MACHINE IN YEARS Stage III chronic kidney disease Systemic lupus erythematosus REASON FOR LOVENOX Surgical History H/O inguinal hernia repair History of arthroscopy of knee History of cholecystectomy History of colonoscopy History of colonoscopy History of umbilical hernia repair Family History Unknown Brain cancer Mother Nephrolithiasis Myocardial infarction Sister Nephrolithiasis Other No family history of adverse response to anesthesia Denies family history of Ovarian cancer Prostate cancer Diabetes Coronary heart disease Breast cancer Colorectal cancer Social History Smoking Status: Current some day smoker Tobacco Type: Cigars Age Started Using Tobacco: 61; Age Quit Using Tobacco: 64; Cigarettes Per Day: 1 per week; Second Hand Exposure: No; Do You Dip or Chew Tobacco: No; Hx Alcohol Use: No Hx Substance Use: No Preferred Language: Greenlandic Communication Ability: Effective Visual Impairment: No Limitations Hearing Ability: Use of Hearing Aid Sighter Required: No Beliefs That Will Affect Care: None marital status: Current Living Situation: Spouse current occupational status: retired 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 AOx3. Vitals as above. HEENT: No scleral injection or discharge. Moist mucous membranes. Neck: Supple without lymphadenopathy or thyromegaly. Trachea midline. Lungs: Clear to auscultation bilaterally with good effort. No wheezes/rales/rhonchi. Cardiac: Regular rate and rhythm.No murmurs.Trace lower extremity edema. 2+ distal peripheral pulses. Abdomen: Bowel sounds present. Soft, nontender, and nondistended.No guarding. No hepatosplenomegaly. MSK: No cyanosis or clubbing. Extremities motor strength 5/5. Mildly tender anterolateral R thigh without erythema/warmth. Skin: No rashes, warm, dry. Neurologic: no focal deficits Results & Data Results & Data Vital Signs (Past 12 Hours) Vital Signs Temp Pulse Pulse Resp BP BP Pulse Ox 04/06/23 21:18 81 96 04/06/23 21:11 90 18 165/109 H 96 04/06/23 18:51 36.7 C 97 H 18 152/94 H 95 O2 Del Method 04/06/23 21:18 Room Air 04/06/23 21:11 Room Air 04/06/23 18:51 Room Air Laboratory Results Laboratory Results WBC 7.16 K/ul (4.8-10.8) 04/06/23 21:19 RBC 5.21 M/uL (4.70-6.10) 04/06/23 21:19 Hgb 14.9 g/dl (14.0-18.0) 04/06/23 21:19 Hct 45.9 % (42.0-52.0) 04/06/23 21:19 MCV 88.1 fL (80.0-100.0) 04/06/23 21:19 MCH 28.6 pg (25.0-34.0) 04/06/23 21:19 MCHC 32.5 g/dL (32.0-36.0) 04/06/23 21:19 RDW Std Deviation 42.2 fL (36.4-46.3) 04/06/23 21:19 RDW Coeff of Na 13.1 % (11.5-14.5) 04/06/23 21:19 Plt Count 218 K/uL (130-400) 04/06/23 21:19 MPV 10.6 fL (9.4-12.4) 04/06/23 21:19 Immature Gran % (Auto) 0.3 % 04/06/23 21:19 Neut % (Auto) 55.6 % 04/06/23 21:19 Lymph % (Auto) 30.4 % 04/06/23 21:19 Crane % (Auto) 9.5 % 04/06/23 21:19 Eos % (Auto) 3.2 % 04/06/23 21:19 Baso % (Auto) 1.0 % 04/06/23 21:19 Neut # (Auto) 3.98 K/uL (1.40-6.50) 04/06/23 21:19 Lymph # (Auto) 2.18 K/uL (1.20-3.40) 04/06/23 21:19 Crane # (Auto) 0.68 K/uL (0.11-0.59) H 04/06/23 21:19 Eos # (Auto) 0.23 K/uL (0.00-0.50) 04/06/23 21:19 Baso # (Auto) 0.07 K/uL (0.00-0.20) 04/06/23 21:19 Immature Gran # (Auto) 0.02 K/uL (0.01-0.20) 04/06/23 21:19 PT 10.4 Seconds (9.0-12.0) 04/06/23 21:19 INR 0.9 (0.9-1.1) 04/06/23 21:19 APTT 25.4 Seconds (21.0-31.0) 04/06/23 21:19 PTT Ratio 0.9 04/06/23 21:19 Sodium 139 mmol/L (136-145) 04/06/23 21:19 Potassium 4.4 mmol/L (3.5-5.1) 04/06/23 21:19 Chloride 106 mmol/L (98-107) 04/06/23 21:19 Carbon Dioxide 31 mmol/L (21-32) 04/06/23 21:19 Anion Gap 2 (3-11) L 04/06/23 21:19 BUN 22 mg/dl (6-23) 04/06/23 21:19 Creatinine 1.64 mg/dl (0.6-1.4) H 04/06/23 21:19 Est Cr Clr Drug Dosing 56.2 ml/min 04/06/23 21:19 Est GFR ( Amer) 48.7 ml/min 04/06/23 21:19 Est GFR (Non-Af Amer) 42.0 ml/min 04/06/23 21:19 BUN/Creatinine Ratio 13.4 (10-20) 04/06/23 21:19 Glucose 195 mg/dl (70-99(Fasting)) H 04/06/23 21:19 Calcium 9.0 mg/dl (8.6-10.3) 04/06/23 21:19 Magnesium 1.9 mg/dl (1.7-2.4) 04/06/23 21:19 Total Bilirubin 0.6 mg/dl (0.2-1.0) 04/06/23 21:19 AST 21 U/L (13-39) 04/06/23 21:19 ALT 26 U/L (7-52) 04/06/23 21:19 Alkaline Phosphatase 69 U/L (34-104) 04/06/23 21:19 Total Protein 6.8 gm/dl (6.0-8.3) 04/06/23 21:19 Albumin 3.4 gm/dl (3.4-5.0) 04/06/23 21:19 Globulin 3.4 gm/dl (2.5-4.0) 04/06/23 21:19 Albumin/Globulin Ratio 1.0 (0.9-2) 04/06/23 21:19 Impressions Hip/Pelvis X-Ray 04/06/23 19:18 XR hip RT 2V w pelvis HISTORY: 67 years-old Male hip pain acute right hip pain COMPARISON: 12/07/2022 TECHNIQUE: AP view of the pelvis with 2 views of the right hip FINDINGS: Mild osteoarthritis of the hips. No acute fracture, dislocation or avascular necrosis. Partially imaged IVC filter. Unremarkable soft tissues. IMPRESSION: No acute fracture or dislocation. ACT 112: Negative or not required by law. The above report was generated using voice recognition software. It may contain grammatical, syntax or spelling errors. Electronically signed by: Thomas Felipe M.D. 04/06/2023 7:49 PM Venous Doppler Study 04/06/23 19:18 CR Exam(s): US VENOUS RIGHT LOWER EXTREMITY EXAM: US Duplex Right Lower Extremity Veins CLINICAL HISTORY: Pain. TECHNIQUE: Real-time duplex ultrasound scan of the right lower extremity veins integrating B-mode two-dimensional vascular structure, Doppler spectral analysis, color flow Doppler imaging and compression. COMPARISON: DVT scan 10/20/2021. FINDINGS: Deep veins: Near-complete occlusive thrombus of the right femoral vein, popliteal vein, peroneal and posterior tibial veins. Superficial veins: Unremarkable. No thrombus in the visualized great saphenous vein. Soft tissues: No acute findings. No popliteal cyst. IMPRESSION: Near-complete occlusive thrombus of the right femoral vein, popliteal vein, peroneal and posterior tibial veins. Communications: Call Doctor DVT acute, progressing Electronically signed by: Tequila Yo MD 04/06/23 20:59 PM Supervising Physician Co-Signing Physician Notes Attending addendum: I have physically seen this patient, have supervised the medical residents activities, and agree with the H&P unless as otherwise noted. Assessment and Plan: Extensive left lower extremity DVT- [facility] an unknown medication, which should not pathology, and has been off for a month at this time History of IVC filter Anticoagulation with Xarelto would still be recommended due to history of diabetes and prevention of venous ulcerations over time CAD/hypertension- Continue lisinopril, metoprolol and diltiazem History of aspirin intolerance Question of ischemia Consult cardiology CKD- Follows with Dr. Hernandez Creatinine at baseline of 1.64 Resident Activity Tracking Resident Involvement: Resident Care Provided Care Provided: Adult Hospital Medicine (4) Diabetic nephropathy Diabetes mellitus type: type 2 Qualified Code(s): E11.21 - Type 2 diabetes mellitus with diabetic nephropathy (7) Obesity Body mass index: BMI 35.0-35.9 Obesity classification: adult class 2 (BMI 35 - 39.9) Obesity type: due to excess calories Serious obesity comorbidity presence: with serious comorbidity Qualified Code(s): E66.01 - Morbid (severe) obesity due to excess calories; Z68.35 - Body mass index [BMI] 35.0-35.9, adult (8) Stage III chronic kidney disease Chronic kidney disease stage 3 subtype: stage 3b (GFR 30-44) Qualified Code(s): N18.32 - Chronic kidney disease, stage 3b (10) Hypertension Hypertension type: unspecified Qualified Code(s): I10 - Essential (primary) hypertension
[2023-04-06 21:48] LABS: Albumin Level 3.4 gm/dl (3.4-5.0); BUN Creatinine Ratio 13.4 (10-20); Bilirubin,Total 0.6 mg/dl (0.2-1.0); Creatinine Clr Calc Pharmacy 56.2 ml/min; Est GFR (African American) 48.7 ml/min; Globulin 3.4 gm/dl (2.5-4.0); Magnesium 1.9 mg/dl (1.7-2.4); Potassium 4.4 mmol/L (3.5-5.1); Total Protein 6.8 gm/dl (6.0-8.3)
[2023-04-06 22:03] LABS: INR 0.9 (0.9-1.1); Partial Thromboplastin Ratio 0.9; Partial Thromboplastin Time 25.4 Seconds (21.0-31.0); Prothrombin Time 10.4 Seconds (9.0-12.0)
[2023-04-06 22:25] LABS: Basophils # (auto) 0.07 K/uL (0.00-0.20); Eosinophils # (auto) 0.23 K/uL (0.00-0.50); Eosinophils % (auto) 3.2 %; Hematocrit (blood only) 45.9 % (42.0-52.0); Hemoglobin 14.9 g/dl (14.0-18.0); Immature Granulocytes # (auto) 0.02 K/uL (0.01-0.20); Immature Granulocytes % (auto) 0.3 %; Lymphocytes # (auto) 2.18 K/uL (1.20-3.40); Lymphocytes % (auto) 30.4 %; Mean Corpuscular Hemoglobin 28.6 pg (25.0-34.0); Mean Corpuscular Hgb Conc 32.5 g/dL (32.0-36.0); Mean Corpuscular Volume 88.1 fL (80.0-100.0); Mean Platelet Volume 10.6 fL (9.4-12.4); Monocytes # (auto) 0.68 K/uL (0.11-0.59); Monocytes % (auto) 9.5 %; Neutrophils # (auto) 3.98 K/uL (1.40-6.50); Neutrophils % (auto) 55.6 %; Platelet Count 218 K/uL (130-400); RDW Coefficient of Variation 13.1 % (11.5-14.5); RDW Standard Deviation 42.2 fL (36.4-46.3); Red Blood Count 5.21 M/uL (4.70-6.10); White Blood Count 7.16 K/ul (4.8-10.8)
[2023-04-06] MEDS ORDERED: FAMOTIDINE 20 MG TAB PO ONE (22:31)
[2023-04-06] MEDS ORDERED: ATORVASTATIN 40 MG TAB PO STA (22:31)
[2023-04-06] MEDS ORDERED: LANTUS PER UNIT CHARGE SQ STA (22:31)
[2023-04-06] MEDS ORDERED: traZODone HCL 100 MG TAB PO STA (22:31)
[2023-04-06] MEDS ORDERED: VENLAFAXINE HCL XR 150 MG CAPXR PO STA (22:31)
[2023-04-06] MEDS ORDERED: GABAPENTIN 400 MG CAP PO STA (22:31)
[2023-04-06] MEDS: HEPARIN SODIUM/DEXTROSE 25,000 UNITS/500 ML BAG IV SCH (22:36)
[2023-04-06] MEDS: MELATONIN 3 MG TAB PO SCH (23:04)
[2023-04-07] MEDS ORDERED: GLUCAGON FOR INJ 1 MG VIAL SQ PRN (01:03)
[2023-04-07] MEDS ORDERED: ONDANSETRON 4 MG OD TAB PO PRN (01:03)
[2023-04-07] MEDS ORDERED: GLUCOSE 10 TAB/TUBE PO PRN (01:03)
[2023-04-07] MEDS ORDERED: DEXTROSE 50% 50 ML SYRINGE IV PRN (01:03)
[2023-04-07] MEDS ORDERED: CARBOHYDRATES FOR HYPOGLYCEMIA PO PRN (01:03)
[2023-04-07] MEDS ORDERED: GLUCOSE 40% GEL 15 GM TUBE PO PRN (01:03)
[2023-04-07] MEDS ORDERED: POLYETHYLENE (MIRALAX) 17 GM PACK PO PRN (01:03)
[2023-04-07] MEDS ORDERED: ACETAMINOPHEN 325 MG TAB PO PRN (01:03)
[2023-04-07 05:52] LABS: Partial Thromboplastin Ratio 4.2
[2023-04-07] MEDS ORDERED: MoRPHine SULFATE 2 MG/ML CARP IV PRN (06:13)
[2023-04-07 06:29] LABS: Partial Thromboplastin Time 119.3 Seconds (21.0-31.0)
[2023-04-07] MEDS: dilTIAZem HCL 180 MG CAPCR PO SCH (08:34)
[2023-04-07] MEDS: lisinopril 20 MG TAB PO SCH (08:34)
[2023-04-07] MEDS: FAMOTIDINE 20 MG TAB PO SCH ×2 (08:34→20:02)
[2023-04-07] MEDS: METOPROLOL SUCC 50MG EXT REL TAB PO SCH (08:34)
[2023-04-07] MEDS: GABAPENTIN 400 MG CAP PO SCH ×2 (08:34→20:01)
--- NOTE | 2023-04-07 08:35 | Hospitalist Progress Note ---
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 -US R LE: Near-complete occlusive thrombus of the right femoral vein, popliteal vein, peroneal and posterior tibial veins. -started on heparin gtt in ED. Continue this for now. Should be able to transition back on to xarelto in the morning. will require loading dose. (2) Shortness of breath on exertion: Plan: CAD recently questined if unstable CAD recent lexiscan had some reversable perfusion defect and pt symptomatic with exertion -cont. lisinopril, metoprolol, statin -unable to tolerate aspirin in the past, not on plavix( aspirin was due to stomach upset) -cardiology considering cardiac catherization tentatively planned for 04/08/23. (3) Uncontrolled type 2 diabetes mellitus with insulin therapy: Plan: DM2 -hold home medications. -cont. lantus 20units qpm + SSI Diabetic neuropathy-cont. gabapentin CKD 3 likely also contributed to by DM followed by Dr Hernandez (4) Depression: Plan: Anxiety/depression -cont. trazodone, venlafaxine Insomnia, melatonin (5) [facility] current use of anticoagulant therapy: Plan DVT ppx: heparin gtt Code Status: full Admission and Anticipated Discharge Date Admission Date: April 06, 2023 Subjective Patient is with improved leg discomfort discomfort is mostly around his knee and up to his thigh. Palpation was in the process of having a catheterization performed for exertional dyspnea which does persist. Cardiology consult we will plan on diagnostic catheterization on 04/08/2023 Physical Exam Physical Exam: Patient awake alert appropriate. Legs have changes of chronic venous stasis. He has no palpable cords. Edema is trace. Card exam is regular lungs are clear Results & Data Results & Data Vital Signs (Past 12 Hours) Vital Signs Temp Pulse Pulse Resp BP Pulse Ox O2 Del Method 04/07/23 08:09 98.1 F 80 20 175/80 H 97 Room Air 04/07/23 07:24 79 04/07/23 06:26 81 04/07/23 05:52 97.7 F 84 18 165/103 H 96 Room Air 04/07/23 04:00 79 16 177/102 H 96 Room Air 04/07/23 00:09 97 H 20 182/110 H 95 Room Air 04/06/23 23:28 100 H 04/06/23 21:18 81 96 Room Air 04/06/23 21:11 90 18 165/109 H 96 Room Air Laboratory Results Reviewed CBC reviewed chemistry PG Care Time/CCT Total # of Minutes Spent Total Time Spent with Patient: Total time spent is greater than 50% in coordination of care (as documented) at patient's floor/unit and/or counseling patient: Coding Level of Care Code 51613 SUB INP/OBS CARE 235MIN Diagnoses Deep venous thrombosis of lower extremity I82.411 Affected thrombotic vein of extremity: femoral Chronicity: acute Laterality: right Shortness of breath on exertion R06.02 Uncontrolled type 2 diabetes mellitus with insulin therapy E11.65; Z79.4 Depression F32.A [facility] current use of anticoagulant therapy Z79.01 (1) Deep venous thrombosis of lower extremity Affected thrombotic vein of extremity: femoral Chronicity: acute Laterality: right Qualified Code(s): I82.411 - Acute embolism and thrombosis of right femoral vein
[2023-04-07] MEDS: INSULIN ASPART PER UNIT CHARGE SC SCH ×4 (08:36→19:57)
[2023-04-07] MEDS: oxyCODONE HCL IR 5 MG TAB (IMMEDIATE RELEASE) PO PRN (10:04)
--- NOTE | 2023-04-07 13:13 | Electrocardiogram Report ---
Test Reason : Blood Pressure : / mmHG Vent. Rate : 081 BPM Atrial Rate : 081 BPM P-R Int : 196 ms QRS Dur : 096 ms QT Int : 380 ms P-R-T Axes : 042 -27 014 degrees QTc Int : 441 ms Normal sinus rhythm Incomplete right bundle branch block Minimal voltage criteria for LVH, may be normal variant Abnormal ECG When compared with ECG of 27-MAR-2023 14:12, (unconfirmed) Nonspecific T wave abnormality no longer evident in Lateral leads Confirmed by Johann Haynes ([id number]) on 04/07/2023 1:12:38 PM Referred By: REFERRED SELF Confirmed By:Greg Haynes
[2023-04-07 13:33] LABS: Partial Thromboplastin Ratio 2.7
[2023-04-07] MEDS: HEPARIN SODIUM/DEXTROSE 25,000 UNITS/500 ML BAG IV SCH ×2 (14:00→15:54)
--- NOTE | 2023-04-07 16:12 | Cardiology Consultation ---
Date of Consultation April 07, 2023 Assessment & Plan (1) Abnormal nuclear stress test: (2) Shortness of breath on exertion: Plan 1. Dyspnea on exertion: Several months worth of dyspnea with normal left ventricular function. BNP also normal effectively ruling out diastolic dys function as well. His evaluation did include to assessments of cardiac perfusion, 1 which was mildly abnormal. Based on the persistent nature of his symptoms he was advised to consider coronary angiography. We did discuss the risks, benefits and alternatives. He understood and will plan on a right and left heart catheterization tomorrow. In the absence of significant coronary disease alternate etiologies for the dyspnea, possibly pulmonary should be explored. 2. Abnormal stress test: His exercise echocardiogram was sub maximal and essentially nondiagnostic. Although, he did have significant dyspnea there was no evidence of ischemia. Perfusion imaging suggested inferolateral wall defect. Certainly has risk factors for coronary disease to include his diabetes and hypertension. History of Present Illness Reason for Consultation: Dyspnea on exertion. Abnormal stress test Requesting Physician: Janice Attending Physician: Abdiaziz Camacho MD History of Present Illness The patient is a 67-year-old gentleman without a known history of cardiac disease who is currently admitted to the hospital with a right lower extremity DVT. The patient has a history of possible antiphospholipid syndrome and lupus anticoagulant. He has had DVTs before and is prescribed chronic anticoagulation. It seems as if the patient did not take his prescribed Xarelto for some time due to an unpredictable eating schedule and concerns about taking the medication without food. He began to have symptoms of discomfort in the right leg and presented to the hospital where he was discovered to have the DVT. Patient had previously been evaluated in the cardiology clinic for symptoms of exertional dyspnea. Seems that his symptoms have been progressive over the past 4-5 months. Now they are quite severe in nature occurring even light activity. Did undergo an outpatient evaluation which initially involved exercise echocardiography. However, the patient was only able to exercise for about 2 minutes before he became severely dyspneic. That evaluation did not demonstrate ischemia but he went on to have a perfusion study as well which was suggestive of mild ischemia in the inferior wall. Based on his symptoms and abnormal stress test he was advised to consider coronary angiography. At the time of the interview the patient is feeling well. He was resting in bed. I did describe the risks and potential benefits of the procedure with specific attention to potential renal dysfunction. He is willing to proceed. Allergies Allergy/AdvReac Type Severity Reaction Status Date / Time lanolin Allergy Intermediate WOOL WAX Verified 03/31/23 12:58 ALCOHOL moxifloxacin Allergy Intermediate hives Verified 03/31/23 12:58 aspirin AdvReac Mild STOMACH Verified 03/31/23 12:58 DISTRESS SOAPCLEAN Allergy Unknown DETERGENTS Uncoded 03/31/23 12:58 CAUSED RASH Home Medications Medication Instructions Recorded Confirmed Type trazodone 100 mg tablet 100 mg PO HS 11/16/18 04/06/23 History venlafaxine 150 mg 150 mg PO QAM 11/16/18 04/06/23 History capsule,extended release 24 hr lorazepam 0.5 mg tablet 0.5 mg PO Q8H PRN Anxiety #15 tabs 12/29/18 04/06/23 History atorvastatin 80 mg tablet 80 mg PO QPM Hyperlipidemia #90 03/04/22 04/06/23 Rx tabs famotidine 20 mg tablet 20 mg PO BID #180 tabs 06/13/22 04/06/23 Rx lisinopril 20 mg tablet 20 mg PO QAM 09/11/22 04/06/23 History gabapentin 400 mg capsule 400 mg PO BID #180 caps 01/28/23 04/06/23 Rx dulaglutide 0.75 mg/0.5 mL 0.75 mg subcut .COMPLEX 03/05/23 04/06/23 History subcutaneous pen injector (Trulicity) diltiazem HCl 360 mg capsule,24 360 mg PO QAM #90 caps 03/18/23 04/06/23 Rx hr,extended release metoprolol succinate 50 mg 50 mg PO DAILY #90 tabs 03/27/23 04/06/23 Rx tablet,extended release 24 hr nitroglycerin 0.4 mg sublingual 0.4 mg sublingual Q5M PRN chest 03/27/23 04/06/23 Rx tablet pain #25 tabs insulin glargine 100 unit/mL (3 20 unit (0.2 mL) subcut QAM #15 mL 03/31/23 04/06/23 Rx mL) subcutaneous pen rivaroxaban 20 mg tablet 20 mg PO QPM #90 tabs 03/31/23 04/06/23 Rx Patient History Medical History Anxiety and depression Chronic pain syndrome Deep venous thrombosis of lower extremity (04/23/11) Diabetes mellitus type 2, uncontrolled Diabetic peripheral neuropathy Dyslipidemia GERD (gastroesophageal reflux disease) [place] filter in place History of COVID-19 05/2021 *FLU LIKE SYMPTOMS (ALL RESOLVED) Hypertension Insulin pump in place PTSD (post-traumatic stress disorder) Severe sleep apnea HAS NOT USED CPAP MACHINE IN YEARS Stage III chronic kidney disease Systemic lupus erythematosus REASON FOR LOVENOX Surgical History H/O inguinal hernia repair History of arthroscopy of knee History of cholecystectomy History of colonoscopy History of colonoscopy History of umbilical hernia repair Family History Unknown Brain cancer Mother Nephrolithiasis Myocardial infarction Sister Nephrolithiasis Other No family history of adverse response to anesthesia Denies family history of Ovarian cancer Prostate cancer Diabetes Coronary heart disease Breast cancer Colorectal cancer Social History Smoking Status: Current some day smoker Tobacco Type: Cigars Age Started Using Tobacco: 61; Age Quit Using Tobacco: 64; Cigarettes Per Day: 1 per week; Second Hand Exposure: No; Do You Dip or Chew Tobacco: No; Hx Alcohol Use: No Hx Substance Use: No Preferred Language: Citizen Of [place] Communication Ability: Effective Visual Impairment: No Limitations Hearing Ability: Use of Hearing Aid Assistant Housekeeping Manager Required: No Beliefs That Will Affect Care: None marital status: Current Living Situation: Spouse current occupational status: retired 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 Mood and affect appeared normal. He answered all questions appropriately. HEENT: Pupils are equal and reactive to light and accommodation. Extraocular movements are intact. The sclerae are anicteric. Neuro: Cranial nerves intact Lungs: Clear to auscultation bilaterally. He has good air movement without use of accessory muscles. No rales wheezes or rhonchi. Cardiac: Heart demonstrates a regular rate and rhythm. Normal S1 and S2. No murmurs on examination. Pulses: The patient has palpable radial pulses bilaterally that are equal in intensity Extremities: There was no evidence of hypoperfusion. There is no cyanosis or clubbing. There is no edema. Skin: I did not appreciate any rashes on examination today. Results & Data Vital Signs (Past 12 Hours) Vital Signs Temp Pulse Pulse Resp BP Pulse Ox O2 Del Method 04/07/23 15:03 36.6 C 56 L 19 130/82 96 Room Air 04/07/23 11:03 36.4 C L 73 19 161/97 H 96 Room Air 04/07/23 08:09 36.7 C 80 20 175/80 H 97 Room Air 04/07/23 07:24 79 04/07/23 06:26 81 04/07/23 05:52 36.5 C 84 18 165/103 H 96 Room Air Laboratory Results Abnormal Lab Results 04/06/23 04/06/23 04/06/23 21:19 21:19 21:19 WBC 7.16 RBC 5.21 Hgb 14.9 Hct 45.9 MCV 88.1 MCH 28.6 MCHC 32.5 RDW Std Deviation 42.2 RDW Coeff of Na 13.1 Plt Count 218 MPV 10.6 Immature Gran % (Auto) 0.3 Neut % (Auto) 55.6 Lymph % (Auto) 30.4 Coffee % (Auto) 9.5 Eos % (Auto) 3.2 Baso % (Auto) 1.0 Neut # (Auto) 3.98 Lymph # (Auto) 2.18 Coffee # (Auto) 0.68 H Eos # (Auto) 0.23 Baso # (Auto) 0.07 Immature Gran # (Auto) 0.02 PT 10.4 INR 0.9 APTT 25.4 PTT Ratio 0.9 Sodium 139 Potassium 4.4 Chloride 106 Carbon Dioxide 31 Anion Gap 2 L BUN 22 Creatinine 1.64 H Est Cr Clr Drug Dosing 56.2 Est GFR ( Amer) 48.7 Est GFR (Non-Af Amer) 42.0 BUN/Creatinine Ratio 13.4 Glucose 195 H POC Glucose Calcium 9.0 Magnesium 1.9 Total Bilirubin 0.6 AST 21 ALT 26 Alkaline Phosphatase 69 Total Protein 6.8 Albumin 3.4 Globulin 3.4 Albumin/Globulin Ratio 1.0 04/06/23 04/07/23 04/07/23 23:09 04:37 07:55 WBC RBC Hgb Hct MCV MCH MCHC RDW Std Deviation RDW Coeff of Na Plt Count MPV Immature Gran % (Auto) Neut % (Auto) Lymph % (Auto) Coffee % (Auto) Eos % (Auto) Baso % (Auto) Neut # (Auto) Lymph # (Auto) Coffee # (Auto) Eos # (Auto) Baso # (Auto) Immature Gran # (Auto) PT INR APTT 119.3 H* PTT Ratio 4.2 Sodium Potassium Chloride Carbon Dioxide Anion Gap BUN Creatinine Est Cr Clr Drug Dosing Est GFR ( Amer) Est GFR (Non-Af Amer) BUN/Creatinine Ratio Glucose POC Glucose 165 H 125 H Calcium Magnesium Total Bilirubin AST ALT Alkaline Phosphatase Total Protein Albumin Globulin Albumin/Globulin Ratio 04/07/23 04/07/23 11:45 12:22 WBC RBC Hgb Hct MCV MCH MCHC RDW Std Deviation RDW Coeff of Na Plt Count MPV Immature Gran % (Auto) Neut % (Auto) Lymph % (Auto) Coffee % (Auto) Eos % (Auto) Baso % (Auto) Neut # (Auto) Lymph # (Auto) Coffee # (Auto) Eos # (Auto) Baso # (Auto) Immature Gran # (Auto) PT INR APTT 77.0 H* PTT Ratio 2.7 Sodium Potassium Chloride Carbon Dioxide Anion Gap BUN Creatinine Est Cr Clr Drug Dosing Est GFR ( Amer) Est GFR (Non-Af Amer) BUN/Creatinine Ratio Glucose POC Glucose 170 H Calcium Magnesium Total Bilirubin AST ALT Alkaline Phosphatase Total Protein Albumin Globulin Albumin/Globulin Ratio Diagnostic Findings Echocardiogram dated 01/17/2023: Patient she has 70% maximum predicted heart rate. No evidence of inducible ischemia at the workload achieved. Baseline echocardiogram demonstrated hyperdynamic left ventricular function with an ejection fraction of 70%. No significant valvular heart disease. Echocardiogram performed at the [facility] 12/27/2022: Normal LV systolic function with ejection fraction of 60 65%. Mild LVH. No significant valvular heart disease, normal estimated pulmonary pressures Cardiac perfusion study dated 02/06/2023: Abnormal, mild perfusion defect involving the mid to distal inferolateral wall. Gated images suggest ejection fraction of 60% ECG Additional Comments: EKG obtained on 04/06/2023: Normal sinus rhythm with incomplete right bundle branch block PG Care Time/CCT Total # of Minutes Spent Total Time Spent with Patient: Total time spent is greater than 50% in coordination of care (as documented) at patient's floor/unit and/or counseling patient: Coding Level of Care Code 81342 INT INP/OBS CARE 3/75MIN Diagnoses Abnormal nuclear stress test R94.39 Shortness of breath on exertion R06.02
[2023-04-07] MEDS: VENLAFAXINE HCL XR 150 MG CAPXR PO SCH (20:01)
[2023-04-07] MEDS: ATORVASTATIN 40 MG TAB PO SCH (20:02)
[2023-04-07] MEDS: MELATONIN 3 MG TAB PO SCH (20:05)
[2023-04-07 20:44] LABS: Partial Thromboplastin Ratio 2.4
[2023-04-07 20:50] LABS: Partial Thromboplastin Time 67.9 Seconds (21.0-31.0)
[2023-04-07] MEDS: LANTUS PER UNIT CHARGE SQ SCH (21:09)
[2023-04-07] MEDS: SODIUM CHLORIDE 0.9% 1,000 ML IV SCH (21:18)
[2023-04-08] MEDS: oxyCODONE HCL IR 5 MG TAB (IMMEDIATE RELEASE) PO PRN (01:08)
[2023-04-08 04:11] LABS: Partial Thromboplastin Ratio 2.3
[2023-04-08 04:26] LABS: Partial Thromboplastin Time 64.5 Seconds (21.0-31.0)
--- NOTE | 2023-04-08 06:16 | Billing Data ---
Date of Service April 08, 2023 Coding Level of Care Code 91501 INT INP/OBS CARE
[2023-04-08] MEDS: SODIUM CHLORIDE 0.9% 1,000 ML IV SCH ×3 (06:51→19:14)
[2023-04-08] MEDS ORDERED: Nursing to Pharmacy Communication SCH ×3 (08:30→18:45)
[2023-04-08] MEDS: INSULIN ASPART PER UNIT CHARGE SC SCH ×5 (08:59→20:42)
[2023-04-08] MEDS: FAMOTIDINE 20 MG TAB PO SCH ×2 (09:03→20:39)
[2023-04-08] MEDS: METOPROLOL SUCC 50MG EXT REL TAB PO SCH (09:03)
[2023-04-08] MEDS: dilTIAZem HCL 180 MG CAPCR PO SCH (09:03)
[2023-04-08] MEDS: lisinopril 20 MG TAB PO SCH (09:03)
[2023-04-08] MEDS: GABAPENTIN 400 MG CAP PO SCH ×2 (09:03→20:40)
[2023-04-08 09:16] LABS: BUN Creatinine Ratio 14.9 (10-20); Calcium 8.9 mg/dl (8.6-10.3); Creatinine Clr Calc Pharmacy 52.9 ml/min; Est GFR (Non-African American) 38.9 ml/min
[2023-04-08] MEDS: HEPARIN SODIUM/DEXTROSE 25,000 UNITS/500 ML BAG IV SCH ×2 (11:02→13:58)
--- NOTE | 2023-04-08 11:02 | Pre Anesthesia Assessment ---
Date of Service April 08, 2023 Pre Sedation Assessment Vital Signs Temp Pulse Pulse Resp BP BP Pulse Ox 04/08/23 10:57 75 18 165/105 H 95 04/08/23 07:39 65 04/08/23 07:12 36.5 C 68 19 145/93 H 93 04/08/23 03:18 36.9 C 56 L 16 144/87 H 94 04/07/23 23:48 36.3 C L 61 18 147/78 H 95 04/07/23 23:31 52 L 04/07/23 19:15 36.9 C 60 16 142/100 H 95 04/07/23 16:17 55 L 04/07/23 15:03 36.6 C 56 L 19 130/82 96 04/07/23 11:03 36.4 C L 73 19 161/97 H 96 O2 Del Method 04/08/23 10:57 Room Air 04/08/23 07:39 04/08/23 07:12 Room Air 04/08/23 03:18 Room Air 04/07/23 23:48 Room Air 04/07/23 23:31 04/07/23 19:15 Room Air 04/07/23 16:17 04/07/23 15:03 Room Air 04/07/23 11:03 Room Air Cardiovascular + regular rate and + regular rhythm Respiratory + respiratory effort normal Pre-Sedation Airway Assessment Smoking Status: Current some day smoker Hx Sleep Apnea: Yes Hx Difficult Intubation: No Short, Thick Neck: No Thyromental Distance: > or= 3.5 Finger Breadths Oral Cavity: + WNL Mallampati Class: III ASA: ASA3 Procedure Planning Contraindications for Sedation: none Current Medications Reviewed: Yes Notes The planned sedation has been discussed with the patient. Informed Consent was obtained. I have identified the patient, determined the appropriateness of sedation and have assessed the patient immediately prior to the procedure. All medicine(s) and interventions are by my order.
[2023-04-08] MEDS ORDERED: MIDAZOLAM HCL 1 MG/ML 2ML VIAL ONE (11:12)
[2023-04-08] MEDS ORDERED: NITROGLYCERIN/D5W 100MCG/ML 20ML SYR ONE (11:12)
[2023-04-08] MEDS ORDERED: fentaNYL citrate PF 100 MCG/2 ML VIAL ONE (11:12)
[2023-04-08] MEDS ORDERED: HEPARIN (PORCINE) 1000 UNIT/ML 10 ML (CATH LAB USE ONLY) ONE (11:12)
[2023-04-08] MEDS ORDERED: niCARdipine HCL INJ 2.5 MG/ML 10 ML AMP ONE (11:12)
[2023-04-08 11:52] LABS: iSTAT Arterial Blood Gas HCO3 28 meg/L (19-24); iSTAT Arterial Blood Gas pCO2 51 mmHg (35-46); iSTAT Arterial Blood Gas pH 7.34 (7.35-7.45); iSTAT Arterial Blood Gas pO2 36 mmHg (80-95); iSTAT Carbon Dioxide 29 mmol/L (24-31); iSTAT Hematocrit 42 % (42-52); iSTAT Hemoglobin 14.3 g/dl (14.0-18.0); iSTAT Potassium 3.9 mmol/L (3.3-5.0); iSTAT Sodium 138 mmol/L (135-144)
--- NOTE | 2023-04-08 11:55 | Post Anesthesia Assessment ---
Date of Service April 08, 2023 Post Sedation Assessment Vital Signs Temp Pulse Pulse Resp BP BP Pulse Ox 04/08/23 10:57 75 18 165/105 H 95 04/08/23 07:39 65 04/08/23 07:12 36.5 C 68 19 145/93 H 93 04/08/23 03:18 36.9 C 56 L 16 144/87 H 94 04/07/23 23:48 36.3 C L 61 18 147/78 H 95 04/07/23 23:31 52 L 04/07/23 19:15 36.9 C 60 16 142/100 H 95 04/07/23 16:17 55 L 04/07/23 15:03 36.6 C 56 L 19 130/82 96 O2 Del Method 04/08/23 10:57 Room Air 04/08/23 07:39 04/08/23 07:12 Room Air 04/08/23 03:18 Room Air 04/07/23 23:48 Room Air 04/07/23 23:31 04/07/23 19:15 Room Air 04/07/23 16:17 04/07/23 15:03 Room Air Recovery Score Activity: Moves 4 extremities Respiration: Deep Breath/Cough Circulation: +/-20-49% PreAnes Value Consciousness: Fully Awake Oxygen Saturation: > 92% On Room Air Discharge Sedation Level of Care: Fast Track Phase II Post Sedation Plan On clinical assessment, the patient appears to have tolerated the sedation without complications. Patient is recovering as anticipated. Patient will continue to be monitored by nursing and may be discharged when sedation discharge criteria are met per below protocol. Upon Completions of procedure up to 15 minutes continue every 5 minute vital signs and the P.A.R. score; then discharge to a Phase I or Fast Track to Phase II per the following guidelines: * Discharge Patient to appropriate Phase II area if PAR is 8 or greater or return to pre- procedure baseline. The post - procedure orders will be as directed. * If PAR score is less than 8 or not return to pre-procedure baseline then patient will follow Phase I monitoring till PAR is reached for Phase II. The Phase I may be done in procedure room or may call to secure a Phase I area. * If naloxone or flumazenil are used for reversal, hold in Phase I for continued monitoring from when last reversal dose was given for a minimum of 60 minutes or longer pending the nurse and/or physician discretion of patient condition before discharge to Phase II. Please call the Sedation Physician to re-evaluate and complete post-note for discharge to Phase II area. Do NOT discharge from procedure sedation or Phase 1 until post- sedation evaluation note is complete by procedure /sedation MD Sedation Discharge Instructions to be given to the patient at discharge to home.
--- NOTE | 2023-04-08 11:55 | Cardiac Catheterization ---
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 Cardiac Status Clinical evaluation leading to the procedure CAD Presenation: Positive Stress Test Diagnostic Physicians Name: Johann Haynes MD Closure Device Recommendations: Medical Therapy and/or Counseling Cardiac Cath Procedure Full Procedure Date April 08, 2023 Pre-Procedure Diagnosis Pre-Procedure Diagnosis: Positive Stress Test AUC Score AUC Score: 7 Post-Procedure Diagnosis Post-Procedure Diagnosis: Normal Coronary Arteries and Normal Intracardiac Pressures Procedure(s) Performed Procedure(s) Performed: Coronary Angiography, Left Heart Cath and Right Heart Cath Mechanic Foreman Johann Haynes MD Major Gifts Manager(s) none Estimated Blood Loss Estimated Blood Loss: 10cc Medication(s) Medication(s): Fentanyl, Heparin, Lidocaine 1%, Nicardipine, Nitroglycerin and Versed Summary of Findings Procedure performed: Left heart catheterization, right heart catheterization, selective coronary angiography Staff credit counselor: Johann Haynes MD Indication: The patient is a 67-year-old gentleman with a history of severe dyspnea on exertion. Prior outpatient testing suggested reversible ischemia in the inferior wall. Procedure in detail: The patient was informed of the risks benefits and alternatives to the intended procedure, he understood such and wished to proceed. He was taken to the cardiac catheterization suite in a fasting state. Conscious sedation was administered per protocol and the patient was monitored electrocardiographically throughout today's procedure. A sterile IV was placed in the right antecubital vein. This IV was exchanged for an a 6 Jordanian venous sheath. The sheath was used facilitate passage of balloon tipped PA catheter for measurement of intrapulmonary an intracardiac pressures. Cardiac output was also obtained. Catheter was subsequently removed. Attention was then directed to the radial area. The right wrist area was prepped and draped in usual sterile fashion. This area was anesthetized using subcutaneous administration of a lidocaine solution. The right radial artery was then accessed using Seldinger technique, and a arterial sheath was placed at this site over a guidewire. The sheath was used to facilitate passage of the cardiac catheter for coronary angiography and left heart catheterization. Coronary angiogram was then obtained in multiple orthogonal views prior to removal of the catheter. At the conclusion of the procedure the sheath was removed and hemostasis was achieved at the access site using manual pressure. The patient tolerated procedure well, there were no immediate complications. Equipment used: 5 Jordanian tiger 4 Findings: Coronary angiography Left main: Left main was very short in the rest nearly dual ostial physiology. No disease or obstruction Left anterior descending: Left anterior descending was a large transapical vessel. It produced a very large 1st diagonal branch. There was no obstructive disease in this vessel Left circumflex: Left circumflex was a codominant vessel. It produced several obtuse marginal branches including a large 1st and 2nd obtuse marginal with a diminutive 3rd and 4th and a medium-size 5th met obtuse marginal. No obstructive disease in this distribution Right coronary: Right coronary produce the PDA and a small PLB branch. No obstructive disease in this vessel. Hemodynamics Fixed cardiac output was 6.9 liters/minute with an index of 2.9 Thermodilution cardiac output was 5 liters/minutes Impression: Short left main Codominant right coronary system No obstructive coronary disease Normal intracardiac and intrapulmonary pressures Normal cardiac output No evidence of aortic stenosis Hemodynamics Rest Ao:: 104/63 mm of mercury Final Ao: 120/85 mm of mercury LV: 104/0 mm of mercury LVEDP 10 mm of mercury RA: Mean 7 mm of mercury RV: 24/2 mm of mercury PA: 27/13 mm of mercury with an average of 18 mm Hg PW: 9 mm of mercury Recommendations Recommendations: Medical Therapy and/or Counseling Specimens Specimens: None Radiation Exposure (mGy) 1116 Contrast (mls) Twenty Procedural Complication(s) None Disposition PCU I attest to the content of the Intraoperative Record and any orders documented therein. Any exceptions are noted below. [facility] Card Cath Procedure Codes Cardiac Catheterization Procedure 1: Cardiovascular Cath Procedures: 76222 Coronaries & LHC (+/-LV) & RHC Moderate Sedation Procedure 1: Sedation/Anesthesia: 05443 Mod Sedation by the same physician;Init15 Min Child Age 5 & Up Procedure 2: Sedation/Anesthesia: 47727 Mod Sedation by the same physician; Ea [id number] Minutes PG Care Time/CCT Total # of Minutes Spent Total Time Spent with Patient: Total time spent is greater than 50% in coordination of care (as documented) at patient's floor/unit and/or counseling patient:
--- NOTE | 2023-04-08 14:58 | Hospitalist Progress Note ---
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 he typically follows with the [facility] anticoagulation clinic, [id number] informed that recent testing for antiphospholipid syndrome did not confirm this in order to confirm lupus anticoagulant -US R LE: Near-complete occlusive thrombus of the right femoral vein, popliteal vein, peroneal and posterior tibial veins. -started on heparin gtt in ED. Continue this for now. [facility] will see if was a Coumadin failure had a wilfrid conversation with the patient to see if this was considered a Xarel to failure if he was noncompliant he would not admit nor refute the fact that he was with or without compliance however he states that he preferred the Lovenox injections understanding that he only take it once a day and that even at the maximum dosage of syringe which be 150 it still underdosing for him. He said he is willing to take that risk and prefers the Lovenox he says he was on Lovenox for years and had no problems. He subsequently is discharged on 150 mg of Lovenox once a day and I did personally phoned the [place] anticoagulation clinic and they will follow-up with him in short order (2) Shortness of breath on exertion: Plan: CAD recent lexiscan had some reversable perfusion defect and pt symptomatic with exertion Left heart cath with non occlusive disease -cont. lisinopril, metoprolol, statin -unable to tolerate aspirin in the past, with dyspnea will consider outpt pulmonary referral (3) Uncontrolled type 2 diabetes mellitus with insulin therapy: Plan: DM2 -hold home medications. -cont. lantus 20units qpm + SSI Diabetic neuropathy-cont. gabapentin CKD 3 likely also contributed to by DM followed by Dr Hernandez does have some minor [place] post procedure will recommend outpatient laboratory follow-up (4) Depression: Plan: Anxiety/depression -cont. trazodone, venlafaxine Insomnia, melatonin (5) skilled nursing current use of anticoagulant therapy: Plan DVT ppx: heparin gtt Code Status: full Admission and Anticipated Discharge Date Admission Date: April 06, [address] [facility] non occlusive disease. no intervnetion will convert to anticoagulation Physical Exam Physical Exam: Patient awake alert appropriate. Legs have changes of chronic venous stasis. He has no palpable cords. Edema is trace. Card exam is regular lungs are clear Results & Data Results & Data Vital Signs (Past 12 Hours) Vital Signs Temp Pulse Pulse Resp BP BP BP 04/08/23 12:50 97.7 F 64 18 161/98 H 04/08/23 12:15 74 16 141/78 H 04/08/23 12:00 78 18 155/91 H 04/08/23 10:57 75 18 165/105 H 04/08/23 07:39 65 04/08/23 07:12 97.7 F 68 19 145/93 H 04/08/23 03:18 98.4 F 56 L 16 144/87 H Pulse Ox O2 Del Method 04/08/23 12:50 94 Room Air 04/08/23 12:15 95 Room Air 04/08/23 12:00 95 Room Air 04/08/23 10:57 95 Room Air 04/08/23 07:39 04/08/23 07:12 93 Room Air 04/08/23 03:18 94 Room Air PG Care Time/CCT Total # of Minutes Spent Total Time Spent with Patient: Total time spent is greater than 50% in coordination of care (as documented) at patient's floor/unit and/or counseling patient: Coding Level of Care Code 47532 SUB INP/OBS CARE 2/35MIN Diagnoses Deep venous thrombosis of lower extremity I82.411 Affected thrombotic vein of extremity: femoral Chronicity: acute Laterality: right Shortness of breath on exertion R06.02 Uncontrolled type 2 diabetes mellitus with insulin therapy E11.65; Z79.4 Depression 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
--- NOTE | 2023-04-08 17:10 | Cardiology Progress Note ---
Date of Service April 08, 2023 Assessment & Plan (1) Abnormal nuclear stress test: (2) Shortness of breath on exertion: Plan 1. Dyspnea on exertion: Unclear etiology. Described as severe by the patient. I do not think there is a cardiac etiology given his evaluation to date. No coronary disease. Normal LV function. No significant valvular heart disease. Normal pulmonary and cardiac pressures. I think his current evaluation should be directed elsewhere, i.e. pulmonary or perhaps laryngeal spasm. 2. Abnormal stress test: False-positive. Angiographically normal coronary arteries. Based on his degree of renal insufficiency we will continue hydration this evening. Very little contrast used for his angiography today. He should refrain from lifting greater than 5 lb or heavy use of the right hand for 7 days. Systemic anticoagulation can be resumed immediately. Admission and Anticipated Discharge Date Admission Date: April 06, 2023 Subjective This afternoon the patient was feeling well. No significant discomfort at the site of his radial or antecubital access sites. No breathing difficulty of bed. Still some discomfort involving the right leg and buttock. Review of Systems Review of Systems: Per HPI Physical Exam Physical Exam: The patient is alert and oriented. Mood and affect appeared normal. He answered all questions appropriately. HEENT: Pupils are equal and reactive to light and accommodation. Extraocular movements are intact. The sclerae are anicteric. Neuro: Cranial nerves intact Lungs: Normal respiratory effort Cardiac: Heart demonstrates a regular rate and rhythm. Normal S1 and S2. No murmurs on examination. Pulses: Good radial pulse bilaterally. Good perfusion of the right hand. No hematoma or ecchymosis at the radial access site. Extremities: There was no evidence of hypoperfusion. There is no cyanosis or clubbing. Skin: I did not appreciate any rashes on examination today. ENMT: Mallampati Class: III Respiratory: normal respiratory effort Cardiovascular: Rate/Rhythm: regular rate and regular rhythm Results & Data Vital Signs (Past 12 Hours) Vital Signs Temp Pulse Pulse Resp BP BP BP 04/08/23 15:10 60 18 136/84 04/08/23 14:10 61 20 145/84 H 04/08/23 13:10 74 18 160/90 H 04/08/23 12:50 36.5 C 64 18 161/98 H 04/08/23 12:15 74 16 141/78 H 04/08/23 12:00 78 18 155/91 H 04/08/23 10:57 75 18 165/105 H 04/08/23 07:39 65 04/08/23 07:12 36.5 C 68 19 145/93 H Pulse Ox O2 Del Method 04/08/23 15:10 96 Room Air 04/08/23 14:10 94 Room Air 04/08/23 13:10 95 Room Air 04/08/23 12:50 94 Room Air 04/08/23 12:15 95 Room Air 04/08/23 12:00 95 Room Air 04/08/23 10:57 95 Room Air 04/08/23 07:39 04/08/23 07:12 93 Room Air Laboratory Results Abnormal Lab Results 04/07/23 04/07/23 04/07/23 19:43 19:51 23:43 POC Hgb POC Hct APTT 67.9 H* PTT Ratio 2.4 POC pH POC pCO2 POC pO2 POC HCO3 POC Total CO2 POC Base Excess POC ABG O2 Sat POC Sodium Sodium POC Potassium Potassium Chloride Carbon Dioxide Anion Gap BUN Creatinine Est Cr Clr Drug Dosing Est GFR ( Amer) Est GFR (Non-Af Amer) BUN/Creatinine Ratio Glucose POC Glucose 117 H 131 H Calcium 04/08/23 04/08/23 04/08/23 03:10 03:13 06:24 POC Hgb POC Hct APTT 64.5 H* PTT Ratio 2.3 POC pH POC pCO2 POC pO2 POC HCO3 POC Total CO2 POC Base Excess POC ABG O2 Sat POC Sodium Sodium 136 POC Potassium Potassium 4.0 Chloride 103 Carbon Dioxide 28 Anion Gap 5 BUN 26 H Creatinine 1.75 H Est Cr Clr Drug Dosing 52.9 Est GFR ( Amer) 45.0 Est GFR (Non-Af Amer) 38.9 BUN/Creatinine Ratio 14.9 Glucose 176 H POC Glucose 144 H Calcium 8.9 04/08/23 04/08/23 04/08/23 11:37 13:25 16:46 POC Hgb 14.3 POC Hct 42 APTT PTT Ratio POC pH 7.34 L POC pCO2 51 H POC pO2 36 L POC HCO3 28 H POC Total CO2 29 POC Base Excess 2.0 H POC ABG O2 Sat 64.0 L POC Sodium 138 Sodium POC Potassium 3.9 Potassium Chloride Carbon Dioxide Anion Gap BUN Creatinine Est Cr Clr Drug Dosing Est GFR ( Amer) Est GFR (Non-Af Amer) BUN/Creatinine Ratio Glucose POC Glucose 149 H 113 H Calcium Diagnostic Findings Cardiac catheterization today revealed normal coronary arteries without obstructive coronary disease. Normal LV filling pressures. Normal pulmonary pressures. PG Care Time/CCT Total # of Minutes Spent Total Time Spent with Patient: Total time spent is greater than 50% in coordination of care (as documented) at patient's floor/unit and/or counseling patient: Coding Level of Care Code 98650 SUB INP/OBS CARE 2/35MIN Diagnoses Abnormal nuclear stress test R94.39 Shortness of breath on exertion R06.02
[2023-04-08] MEDS: ATORVASTATIN 40 MG TAB PO SCH (20:39)
[2023-04-08] MEDS: LANTUS PER UNIT CHARGE SQ SCH (20:43)
[2023-04-08] MEDS: MELATONIN 3 MG TAB PO SCH (21:01)
[2023-04-08] MEDS: VENLAFAXINE HCL XR 150 MG CAPXR PO SCH (21:01)
[2023-04-08 21:26] LABS: Partial Thromboplastin Ratio 1.7
[2023-04-08 21:30] LABS: Partial Thromboplastin Time 48.5 Seconds (21.0-31.0)
[2023-04-09] MEDS: SODIUM CHLORIDE 0.9% 1,000 ML IV SCH (05:53)
[2023-04-09] MEDS: oxyCODONE HCL IR 5 MG TAB (IMMEDIATE RELEASE) PO PRN (05:54)
[2023-04-09 07:06] LABS: iSTAT Arterial Blood Gas HCO3 25 meg/L (19-24); iSTAT Arterial Blood Gas pCO2 44 mmHg (35-46); iSTAT Arterial Blood Gas pH 7.37 (7.35-7.45); iSTAT Arterial Blood Gas pO2 59 mmHg (80-95); iSTAT Carbon Dioxide 26 mmol/L (24-31); iSTAT Hematocrit 42 % (42-52); iSTAT Hemoglobin 14.3 g/dl (14.0-18.0); iSTAT Potassium 3.8 mmol/L (3.3-5.0); iSTAT Sodium 138 mmol/L (135-144)
[2023-04-09 07:29] LABS: Partial Thromboplastin Ratio 1.9
[2023-04-09] MEDS ORDERED: ENOXAPARIN 1.5 MG/KG SQ SCH (08:30)
[2023-04-09] MEDS: dilTIAZem HCL 180 MG CAPCR PO SCH (08:39)
[2023-04-09] MEDS: lisinopril 20 MG TAB PO SCH (08:39)
[2023-04-09] MEDS: FAMOTIDINE 20 MG TAB PO SCH (08:39)
[2023-04-09] MEDS: GABAPENTIN 400 MG CAP PO SCH (08:39)
[2023-04-09] MEDS: INSULIN ASPART PER UNIT CHARGE SC SCH ×2 (08:40→12:52)
[2023-04-09] MEDS: METOPROLOL SUCC 50MG EXT REL TAB PO SCH (08:40)
[2023-04-09] MEDS ORDERED: ENOXAPARIN 150 MG/ML SYR SQ SCH (09:00)
[2023-04-09 09:01] LABS: BUN Creatinine Ratio 14.8 (10-20); Calcium 8.4 mg/dl (8.6-10.3); Creatinine Clr Calc Pharmacy 50.8 ml/min; Est GFR (Non-African American) 37.1 ml/min; Potassium 3.9 mmol/L (3.5-5.1)
--- NOTE | 2023-04-09 16:13 | Discharge Summary ---
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 2 days ago started feeling pain in his right leg from his lateral knee up to his hip. Otherwise denies headache, chest pain, abdominal pain, nausea, vomiting, fatigue, new extremity weakness/numbness/tingling. Does endorse some chronic changes in his bowel movements but attributes this to diabetic medications. Also with chronic shortness of breath on exertion which is being evaluated by cardio logy. With his history of thrombophilia and recurrent DVT, he does have a IVC filter in place has been on chronic anticoagulation. He states that he is supposed to be on Xarelto however has not been taking his medication for the last month. He says this is because he is supposed to take the medication with meals and his meals are so sporadic that he just forgets to take the medication. Principal Diagnosis acute on chronic right lower extremity DVT Discharge Exam patient's leg pain is improved left heart cath catheterization site clean dry intact distal extremity is pink with good cap refill Discharge Data Allergies Allergy/AdvReac Type Severity Reaction Status Date / Time lanolin Allergy Intermediate WOOL WAX Verified 03/31/23 12:58 ALCOHOL moxifloxacin Allergy Intermediate hives Verified 03/31/23 12:58 aspirin AdvReac Mild STOMACH Verified 03/31/23 12:58 DISTRESS SOAPCLEAN Allergy Unknown DETERGENTS Uncoded 03/31/23 12:58 CAUSED RASH Consultations 04/06/23 21:19 ED Decision to Admit Stat 04/07/23 14:29 Consult Cardiology Routine Procedures Performed Operation Date: 04/08/23 09:30 Actual Procedures s Cineradiography w/Routine Exam - Johann Haynes MD p Cath, Right and Left Heart - Johann Haynes MD Ordered Studies 04/06/23 19:18 US venous doppler LE RT Stat 04/07/23 15:11 CL Cath Imgs for PACS use only Routine 04/08/23 07:16 CL Cath Imgs for PACS use only Routine Hospital Course (1) Deep venous thrombosis of lower extremity: 67 yo male with 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 he typically follows with the [facility] anticoagulation clinic, [id number] informed that recent testing for antiphospholipid syndrome did not confirm this in order to confirm lupus anticoagulant -US R LE: Near-complete occlusive thrombus of the right femoral vein, popliteal vein, peroneal and posterior tibial veins. -started on heparin gtt in ED. Continue this for now. [facility] will see if was a Coumadin failure had a wilfrid conversation with the patient to see if this was considered a Xarelto failure if he was noncompliant he would not admit nor refute the fact that he was with or without compliance however he states that he preferred the Lovenox injections understanding that he only take it once a day and that even at the maximum dosage of syringe which be 150 it still underdosing for him. He said he is willing to take that risk and prefers the Lovenox he says he was on Lovenox for years and had no problems. He subsequently is discharged on 150 mg of Lovenox once a day and I did personally phoned the [place] anticoagulation clinic and they will follow-up with him in short order (2) Shortness of breath on exertion: CAD recent lexiscan had some reversable perfusion defect and pt symptomatic with exertion Left heart cath with non occlusive disease -cont. lisinopril, metoprolol, statin -unable to tolerate aspirin in the past, with dyspnea will consider outpt pulmonary referral (3) Uncontrolled type 2 diabetes mellitus with insulin therapy: DM2 -hold home medications. -cont. lantus 20units qpm + SSI Diabetic neuropathy-cont. gabapentin CKD 3 likely also contributed to by DM followed by Dr Hernandez does have some minor [place] post procedure will recommend outpatient laboratory follow-up (4) Depression: Anxiety/depression -cont. trazodone, venlafaxine Insomnia, melatonin (5) jail current use of anticoagulant therapy: Plan DVT ppx: heparin gtt Code Status: full Total Time Total Time Spent Total Time Spent (In Minutes): it required greater than 30 minutes to prepare this patient for discharge Discharge Plan Discharge Items Patient Disposition: Home - Self-Care Reason For Visit: LEG PAIN Discharge Diagnosis: acute on chronic DVT Activity: Per Instructions section Activity Comment: rest and elevate your leg Lifting: No more than 5 pounds Lifting Comment: No more than 5 lb with the right hand for 7 days Non-emergency contact: Primary Care Provider Call non-emergency contact if: your symptoms worsen Follow-up/Referrals: Dennis Macdonald DO [Primary Care Provider] - Diet: Regular Addtl Attending Provider Instructions: No vigorous use of the right hand or wrist for 7 days. Medication Instructions: Your condition is typically treated with an anticoagulant. Anticoagulants will thin your blood to help prevent new clots. * You should take her medication exactly as directed. * Never skip a dose. * Never take a double dose. If you miss a dose, take it as soon as you remember. Call your Primary Care doctor if you experience any of the following: * Swelling or Pain in your leg * Sudden, continuous pain deep in a muscle * Pain that worsens when you are active or when you stand still for a long time * Chest Pain * Sudden Shortness of Breath * Rapid or pounding heart beat * Fainting * Dizziness * Cough with blood or bloody sputum * Sweating more than normal * Bruises * Heavy or uncontrolled bleeding * Blood in your urine, stool or vomit * Black or tarry stools Caring for Your Self at Home: * Avoid sitting, standing or lying down for long periods without moving your legs and feet * When traveling by car, stop to get out and move around at least once every 3 hours * On long airplane, train or bus rides, get up and move around when possible * If you can't get up, wiggle your toes and tighten your calves to keep your blood moving Follow Up: It is important for you to keep your follow up appointments with your medical provider. Pending Studies at Discharge: No Stand-Alone Forms: My Prifloat, Smoking Cessation Medications and DC Order Prescriptions: New enoxaparin [Lovenox] 150 mg/mL Syringe 150 mg subcut DAILY Qty: 30 4RF Rx Instructions: acute DVT treatment oxycodone 5 mg tablet 5 - 10 mg PO Q8H PRN (Reason: pain) Qty: 20 0RF Continued atorvastatin 80 mg tablet 80 mg PO QPM Qty: 90 3RF famotidine 20 mg tablet 20 mg PO BID Qty: 180 3RF gabapentin 400 mg capsule 400 mg PO BID Qty: 180 3RF diltiazem HCl 360 mg capsule,extended release 24 hr 360 mg PO QAM Qty: 90 3RF metoprolol succinate 50 mg tablet extended release 24 hr 50 mg PO DAILY Qty: 90 3RF nitroglycerin 0.4 mg tablet, sublingual 0.4 mg sublingual Q5M PRN (Reason: chest pain) Qty: 25 1RF Rx Instructions: until response; do not exceed 3 doses per episode Trulicity 0.75 mg/0.5 mL pen injector 0.75 mg subcut .COMPLEX Rx Instructions: 0.75 mg subcutaneously weekly; lorazepam 0.5 mg tablet 0.5 mg PO Q8H PRN (Reason: Anxiety) Qty: 15 insulin glargine 100 unit/mL (3 mL) insulin pen 20 unit subcut QAM Qty: 15 2RF venlafaxine 150 mg capsule,extended release 24hr 150 mg PO QAM trazodone 100 mg tablet 100 mg PO HS lisinopril 20 mg tablet 20 mg PO QAM Rx Instructions: *Note dose* Discontinued rivaroxaban 20 mg tablet 20 mg PO QPM Qty: 90 3RF Rx Instructions: must administer with evening meal Discharge Orders: Discharge Order (Routine); Ordered 04/09/23 Ordered By: Abdiaziz Camacho Admission Data Admit Date/Time: 04/06/23 22:31 Attending Provider: Abdiaziz Camacho Admit Provider: Barry Cruz Primary Care Provider: Dennis Macdonald Other Providers: Danny Gilbert ; Johann Haynes ; [facility] Coding Level of Care Code 97914 INP/OBS DISCH >30 MIN Diagnoses Deep venous thrombosis of lower extremity I82.411 Affected thrombotic vein of extremity: femoral Chronicity: acute Laterality: right Shortness of breath on exertion R06.02 Uncontrolled type 2 diabetes mellitus with insulin therapy E11.65; Z79.4 Depression F32.A jail current use of anticoagulant therapy Z79.01
== END 2023-04-09 17:58 | disposition home or self-care (01) | DRG 287 ==
LOC: ED 18:39 → SUATTDRO 22:31 → EDINP 22:31 → 4W 04-07 01:04

== ENCOUNTER 2023-04-30 23:47 | Inpatient (IN) ==
[2023-05-01] MEDS ORDERED: DICLOFENAC SOD 1% GEL 100 GM TUBE EXT STA (00:42)
[2023-05-01] MEDS ORDERED: CYCLOBENZAPRINE HCL 10 MG TAB PO STA (00:42)
--- NOTE | 2023-05-01 01:11 | Emergency Department Note ---
Impression & Plan Acute pain of left hip, Hematoma ED Provider Note ED Provider Note NAME: MAGGIE PIERRE AGE:67 SEX: Male : 1955 ARRIVES VIA: private vehicle INFORMANT: Patient ED PROVIDER(s): Madeleine Guzman DO CHIEF COMPLAINT: Left hip and thigh pain HPI: This is a 67-year-old male presents emergency room due to concern for left hip and thigh pain that began several days ago when he stood up from a lazy boy recliner. He states no falls, no trauma, no recent change in activity. Denies any recent illness. Patient states he is a diabetic, sugars have been consistently elevated. He also has chronic lower extremity neuropathy. He states his left lower extremity is numb additionally, including more proximally in the area of the pain which is new compared to prior. He states he does have a history of low back problems, but has not noticed any increased low back pain recently. PAST MEDICAL HISTORY:See Below PAST SURGICAL HISTORY:See Below FAMILY HISTORY:See Below SOCIAL HISTORY:See Below HOME MEDICATIONS:See Below ALLERGIES:See Below VITALS:See Below PHYSICAL EXAMINATION: GENERAL: alert, well appearing, well nourished, laying prone on the stretcher EYE EXAM: normal conjunctiva, PERRL and EOM's grossly intact OROPHARYNX: no exudate, no erythema, lips, buccal mucosa, and tongue normal and mucous membranes are moist NECK: supple, no nuchal rigidity, no adenopathy, non-tender LUNGS: Clear to auscultation. Normal chest wall mechanics, no w/r/r HEART: no murmurs, S1 normal and S2 normal ABDOMEN: abdomen soft, non-tender, normo-active bowel sounds, no masses, no rebound or guarding. PELVIS: Pain with palpation over the left lateral hip and left lateral buttock, edema noted to left lateral buttock, no ecchymosis, no overlying erythema, no deformity BACK: Back is symmetrical on inspection and there is no deformity, no midline tenderness, no CVA tenderness. SKIN: no rashes, petechiae, orbruising UPPER EXTREMITIES: upper extremities are grossly normal. FROM, nml pulses b/l. LOWER EXTREMITIES: No pitting edema. FROM, nml pulses b/l. Decreased sensation bilaterally which patient states is chronic. NEURO EXAM: Normal sensorium, cranial nerves II-XII grossly intact, normal speech, no facial droop,nogross weakness of arms, no gross weakness of legs. Gross sensation intact. No ataxia. Vital Signs: reviewed and remarkable Differential Diagnosis: cellulitis, contusion, septic arthritis, hemarthrosis, occult fracture, dislocation, as well as others were considered MEDICAL DECISION MAKING: This is a 67-year-old male presents emergency department due to persistent left hip pain. Patient was seen and evaluated here yesterday and had labs as well as lower extremity ultrasound due to history of DVT. He was afebrile and vital signs stable. After review of evaluation yesterday, we discussed additional imaging of the hip and low back as patient does have significant history of low back problems. Patient sent for CT L-spine as well as CT pelvis with contrast to further evaluate the hips, buttock, and pelvic region. Patient noted to have an intramuscular hematoma in the left buttock on CT. Overnight outside radiology recommended additional MRI of the hip. Patient had labs drawn and sent, IV established, he was started on IV fluids and given IV morphine, IV Tylenol, oral Flexeril, and topical Voltaren. Patient ultimately sent for MRI. Hematoma noted, no active extravasation, no joint involvement. No other abnormality noted to the left hip joint. Due to persistent pain particularly with any attempt at movement or ambulation, we discussed additional inpatient monitoring. Upon discussion of the patient and his of his current anticoagulation regimen and review of discharge summary in EMR it appears that patient had been discharged on daily Lovenox 150 mg, however upon picking up his prescription at the [facility] this was changed to 120 mg twice daily. H/H stable. Consultation(s): 0840: Discussed with Dr. Valenzuela, [place] hospitalist, for additional evaluation and mgmt. ER Treatment Provided: See below Diagnostics Interpreted By Me: -ECG: [] -Cardiac Monitoring: An order was placed for continuous cardiac monitoring. The monitor shows a rate of 80 with normal sinus rhythm. -Laboratory studies: As stated above and show below. -Imaging studies: [] Triage Nursing Note Reviewed Prior/Outside Records Reviewed - prior US reviewed Past Med/Surg History Medical History [place] filter in place GERD (gastroesophageal reflux disease) PTSD (post-traumatic stress disorder) Anxiety and depression History of COVID-19 05/2021 *FLU LIKE SYMPTOMS (ALL RESOLVED) Insulin pump in place Systemic lupus erythematosus REASON FOR LOVENOX Severe sleep apnea HAS NOT USED CPAP MACHINE IN YEARS Stage III chronic kidney disease Dyslipidemia Diabetic peripheral neuropathy Diabetes mellitus type 2, uncontrolled Chronic pain syndrome Deep venous thrombosis of lower extremity (04/23/11) Hypertension Surgical History History of colonoscopy H/O inguinal hernia repair History of umbilical hernia repair History of cholecystectomy History of arthroscopy of knee History of colonoscopy Family History Unknown Brain cancer Mother Nephrolithiasis Myocardial infarction Sister Nephrolithiasis Other No family history of adverse response to anesthesia Denies family history of Ovarian cancer Prostate cancer Diabetes Coronary heart disease Breast cancer Colorectal cancer Social History Smoking Status: Current every day smoker Tobacco Type: Cigars Age Started Using Tobacco: 61; Age Quit Using Tobacco: 64; Cigarettes Per Day: one per day; Second Hand Exposure: No; Do You Dip or Chew Tobacco: No; Hx Alcohol Use: No Hx Substance Use: No Preferred Language: Kittitian Communication Ability: Effective Visual Impairment: No Limitations Hearing Ability: Use of Hearing Aid Software Test Technician Required: No Beliefs That Will Affect Care: None marital status: Current Living Situation: Spouse current occupational status: retired 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 Feels Safe at Home: Yes Safety Concerns: Feels Safe At This Time Childhood Exposure to Second-Hand Smoke: Yes Diet: regular caffeine: Yes Dental Care, Regularly: Yes Physical Activity Frequency: Does not Exercise Seatbelt Use: always Sunscreen Use: Yes Assistive Devices: Walker Allergies Allergies Allergy/AdvReac Type Severity Reaction Status Date / Time lanolin Allergy Intermediate WOOL WAX Verified 05/01/23 00:25 ALCOHOL moxifloxacin Allergy Intermediate hives Verified 05/01/23 00:25 aspirin AdvReac Intermediate STOMACH Verified 05/01/23 00:25 DISTRESS SOAPCLEAN Allergy Mild DETERGENTS Uncoded 05/01/23 00:25 CAUSED RASH Home Meds Home Medications Medication Instructions Recorded Confirmed trazodone 100 mg tablet 100 mg PO HS 11/16/18 05/01/23 venlafaxine 150 mg 150 mg PO QAM 11/16/18 05/01/23 capsule,extended release 24 hr lorazepam 0.5 mg tablet 0.5 mg PO Q8H PRN Anxiety #15 tabs 12/29/18 05/01/23 lisinopril 20 mg tablet 20 mg PO QAM 09/11/22 05/01/23 dulaglutide 0.75 mg/0.5 mL 0.75 mg subcut WK 03/05/23 05/01/23 subcutaneous pen injector (Trulicity) enoxaparin 120 mg/0.8 mL 120 mg subcut Q12H 04/14/23 05/01/23 subcutaneous syringe (Lovenox) insulin glargine 100 unit/mL (3 20 unit subcut QPM 04/29/23 05/01/23 mL) subcutaneous pen melatonin 10 mg tablet 15 mg PO HS 04/29/23 05/01/23 metoprolol succinate 50 mg 50 mg PO QAM 04/29/23 05/01/23 tablet,extended release 24 hr Previous Rx's Medication Instructions Recorded famotidine 20 mg tablet 20 mg PO BID #180 tabs 06/13/22 gabapentin 400 mg capsule 400 mg PO BID #180 caps 01/28/23 nitroglycerin 0.4 mg sublingual 0.4 mg sublingual Q5M PRN chest 03/27/23 tablet pain #25 tabs oxycodone 5 mg tablet 5 - 10 mg (1 - 2 x 5 mg) PO Q8H 04/09/23 PRN pain #20 tabs atorvastatin 80 mg tablet 80 mg PO QPM Hyperlipidemia #90 04/22/23 tabs diltiazem HCl 360 mg capsule,24 360 mg PO QAM #90 caps 04/22/23 hr,extended release Results & Data (ED) Vital Signs Vital Signs - 24 hr 04/30/23 23:52 05/01/23 05:37 Temperature 37.0 C Temperature Source Oral Pulse Rate 81 Pulse Rate [Apical] 81 Respiratory Rate 18 20 Respiratory Effort / Characteristics Non-Labored Spontaneous Respiratory Depth Normal Respiratory Pattern Regular Blood Pressure 163/84 H Blood Pressure [Right Arm] 128/75 Blood Pressure Mean 110 Blood Pressure Mean [Right Arm] 92 Blood Pressure Position Lying Pulse Oximetry 95 92 Oxygen Delivery Method Room Air Room Air Sepsis Recent Fever Within 48 Hours Yes Sepsis New/Unexplained Change in Mental Status N/A Sepsis Action Taken by Nursing No Action Required Laboratory Data 05/01/23 14:58 05/01/23 09:00 Lab Results 05/01/23 Range/Units 09:00 WBC 8.98 (4.8-10.8) K/ul RBC 4.23 L (4.70-6.10) M/uL Hgb 12.1 L (14.0-18.0) g/dl Hct 36.3 L (42.0-52.0) % MCV 85.8 (80.0-100.0) fL MCH 28.6 (25.0-34.0) pg MCHC 33.3 (32.0-36.0) g/dL RDW Std Deviation 40.5 (36.4-46.3) fL RDW Coeff of Na 13.1 (11.5-14.5) % Plt Count 213 (130-400) K/uL MPV 10.9 (9.4-12.4) fL Immature Gran % (Auto) 0.3 % Neut % (Auto) 67.1 % Lymph % (Auto) 20.5 % [place] % (Auto) 10.2 % Eos % (Auto) 1.1 % Baso % (Auto) 0.8 % Neut # (Auto) 6.02 (1.40-6.50) K/uL Lymph # (Auto) 1.84 (1.20-3.40) K/uL [place] # (Auto) 0.92 H (0.11-0.59) K/uL Eos # (Auto) 0.10 (0.00-0.50) K/uL Baso # (Auto) 0.07 (0.00-0.20) K/uL Immature Gran # (Auto) 0.03 (0.01-0.20) K/uL Sodium 136 (136-145) mmol/L Potassium 4.2 (3.5-5.1) mmol/L Chloride 103 (98-107) mmol/L Carbon Dioxide 29 (21-32) mmol/L Anion Gap 4 (3-11) BUN 29 H (6-23) mg/dl Creatinine 1.65 H D (0.6-1.4) mg/dl Est Cr Clr Drug Dosing 55.1 ml/min Est GFR ( Amer) 48.4 ml/min Est GFR (Non-Af Amer) 41.7 ml/min BUN/Creatinine Ratio 17.6 (10-20) Glucose 261 H (70-99(Fasting)) mg/dl Calcium 8.6 (8.6-10.3) mg/dl Magnesium 1.8 (1.7-2.4) mg/dl Total Bilirubin 0.8 (0.2-1.0) mg/dl AST 15 (13-39) U/L ALT 19 (7-52) U/L Alkaline Phosphatase 72 (34-104) U/L Total Protein 6.3 (6.0-8.3) gm/dl Albumin 3.2 L (3.4-5.0) gm/dl Globulin 3.1 (2.5-4.0) gm/dl Albumin/Globulin Ratio 1.0 (0.9-2) Administered Medications Acetaminophen (Acetaminophen 500 Mg Tab) 1,000 mg PO TID IVONNE Stop: 05/31/23 14:44 Last Admin: 05/01/23 22:21 Dose: 1,000 mg Documented By: Admin: 05/01/23 14:55 Dose: 1,000 mg Documented By: MG Atorvastatin Calcium (Atorvastatin 40 Mg Tab) 80 mg PO QPM IVONNE Stop: 05/31/23 20:59 Last Admin: 05/01/23 22:21 Dose: 80 mg Documented By: TRN Famotidine (Famotidine 20 Mg Tab) 20 mg PO BID IVONNE Stop: 05/31/23 20:59 Last Admin: 05/01/23 22:22 Dose: 20 mg Documented By: TRN Gabapentin (Gabapentin 400 Mg Cap) 400 mg PO BID IVONNE Stop: 05/31/23 20:59 Last Admin: 05/01/23 22:21 Dose: 400 mg Documented By: TRN Sodium Chloride (Nss) 1,000 mls @ 125 mls/hr IV .Q8H IVONNE Stop: 05/31/23 00:44 Last Admin: 05/01/23 22:52 Dose: 125 mls/hr Documented By: Infusion: 05/01/23 22:47 Dose: Infused Documented By: Admin: 05/01/23 14:47 Dose: 125 mls/hr Documented By: Infusion: 05/01/23 14:47 Dose: Infused Documented By: Admin: 05/01/23 11:21 Dose: 125 mls/hr Documented By: Infusion: 05/01/23 11:17 Dose: Infused Documented By: Admin: 05/01/23 01:54 Dose: 125 mls/hr Documented By: Insulin Aspart (Insulin Aspart Per Unit Charge) 0 units SC ACHS [facility] Stop: 05/31/23 14:37 Last Admin: 05/01/23 21:18 Dose: 1 units Documented By: BRYAN Co-signed By: RONAK Admin: 05/01/23 18:23 Dose: 5 units Documented By: MG Co-signed By: SABA Admin: 05/01/23 14:59 Dose: 3 units Documented By: MG Co-signed By: MARNI Insulin Glargine (Lantus Per Unit Charge) 20 units SQ QPM IVONNE Stop: 05/31/23 20:59 Last Admin: 05/01/23 21:19 Dose: 20 units Documented By: TRN Co-signed By: RONAK Melatonin (Melatonin 3 Mg Tab) 15 mg PO HS [facility] Stop: 05/31/23 20:59 Last Admin: 05/01/23 22:22 Dose: 15 mg Documented By: BRYAN Trazodone HCl (Trazodone Hcl 100 Mg Tab) 100 mg PO [facility] Stop: 05/31/23 20:59 Last Admin: 05/01/23 22:21 Dose: 100 mg Documented By: BRYAN Venlafaxine HCl (Venlafaxine Hcl Xr 150 Mg Capxr) [address] [facility] Stop: 05/31/23 14:44 Last Admin: 05/01/23 15:43 Dose: 150 mg Documented By: MG Discontinued Medications Cyclobenzaprine HCl (Cyclobenzaprine Hcl 10 Mg Tab) 10 mg PO NOW STA Stop: 05/01/23 00:43 Last Admin: 05/01/23 01:53 Dose: 10 mg Documented By: Diclofenac Sodium (Diclofenac Sod 1% Gel 100 Gm Tube) 2 gm EXT NOW STA; Protocol Stop: 05/01/23 00:43 Last Admin: 05/01/23 01:58 Dose: 2 gm Documented By: Hydromorphone HCl (Hydromorphone Inj 0.5 Mg/0.5 Ml Syr) 0.25 mg IV NOW STA Stop: 05/01/23 09:48 Last Admin: 05/01/23 10:00 Dose: 0.25 mg Documented By: KASIA Hydromorphone HCl (Hydromorphone Inj 0.5 Mg/0.5 Ml Syr) 0.25 mg IV NOW STA Stop: 05/01/23 10:50 Last Admin: 05/01/23 11:06 Dose: 0.25 mg Documented By: ASTER Acetaminophen (Ofirmev) 1,000 mg in 100 mls @ 400 mls/hr IV NOW STA Stop: 05/01/23 06:57 Last Infusion: 05/01/23 07:56 Dose: Infused Documented By: Admin: 05/01/23 07:15 Dose: 400 mls/hr Documented By: KASIA Ioversol (Optiray 320 500ml) 88 ml IV ONCE ONE Stop: 05/01/23 01:38 Last Admin: 05/01/23 01:37 Dose: 88 ml Documented By: HECTOR Morphine Sulfate (Morphine Sulfate 4 Mg/Ml 1 Ml Carp\Vial) 4 mg IV NOW STA Stop: 05/01/23 03:25 Last Admin: 05/01/23 03:29 Dose: 4 mg Documented By: AARON Imaging Data Radiologist's Impression: Lumbar Spine CT 05/01/23 00:42 Exam(s): CT L SPINE EXAM: CT Lumbar Spine Without Intravenous Contrast CLINICAL HISTORY: Reason for exam: increased pain. TECHNIQUE: Axial computed tomography images of the lumbar spine without intravenous contrast. CTDI is 39.4 mGy and DLP is 1180.79 mGy-cm. Automated exposure control was utilized for the study. A dose lowering technique was utilized adhering to the principles of ALARA. COMPARISON: Comparison made to prior MRI of the lumbar spine from December 07, 2022. FINDINGS: Vertebrae: Unremarkable. No acute fracture. Small Schmorl's node at superior endplate of L5 and inferior endplate of L1. Mild right and moderate left sacroiliac joint arthropathy. Discs/spinal canal/neural foramina: Moderate to advanced disc degeneration at L3-4 and L4-5. Moderate bilateral L5-S1 neuroforaminal stenoses with impingement of the bilateral L5 nerve or ganglia. No acute findings. No spinal canal stenosis. Soft tissues: Left nephrolithiasis. IMPRESSION: No evidence of acute lumbar spine pathology. Electronically signed by: Di Wilburn MD 05/01/23 02:[address] 05/01/23 01:12 Exam(s): CT PELVIS With Contrast IV Amt: 88 cc's of optiray 320 EXAM: CT Pelvis With Intravenous Contrast CLINICAL HISTORY: Reason for exam: left hip pain/swelling. TECHNIQUE: Axial computed tomography images of the pelvis with intravenous contrast. CTDI is 27.09 mGy and DLP is 1064.43 mGy-cm. Automated exposure control was utilized for the study. A dose lowering technique was utilized adhering to the principles of ALARA. CONTRAST: Patient received 88 cc's of optiray 320 of IV contrast COMPARISON: No relevant prior studies available. FINDINGS: Bowel: Unremarkable. No obstruction. No mucosal thickening. Appendix: No findings to suggest acute appendicitis. Intraperitoneal space: Unremarkable. No free air. No significant fluid collection. Bladder: Unremarkable. No mass. Reproductive: Unremarkable as visualized. Bones/joints: No dislocation. No acute fracture of the bilateral hips or pelvic bones. Soft tissues: Intramuscular hematoma in the left gluteus medius. Subcutaneous induration, skin thickening, and areas of cutaneous air in the abdominal pannus, correlate for trauma or injection sites. Vasculature: Unremarkable. No lower abdominal aortic aneurysm. Lymph nodes: Unremarkable. No enlarged lymph nodes. IMPRESSION: 1. Intramuscular hematoma in the left gluteus medius. Left hip MRI recommended for further evaluation. 2. Subcutaneous induration, skin thickening, and areas of cutaneous air in the abdominal pannus, correlate for trauma or injection sites. Electronically signed by: Domingo Barragan MD 05/01/23 03:13 AM Hip MRI 05/01/23 03:29 Exam(s): MRI LEFT HIP Without Contrast EXAM: MR Left Lower Extremity Without Intravenous Contrast, Hip CLINICAL HISTORY: Reason for exam: rec by rad, gluteal hematoma. TECHNIQUE: Multiplanar magnetic resonance images of the left hip without intravenous contrast. COMPARISON: No relevant prior studies available. FINDINGS: TENDONS: Flexors: Unremarkable. Extensors/Hamstring: Unremarkable. Abductors: Unremarkable. Adductors: Unremarkable. Rotators: Unremarkable. Muscles: There is diffuse increased T2 signal intensity within the muscle fibers of the gluteus medius. Additional heterogeneous region of mixed signal intensity within the mid and posterior muscle belly estimated at 10 x 7.3 x 5 cm in dimension. There is some additional increased T2 signal intensity within muscle fibers of the approximated gluteus elham. There is some increased signal intensity/edema within the muscle fibers of the obturator externus. There is some low signal intensity changes and thickening to the muscle belly of the left piriformis suggesting developing hematoma/injury here Fluid: Unremarkable. No joint effusion. Labrum: Unremarkable. Cartilage: Unremarkable. Bones/joints: Unremarkable. No acute fracture. No dislocation. Soft tissues: Some associated deep soft tissue edema. IMPRESSION: Posttraumatic changes with hematoma as described Electronically signed by: Kvng Greene MD 05/01/23 08:15 AM Discharge Plan Visit Data Chief Complaint: Hip Pain Stated Complaint: lt. HIP PAIN ED Provider: Madeleine Guzman Discharge Problem: Acute pain of left hip, Hematoma Patient Disposition: Admitted As Inpatient Discharge Instructions Interventions: ED Discharge Assessment Last Done: 05/01/23 14:48
[2023-05-01] MEDS ORDERED: OPTIRAY 320 500ml IV ONE (01:37)
[2023-05-01] MEDS: SODIUM CHLORIDE 0.9% 1,000 ML IV SCH ×4 (01:54→22:52)
--- NOTE | 2023-05-01 02:40 | CT Scan Report ---
Exam(s): CT L SPINE EXAM: CT Lumbar Spine Without Intravenous Contrast CLINICAL HISTORY: Reason for exam: increased pain. TECHNIQUE: Axial computed tomography images of the lumbar spine without intravenous contrast. CTDI is 39.4 mGy and DLP is 1180.79 mGy-cm. Automated exposure control was utilized for the study. A dose lowering technique was utilized adhering to the principles of ALARA. COMPARISON: Comparison made to prior MRI of the lumbar spine from December 07, 2022. FINDINGS: Vertebrae: Unremarkable. No acute fracture. Small Schmorl's node at superior endplate of L5 and inferior endplate of L1. Mild right and moderate left sacroiliac joint arthropathy. Discs/spinal canal/neural foramina: Moderate to advanced disc degeneration at L3-4 and L4-5. Moderate bilateral L5-S1 neuroforaminal stenoses with impingement of the bilateral L5 nerve or ganglia. No acute findings. No spinal canal stenosis. Soft tissues: Left nephrolithiasis. IMPRESSION: No evidence of acute lumbar spine pathology. Electronically signed by: Di Wilburn MD 05/01/23 02:39 AM
--- NOTE | 2023-05-01 03:13 | CT Scan Report ---
Exam(s): CT PELVIS With Contrast IV Amt: 88 cc's of optiray 320 EXAM: CT Pelvis With Intravenous Contrast CLINICAL HISTORY: Reason for exam: left hip pain/swelling. TECHNIQUE: Axial computed tomography images of the pelvis with intravenous contrast. CTDI is 27.09 mGy and DLP is 1064.43 mGy-cm. Automated exposure control was utilized for the study. A dose lowering technique was utilized adhering to the principles of ALARA. CONTRAST: Patient received 88 cc's of optiray 320 of IV contrast COMPARISON: No relevant prior studies available. FINDINGS: Bowel: Unremarkable. No obstruction. No mucosal thickening. Appendix: No findings to suggest acute appendicitis. Intraperitoneal space: Unremarkable. No free air. No significant fluid collection. Bladder: Unremarkable. No mass. Reproductive: Unremarkable as visualized. Bones/joints: No dislocation. No acute fracture of the bilateral hips or pelvic bones. Soft tissues: Intramuscular hematoma in the left gluteus medius. Subcutaneous induration, skin thickening, and areas of cutaneous air in the abdominal pannus, correlate for trauma or injection sites. Vasculature: Unremarkable. No lower abdominal aortic aneurysm. Lymph nodes: Unremarkable. No enlarged lymph nodes. IMPRESSION: 1. Intramuscular hematoma in the left gluteus medius. Left hip MRI recommended for further evaluation. 2. Subcutaneous induration, skin thickening, and areas of cutaneous air in the abdominal pannus, correlate for trauma or injection sites. Electronically signed by: Domingo Barragan MD 05/01/23 03:13 AM
[2023-05-01] MEDS ORDERED: MoRPHine SULFATE 4 MG/ML 1 ML CARP\\VIAL IV STA (03:24)
[2023-05-01] MEDS ORDERED: ACETAMINOPHEN 1,000 MG/100 ML VIAL IV STA (06:43)
[2023-05-01] MEDS ORDERED: MoRPHine SULFATE 4 MG/ML 1 ML CARP\\VIAL IV PRN (07:52)
--- NOTE | 2023-05-01 08:16 | Magnetic Resonance Report ---
Exam(s): MRI LEFT HIP Without Contrast EXAM: MR Left Lower Extremity Without Intravenous Contrast, Hip CLINICAL HISTORY: Reason for exam: rec by rad, gluteal hematoma. TECHNIQUE: Multiplanar magnetic resonance images of the left hip without intravenous contrast. COMPARISON: No relevant prior studies available. FINDINGS: TENDONS: Flexors: Unremarkable. Extensors/Hamstring: Unremarkable. Abductors: Unremarkable. Adductors: Unremarkable. Rotators: Unremarkable. Muscles: There is diffuse increased T2 signal intensity within the muscle fibers of the gluteus medius. Additional heterogeneous region of mixed signal intensity within the mid and posterior muscle belly estimated at 10 x 7.3 x 5 cm in dimension. There is some additional increased T2 signal intensity within muscle fibers of the approximated gluteus elham. There is some increased signal intensity/edema within the muscle fibers of the obturator externus. There is some low signal intensity changes and thickening to the muscle belly of the left piriformis suggesting developing hematoma/injury here Fluid: Unremarkable. No joint effusion. Labrum: Unremarkable. Cartilage: Unremarkable. Bones/joints: Unremarkable. No acute fracture. No dislocation. Soft tissues: Some associated deep soft tissue edema. IMPRESSION: Posttraumatic changes with hematoma as described Electronically signed by: Kvng Greene MD 05/01/23 08:15 AM
--- NOTE | 2023-05-01 08:49 | History & Physical Report ---
Date of Service May 01, 2023 Assessment & Plan (1) Hematoma of left buttock: Plan: spontaneous, in the setting of therapeutic lovenox usage for recurrent VTE. HOLD all forms of anticoagulation. serial H/H's. pain relief - tylenol 1gm TID scheduled; dilaudid IV prn; heating pad to L buttock as needed/as desired. orthopedics consult requested. PT, OT. gentle stretching. (2) Acute blood loss anemia: Plan: 2nd #1. trend H/H's. (3) Acute pain of left hip: Plan: 2nd #1. see #1 above. (4) Acute leg pain: Plan: Pain is 2nd to the large hematoma itself. In addition, he has swelling/blood abutting the L piriformis muscle. Some of his pain is likely piriformis dysfunction. See #1 above. (5) Antiphospholipid syndrome: Plan: Long-standing dx with recurrent VTE. Most recent VTE -- extensive RLE DVTs just a few weeks ago (precipitated by being off anticoagulation for 1-2 months). Fortunately has IVC filter in place. HOLDING all forms of anticoagulation at this time 2nd to #1. Will consult with hematology about what anticoagulation to use when ready to resume. (6) GERD (gastroesophageal reflux disease): Plan: Cont pepcid 20mg BID (7) Shortness of breath on exertion: Plan: CXR without infiltrates. Recent echo wnl. Recheck cardiac catheterization wnl. Deserves CTA chest to exclude VTE. (8) Dizziness: Plan: When able check orthostatic BPs. In meantime hold lisinopril and lower dose of diltiazem to 180mg daily. Cont meto succinate 50mg daily. (9) Uncontrolled type 2 diabetes mellitus with insulin therapy: Plan: a1c 9% in 03/2023. cont lantus. cont ac/hs novolog. adjust as needed. (10) Stage III chronic kidney disease: Plan: baseline Cr mid 1's repeat BMP am (11) Dyslipidemia: Plan: Cont statin Plan check a COVID test PT, OT evals updated at bedside History of Present Illness Chief Complaint: left hip, left leg, left buttock pain Primary Care Provider: Dennis Macdonald, DO 67yo male with h/o recurrent VTE on chronic anticoagulation for many years, antiphospholipid ab syndrome, T2DM, IVC filter status, and CKD stage 3 presents from home via ambulance due to intractable left hip/left leg/left buttock pain. Pain started about 1 week ago without any inciting event such as a fall, overuse, heavy lifting, injury, etc. The pain has been located in the left posterior buttock with radiation to the left lateral & posterior hip region, and radiation down the left leg to the popliteal region. He was seen in the ER on 04/29 for these complaints, had a negative doppler of the LLE, and was discharged home on pain medication (oxycodone prn). Despite resting, taking the oxycodone, etc his pain has worsened each day. Yesterday he noted that the left leg had numbness from the hip down to the left foot. He typically has neuropathy of both feet from diabetic neuropathy but this pain is different. CT pelvis and MRI left hip today demonstrated a large intra-muscular hematoma of the gluteus region on the left. It abuts the piriformis muscle on the left side. The left hip joint is not involved. Of note - patient was hospitalized from 04/06 to 04/09 at [facility] due to extensive DVT of the RLE. Per the 's report Mr Haney had NOT been taking any anticoagulation for about 1 month prior to the 04/06/23 admission. Years ago Mr Haney was initially on coumadin for his recurrent DVT but was then switched to lovenox injections. He previously was on 120mg BID per heme/onc records. He took lovenox injections for many years. At some point in the last 6 months he was changed from lovenox to Xarelto but was noncompliant with the latter due to cost and other factors. During the 04/06/23 stay he was discharged on lovenox 150mg daily. Some time after that stay he was changed to 120mg SC BID by the [facility]. Allergies Allergy/AdvReac Type Severity Reaction Status Date / Time lanolin Allergy Intermediate WOOL WAX Verified 05/01/23 00:25 ALCOHOL moxifloxacin Allergy Intermediate hives Verified 05/01/23 00:25 aspirin AdvReac Intermediate STOMACH Verified 05/01/23 00:25 DISTRESS SOAPCLEAN Allergy Mild DETERGENTS Uncoded 05/01/23 00:25 CAUSED RASH Home Medications Medication Instructions Recorded Confirmed Type trazodone 100 mg tablet 100 mg PO HS 11/16/18 05/01/23 History venlafaxine 150 mg 150 mg PO QAM 11/16/18 05/01/23 History capsule,extended release 24 hr lorazepam 0.5 mg tablet 0.5 mg PO Q8H PRN Anxiety #15 tabs 12/29/18 05/01/23 History famotidine 20 mg tablet 20 mg PO BID #180 tabs 06/13/22 05/01/23 Rx lisinopril 20 mg tablet 20 mg PO QAM 09/11/22 05/01/23 History gabapentin 400 mg capsule 400 mg PO BID #180 caps 01/28/23 05/01/23 Rx dulaglutide 0.75 mg/0.5 mL 0.75 mg subcut WK 03/05/23 05/01/23 History subcutaneous pen injector (Trulicity) nitroglycerin 0.4 mg sublingual 0.4 mg sublingual Q5M PRN chest 03/27/23 05/01/23 Rx tablet pain #25 tabs oxycodone 5 mg tablet 5 - 10 mg (1 - 2 x 5 mg) PO Q8H 04/09/23 05/01/23 Rx PRN pain #20 tabs enoxaparin 120 mg/0.8 mL 120 mg subcut Q12H 04/14/23 05/01/23 History subcutaneous syringe (Lovenox) atorvastatin 80 mg tablet 80 mg PO QPM Hyperlipidemia #90 04/22/23 05/01/23 Rx tabs diltiazem HCl 360 mg capsule,24 360 mg PO QAM #90 caps 04/22/23 05/01/23 Rx hr,extended release insulin glargine 100 unit/mL (3 20 unit subcut QPM 04/29/23 05/01/23 History mL) subcutaneous pen melatonin 10 mg tablet 15 mg PO HS 04/29/23 05/01/23 History metoprolol succinate 50 mg 50 mg PO QAM 04/29/23 05/01/23 History tablet,extended release 24 hr Past Med/Surg History Medical History (Updated 05/02/23 @ 03:00 by Lauro Valenzuela MD) Right leg DVT extensive, 04/2023 Antiphospholipid syndrome Yo filter in place GERD (gastroesophageal reflux disease) PTSD (post-traumatic stress disorder) Anxiety and depression History of COVID-19 05/2021 *FLU LIKE SYMPTOMS (ALL RESOLVED) Systemic lupus erythematosus REASON FOR LOVENOX Severe sleep apnea HAS NOT USED CPAP MACHINE IN YEARS Stage III chronic kidney disease Dyslipidemia Diabetic peripheral neuropathy Diabetes mellitus type 2, uncontrolled Chronic pain syndrome Deep venous thrombosis of lower extremity (04/23/11) Hypertension Surgical History History of colonoscopy H/O inguinal hernia repair History of umbilical hernia repair History of cholecystectomy History of arthroscopy of knee History of colonoscopy Family History Unknown Brain cancer Mother Nephrolithiasis Myocardial infarction Sister Nephrolithiasis Other No family history of adverse response to anesthesia Denies family history of Ovarian cancer Prostate cancer Diabetes Coronary heart disease Breast cancer Colorectal cancer Social History Smoking Status: Current every day smoker Tobacco Type: Cigars Age Started Using Tobacco: 61; Age Quit Using Tobacco: 64; Cigarettes Per Day: one per day; Second Hand Exposure: No; Do You Dip or Chew Tobacco: No; Hx Alcohol Use: No Hx Substance Use: No Preferred Language: Sami Communication Ability: Effective Visual Impairment: No Limitations Hearing Ability: Use of Hearing Aid Hot Stamp Operator Required: No Beliefs That Will Affect Care: None marital status: Current Living Situation: Spouse current occupational status: retired 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 Feels Safe at Home: Yes Safety Concerns: Feels Safe At This Time Childhood Exposure to Second-Hand Smoke: Yes Diet: regular caffeine: Yes Dental Care, Regularly: Yes Physical Activity Frequency: Does not Exercise Seatbelt Use: always Sunscreen Use: Yes Assistive Devices: Walker Review of Systems Review of Systems: gen - no fevers or chills, eating well, no significant weight change eyes - no change in vision HENT - no sore throat, no dysphagia CV - no chest pain, no orthopnea pulm - no cough, no dyspnea at rest; + ASKEW for several weeks, especially climbing steps GI - no abd pain, nausea, emesis, diarrhea - no LUTS musculo - L buttock, L leg pain (per HPI) neuro - no headache; radicular pain left leg?; dizziness with standing for s everal weeks or longer skin - no rash endo - doesn't check BSGs consistently psych - no depression Physical Exam Physical Exam: gen - obese, NAD if lying in still; c/o pain in L buttock with any movements; a/o x 3 eyes - PERRL HENT - mouth with MMM neck - no JVD heart - RRR s1 s2 no murmur lungs - CTA b/l, no rales, no wheezes abd - soft NT ND BS+ ext - venous stasis changes b/l shins, trace edema b/l legs, pulses 2+ b/l skin - ecchymoses on abdominal wall; no ecchymoses over L buttock or R buttock musculo - obvious L buttock swelling and tenderness; moving the L hip causes pain with flexion and abduction neuro - strength 5/5 x 4 exts; DTRs 2+ b/l upper and lower exts psych - a/o x 3 Results & Data Results & Data Vital Signs (Past 12 Hours) Vital Signs Temp Pulse Pulse Resp BP BP Pulse Ox 05/01/23 05:37 81 20 128/75 92 04/30/23 23:52 37.0 C 81 18 163/84 H 95 O2 Del Method 05/01/23 05:37 Room Air 04/30/23 23:52 Room Air Laboratory Results Laboratory Results - last 24 hr 05/01/23 05/01/23 09:00 Unknown WBC 8.98 RBC 4.23 L Hgb 12.1 L Hct 36.3 L MCV 85.8 MCH 28.6 MCHC 33.3 RDW Std Deviation 40.5 RDW Coeff of Na 13.1 Plt Count 213 MPV 10.9 Immature Gran % (Auto) 0.3 Neut % (Auto) 67.1 Lymph % (Auto) 20.5 [place] % (Auto) 10.2 Eos % (Auto) 1.1 Baso % (Auto) 0.8 Neut # (Auto) 6.02 Lymph # (Auto) 1.84 [place] # (Auto) 0.92 H Eos # (Auto) 0.10 Baso # (Auto) 0.07 Immature Gran # (Auto) 0.03 Sodium 136 Potassium 4.2 Chloride 103 Carbon Dioxide 29 Anion Gap 4 BUN 29 H Creatinine 1.65 H D Est Cr Clr Drug Dosing 55.1 Est GFR ( Amer) 48.4 Est GFR (Non-Af Amer) 41.7 BUN/Creatinine Ratio 17.6 Glucose 261 H Calcium 8.6 Magnesium 1.8 Total Bilirubin 0.8 AST 15 ALT 19 Alkaline Phosphatase 72 Total Protein 6.3 Albumin 3.2 L Globulin 3.1 Albumin/Globulin Ratio 1.0 SARS-CoV-2 (PCR) Pending Diagnostic Findings Pelvis CT 05/01/23 01:12 Exam(s): CT PELVIS With Contrast IV Amt: 88 cc's of optiray 320 EXAM: CT Pelvis With Intravenous Contrast CLINICAL HISTORY: Reason for exam: left hip pain/swelling. TECHNIQUE: Axial computed tomography images of the pelvis with intravenous contrast. CTDI is 27.09 mGy and DLP is 1064.43 mGy-cm. Automated exposure control was utilized for the study. A dose lowering technique was utilized adhering to the principles of ALARA. CONTRAST: Patient received 88 cc's of optiray 320 of IV contrast COMPARISON: No relevant prior studies available. FINDINGS: Bowel: Unremarkable. No obstruction. No mucosal thickening. Appendix: No findings to suggest acute appendicitis. Intraperitoneal space: Unremarkable. No free air. No significant fluid collection. Bladder: Unremarkable. No mass. Reproductive: Unremarkable as visualized. Bones/joints: No dislocation. No acute fracture of the bilateral hips or pelvic bones. Soft tissues: Intramuscular hematoma in the left gluteus medius. Subcutaneous induration, skin thickening, and areas of cutaneous air in the abdominal pannus, correlate for trauma or injection sites. Vasculature: Unremarkable. No lower abdominal aortic aneurysm. Lymph nodes: Unremarkable. No enlarged lymph nodes. IMPRESSION: 1. Intramuscular hematoma in the left gluteus medius. Left hip MRI recommended for further evaluation. 2. Subcutaneous induration, skin thickening, and areas of cutaneous air in the abdominal pannus, correlate for trauma or injection sites. Electronically signed by: Domingo Barragan MD 05/01/23 03:13 AM Hip MRI 05/01/23 03:29 Exam(s): MRI LEFT HIP Without Contrast EXAM: MR Left Lower Extremity Without Intravenous Contrast, Hip CLINICAL HISTORY: Reason for exam: rec by rad, gluteal hematoma. TECHNIQUE: Multiplanar magnetic resonance images of the left hip without intravenous contrast. COMPARISON: No relevant prior studies available. FINDINGS: TENDONS: Flexors: Unremarkable. Extensors/Hamstring: Unremarkable. Abductors: Unremarkable. Adductors: Unremarkable. Rotators: Unremarkable. Muscles: There is diffuse increased T2 signal intensity within the muscle fibers of the gluteus medius. Additional heterogeneous region of mixed signal intensity within the mid and posterior muscle belly estimated at 10 x 7.3 x 5 cm in dimension. There is some additional increased T2 signal intensity within muscle fibers of the approximated gluteus elham. There is some increased signal intensity/edema within the muscle fibers of the obturator externus. There is some low signal intensity changes and thickening to the muscle belly of the left piriformis suggesting developing hematoma/injury here Fluid: Unremarkable. No joint effusion. Labrum: Unremarkable. Cartilage: Unremarkable. Bones/joints: Unremarkable. No acute fracture. No dislocation. Soft tissues: Some associated deep soft tissue edema. IMPRESSION: Posttraumatic changes with hematoma as described Electronically signed by: Kvng Greene MD 05/01/23 08:15 AM Chest X-Ray 05/01/23 10:51 XR chest 2V PA/lateral CLINICAL HISTORY: dyspnea on exertion TECHNIQUE: 2 views of the chest were obtained. Comparison: Comparison is made to chest radiograph 08/30/2022 FINDINGS: No lines and tubes are seen. The cardiomediastinal silhouette is normal. The lungs are clear. No evidence of pleural effusion or pneumothorax. IMPRESSION: No acute chest disease. ACT 112: Negative or not required by law. Electronically signed by: Tim Smith M.D. 05/01/2023 11:36 AM Code Status & VTE Plan Code Status full code PG Care Time/CCT Total # of Minutes Spent Total Time Spent with Patient: Total time spent is greater than 50% in coordination of care (as documented) at patient's floor/unit and/or counseling patient: Coding Level of Care Code 92125 INT INP/OBS CARE 3/75MIN Diagnoses Hematoma of left buttock S30.0XXA Acute blood loss anemia D62 Acute pain of left hip M25.552 Acute leg pain M79.605 Laterality: left Antiphospholipid syndrome D68.61 GERD (gastroesophageal reflux disease) K21.9 Shortness of breath on exertion R06.02 Dizziness R42 Uncontrolled type 2 diabetes mellitus with insulin therapy E11.65; Z79.4 Stage 3b chronic kidney disease N18.32 Chronic kidney disease stage 3 subtype: stage 3b (GFR 30-44) Dyslipidemia E78.5 (4) Acute leg pain Laterality: left Qualified Code(s): M79.605 - Pain in left leg (10) Stage III chronic kidney disease Chronic kidney disease stage 3 subtype: stage 3b (GFR 30-44) Qualified Code(s): N18.32 - Chronic kidney disease, stage 3b
[2023-05-01 09:17] LABS: Basophils # (auto) 0.07 K/uL (0.00-0.20); Basophils % (auto) 0.8 %; Eosinophils % (auto) 1.1 %; Hematocrit (blood only) 36.3 % (42.0-52.0); Hemoglobin 12.1 g/dl (14.0-18.0); Immature Granulocytes # (auto) 0.03 K/uL (0.01-0.20); Immature Granulocytes % (auto) 0.3 %; Lymphocytes # (auto) 1.84 K/uL (1.20-3.40); Lymphocytes % (auto) 20.5 %; Mean Corpuscular Hemoglobin 28.6 pg (25.0-34.0); Mean Corpuscular Hgb Conc 33.3 g/dL (32.0-36.0); Mean Corpuscular Volume 85.8 fL (80.0-100.0); Mean Platelet Volume 10.9 fL (9.4-12.4); Monocytes # (auto) 0.92 K/uL (0.11-0.59); Monocytes % (auto) 10.2 %; Neutrophils # (auto) 6.02 K/uL (1.40-6.50); Neutrophils % (auto) 67.1 %; Platelet Count 213 K/uL (130-400); RDW Coefficient of Variation 13.1 % (11.5-14.5); RDW Standard Deviation 40.5 fL (36.4-46.3); Red Blood Count 4.23 M/uL (4.70-6.10); White Blood Count 8.98 K/ul (4.8-10.8)
[2023-05-01 09:33] LABS: Albumin Level 3.2 gm/dl (3.4-5.0); BUN Creatinine Ratio 17.6 (10-20); Bilirubin,Total 0.8 mg/dl (0.2-1.0); Calcium 8.6 mg/dl (8.6-10.3); Creatinine Clr Calc Pharmacy 55.1 ml/min; Est GFR (African American) 48.4 ml/min; Est GFR (Non-African American) 41.7 ml/min; Globulin 3.1 gm/dl (2.5-4.0); Magnesium 1.8 mg/dl (1.7-2.4); Potassium 4.2 mmol/L (3.5-5.1); Total Protein 6.3 gm/dl (6.0-8.3)
[2023-05-01] MEDS ORDERED: HYDROmorphone INJ 0.5 MG/0.5 ML SYR IV STA ×2 (09:47→10:49)
--- NOTE | 2023-05-01 11:38 | XRay Report ---
XR chest 2V PA/lateral CLINICAL HISTORY: dyspnea on exertion TECHNIQUE: 2 views of the chest were obtained. Comparison: Comparison is made to chest radiograph 08/30/2022 FINDINGS: No lines and tubes are seen. The cardiomediastinal silhouette is normal. The lungs are clear. No evid ence of pleural effusion or pneumothorax. IMPRESSION: No acute chest disease. ACT 112: Negative or not required by law. Electronically signed by: Tim Smith M.D. 05/01/2023 11:36 AM
--- NOTE | 2023-05-01 14:26 | Orthopedic Consultation ---
Date of Consultation May 01, 2023 Assessment & Plan (1) Acute pain of left hip: IMPRESSION: Left hip pain, secondarily to hematoma, on lifetime Lovenox, acute PLAN: Recommend conservative treatment. Weight bearing as tolerated, recommend using crutches/walker PT/OT RICE Continue pain control per primary service Continue care per primary service. Will continue to follow while in house. Present on Admission?: Yes History of Present Illness Reason for Consultation: Left hip hematoma Requesting Physician: Lili Carroll MD Attending Physician: Maggie Valenzuela MD History of Present Illness 67 yo male, with multiple medical problems including diabetic, on lifetime Lovenox for recurrent DVT, presented to ED with worsening of left hip pain over the last several days without injury or trauma. Imaging obtained which showed a hematoma. The patient was admitted to hospitalist service and I was consulted for further evaluation and treatment. Allergies Allergy/AdvReac Type Severity Reaction Status Date / Time lanolin Allergy Intermediate WOOL WAX Verified 05/01/23 00:25 ALCOHOL moxifloxacin Allergy Intermediate hives Verified 05/01/23 00:25 aspirin AdvReac Intermediate STOMACH Verified 05/01/23 00:25 DISTRESS SOAPCLEAN Allergy Mild DETERGENTS Uncoded 05/01/23 00:25 CAUSED RASH Home Medications Medication Instructions Recorded Confirmed Type trazodone 100 mg tablet 100 mg PO HS 11/16/18 05/01/23 History venlafaxine 150 mg 150 mg PO QAM 11/16/18 05/01/23 History capsule,extended release 24 hr lorazepam 0.5 mg tablet 0.5 mg PO Q8H PRN Anxiety #15 tabs 12/29/18 05/01/23 History famotidine 20 mg tablet 20 mg PO BID #180 tabs 06/13/22 05/01/23 Rx lisinopril 20 mg tablet 20 mg PO QAM 09/11/22 05/01/23 History gabapentin 400 mg capsule 400 mg PO BID #180 caps 01/28/23 05/01/23 Rx dulaglutide 0.75 mg/0.5 mL 0.75 mg subcut WK 03/05/23 05/01/23 History subcutaneous pen injector (Trulicity) nitroglycerin 0.4 mg sublingual 0.4 mg sublingual Q5M PRN chest 03/27/23 05/01/23 Rx tablet pain #25 tabs oxycodone 5 mg tablet 5 - 10 mg (1 - 2 x 5 mg) PO Q8H 04/09/23 05/01/23 Rx PRN pain #20 tabs enoxaparin 120 mg/0.8 mL 120 mg subcut Q12H 04/14/23 05/01/23 History subcutaneous syringe (Lovenox) atorvastatin 80 mg tablet 80 mg PO QPM Hyperlipidemia #90 04/22/23 05/01/23 Rx tabs diltiazem HCl 360 mg capsule,24 360 mg PO QAM #90 caps 04/22/23 05/01/23 Rx hr,extended release insulin glargine 100 unit/mL (3 20 unit subcut QPM 04/29/23 05/01/23 History mL) subcutaneous pen melatonin 10 mg tablet 15 mg PO HS 04/29/23 05/01/23 History metoprolol succinate 50 mg 50 mg PO QAM 04/29/23 05/01/23 History tablet,extended release 24 hr Patient History Medical History Yo filter in place GERD (gastroesophageal reflux disease) PTSD (post-traumatic stress disorder) Anxiety and depression History of COVID-19 05/2021 *FLU LIKE SYMPTOMS (ALL RESOLVED) Insulin pump in place Systemic lupus erythematosus REASON FOR LOVENOX Severe sleep apnea HAS NOT USED CPAP MACHINE IN YEARS Stage III chronic kidney disease Dyslipidemia Diabetic peripheral neuropathy Diabetes mellitus type 2, uncontrolled Chronic pain syndrome Deep venous thrombosis of lower extremity (04/23/11) Hypertension Surgical History History of colonoscopy H/O inguinal hernia repair History of umbilical hernia repair History of cholecystectomy History of arthroscopy of knee History of colonoscopy Family History Unknown Brain cancer Mother Nephrolithiasis Myocardial infarction Sister Nephrolithiasis Other No family history of adverse response to anesthesia Denies family history of Ovarian cancer Prostate cancer Diabetes Coronary heart disease Breast cancer Colorectal cancer Social History Smoking Status: Current every day smoker Tobacco Type: Cigars Age Started Using Tobacco: 61; Age Quit Using Tobacco: 64; Cigarettes Per Day: one per day; Second Hand Exposure: No; Do You Dip or Chew Tobacco: No; Hx Alcohol Use: No Hx Substance Use: No Preferred Language: Italian Communication Ability: Effective Visual Impairment: No Limitations Hearing Ability: Use of Hearing Aid Career Development Facilitator Required: No Beliefs That Will Affect Care: None marital status: Current Living Situation: Spouse current occupational status: retired 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 LLE: Sensation to light touch unchanged, BCR < 2 sec, motor to gastroc soleus, Tib ant, and EHL 5/5. Able to preform straight leg raise. - log roll hip. Hip ROM: FF 90 deg, Abduction 35 deg, Adduction 5 deg, ER 20 deg with pain, IR to neutral with pain. + tender to palpation gluteus elham, n o swelling or bruising. Results & Data Vital Signs (Past 12 Hours) Vital Signs Pulse Pulse Resp BP Pulse Ox O2 Del Method 05/01/23 14:02 77 17 150/99 H 94 Room Air 05/01/23 11:00 70 17 133/83 94 Room Air 05/01/23 10:05 76 05/01/23 05:37 81 20 128/75 92 Room Air Laboratory Results Laboratory Results WBC 8.98 K/ul (4.8-10.8) 05/01/23 09:00 RBC 4.23 M/uL (4.70-6.10) L 05/01/23 09:00 Hgb 12.1 g/dl (14.0-18.0) L 05/01/23 09:00 Hct 36.3 % (42.0-52.0) L 05/01/23 09:00 MCV 85.8 fL (80.0-100.0) 05/01/23 09:00 MCH 28.6 pg (25.0-34.0) 05/01/23 09:00 MCHC 33.3 g/dL (32.0-36.0) 05/01/23 09:00 RDW Std Deviation 40.5 fL (36.4-46.3) 05/01/23 09:00 RDW Coeff of Na 13.1 % (11.5-14.5) 05/01/23 09:00 Plt Count 213 K/uL (130-400) 05/01/23 09:00 MPV 10.9 fL (9.4-12.4) 05/01/23 09:00 Immature Gran % (Auto) 0.3 % 05/01/23 09:00 Neut % (Auto) 67.1 % 05/01/23 09:00 Lymph % (Auto) 20.5 % 05/01/23 09:00 [place] % (Auto) 10.2 % 05/01/23 09:00 Eos % (Auto) 1.1 % 05/01/23 09:00 Baso % (Auto) 0.8 % 05/01/23 09:00 Neut # (Auto) 6.02 K/uL (1.40-6.50) 05/01/23 09:00 Lymph # (Auto) 1.84 K/uL (1.20-3.40) 05/01/23 09:00 [place] # (Auto) 0.92 K/uL (0.11-0.59) H 05/01/23 09:00 Eos # (Auto) 0.10 K/uL (0.00-0.50) 05/01/23 09:00 Baso # (Auto) 0.07 K/uL (0.00-0.20) 05/01/23 09:00 Immature Gran # (Auto) 0.03 K/uL (0.01-0.20) 05/01/23 09:00 Sodium 136 mmol/L (136-145) 05/01/23 09:00 Potassium 4.2 mmol/L (3.5-5.1) 05/01/23 09:00 Chloride 103 mmol/L (98-107) 05/01/23 09:00 Carbon Dioxide 29 mmol/L (21-32) 05/01/23 09:00 Anion Gap 4 (3-11) 05/01/23 09:00 BUN 29 mg/dl (6-23) H 05/01/23 09:00 Creatinine 1.65 mg/dl (0.6-1.4) H D 05/01/23 09:00 Est Cr Clr Drug Dosing 55.1 ml/min 05/01/23 09:00 Est GFR ( Amer) 48.4 ml/min 05/01/23 09:00 Est GFR (Non-Af Amer) 41.7 ml/min 05/01/23 09:00 BUN/Creatinine Ratio 17.6 (10-20) 05/01/23 09:00 Glucose 261 mg/dl (70-99(Fasting)) H 05/01/23 09:00 Calcium 8.6 mg/dl (8.6-10.3) 05/01/23 09:00 Magnesium 1.8 mg/dl (1.7-2.4) 05/01/23 09:00 Total Bilirubin 0.8 mg/dl (0.2-1.0) 05/01/23 09:00 AST 15 U/L (13-39) 05/01/23 09:00 ALT 19 U/L (7-52) 05/01/23 09:00 Alkaline Phosphatase 72 U/L (34-104) 05/01/23 09:00 Total Protein 6.3 gm/dl (6.0-8.3) 05/01/23 09:00 Albumin 3.2 gm/dl (3.4-5.0) L 05/01/23 09:00 Globulin 3.1 gm/dl (2.5-4.0) 05/01/23 09:00 Albumin/Globulin Ratio 1.0 (0.9-2) 05/01/23 09:00 SARS-CoV-2 (PCR) NEGATIVE (Negative) 05/01/23 Unknown Impressions Lumbar Spine CT 05/01/23 00:42 Exam(s): CT L SPINE EXAM: CT Lumbar Spine Without Intravenous Contrast CLINICAL HISTORY: Reason for exam: increased pain. TECHNIQUE: Axial computed tomography images of the lumbar spine without intravenous contrast. CTDI is 39.4 mGy and DLP is 1180.79 mGy-cm. Automated exposure control was utilized for the study. A dose lowering technique was utilized adhering to the principles of ALARA. COMPARISON: Comparison made to prior MRI of the lumbar spine from December 07, 2022. FINDINGS: Vertebrae: Unremarkable. No acute fracture. Small Schmorl's node at superior endplate of L5 and inferior endplate of L1. Mild right and moderate left sacroiliac joint arthropathy. Discs/spinal canal/neural foramina: Moderate to advanced disc degeneration at L3-4 and L4-5. Moderate bilateral L5-S1 neuroforaminal stenoses with impingement of the bilateral L5 nerve or ganglia. No acute findings. No spinal canal stenosis. Soft tissues: Left nephrolithiasis. IMPRESSION: No evidence of acute lumbar spine pathology. Electronically signed by: Di Wilburn MD 05/01/23 02:[address] 05/01/23 01:12 Exam(s): CT PELVIS With Contrast IV Amt: 88 cc's of optiray 320 EXAM: CT Pelvis With Intravenous Contrast CLINICAL HISTORY: Reason for exam: left hip pain/swelling. TECHNIQUE: Axial computed tomography images of the pelvis with intravenous contrast. CTDI is 27.09 mGy and DLP is 1064.43 mGy-cm. Automated exposure control was utilized for the study. A dose lowering technique was utilized adhering to the principles of ALARA. CONTRAST: Patient received 88 cc's of optiray 320 of IV contrast COMPARISON: No relevant prior studies available. FINDINGS: Bowel: Unremarkable. No obstruction. No mucosal thickening. Appendix: No findings to suggest acute appendicitis. Intraperitoneal space: Unremarkable. No free air. No significant fluid collection. Bladder: Unremarkable. No mass. Reproductive: Unremarkable as visualized. Bones/joints: No dislocation. No acute fracture of the bilateral hips or pelvic bones. Soft tissues: Intramuscular hematoma in the left gluteus medius. Subcutaneous induration, skin thickening, and areas of cutaneous air in the abdominal pannus, correlate for trauma or injection sites. Vasculature: Unremarkable. No lower abdominal aortic aneurysm. Lymph nodes: Unremarkable. No enlarged lymph nodes. IMPRESSION: 1. Intramuscular hematoma in the left gluteus medius. Left hip MRI recommended for further evaluation. 2. Subcutaneous induration, skin thickening, and areas of cutaneous air in the abdominal pannus, correlate for trauma or injection sites. Electronically signed by: Domingo Barragan MD 05/01/23 03:13 AM Hip MRI 05/01/23 03:29 Exam(s): MRI LEFT HIP Without Contrast EXAM: MR Left Lower Extremity Without Intravenous Contrast, Hip CLINICAL HISTORY: Reason for exam: rec by rad, gluteal hematoma. TECHNIQUE: Multiplanar magnetic resonance images of the left hip without intravenous contrast. COMPARISON: No relevant prior studies available. FINDINGS: TENDONS: Flexors: Unremarkable. Extensors/Hamstring: Unremarkable. Abductors: Unremarkable. Adductors: Unremarkable. Rotators: Unremarkable. Muscles: There is diffuse increased T2 signal intensity within the muscle fibers of the gluteus medius. Additional heterogeneous region of mixed signal intensity within the mid and posterior muscle belly estimated at 10 x 7.3 x 5 cm in dimension. There is some additional increased T2 signal intensity within muscle fibers of the approximated gluteus elham. There is some increased signal intensity/edema within the muscle fibers of the obturator externus. There is some low signal intensity changes and thickening to the muscle belly of the left piriformis suggesting developing hematoma/injury here Fluid: Unremarkable. No joint effusion. Labrum: Unremarkable. Cartilage: Unremarkable. Bones/joints: Unremarkable. No acute fracture. No dislocation. Soft tissues: Some associated deep soft tissue edema. IMPRESSION: Posttraumatic changes with hematoma as described Electronically signed by: Kvng Greene MD 05/01/23 08:15 AM Chest X-Ray 05/01/23 10:51 XR chest 2V PA/lateral CLINICAL HISTORY: dyspnea on exertion TECHNIQUE: 2 views of the chest were obtained. Comparison: Comparison is made to chest radiograph 08/30/2022 FINDINGS: No lines and tubes are seen. The cardiomediastinal silhouette is normal. The lungs are clear. No evidence of pleural effusion or pneumothorax. IMPRESSION: No acute chest disease. ACT 112: Negative or not required by law. Electronically signed by: Tim Smith M.D. 05/01/2023 11:36 AM
[2023-05-01] MEDS ORDERED: HYDROmorphone INJ 0.5 MG/0.5 ML SYR IV PRN (14:38)
[2023-05-01] MEDS ORDERED: ONDANSETRON INJ 2 MG/ML 2 ML VIAL IV PRN (14:38)
[2023-05-01] MEDS ORDERED: NITROGLYCERIN SL 0.4 MG/TAB TAB SL PRN (14:38)
[2023-05-01] MEDS ORDERED: LORazepam 0.5 MG TAB PO PRN (14:38)
[2023-05-01] MEDS: ACETAMINOPHEN 500 MG TAB PO SCH ×2 (14:55→22:21)
[2023-05-01] MEDS: INSULIN ASPART PER UNIT CHARGE SC SCH ×3 (14:59→21:18)
[2023-05-01 15:17] LABS: Hematocrit (blood only) 35.4 % (42.0-52.0); Hemoglobin 11.4 g/dl (14.0-18.0)
[2023-05-01] MEDS: VENLAFAXINE HCL XR 150 MG CAPXR PO SCH (15:43)
[2023-05-01] MEDS ORDERED: LANTUS PER UNIT CHARGE SQ SCH (21:00)
[2023-05-01] MEDS: GABAPENTIN 400 MG CAP PO SCH (22:21)
[2023-05-01] MEDS: traZODone HCL 100 MG TAB PO SCH (22:21)
[2023-05-01] MEDS: ATORVASTATIN 40 MG TAB PO SCH (22:21)
[2023-05-01] MEDS: MELATONIN 3 MG TAB PO SCH (22:22)
[2023-05-01] MEDS: FAMOTIDINE 20 MG TAB PO SCH (22:22)
--- NOTE | 2023-05-02 07:32 | Orthopedic Progress Note ---
Date of Service May 02, 2023 Assessment & Plan (1) Acute pain of left hip: Plan: IMPRESSION: Left hip pain, secondarily to hematoma, on lifetime Lovenox, acute PLAN: Recommend conservative treatment. Weight bearing as tolerated, recommend using crutches/walker PT/OT RICE Continue pain control per primary service Continue care per primary service. Will continue to follow while in house. Present on Admission?: Yes Admission and Anticipated Discharge Date Admission Date: May 01, 2023 Subjective left hip pain Physical Exam Physical Exam: Resting comfortable in his bed. LLE: Sensation to light touch unchanged, BCR < 2 sec, motor to gastroc soleus, Tib ant, and EHL 5/5. Able to preform straight leg raise. - log roll hip. Hip ROM, active: FF 90 deg, Abduction 35 deg, Adduction 5 deg, ER 40 deg with pain, IR to neutral with pain, Improved + tender to palpation gluteus elham, n o swelling or bruising. Results & Data Vital Signs (Past 12 Hours) Vital Signs Temp Pulse Pulse Resp BP BP Pulse Ox 05/02/23 06:00 100 H 05/02/23 03:29 36.9 C 97 H 16 151/73 H 94 05/01/23 22:33 36.5 C 93 H 18 121/80 96 05/01/23 19:44 36.8 C 90 18 119/73 95 O2 Del Method 05/02/23 06:00 05/02/23 03:29 Room Air 05/01/23 22:33 Room Air 05/01/23 19:44 Room Air Laboratory Results Laboratory Results WBC 8.98 K/ul (4.8-10.8) 05/01/23 09:00 RBC 4.23 M/uL (4.70-6.10) L 05/01/23 09:00 Hgb 11.4 g/dl (14.0-18.0) L 05/01/23 14:58 Hct 35.4 % (42.0-52.0) L 05/01/23 14:58 MCV 85.8 fL (80.0-100.0) 05/01/23 09:00 MCH 28.6 pg (25.0-34.0) 05/01/23 09:00 MCHC 33.3 g/dL (32.0-36.0) 05/01/23 09:00 RDW Std Deviation 40.5 fL (36.4-46.3) 05/01/23 09:00 RDW Coeff of Na 13.1 % (11.5-14.5) 05/01/23 09:00 Plt Count 213 K/uL (130-400) 05/01/23 09:00 MPV 10.9 fL (9.4-12.4) 05/01/23 09:00 Immature Gran % (Auto) 0.3 % 05/01/23 09:00 Neut % (Auto) 67.1 % 05/01/23 09:00 Lymph % (Auto) 20.5 % 05/01/23 09:00 [place] % (Auto) 10.2 % 05/01/23 09:00 Eos % (Auto) 1.1 % 05/01/23 09:00 Baso % (Auto) 0.8 % 05/01/23 09:00 Neut # (Auto) 6.02 K/uL (1.40-6.50) 05/01/23 09:00 Lymph # (Auto) 1.84 K/uL (1.20-3.40) 05/01/23 09:00 [place] # (Auto) 0.92 K/uL (0.11-0.59) H 05/01/23 09:00 Eos # (Auto) 0.10 K/uL (0.00-0.50) 05/01/23 09:00 Baso # (Auto) 0.07 K/uL (0.00-0.20) 05/01/23 09:00 Immature Gran # (Auto) 0.03 K/uL (0.01-0.20) 05/01/23 09:00 Sodium 136 mmol/L (136-145) 05/01/23 09:00 Potassium 4.2 mmol/L (3.5-5.1) 05/01/23 09:00 Chloride 103 mmol/L (98-107) 05/01/23 09:00 Carbon Dioxide 29 mmol/L (21-32) 05/01/23 09:00 Anion Gap 4 (3-11) 05/01/23 09:00 BUN 29 mg/dl (6-23) H 05/01/23 09:00 Creatinine 1.65 mg/dl (0.6-1.4) H D 05/01/23 09:00 Est Cr Clr Drug Dosing 55.1 ml/min 05/01/23 09:00 Est GFR ( Amer) 48.4 ml/min 05/01/23 09:00 Est GFR (Non-Af Amer) 41.7 ml/min 05/01/23 09:00 BUN/Creatinine Ratio 17.6 (10-20) 05/01/23 09:00 Glucose 261 mg/dl (70-99(Fasting)) H 05/01/23 09:00 POC Glucose 164 mg/dl (70-99) H 05/01/23 20:46 Calcium 8.6 mg/dl (8.6-10.3) 05/01/23 09:00 Magnesium 1.8 mg/dl (1.7-2.4) 05/01/23 09:00 Total Bilirubin 0.8 mg/dl (0.2-1.0) 05/01/23 09:00 AST 15 U/L (13-39) 05/01/23 09:00 ALT 19 U/L (7-52) 05/01/23 09:00 Alkaline Phosphatase 72 U/L (34-104) 05/01/23 09:00 Total Protein 6.3 gm/dl (6.0-8.3) 05/01/23 09:00 Albumin 3.2 gm/dl (3.4-5.0) L 05/01/23 09:00 Globulin 3.1 gm/dl (2.5-4.0) 05/01/23 09:00 Albumin/Globulin Ratio 1.0 (0.9-2) 05/01/23 09:00 SARS-CoV-2 (PCR) NEGATIVE (Negative) 05/01/[address] Unknown [address]ressions Lumbar Spine CT 05/01/23 00:42 Exam(s): CT L SPINE EXAM: CT Lumbar Spine Without Intravenous Contrast CLINICAL HISTORY: Reason for exam: increased pain. TECHNIQUE: Axial computed tomography images of the lumbar spine without intravenous contrast. CTDI is 39.4 mGy and DLP is 1180.79 mGy-cm. Automated exposure control was utilized for the study. A dose lowering technique was utilized adhering to the principles of ALARA. COMPARISON: Comparison made to prior MRI of the lumbar spine from December 07, 2022. FINDINGS: Vertebrae: Unremarkable. No acute fracture. Small Schmorl's node at superior endplate of L5 and inferior endplate of L1. Mild right and moderate left sacroiliac joint arthropathy. Discs/spinal canal/neural foramina: Moderate to advanced disc degeneration at L3-4 and L4-5. Moderate bilateral L5-S1 neuroforaminal stenoses with impingement of the bilateral L5 nerve or ganglia. No acute findings. No spinal canal stenosis. Soft tissues: Left nephrolithiasis. IMPRESSION: No evidence of acute lumbar spine pathology. Electronically signed by: Di Wilburn MD 05/01/23 02:[address] 05/01/23 01:12 Exam(s): CT PELVIS With Contrast IV Amt: 88 cc's of optiray 320 EXAM: CT Pelvis With Intravenous Contrast CLINICAL HISTORY: Reason for exam: left hip pain/swelling. TECHNIQUE: Axial computed tomography images of the pelvis with intravenous contrast. CTDI is 27.09 mGy and DLP is 1064.43 mGy-cm. Automated exposure control was utilized for the study. A dose lowering technique was utilized adhering to the principles of ALARA. CONTRAST: Patient received 88 cc's of optiray 320 of IV contrast COMPARISON: No relevant prior studies available. FINDINGS: Bowel: Unremarkable. No obstruction. No mucosal thickening. Appendix: No findings to suggest acute appendicitis. Intraperitoneal space: Unremarkable. No free air. No significant fluid collection. Bladder: Unremarkable. No mass. Reproductive: Unremarkable as visualized. Bones/joints: No dislocation. No acute fracture of the bilateral hips or pelvic bones. Soft tissues: Intramuscular hematoma in the left gluteus medius. Subcutaneous induration, skin thickening, and areas of cutaneous air in the abdominal pannus, correlate for trauma or injection sites. Vasculature: Unremarkable. No lower abdominal aortic aneurysm. Lymph nodes: Unremarkable. No enlarged lymph nodes. IMPRESSION: 1. Intramuscular hematoma in the left gluteus medius. Left hip MRI recommended for further evaluation. 2. Subcutaneous induration, skin thickening, and areas of cutaneous air in the abdominal pannus, correlate for trauma or injection sites. Electronically signed by: Domingo Barragan MD 05/01/23 03:13 AM Hip MRI 05/01/23 03:29 Exam(s): MRI LEFT HIP Without Contrast EXAM: MR Left Lower Extremity Without Intravenous Contrast, Hip CLINICAL HISTORY: Reason for exam: rec by rad, gluteal hematoma. TECHNIQUE: Multiplanar magnetic resonance images of the left hip without intravenous contrast. COMPARISON: No relevant prior studies available. FINDINGS: TENDONS: Flexors: Unremarkable. Extensors/Hamstring: Unremarkable. Abductors: Unremarkable. Adductors: Unremarkable. Rotators: Unremarkable. Muscles: There is diffuse increased T2 signal intensity within the muscle fibers of the gluteus medius. Additional heterogeneous region of mixed signal intensity within the mid and posterior muscle belly estimated at 10 x 7.3 x 5 cm in dimension. There is some additional increased T2 signal intensity within muscle fibers of the approximated gluteus elham. There is some increased signal intensity/edema within the muscle fibers of the obturator externus. There is some low signal intensity changes and thickening to the muscle belly of the left piriformis suggesting developing hematoma/injury here Fluid: Unremarkable. No joint effusion. Labrum: Unremarkable. Cartilage: Unremarkable. Bones/joints: Unremarkable. No acute fracture. No dislocation. Soft tissues: Some associated deep soft tissue edema. IMPRESSION: Posttraumatic changes with hematoma as described Electronically signed by: Kvng Greene MD 05/01/23 08:15 AM Chest X-Ray 05/01/23 10:51 XR chest 2V PA/lateral CLINICAL HISTORY: dyspnea on exertion TECHNIQUE: 2 views of the chest were obtained. Comparison: Comparison is made to chest radiograph 08/30/2022 FINDINGS: No lines and tubes are seen. The cardiomediastinal silhouette is normal. The lungs are clear. No evidence of pleural effusion or pneumothorax. IMPRESSION: No acute chest disease. ACT 112: Negative or not required by law. Electronically signed by: Tim Smith M.D. 05/01/2023 11:36 AM
[2023-05-02] MEDS: SODIUM CHLORIDE 0.9% 1,000 ML IV SCH (07:48)
[2023-05-02 08:34] LABS: Hematocrit (blood only) 32.8 % (42.0-52.0); Hemoglobin 10.7 g/dl (14.0-18.0); Mean Corpuscular Hemoglobin 28.4 pg (25.0-34.0); Mean Corpuscular Hgb Conc 32.6 g/dL (32.0-36.0); Mean Platelet Volume 11.1 fL (9.4-12.4); Platelet Count 192 K/uL (130-400); RDW Coefficient of Variation 12.9 % (11.5-14.5); RDW Standard Deviation 40.4 fL (36.4-46.3); Red Blood Count 3.77 M/uL (4.70-6.10); White Blood Count 8.27 K/ul (4.8-10.8)
[2023-05-02] MEDS: METOPROLOL SUCC 50MG EXT REL TAB PO SCH (08:49)
[2023-05-02] MEDS: VENLAFAXINE HCL XR 150 MG CAPXR PO SCH (08:49)
[2023-05-02] MEDS: ACETAMINOPHEN 500 MG TAB PO SCH ×3 (08:49→20:58)
[2023-05-02] MEDS: GABAPENTIN 400 MG CAP PO SCH ×2 (08:50→21:00)
[2023-05-02] MEDS: POLYETHYLENE (MIRALAX) 17 GM PACK PO SCH ×2 (08:50→08:52)
[2023-05-02] MEDS: FAMOTIDINE 20 MG TAB PO SCH ×2 (08:50→20:59)
[2023-05-02] MEDS: dilTIAZem HCL 180 MG CAPCR PO SCH (08:50)
[2023-05-02 08:53] LABS: BUN Creatinine Ratio 16.8 (10-20); Calcium 8.1 mg/dl (8.6-10.3); Creatinine Clr Calc Pharmacy 60.3 ml/min; Est GFR (African American) 52.2 ml/min; Potassium 3.9 mmol/L (3.5-5.1)
[2023-05-02] MEDS ORDERED: dilTIAZem HCL 180 MG CAPCR PO SCH (09:00)
[2023-05-02] MEDS: INSULIN ASPART PER UNIT CHARGE SC SCH ×4 (09:34→21:07)
[2023-05-02] MEDS ORDERED: oxyCODONE HCL IR 5 MG TAB (IMMEDIATE RELEASE) PO PRN (13:39)
[2023-05-02] MEDS ORDERED: HYDROmorphone INJ 0.5 MG/0.5 ML SYR IV PRN (13:40)
[2023-05-02 14:54] LABS: Hematocrit (blood only) 33.2 % (42.0-52.0); Hemoglobin 11.3 g/dl (14.0-18.0)
--- NOTE | 2023-05-02 18:55 | Hospitalist Progress Note ---
Date of Service May 02, 2023 Assessment & Plan (1) Hematoma of left buttock: Plan: spontaneous, in the setting of therapeutic lovenox usage for recurrent VTE. cont to HOLD all forms of anticoagulation. fortunately serial H/H's remain stable. pain relief - tylenol 1gm TID scheduled; dilaudid IV prn --> increase to 0.5mg doses; trial of PO oxy 10mg prn; heating pad to L buttock as needed/as desired. orthopedics consult appreciated; conservative Rx. PT, OT. gentle stretching. (2) Acute blood loss anemia: Plan: 2nd #1. H/H's stable. I spoke informally with Dr Cherry from [facility]/oncology. Mr Haney follows with that clinic for his recurrent VTE. Plan - * cont serial H/H's * if in 2-3 days H/H's remain stable suggesting the hematoma is no longer expanding will place on LOW-DOSE heparin protocol * if he tolerates that without bleeding then increase to STANDARD heparin protocol * following such, if stable, then resume lovenox * following factor 10a levels would be prudent in light of bleeding on the lovenox * consider having patient be followed by Dr Newton in the coumadin clinic if lovenox is utilized moving forward (3) Acute pain of left hip: Plan: 2nd #1. see #1 above. (4) Acute leg pain: Plan: Pain is 2nd to the large hematoma itself. In addition, he has swelling/blood abutting the L piriformis muscle. Some of his pain is likely piriformis dysfunction from compression of the muscle (probably the cause of the left thigh pain). See #1 above. (5) Antiphospholipid syndrome: Plan: Long-standing dx with recurrent VTE. Most recent VTE -- extensive RLE DVTs just a few weeks ago (precipitated by being off anticoagulation for 1-2 months). Fortunately has IVC filter in place. HOLDING all forms of anticoagulation at this time 2nd to #1. see #2 above re: discussion with hematology/oncology (6) GERD (gastroesophageal reflux disease): Plan: Cont pepcid 20mg BID (7) Shortness of breath on exertion: Plan: CXR without infiltrates. Recent echo wnl. Recent cardiac catheterization wnl. Deserves CTA chest to exclude VTE. Will perform that tomorrow if renal function is stable. (8) Dizziness: Plan: When able check orthostatic BPs. In meantime hold lisinopril Cont lower dose of diltiazem 180mg daily. Cont meto succinate 50mg daily. (9) Uncontrolled type 2 diabetes mellitus with insulin therapy: Plan: a1c 9% in 03/2023. cont lantus but increase the dose to 25 units daily adjust ac/hs novolog. (10) Stage III chronic kidney disease: Plan: baseline Cr mid 1's stable repeat BMP am (11) Dyslipidemia: Plan: Cont statin Plan PT, OT evals appreciated progressing Admission and Anticipated Discharge Date Admission Date: May 01, 2023 Subjective pt w/ ongoing complaints of L buttock pain and L leg pain (upper thigh posteriorly) but modestly better vs yesterday denies dizziness today denies dyspnea at rest no new areas of pain tele overnight wnl eating/drinking well Review of Systems Review of Systems: gen - no fevers cv - no orthopnea pulm - no cough GI - no abd pain, N/V Physical Exam Physical Exam: gen - obese, NAD, looks better than yesterday HENT - mouth with MMM neck - no JVD heart - RRR s1 s2 no murmur lungs - CTA b/l, no rales, no wheezes abd - soft NT ND BS+ ext - venous stasis changes b/l shins, trace edema b/l legs, pulses 2+ b/l skin - ecchymoses on abdominal wall; still no ecchymoses over L buttock or R buttock musculo - L buttock swelling unchanged; moving in bed provokes his pain psych - a/o x 3 Results & Data Results & Data Vital Signs (Past 12 Hours) Vital Signs Temp Pulse Pulse Resp BP Pulse Ox O2 Del Method 05/02/23 15:23 36.7 C 93 H 20 145/85 H 95 Room Air 05/02/23 14:00 105 H 05/02/23 11:17 37 C 110 H 20 142/81 H 93 Room Air 05/02/23 07:27 37 C 101 H 18 155/102 H 95 Room Air Laboratory Results Laboratory Results - last 24 hr 05/01/23 05/02/23 05/02/23 20:46 08:12 08:16 WBC 8.27 RBC 3.77 L Hgb 10.7 L Hct 32.8 L MCV 87.0 MCH 28.4 MCHC 32.6 RDW Std Deviation 40.4 RDW Coeff of Na 12.9 Plt Count 192 MPV 11.1 Sodium 137 Potassium 3.9 Chloride 106 Carbon Dioxide 26 Anion Gap 5 BUN 26 H Creatinine 1.55 H Est Cr Clr Drug Dosing 60.3 Est GFR ( Amer) 52.2 Est GFR (Non-Af Amer) 45.0 BUN/Creatinine Ratio 16.8 Glucose 154 H POC Glucose 164 H 154 H Calcium 8.1 L 05/02/23 05/02/23 05/02/23 12:49 14:37 17:34 WBC RBC Hgb 11.3 L Hct 33.2 L MCV MCH MCHC RDW Std Deviation RDW Coeff of Na Plt Count MPV Sodium Potassium Chloride Carbon Dioxide Anion Gap BUN Creatinine Est Cr Clr Drug Dosing Est GFR ( Amer) Est GFR (Non-Af Amer) BUN/Creatinine Ratio Glucose POC Glucose 200 H 160 H Calcium PG Care Time/CCT Total # of Minutes Spent Total Time Spent with Patient: Total time spent is greater than 50% in coordination of care (as documented) at patient's floor/unit and/or counseling patient: Coding Level of Care Code 81500 SUB INP/OBS CARE 3/50MIN Diagnoses Hematoma of left buttock S30.0XXA Acute blood loss anemia D62 Acute pain of left hip M25.552 Acute leg pain M79.605 Laterality: left Antiphospholipid syndrome D68.61 GERD (gastroesophageal reflux disease) K21.9 Shortness of breath on exertion R06.02 Dizziness R42 Uncontrolled type 2 diabetes mellitus with insulin therapy E11.65; Z79.4 Stage 3b chronic kidney disease N18.32 Chronic kidney disease stage 3 subtype: stage 3b (GFR 30-44) Dyslipidemia E78.5 (4) Acute leg pain Laterality: left Qualified Code(s): M79.605 - Pain in left leg (10) Stage III chronic kidney disease Chronic kidney disease stage 3 subtype: stage 3b (GFR 30-44) Qualified Code(s): N18.32 - Chronic kidney disease, stage 3b
[2023-05-02] MEDS: SENNA 8.6 MG TAB PO SCH (20:58)
[2023-05-02] MEDS: ATORVASTATIN 40 MG TAB PO SCH (20:59)
[2023-05-02] MEDS: MELATONIN 3 MG TAB PO SCH (21:00)
[2023-05-02] MEDS: traZODone HCL 100 MG TAB PO SCH (21:01)
[2023-05-02] MEDS: LANTUS PER UNIT CHARGE SQ SCH (21:08)
[2023-05-03 06:41] LABS: Hematocrit (blood only) 31.5 % (42.0-52.0); Hemoglobin 10.7 g/dl (14.0-18.0); Mean Corpuscular Hemoglobin 28.7 pg (25.0-34.0); Mean Corpuscular Volume 84.5 fL (80.0-100.0); Mean Platelet Volume 11.5 fL (9.4-12.4); Platelet Count 215 K/uL (130-400); RDW Coefficient of Variation 12.9 % (11.5-14.5); RDW Standard Deviation 39.7 fL (36.4-46.3); Red Blood Count 3.73 M/uL (4.70-6.10); White Blood Count 9.85 K/ul (4.8-10.8)
[2023-05-03 07:01] LABS: BUN Creatinine Ratio 19.4 (10-20); Calcium 8.5 mg/dl (8.6-10.3); Est GFR (Non-African American) 49.2 ml/min; Potassium 3.8 mmol/L (3.5-5.1)
[2023-05-03] MEDS: INSULIN ASPART PER UNIT CHARGE SC SCH ×4 (09:19→20:51)
[2023-05-03] MEDS: ACETAMINOPHEN 500 MG TAB PO SCH ×3 (09:23→20:57)
[2023-05-03] MEDS: GABAPENTIN 400 MG CAP PO SCH ×2 (09:23→20:58)
[2023-05-03] MEDS: dilTIAZem HCL 180 MG CAPCR PO SCH (09:23)
[2023-05-03] MEDS: FAMOTIDINE 20 MG TAB PO SCH ×2 (09:23→20:58)
[2023-05-03] MEDS: METOPROLOL SUCC 50MG EXT REL TAB PO SCH (09:23)
[2023-05-03] MEDS: VENLAFAXINE HCL XR 150 MG CAPXR PO SCH (09:23)
[2023-05-03] MEDS: POLYETHYLENE (MIRALAX) 17 GM PACK PO SCH (09:24)
[2023-05-03] MEDS: SENNA 8.6 MG TAB PO SCH (09:24)
[2023-05-03] MEDS ORDERED: OPTIRAY 320 125ml IV ONE (09:58)
--- NOTE | 2023-05-03 10:04 | Orthopedic Progress Note ---
Date of Service May 03, 2023 Assessment & Plan (1) Acute pain of left hip: Plan: IMPRESSION: Left hip pain, secondarily to hematoma, on lifetime Lovenox, acute PLAN: Recommend conservative treatment. Weight bearing as tolerated, recommend using crutches/walker PT/OT RICE Continue pain control per primary service Continue care per primary service. Follow-up in the office 2 weeks after discharge, please re-call if any ortho issues arise. Present on Admission?: Yes Admission and Anticipated Discharge Date Admission Date: May 01, 2023 Subjective feeling a bit better Physical Exam Physical Exam: Resting comfortable in his bed. LLE: Sensation to light touch unchanged, BCR < 2 sec, motor to gastroc soleus, Tib ant, and EHL 5/5. Able to preform straight leg raise. - log roll hip. Hip ROM, active: FF 90 deg, Abduction 35 deg, Adduction 5 deg, ER 40 deg with pain, IR to neutral with pain, Improved + tender to palpation gluteus elham, n o swelling or bruising. Results & Data Vital Signs (Past 12 Hours) Vital Signs Temp Pulse Pulse Resp BP BP Pulse Ox 05/03/23 07:26 36.5 C 87 18 160/83 H 97 05/03/23 04:21 36.8 C 86 18 142/76 H 92 05/02/23 23:30 90 O2 Del Method 05/03/23 07:26 Room Air 05/03/23 04:21 Room Air 05/02/23 23:30 Laboratory Results 05/03/23 05/03/23 05/02/23 Range/Units 08:32 05:41 20:12 WBC 9.85 (4.8-10.8) K/ul RBC 3.73 L (4.70-6.10) M/uL Hgb 10.7 L (14.0-18.0) g/dl Hct 31.5 L (42.0-52.0) % MCV 84.5 (80.0-100.0) fL MCH 28.7 (25.0-34.0) pg MCHC 34.0 (32.0-36.0) g/dL RDW Std Deviation 39.7 (36.4-46.3) fL RDW Coeff of Na 12.9 (11.5-14.5) % Plt Count 215 (130-400) K/uL MPV 11.5 (9.4-12.4) fL Sodium 136 (136-145) mmol/L Potassium 3.8 (3.5-5.1) mmol/L Chloride 105 (98-107) mmol/L Carbon Dioxide 26 (21-32) mmol/L Anion Gap 5 (3-11) BUN 28 H (6-23) mg/dl Creatinine 1.44 H (0.6-1.4) mg/dl Est Cr Clr Drug Dosing 65.0 ml/min Est GFR ( Amer) 57.0 ml/min Est GFR (Non-Af Amer) 49.2 ml/min BUN/Creatinine Ratio 19.4 (10-20) Glucose 157 H (70-99(Fasting)) mg/dl POC Glucose 158 H 172 H (70-99) mg/dl Calcium 8.5 L (8.6-10.3) mg/dl 05/02/23 05/02/23 05/02/23 Range/Units 17:34 14:37 12:49 WBC (4.8-10.8) K/ul RBC (4.70-6.10) M/uL Hgb 11.3 L (14.0-18.0) g/dl Hct 33.2 L (42.0-52.0) % MCV (80.0-100.0) fL MCH (25.0-34.0) pg MCHC (32.0-36.0) g/dL RDW Std Deviation (36.4-46.3) fL RDW Coeff of Na (11.5-14.5) % Plt Count (130-400) K/uL MPV (9.4-12.4) fL Sodium (136-145) mmol/L Potassium (3.5-5.1) mmol/L Chloride (98-107) mmol/L Carbon Dioxide (21-32) mmol/L Anion Gap (3-11) BUN (6-23) mg/dl Creatinine (0.6-1.4) mg/dl Est Cr Clr Drug Dosing ml/min Est GFR ( Amer) ml/min Est GFR (Non-Af Amer) ml/min BUN/Creatinine Ratio (10-20) Glucose (70-99(Fasting)) mg/dl POC Glucose 160 H 200 H (70-99) mg/dl Calcium (8.6-10.3) mg/dl
--- NOTE | 2023-05-03 10:34 | CT Scan Report ---
CHEST CTA for PULMONARY ARTERIES CT DOSE: 909.21 mGy.cm HISTORY: recent DVTs; dyspnea on exertion x 1-2 months; eval PE, etc TECHNIQUE: Multiaxial CT images of the chest were performed following the intravenous administration of contrast to evaluate the pulmonary arteries. 3D/Maximal intensity projection images were also obta ined. Sagittal and coronal reformations were also reviewed. A dose lowering technique was utilized a dhering to the principles of ALARA. COMPARISON STUDY: Chest CT 11/26/2013. FINDINGS: Normal caliber thoracic aorta with no evidence for a dissection. The heart is mildly enlarg ed. No pleural or pericardial effusions. A few calcified granulomas within the right hepatic lobe. Pr ior cholecystectomy. The visualized spleen is unremarkable. Normal esophagus. The thyroid gland enhan joce normally. No mediastinal or hilar lymphadenopathy. The majority of the segmental and subsegmental pulmonary arteries are nondiagnostic due to the respiratory motion artifact. The main and lobar pulm onary arteries appear patent with no filling defects to suggest a pulmonary embolus. No acute fractur es identified. No pneumothorax. The central airways are patent. A few scattered subcentimeter pulmona ry nodules remain stable and are considered to be benign given the long-term stability. Dominant nodu les within the lower lobes measure up to 5 mm. No new pulmonary nodules identified. Left basilar line ar densities favor subsegmental atelectasis. Otherwise, no focal lung consolidations to suggest a pne umonia. No evidence for pulmonary edema. IMPRESSION: 1. Suboptimal evaluation of the pulmonary arteries due to the respiratory motion artifact. However, n o evidence for central pulmonary embolus. 2. Mild cardiomegaly. No evidence for pulmonary edema. 3. Stable subcentimeter pulmonary nodules which are considered to be benign. No new pulmonary nodules identified. 3. Left basilar linear densities favor subsegmental atelectasis or scarring. ACT 112: Negative or not required by law. Electronically signed by: Scooter Samaniego M.D. 05/03/2023 10:32 AM
[2023-05-03] MEDS ORDERED: SODIUM CHLORIDE 0.9% 1,000 ML IV ONE (18:12)
--- NOTE | 2023-05-03 19:49 | Hospitalist Progress Note ---
Date of Service May 03, 2023 Assessment & Plan (1) Hematoma of left buttock: Plan: spontaneous, in the setting of therapeutic lovenox usage for recurrent VTE. fortunately serial H/H's continue to remain stable. pain relief - tylenol 1gm TID scheduled; dilaudid IV prn; PO oxy 10mg prn; heating pad to L buttock as needed/as desired. orthopedics consult appreciated; conservative Rx recommended. PT, OT. gentle stretching. If H/H are stable overnight will start a LOW-DOSE heparin infusion without bolus and monitor x 24 hours for any recurrent bleeding. then, on Friday, will need to decide what he will take anticoagulation [place] at time of discharge. lovenox but with factor 10a monitoring? other AC? (2) Acute blood loss anemia: Plan: 2nd #1. H/H's remain stable. I spoke informally with Dr Cherry from [facility]/oncology yesterday. Mr Haney follows with that clinic for his recurrent VTE. Plan - * cont serial H/H's * if H/H's remain stable suggesting the hematoma is no longer expanding will place on LOW-DOSE heparin protocol - likely starting tomorrow * if he tolerates that without bleeding then increase to STANDARD heparin protocol * following such, if stable, then resume lovenox * following factor 10a levels would be prudent in light of bleeding on the lovenox * consider having patient be followed by Dr Newton in the coumadin clinic if lovenox is utilized moving forward (3) Acute pain of left hip: Plan: 2nd #1. MUCH improved. (4) Acute leg pain: Plan: Pain is 2nd to the large hematoma itself. In addition, he has swelling/blood abutting the L piriformis muscle. Some of his pain is likely piriformis dysfunction from compression of the muscle (probably the cause of the left thigh pain). See #1 above. (5) Antiphospholipid syndrome: Plan: Long-standing dx with recurrent VTE. Most recent VTE -- extensive RLE DVTs just a few weeks ago (precipitated by being off anticoagulation for 1-2 months). Fortunately has IVC filter in place. HOLDING all forms of anticoagulation at this time 2nd to #1. see #2 above re: discussion with hematology/oncology (6) GERD (gastroesophageal reflux disease): Plan: Cont pepcid 20mg BID (7) Shortness of breath on exertion: Plan: CXR without infiltrates. Recent echo wnl. Recent cardiac catheterization wnl. CTA chest today negative for PE, pulm edema, other pathology. Obstructive lung disease from long-standing tobacco usage?? Send to pulmonary post-d/c for PFTs, etc. (8) Dizziness: Plan: orthostatic BPs markedly + (65 point drop). Hold lisinopril Hold diltiazem. Cont meto succinate 50mg daily cautiously. 1 L NS bolus now since he is symptomatic. repeat orthos in am. (9) Uncontrolled type 2 diabetes mellitus with insulin therapy: Plan: a1c 9% in 03/2023. cont lantus 25 units daily adjust ac/hs novolog. (10) Stage III chronic kidney disease: Plan: baseline Cr mid 1's stable Cr today repeat BMP am (11) Dyslipidemia: Plan: Cont statin Plan PT, OT evals appreciated progressing updated at bedside Admission and Anticipated Discharge Date Admission Date: May 01, 2023 Subjective L buttock and L leg (thigh) pain is improved today really no pain at rest mild pain with activity only he is able to ambulate much more easily then a few days ago he continues with severe dizziness upon standing orthostatics were checked and very positive - went from 146 systolic to 80 from supine to standing position at bedside during the visit no new complaints from patient Review of Systems Review of Systems: gen - feels well overall cv - no orthopnea, no PND pulm - no dyspnea at rest; still with mild ASKEW GI - no abd pain, nausea, emesis Physical Exam Physical Exam: gen - obese, NAD, looks well, looks comfortable HENT - mouth with MMM neck - no JVD heart - RRR s1 s2 no murmur lungs - CTA b/l, no rales, no wheezes abd - soft NT ND BS+ ext - venous stasis changes b/l shins, trace edema b/l legs, pulses 2+ b/l skin - ecchymoses on abdominal wall; still no ecchymoses over L buttock or R buttock psych - a/o x 3 Results & Data Results & Data Vital Signs (Past 12 Hours) Vital Signs Temp Pulse Pulse Resp BP BP Pulse Ox 05/03/23 19:43 36.8 C 89 18 157/78 H 96 05/03/23 19:11 92 H 151/89 H 05/03/23 18:42 89 139/87 96 05/03/23 17:35 152/70 H 05/03/23 15:09 36.6 C 76 20 131/79 94 05/03/23 14:00 81 05/03/23 11:14 36.6 C 91 H 20 136/83 95 O2 Del Method 05/03/23 19:43 Room Air 05/03/23 19:11 05/03/23 18:42 Room Air 05/03/23 17:35 05/03/23 15:09 Room Air 05/03/23 14:00 05/03/23 11:14 Room Air Laboratory Results Laboratory Results - last 24 hr 05/02/23 05/03/23 05/03/23 20:12 05:41 08:32 WBC 9.85 RBC 3.73 L Hgb 10.7 L Hct 31.5 L MCV 84.5 MCH 28.7 MCHC 34.0 RDW Std Deviation 39.7 RDW Coeff of Na 12.9 Plt Count 215 MPV 11.5 Sodium 136 Potassium 3.8 Chloride 105 Carbon Dioxide 26 Anion Gap 5 BUN 28 H Creatinine 1.44 H Est Cr Clr Drug Dosing 65.0 Est GFR ( Amer) 57.0 Est GFR (Non-Af Amer) 49.2 BUN/Creatinine Ratio 19.4 Glucose 157 H POC Glucose 172 H 158 H Calcium 8.5 L 05/03/23 05/03/23 12:12 17:21 WBC RBC Hgb Hct MCV MCH MCHC RDW Std Deviation RDW Coeff of Na Plt Count MPV Sodium Potassium Chloride Carbon Dioxide Anion Gap BUN Creatinine Est Cr Clr Drug Dosing Est GFR ( Amer) Est GFR (Non-Af Amer) BUN/Creatinine Ratio Glucose POC Glucose 196 H 79 Calcium PG Care Time/CCT Total # of Minutes Spent Total Time Spent with Patient: Total time spent is greater than 50% in coordination of care (as documented) at patient's floor/unit and/or counseling patient: Coding Level of Care Code 33422 SUB INP/OBS CARE 2/35MIN Diagnoses Hematoma of left buttock S30.0XXA Acute blood loss anemia D62 Acute pain of left hip M25.552 Acute leg pain M79.605 Laterality: left Antiphospholipid syndrome D68.61 GERD (gastroesophageal reflux disease) K21.9 Shortness of breath on exertion R06.02 Dizziness R42 Uncontrolled type 2 diabetes mellitus with insulin therapy E11.65; Z79.4 Stage 3b chronic kidney disease N18.32 Chronic kidney disease stage 3 subtype: stage 3b (GFR 30-44) Dyslipidemia E78.5 (4) Acute leg pain Laterality: left Qualified Code(s): M79.605 - Pain in left leg (10) Stage III chronic kidney disease Chronic kidney disease stage 3 subtype: stage 3b (GFR 30-44) Qualified Code(s): N18.32 - Chronic kidney disease, stage 3b
[2023-05-03] MEDS: LANTUS PER UNIT CHARGE SQ SCH (20:56)
[2023-05-03] MEDS: MELATONIN 3 MG TAB PO SCH (20:57)
[2023-05-03] MEDS: ATORVASTATIN 40 MG TAB PO SCH (20:58)
[2023-05-03] MEDS: traZODone HCL 100 MG TAB PO SCH (20:58)
[2023-05-04 06:07] LABS: Hematocrit (blood only) 33.5 % (42.0-52.0); Hemoglobin 11.2 g/dl (14.0-18.0); Mean Corpuscular Hemoglobin 28.5 pg (25.0-34.0); Mean Corpuscular Hgb Conc 33.4 g/dL (32.0-36.0); Mean Corpuscular Volume 85.2 fL (80.0-100.0); Mean Platelet Volume 11.2 fL (9.4-12.4); Platelet Count 235 K/uL (130-400); RDW Coefficient of Variation 12.8 % (11.5-14.5); RDW Standard Deviation 39.8 fL (36.4-46.3); Red Blood Count 3.93 M/uL (4.70-6.10); White Blood Count 11.18 K/ul (4.8-10.8)
[2023-05-04 06:22] LABS: Est GFR (Non-African American) 49.2 ml/min
[2023-05-04] MEDS ORDERED: Heparin IV Adult Wt-Based Low-Dose *NO* INITIAL Bolus Protocol IV SCH (08:14)
[2023-05-04] MEDS: ACETAMINOPHEN 500 MG TAB PO SCH ×3 (09:11→20:14)
[2023-05-04] MEDS: SENNA 8.6 MG TAB PO SCH (09:12)
[2023-05-04] MEDS: METOPROLOL SUCC 50MG EXT REL TAB PO SCH ×2 (09:12→20:28)
[2023-05-04] MEDS: POLYETHYLENE (MIRALAX) 17 GM PACK PO SCH (09:12)
[2023-05-04] MEDS: FAMOTIDINE 20 MG TAB PO SCH ×2 (09:13→20:17)
[2023-05-04] MEDS: VENLAFAXINE HCL XR 150 MG CAPXR PO SCH (09:13)
[2023-05-04] MEDS: HEPARIN SODIUM/DEXTROSE 25,000 UNITS/500 ML BAG IV SCH (09:13)
[2023-05-04] MEDS: GABAPENTIN 400 MG CAP PO SCH ×2 (09:13→20:17)
[2023-05-04] MEDS: INSULIN ASPART PER UNIT CHARGE SC SCH ×4 (09:19→20:24)
[2023-05-04] MEDS: MIDODRINE HCL 2.5 MG TAB PO SCH ×2 (13:18→18:02)
[2023-05-04 16:37] LABS: Partial Thromboplastin Ratio 1.3; Partial Thromboplastin Time 36.1 Seconds (21.0-31.0)
[2023-05-04] MEDS: traZODone HCL 100 MG TAB PO SCH (20:17)
--- NOTE | 2023-05-04 20:17 | Hospitalist Progress Note ---
Date of Service May 04, 2023 Assessment & Plan (1) Hematoma of left buttock: Plan: spontaneous, in the setting of therapeutic lovenox usage for recurrent VTE. fortunately serial H/H's continue to remain stable. pain relief - tylenol 1gm TID scheduled; dilaudid IV prn; PO oxy 10mg prn; heating pad to L buttock to promote resolution and for pain control. orthopedics consult appreciated; conservative Rx recommended. corresponded with ortho today -- made them aware that I will start a low-dose heparin infusion with the hopes that he tolerates such w/o re-bleeding. PT, OT. gentle stretching. (2) Acute blood loss anemia: Plan: 2nd #1. H/H's remain stable. I spoke informally with Dr Cherry from [facility]/oncology 2 days ago. Mr Haney follows with that clinic for his recurrent VTE. Plan - * cont serial H/H's * start LOW-DOSE heparin protocol today w/o bolus and watch x 24 hours * if he tolerates that without bleeding then increase to STANDARD heparin protocol or change back to lovenox injections * following factor 10a levels would be prudent in light of bleeding on the lovenox * consider having patient be followed by Dr Newton in the coumadin clinic if lo venox is utilized moving forward * will try to contact Dr Newton on Friday to discuss this complex case (3) Acute pain of left hip: Plan: 2nd #1. MUCH improved. (4) Acute leg pain: Plan: Pain is 2nd to the large hematoma itself. In addition, he has swelling/blood abutting the L piriformis muscle. Some of his pain is likely piriformis dysfunction from compression of the muscle (probably the cause of the left thigh pain). See #1 above. (5) Antiphospholipid syndrome: Plan: Long-standing dx with recurrent VTE. Most recent VTE -- extensive RLE DVTs just a few weeks ago (precipitated by being off anticoagulation for 1-2 months). Fortunately has IVC filter in place. Resume low-dose heparin infusion. see #2 above re: discussion with hematology/oncology (6) GERD (gastroesophageal reflux disease): Plan: Cont pepcid 20mg BID (7) Shortness of breath on exertion: Plan: CXR without infiltrates. Recent echo wnl. Recent cardiac catheterization wnl. CTA chest negative for PE, pulm edema, other pathology. Obstructive lung disease from long-standing tobacco usage?? Send to pulmonary post-d/c for PFTs, etc. (8) Dizziness: Plan: 2nd to SEVERE orthostatic hypotension (65 point drop). Hold lisinopril Hold diltiazem. Cont meto succinate 50mg daily cautiously. no response to 1 L NS bolus last pm. he looks euvolemic today. start midodrine 2.5mg TID. repeat orthos later today and in am. (9) Uncontrolled type 2 diabetes mellitus with insulin therapy: Plan: a1c 9% in 03/2023. cont lantus 25 units daily adjust ac/hs novolog. much improved. (10) Stage III chronic kidney disease: Plan: baseline Cr mid 1's stable Cr again today repeat BMP am (11) Dyslipidemia: Plan: Cont statin Plan PT, OT evals appreciated progressing nicely updated at bedside once again Admission and Anticipated Discharge Date Admission Date: May 01, 2023 Subjective patient overall doing ok no back/gluteus pain at rest mild pain only with standing/walking still a little dizzy we had lengthy discussion about orthostatic hypotension discussed plan of care re: heparin tele overnight wnl Review of Systems Review of Systems: cv - no orthopnea or cp pulm - no dyspnea reported today GI - no abd pain/nausea;eating well Physical Exam Physical Exam: gen - obese, NAD, looks well HENT - mouth with MMM neck - no JVD heart - RRR s1 s2 no murmur lungs - CTA b/l, no rales, no wheezes abd - soft NT ND BS+ ext - venous stasis changes b/l shins, trace edema b/l legs, pulses 2+ b/l Results & Data Results & Data Vital Signs (Past 12 Hours) Vital Signs Temp Pulse Pulse Resp BP BP Pulse Ox 05/04/23 20:00 36.7 C 103 H 16 146/98 H 93 05/04/23 16:24 36.7 C 110 H 18 146/85 H 94 05/04/23 15:30 110 H 05/04/23 12:32 36.9 C 94 H 16 157/91 H 94 05/04/23 09:03 121 H 16 90/55 L 05/04/23 09:01 88 137/80 94 05/04/23 08:59 80 16 162/103 H O2 Del Method 05/04/23 20:00 Room Air 05/04/23 16:24 Room Air 05/04/23 15:30 05/04/23 12:32 Room Air 05/04/23 09:03 Room Air 05/04/23 09:01 Room Air 05/04/23 08:59 Laboratory Results Laboratory Results - last 24 hr 05/03/23 05/04/23 05/04/23 20:14 05:21 08:31 WBC 11.18 H RBC 3.93 L Hgb 11.2 L Hct 33.5 L MCV 85.2 MCH 28.5 MCHC 33.4 RDW Std Deviation 39.8 RDW Coeff of Na 12.8 Plt Count 235 MPV 11.2 APTT PTT Ratio Creatinine 1.44 H Est Cr Clr Drug Dosing 65.0 Est GFR ( Amer) 57.0 Est GFR (Non-Af Amer) 49.2 POC Glucose 136 H 147 H 05/04/23 05/04/23 05/04/23 12:27 15:51 17:07 WBC RBC Hgb Hct MCV MCH MCHC RDW Std Deviation RDW Coeff of Na Plt Count MPV APTT 36.1 H PTT Ratio 1.3 Creatinine Est Cr Clr Drug Dosing Est GFR ( Amer) Est GFR (Non-Af Amer) POC Glucose 186 H 197 H PG Care Time/CCT Total # of Minutes Spent Total Time Spent with Patient: Total time spent is greater than 50% in coordination of care (as documented) at patient's floor/unit and/or counseling patient: Coding Level of Care Code 88831 SUB INP/OBS CARE 2/35MIN Diagnoses Hematoma of left buttock S30.0XXA Acute blood loss anemia D62 Acute pain of left hip M25.552 Acute leg pain M79.605 Laterality: left Antiphospholipid syndrome D68.61 GERD (gastroesophageal reflux disease) K21.9 Shortness of breath on exertion R06.02 Dizziness R42 Uncontrolled type 2 diabetes mellitus with insulin therapy E11.65; Z79.4 Stage 3b chronic kidney disease N18.32 Chronic kidney disease stage 3 subtype: stage 3b (GFR 30-44) Dyslipidemia E78.5 (4) Acute leg pain Laterality: left Qualified Code(s): M79.605 - Pain in left leg (10) Stage III chronic kidney disease Chronic kidney disease stage 3 subtype: stage 3b (GFR 30-44) Qualified Code(s): N18.32 - Chronic kidney disease, stage 3b
[2023-05-04] MEDS: MELATONIN 3 MG TAB PO SCH (20:18)
[2023-05-04] MEDS: ATORVASTATIN 40 MG TAB PO SCH (20:18)
[2023-05-04] MEDS: LANTUS PER UNIT CHARGE SQ SCH (20:25)
[2023-05-04 23:55] LABS: Partial Thromboplastin Ratio 1.4; Partial Thromboplastin Time 39.2 Seconds (21.0-31.0)
[2023-05-05 06:44] LABS: Hematocrit (blood only) 35.6 % (42.0-52.0); Hemoglobin 11.6 g/dl (14.0-18.0); Mean Corpuscular Hemoglobin 28.2 pg (25.0-34.0); Mean Corpuscular Hgb Conc 32.6 g/dL (32.0-36.0); Mean Corpuscular Volume 86.6 fL (80.0-100.0); Mean Platelet Volume 11.1 fL (9.4-12.4); Platelet Count 252 K/uL (130-400); RDW Coefficient of Variation 13.1 % (11.5-14.5); RDW Standard Deviation 40.9 fL (36.4-46.3); Red Blood Count 4.11 M/uL (4.70-6.10); White Blood Count 11.35 K/ul (4.8-10.8)
[2023-05-05 06:45] LABS: BUN Creatinine Ratio 17.5 (10-20); Calcium 9.3 mg/dl (8.6-10.3); Creatinine Clr Calc Pharmacy 58.1 ml/min; Est GFR (African American) 50.2 ml/min; Est GFR (Non-African American) 43.3 ml/min
[2023-05-05] MEDS: HEPARIN SODIUM/DEXTROSE 25,000 UNITS/500 ML BAG IV SCH ×2 (07:06→08:59)
[2023-05-05 07:28] LABS: Partial Thromboplastin Ratio 1.5
[2023-05-05 07:33] LABS: Partial Thromboplastin Time 42.8 Seconds (21.0-31.0)
[2023-05-05] MEDS: METOPROLOL SUCC 50MG EXT REL TAB PO SCH ×2 (08:06→21:30)
[2023-05-05] MEDS: FAMOTIDINE 20 MG TAB PO SCH ×2 (08:07→21:29)
[2023-05-05] MEDS: GABAPENTIN 400 MG CAP PO SCH ×2 (08:07→21:31)
[2023-05-05] MEDS: MIDODRINE HCL 2.5 MG TAB PO SCH ×3 (08:08→17:49)
[2023-05-05] MEDS: VENLAFAXINE HCL XR 150 MG CAPXR PO SCH (08:08)
[2023-05-05] MEDS: POLYETHYLENE (MIRALAX) 17 GM PACK PO SCH (08:09)
[2023-05-05] MEDS: ACETAMINOPHEN 500 MG TAB PO SCH ×3 (08:09→21:32)
[2023-05-05] MEDS: SENNA 8.6 MG TAB PO SCH (08:09)
[2023-05-05] MEDS ORDERED: Heparin IV Adult Wt-Based Standard *NO* INITIAL Bolus Protocol IV STA (08:39)
[2023-05-05] MEDS: INSULIN ASPART PER UNIT CHARGE SC SCH ×4 (08:58→21:26)
[2023-05-05] MEDS: traZODone HCL 100 MG TAB PO SCH (21:31)
[2023-05-05] MEDS: ATORVASTATIN 40 MG TAB PO SCH (21:31)
[2023-05-05] MEDS: MELATONIN 3 MG TAB PO SCH (21:31)
[2023-05-05] MEDS: LANTUS PER UNIT CHARGE SQ SCH (21:32)
--- NOTE | 2023-05-05 21:36 | Hospitalist Progress Note ---
Date of Service May 05, 2023 Assessment & Plan (1) Hematoma of left buttock: Plan: spontaneous, in the setting of therapeutic lovenox usage for recurrent VTE. (lovenox 120mg BID) serial H/H's continue to remain stable. pain relief - tylenol 1gm TID scheduled; dilaudid IV prn; PO oxy 10mg prn; heating pad to L buttock to promote resolution and for pain control. review of MAR shows he is really not using any of the pain meds. orthopedics consult appreciated; conservative Rx recommended. they are aware of resumption of systemic anticoagulation. f/u with Dr Aguilar Carroll - [facility] - 2 weeks post-d/c for recheck. cont PT, OT. cont K-pad heating pad. gentle stretching. (2) Acute blood loss anemia: Plan: 2nd #1. H/H's remain stable. I spoke informally with Dr Cherry from [facility]/oncology a few days ago. Mr Haney follows with that clinic for his recurrent VTE. Plan - * cont serial H/H's * started LOW-DOSE heparin protocol 05/04 - tolerated such without worsening bleeding/hematoma * increase today to STANDARD heparin protocol * if he is stable can hopefully resume lovenox on 05/06 --> then would watch for 24 hours on the lovenox for recurrent bleeding pt and his state that for years he was supposed to be on lovenox 120mg BID however, during long stretches of time, he was only taking lovenox ONCE daily (120mg) and both confirm he NEVER had VTE while on 120mg once daily and never had bleeding issues on that dose I spoke with Dr Newton with coumadin clinic today better option may be coumadin in light of ability to reverse such and monitor levels however, he apparently had VTE while on coumadin years ago?? will reach back out to Dr Newton about the lovenox and the pt/'s report that he did very well on once daily lovenox It is perplexing that he was only on 1mg/kg of lovenox daily for years and some how did not have VTEs on subtherapeutic dosing would following factor 10a levels be prudent if lovenox is chosen?? perhaps he is "therapeutic" on 120mg daily of lovenox ?? again will discuss again with Dr Newton CBC am (3) Acute pain of left hip: Plan: 2nd #1. MUCH improved/resolved. (4) Acute leg pain: Plan: Pain is 2nd to the large hematoma itself. In addition, he has swelling/blood abutting the L piriformis muscle. Some of his pain is likely piriformis dysfunction from compression of the muscle (probably the cause of the left thigh pain). See #1 above. IMPROVED. (5) Antiphospholipid syndrome: Plan: Long-standing dx with recurrent VTE. Most recent VTE -- extensive RLE DVTs just a few weeks ago (precipitated by being off ALL anticoagulation for 1-2 months). Fortunately has IVC filter in place. see #2 above re: discussion with hematology/oncology see #2 re: heparin drip (6) GERD (gastroesophageal reflux disease): Plan: Cont pepcid 20mg BID (7) Shortness of breath on exertion: Plan: CXR without infiltrates. Recent echo wnl. Recent cardiac catheterization wnl. CTA chest negative for PE, pulm edema, other pathology. Obstructive lung disease from long-standing tobacco usage?? Send to pulmonary post-d/c for PFTs, etc. (8) Dizziness: Plan: 2nd to SEVERE orthostatic hypotension (65 point drop). Hold lisinopril Hold diltiazem. Cont meto succinate 50mg BID. Orthostatics did not change with hydration and he appears euvolemic. started midodrine 2.5mg TID. orthostatics have improved with such along with stopping dilt/lisinopril. BP drop today about 40-50 points - improved, but not optimal. increase midodrine to 5mg TID. repeat orthos later today and again in am. (9) Uncontrolled type 2 diabetes mellitus with insulin therapy: Plan: a1c 9% in 03/2023. cont lantus 25 units daily cont ac/hs novolog. MUCH improved. he has f/u with [facility] clinic in near-future. would send out with basal-bolus insulin and then have him f/u with [facility] DM -- they can make final call about his regimen. but clearly doing well on this regimen. (10) Stage III chronic kidney disease: Plan: baseline Cr mid 1's stable Cr again today repeat Cr am (11) Dyslipidemia: Plan: Cont statin Plan PT, OT evals appreciated progressing nicely updated at bedside once again today Admission and Anticipated Discharge Date Admission Date: May 01, 2023 Subjective tele overnight wnl pt feeling very well buttock pain essentially resolved minimal pain of L buttock with ambulation dizziness/orthostatic symptoms IMPROVED today no near-syncope eating well we discussed plan including increasing low-dose heparin drip to standard drip today then resuming lovenox tomorrow and watching another 24 hours we discussed DM care as well we discussed his orthostatic hypotension Review of Systems Review of Systems: gen - no fevers or chills cv - no chest pain, no orthopnea pulm - no dyspnea or ASKEW GI - no N/V Physical Exam Physical Exam: gen - obese, NAD, looks great today HENT - mouth with MMM neck - no JVD heart - RRR s1 s2 no murmur lungs - CTA b/l, no rales, no wheezes abd - soft NT ND BS+ ext - venous stasis changes b/l shins, trace edema b/l shins, pulses 2+ b/l Results & Data Results & Data Vital Signs (Past 12 Hours) Vital Signs Temp Pulse Pulse Resp BP Pulse Ox O2 Del Method 05/05/23 19:33 36.8 C 70 16 136/84 93 Room Air 05/05/23 16:28 36.3 C L 89 18 142/88 H 93 Room Air 05/05/23 15:24 93 H 05/05/23 11:43 36.7 C 90 18 130/82 92 Room Air Laboratory Results Laboratory Results - last 24 hr 05/04/23 05/05/23 05/05/23 22:50 06:00 08:46 WBC 11.35 H RBC 4.11 L Hgb 11.6 L Hct 35.6 L MCV 86.6 MCH 28.2 MCHC 32.6 RDW Std Deviation 40.9 RDW Coeff of Na 13.1 Plt Count 252 MPV 11.1 APTT 39.2 H 42.8 H* PTT Ratio 1.4 1.5 Sodium 138 Potassium 4.0 Chloride 103 Carbon Dioxide 30 Anion Gap 5 BUN 28 H Creatinine 1.60 H Est Cr Clr Drug Dosing 58.1 Est GFR ( Amer) 50.2 Est GFR (Non-Af Amer) 43.3 BUN/Creatinine Ratio 17.5 Glucose 107 H POC Glucose 124 H Calcium 9.3 05/05/23 05/05/23 05/05/23 12:30 17:05 20:25 WBC RBC Hgb Hct MCV MCH MCHC RDW Std Deviation RDW Coeff of Na Plt Count MPV APTT PTT Ratio Sodium Potassium Chloride Carbon Dioxide Anion Gap BUN Creatinine Est Cr Clr Drug Dosing Est GFR ( Amer) Est GFR (Non-Af Amer) BUN/Creatinine Ratio Glucose POC Glucose 126 H 114 H 144 H Calcium PG Care Time/CCT Total # of Minutes Spent Total Time Spent with Patient: Total time spent is greater than 50% in coordination of care (as documented) at patient's floor/unit and/or counseling patient: Coding Level of Care Code 38752 SUB INP/OBS CARE 350MIN Diagnoses Hematoma of left buttock S30.0XXA Acute blood loss anemia D62 Acute pain of left hip M25.552 Acute leg pain M79.605 Laterality: left Antiphospholipid syndrome D68.61 GERD (gastroesophageal reflux disease) K21.9 Shortness of breath on exertion R06.02 Dizziness R42 Uncontrolled type 2 diabetes mellitus with insulin therapy E11.65; Z79.4 Stage 3b chronic kidney disease N18.32 Chronic kidney disease stage 3 subtype: stage 3b (GFR 30-44) Dyslipidemia E78.5 (4) Acute leg pain Laterality: left Qualified Code(s): M79.605 - Pain in left leg (10) Stage III chronic kidney disease Chronic kidney disease stage 3 subtype: stage 3b (GFR 30-44) Qualified Code(s): N18.32 - Chronic kidney disease, stage 3b
[2023-05-06] MEDS: HEPARIN SODIUM/DEXTROSE 25,000 UNITS/500 ML BAG IV SCH (04:00)
[2023-05-06 06:25] LABS: Hematocrit (blood only) 34.3 % (42.0-52.0); Hemoglobin 11.2 g/dl (14.0-18.0); Mean Corpuscular Hemoglobin 28.1 pg (25.0-34.0); Mean Corpuscular Hgb Conc 32.7 g/dL (32.0-36.0); Mean Corpuscular Volume 86.2 fL (80.0-100.0); Mean Platelet Volume 11.2 fL (9.4-12.4); Platelet Count 271 K/uL (130-400); RDW Coefficient of Variation 13.2 % (11.5-14.5); Red Blood Count 3.98 M/uL (4.70-6.10); White Blood Count 12.67 K/ul (4.8-10.8)
[2023-05-06 07:08] LABS: Creatinine Clr Calc Pharmacy 56.2 ml/min; Est GFR (African American) 48.4 ml/min; Est GFR (Non-African American) 41.7 ml/min
[2023-05-06 07:17] LABS: Partial Thromboplastin Ratio 1.9
[2023-05-06 07:52] LABS: Partial Thromboplastin Time 53.4 Seconds (21.0-31.0)
[2023-05-06] MEDS: FAMOTIDINE 20 MG TAB PO SCH ×2 (08:05→21:34)
[2023-05-06] MEDS: VENLAFAXINE HCL XR 150 MG CAPXR PO SCH (08:05)
[2023-05-06] MEDS: GABAPENTIN 400 MG CAP PO SCH ×2 (08:05→21:35)
[2023-05-06] MEDS: METOPROLOL SUCC 50MG EXT REL TAB PO SCH (08:05)
[2023-05-06] MEDS: SENNA 8.6 MG TAB PO SCH (08:06)
[2023-05-06] MEDS: POLYETHYLENE (MIRALAX) 17 GM PACK PO SCH (08:06)
[2023-05-06] MEDS: ACETAMINOPHEN 500 MG TAB PO SCH ×3 (08:06→21:34)
[2023-05-06] MEDS: MIDODRINE HCL 2.5 MG TAB PO SCH ×3 (08:07→15:44)
[2023-05-06] MEDS: INSULIN ASPART PER UNIT CHARGE SC SCH ×4 (09:11→21:18)
[2023-05-06 13:32] LABS: Prothrombin Time 11.1 Seconds (9.0-12.0)
[2023-05-06] MEDS ORDERED: WARFARIN SOD 10 MG TAB PO SCH (16:00)
--- NOTE | 2023-05-06 18:00 | Hospitalist Progress Note ---
Date of Service May 06, 2023 Assessment & Plan (1) Hematoma of left buttock: Plan: spontaneous, in the setting of therapeutic lovenox usage for recurrent VTE. (lovenox 120mg BID) serial H/H's continue to remain stable. no increase in pain or swelling pain relief - now basically using Tylenol orthopedics consult appreciated; conservative Rx recommended. they are aware of resumption of systemic anticoagulation. f/u with Dr Aguilar Carroll - [facility] - 2 weeks post-d/c for recheck. cont PT, OT. cont K-pad heating pad. gentle stretching. (2) Acute blood loss anemia: Plan: 2nd #1. H/H's remain stable. I spoke informally with Dr Cherry from [facility]/oncology a few days ago. Mr Haney follows with that clinic for his recurrent VTE. Plan - * cont serial H/H's, Hct stable 05/06 * started LOW-DOSE heparin protocol 05/04 - tolerated such without worsening bleeding/hematoma * STANDARD heparin protocol 05/05 * resumed lovenox tonight on 05/06 and stopped heparin drip --> then would watch for 24 hours on the lovenox for recurrent bleeding * started coumadin 10 mg x 1 dose on 05/06 as below pt and his state that for years he was supposed to be on lovenox 120mg BID however, during long stretches of time, he was only taking lovenox ONCE daily (120mg) and both confirm he NEVER had VTE while on 120mg once daily and never had bleeding issues on that dose Dr. Valenzuela spoke with Dr Newton with coumadin clinic better option may be coumadin in light of ability to reverse such and monitor levels however, he apparently had VTE while on coumadin years ago I discussed with Mr. Haney the options of starting coumadin which has more straightforward reversal, vs continuing enoxaparin bid. At this time he prefers starting coumadin and following up in anticoagulation clinic. (3) Antiphospholipid syndrome: Plan: Long-standing dx with recurrent VTE. Most recent VTE -- extensive RLE DVTs just a few weeks ago (precipitated by being off ALL anticoagulation for 1-2 months). Fortunately has IVC filter in place. see #2 above re: discussion with hematology/oncology, anticoagulation clinic initiating coumadin with INR target of 2.0-3.0 Can complete enoxaparin --> coumadin bridge as outpatient if tolerating anticoagulation clinic referral made (4) Acute pain of left hip: Plan: 2nd #1. MUCH improved/resolved. (5) Acute leg pain: Plan: Pain is 2nd to the large hematoma itself. In addition, he has swelling/blood abutting the L piriformis muscle. Some of his pain is likely piriformis dysfunction from compression of the muscle (probably the cause of the left thigh pain). See #1 above. IMPROVED. (6) GERD (gastroesophageal reflux disease): Plan: Cont pepcid 20mg BID (7) Shortness of breath on exertion: Plan: CXR without infiltrates. Recent echo wnl. Recent cardiac catheterization wnl. CTA chest negative for PE, pulm edema, other pathology. Obstructive lung disease from long-standing tobacco usage? Send to pulmonary post-d/c for PFTs, etc. (8) Dizziness: Plan: 2nd to SEVERE orthostatic hypotension (65 point drop). Hold lisinopril Hold diltiazem. remains symptomatically hypotensive 05/06 with 30-point drop on standing stop metoprolol (diagnosis list includes HTN and CAD however no coronary artery disease seen on angiogram 04/08) stop midodrine see how he does without metoprolol, which can significantly exacerbate orthostasis stop trazodone "" (9) Uncontrolled type 2 diabetes mellitus with insulin therapy: Plan: a1c 9% in 03/2023. cont lantus 25 units daily cont ac/hs novolog. BG at goal reviewed 05/06 he has f/u with [facility] clinic in near-future. would send out with basal-bolus insulin and then have him f/u with [facility] -- they can make final call about his regimen. but clearly doing well on this regimen. (10) Stage III chronic kidney disease: Plan: baseline Cr mid 1's stable Cr 1.65 on 05/06 (11) Dyslipidemia: Plan: Cont statin Plan PT, OT lenin appreciated progressing nicely updated at bedside once again today Admission and Anticipated Discharge Date Admission Date: May 01, 2023 Subjective buttock pain is well-controlled he is really just using acetaminophen has been able to ambulate, right leg soreness from recent DVT is also manageable he cannot recall why he was taken off of warfarin because it was a very long time ago, he got a clot but he is not sure whether his INR was consistently therapeutic or not Physical Exam Physical Exam: PHYSICAL EXAMINATION Last 24h vital signs reviewed, see documentation in flowsheet General: comfortable appearing, no distress HEENT: Normocephalic, atraumatic, pupils round and equal, sclerae anicteric, no conjunctival injection, moist mucus membranes Lungs: Normal respiratory effort. Clear to auscultation bilaterally. No RRW Heart: Regular rate and rhythm, no murmurs. Abdomen: Soft, nondistended. Bowel sounds present. Extremities: Warm, dry, well-perfused. No extremity edema. legs appear fairly symmetric Neuro: Alert and oriented x 4, face symmetric, moves 4 extremities well Psych: Normal affect and behavior Results & Data Results & Data Vital Signs (Past 12 Hours) Vital Signs Temp Pulse Pulse Resp BP BP Pulse Ox 05/06/23 15:29 36.8 C 82 20 154/80 H 94 05/06/23 11:40 36.8 C 77 18 137/53 L 95 05/06/23 08:00 36.6 C 82 18 132/74 92 05/06/23 07:05 73 O2 Del Method 05/06/23 15:29 Room Air 05/06/23 11:40 Room Air 05/06/23 08:00 Room Air 05/06/23 07:05 PG Care Time/CCT Total # of Minutes Spent Total Time Spent with Patient: Total time spent is greater than 50% in coordination of care (as documented) at patient's floor/unit and/or counseling patient: Coding Level of Care Code 10311 SUB INP/OBS CARE 3/50MIN Diagnoses Hematoma of left buttock S30.0XXA Acute blood loss anemia D62 Antiphospholipid syndrome D68.61 Acute pain of left hip M25.552 Acute leg pain M79.605 Laterality: left GERD (gastroesophageal reflux disease) K21.9 Shortness of breath on exertion R06.02 Dizziness R42 Uncontrolled type 2 diabetes mellitus with insulin therapy E11.65; Z79.4 Stage 3b chronic kidney disease N18.32 Chronic kidney disease stage 3 subtype: stage 3b (GFR 30-44) Dyslipidemia E78.5 (5) Acute leg pain Laterality: left Qualified Code(s): M79.605 - Pain in left leg (10) Stage III chronic kidney disease Chronic kidney disease stage 3 subtype: stage 3b (GFR 30-44) Qualified Code(s): N18.32 - Chronic kidney disease, stage 3b
[2023-05-06] MEDS: LANTUS PER UNIT CHARGE SQ SCH (21:33)
[2023-05-06] MEDS: MELATONIN 3 MG TAB PO SCH (21:34)
[2023-05-06] MEDS: ATORVASTATIN 40 MG TAB PO SCH (21:34)
[2023-05-06] MEDS: ENOXAPARIN INJ 120 MG/0.8 ML SYR SQ SCH (21:35)
[2023-05-07 06:29] LABS: Hematocrit (blood only) 36.1 % (42.0-52.0); Hemoglobin 11.8 g/dl (14.0-18.0)
[2023-05-07 06:56] LABS: Prothrombin Time 11.3 Seconds (9.0-12.0)
[2023-05-07] MEDS: INSULIN ASPART PER UNIT CHARGE SC SCH ×4 (08:45→20:54)
[2023-05-07] MEDS: ACETAMINOPHEN 500 MG TAB PO SCH ×3 (09:18→20:53)
[2023-05-07] MEDS: POLYETHYLENE (MIRALAX) 17 GM PACK PO SCH (09:19)
[2023-05-07] MEDS: ENOXAPARIN INJ 120 MG/0.8 ML SYR SQ SCH ×2 (09:19→20:57)
[2023-05-07] MEDS: GABAPENTIN 400 MG CAP PO SCH ×2 (09:20→20:57)
[2023-05-07] MEDS: VENLAFAXINE HCL XR 150 MG CAPXR PO SCH (09:20)
[2023-05-07] MEDS: FAMOTIDINE 20 MG TAB PO SCH ×2 (09:20→20:57)
[2023-05-07] MEDS: SENNA 8.6 MG TAB PO SCH (09:20)
[2023-05-07] MEDS ORDERED: WARFARIN SOD 10 MG TAB PO SCH (16:00)
--- NOTE | 2023-05-07 17:14 | Hospitalist Progress Note ---
Date of Service May 07, 2023 Assessment & Plan (1) Hematoma of left buttock: Plan: spontaneous, in the setting of therapeutic lovenox usage for recurrent VTE. (lovenox 120mg BID) serial H/H's continue to remain stable. no increase in pain or swelling pain relief - now basically using Tylenol orthopedics consulted; conservative Rx recommended. they are aware of resumption of systemic anticoagulation. f/u with Dr Aguilar Carroll - [facility] - 2 weeks post-d/c for recheck. cont PT, OT. cont K-pad heating pad. gentle stretching. (2) Acute blood loss anemia: Plan: 2nd #1. H/H's remain stable. Dr. Valenzuela spoke with Dr Cherry from [facility]/oncology a few days ago. Mr Haney follows with that clinic for his recurrent VTE. Plan - * cont serial H/H's, Hct stable 05/07 at 34 * started LOW-DOSE heparin protocol 05/04 - tolerated such without worsening bleeding/hematoma * STANDARD heparin protocol 05/05 * resumed lovenox pm 05/06 and stopped heparin drip --> tolerating so far * started coumadin 10 mg x 1 dose on 05/06, 10 mg x 1 today, as below pt and his state that for years he was supposed to be on lovenox 120mg BID however, during long stretches of time, he was only taking lovenox ONCE daily (120mg) and both confirm he NEVER had VTE while on 120mg once daily and never had bleeding issues on that dose Dr. Valenzuela spoke with Dr Newton with coumadin clinic better option may be coumadin in light of ability to reverse such and monitor levels - at least temporarily for a few weeks while hematoma still active however, he apparently had VTE while on coumadin years ago - reviewed old hematology notes and I discussed with Mr. Haney the options of starting coumadin which has more straightforward reversal, vs continuing enoxaparin bid. At this time he prefers starting coumadin and following up in anticoagulation clinic. Currently working on coordinating anticoagulation follow up for him. If discharges today, Friday is too long to wait for another blood draw. Management of high risk medications: enoxaparin and warfarin in setting of recent hematoma (3) Antiphospholipid syndrome: Plan: Long-standing dx with recurrent VTE. Most recent VTE -- extensive RLE DVTs just a few weeks ago (precipitated by being off ALL anticoagulation for 1-2 months). Fortunately has IVC filter in place. see #2 above re: discussion with hematology/oncology, anticoagulation clinic initiating coumadin with INR target of 2.0-3.0 Can complete enoxaparin --> coumadin bridge as outpatient if tolerating anticoagulation clinic referral made (4) Acute pain of left hip: Plan: 2nd #1. MUCH improved/resolved. (5) Acute leg pain: Plan: Pain is 2nd to the large hematoma itself. In addition, he has swelling/blood abutting the L piriformis muscle. Some of his pain is likely piriformis dysfunction from compression of the muscle (probably the cause of the left thigh pain). See #1 above. IMPROVED. (6) GERD (gastroesophageal reflux disease): Plan: Cont pepcid 20mg BID (7) Shortness of breath on exertion: Plan: CXR without infiltrates. Recent echo wnl. Recent cardiac catheterization wnl. CTA chest negative for PE, pulm edema, other pathology. Obstructive lung disease from long-standing tobacco usage? Send to pulmonary post-d/c for PFTs, etc. (8) Dizziness: Plan: 2nd to SEVERE orthostatic hypotension (65 point drop). Hold lisinopril Hold diltiazem. remains symptomatically hypotensive 05/06 with 30-point drop on standing stop metoprolol (diagnosis list includes HTN and CAD however no coronary artery disease seen on angiogram 04/08) stop midodrine see how he does without metoprolol, which can significantly exacerbate orthostasis stop trazodone "" -orthostatic symptoms much improved today, not lightheaded with standing, BP elevated but acceptable (9) Uncontrolled type 2 diabetes mellitus with insulin therapy: Plan: a1c 9% in 03/2023. on glargine and novolog BG overcontrolled reviewed 05/07, decrease glargine he has f/u with [facility] clinic in near-future. would send out with basal-bolus insulin and then have him f/u with [facility] -- they can make final call about his regimen. but clearly doing well on this regimen. (10) Stage III chronic kidney disease: Plan: baseline Cr mid 1's stable Cr 1.65 on 05/06 (11) Dyslipidemia: Plan: Cont statin Plan PT, OT lenin appreciated progressing nicely updated at bedside last 05/05 Admission and Anticipated Discharge Date Admission Date: May 01, 2023 Subjective feels good today, was not dizzy or lightheaded on standing, buttock pain is steadily improving and no worse, no worsening of swelling, no worsening of leg pain or swelling Physical Exam Physical Exam: PHYSICAL EXAMINATION Last 24h vital signs reviewed, see documentation in flowsheet exam unchanged 05/07 General: comfortable appearing, no distress HEENT: Normocephalic, atraumatic, pupils round and equal, sclerae anicteric, no conjunctival injection, moist mucus membranes Lungs: Normal respiratory effort. Clear to auscultation bilaterally. No RRW Heart: Regular rate and rhythm, no murmurs. Abdomen: Soft, nondistended. Bowel sounds present. Extremities: Warm, dry, well-perfused. No extremity edema. legs appear fairly symmetric Neuro: Alert and oriented x 4, face symmetric, moves 4 extremities well Psych: Normal affect and behavior Results & Data Results & Data Vital Signs (Past 12 Hours) Vital Signs Temp Pulse Pulse Resp BP BP Pulse Ox 05/07/23 16:05 37.1 C 99 H 18 140/96 96 05/07/23 14:00 100 H 05/07/23 11:26 36.6 C 68 18 144/84 H 94 05/07/23 07:51 36.9 C 83 18 130/74 94 05/07/23 06:00 83 O2 Del Method 05/07/23 16:05 Room Air 05/07/23 14:00 05/07/23 11:26 Room Air 05/07/23 07:51 Room Air 05/07/23 06:00 Laboratory Results 05/07/23 05/07/23 05/07/23 Range/Units 12:00 08:34 05:34 Hgb 11.8 L (14.0-18.0) g/dl Hct 36.1 L (42.0-52.0) % PT 11.3 (9.0-12.0) Seconds INR 1.0 (0.9-1.1) POC Glucose 99 78 (70-99) mg/dl 05/06/23 05/06/23 Range/Units 20:43 17:28 Hgb (14.0-18.0) g/dl Hct (42.0-52.0) % PT (9.0-12.0) Seconds INR (0.9-1.1) POC Glucose 146 H 89 (70-99) mg/dl PG Care Time/CCT Total # of Minutes Spent Total Time Spent with Patient: Total time spent is greater than 50% in coordination of care (as documented) at patient's floor/unit and/or counseling patient: Coding Level of Care Code 76049 SUB INP/OBS CARE 3/50MIN Diagnoses Hematoma of left buttock S30.0XXA Acute blood loss anemia D62 Antiphospholipid syndrome D68.61 Acute pain of left hip M25.552 Acute leg pain M79.605 Laterality: left GERD (gastroesophageal reflux disease) K21.9 Shortness of breath on exertion R06.02 Dizziness R42 Uncontrolled type 2 diabetes mellitus with insulin therapy E11.65; Z79.4 Stage 3b chronic kidney disease N18.32 Chronic kidney disease stage 3 subtype: stage 3b (GFR 30-44) Dyslipidemia E78.5 (5) Acute leg pain Laterality: left Qualified Code(s): M79.605 - Pain in left leg (10) Stage III chronic kidney disease Chronic kidney disease stage 3 subtype: stage 3b (GFR 30-44) Qualified Code(s): N18.32 - Chronic kidney disease, stage 3b
[2023-05-07] MEDS: ATORVASTATIN 40 MG TAB PO SCH (20:57)
[2023-05-07] MEDS: MELATONIN 3 MG TAB PO SCH (20:58)
[2023-05-07] MEDS ORDERED: LANTUS PER UNIT CHARGE SQ SCH (21:00)
[2023-05-08 06:44] LABS: Hematocrit (blood only) 33.8 % (42.0-52.0); Hemoglobin 11.1 g/dl (14.0-18.0)
[2023-05-08 07:08] LABS: INR 1.2 (0.9-1.1); Prothrombin Time 12.9 Seconds (9.0-12.0)
[2023-05-08] MEDS: ACETAMINOPHEN 500 MG TAB PO SCH ×2 (09:03→14:11)
[2023-05-08] MEDS: VENLAFAXINE HCL XR 150 MG CAPXR PO SCH (09:03)
[2023-05-08] MEDS: FAMOTIDINE 20 MG TAB PO SCH (09:03)
[2023-05-08] MEDS: SENNA 8.6 MG TAB PO SCH (09:03)
[2023-05-08] MEDS: GABAPENTIN 400 MG CAP PO SCH (09:03)
[2023-05-08] MEDS: POLYETHYLENE (MIRALAX) 17 GM PACK PO SCH (09:03)
[2023-05-08] MEDS: ENOXAPARIN INJ 120 MG/0.8 ML SYR SQ SCH (09:04)
[2023-05-08] MEDS: INSULIN ASPART PER UNIT CHARGE SC SCH ×2 (09:09→12:51)
--- NOTE | 2023-05-08 12:34 | Discharge Summary ---
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 Pain started about 1 week ago without any inciting event such as a fall, overuse, heavy lifting, injury, etc. The pain has been located in the left posterior buttock with radiation to the left lateral & posterior hip region, and radiation down the left leg to the popliteal region. He was seen in the ER on 04/29 for these complaints, had a negative doppler of the LLE, and was discharged home on pain medication (oxycodone prn). Despite resting, taking the oxycodone, etc his pain has worsened each day. Yesterday he noted that the left leg had numbness from the hip down to the left foot. He typically has neuropathy of both feet from diabetic neuropathy but this pain is different. CT pelvis and MRI left hip today demonstrated a large intra-muscular hematoma of the gluteus region on the left. It abuts the piriformis muscle on the left side. The left hip joint is not involved. Of note - patient was hospitalized from 04/06 to 04/09 at [facility] due to extensive DVT of the RLE. Per the 's report Mr Haney had NOT been taking any anticoagulation for about 1 month prior to the 04/06/23 admission. Years ago Mr Haney was initially on coumadin for his recurrent DVT but was then switched to lovenox injections. He previously was on 120mg BID per heme/onc records. He took lovenox injections for many years. At some point in the last 6 months he was changed from lovenox to Xarelto but was noncompliant with the latter due to cost and other factors. During the 04/06/23 stay he was discharged on lovenox 150mg daily. Some time after that stay he was changed to 120mg SC BID by the [place] [facility]. Principal Diagnosis Left gluteus medius hematoma, spontaneous while on therapeutic enoxaparin. Rec ent acute RLE DVT. Hypercoagulable state, history of antiphospholipid antibody syndrome Discharge Exam PHYSICAL EXAMINATION Last 24h vital signs reviewed, see documentation in flowsheet exam unchanged 05/08 General: comfortable appearing, no distress HEENT: Normocephalic, atraumatic, pupils round and equal, sclerae anicteric, no conjunctival injection, moist mucus membranes Lungs: Normal respiratory effort. Clear to auscultation bilaterally. No RRW Heart: Regular rate and rhythm, no murmurs. Abdomen: Soft, nondistended. Bowel sounds present. Extremities: Warm, dry, well-perfused. No extremity edema. legs appear fairly symmetric, L slightly larger, unchanged. L lateral thigh with purple dark/old ecchymosis unchanged Neuro: Alert and oriented x 4, face symmetric, moves 4 extremities well Psych: Normal affect and behavior Discharge Data Allergies Allergy/AdvReac Type Severity Reaction Status Date / Time lanolin Allergy Intermediate WOOL WAX Verified 05/08/23 14:31 ALCOHOL moxifloxacin Allergy Intermediate hives Verified 05/08/23 14:31 aspirin AdvReac Intermediate STOMACH Verified 05/08/23 14:31 DISTRESS SOAPCLEAN Allergy Mild DETERGENTS Uncoded 05/08/23 14:31 CAUSED RASH Consultations 05/01/23 08:44 ED Decision to Admit Stat 05/01/23 11:09 Consult Orthopedic Surgery Routine Ordered Studies 05/01/23 00:42 CT lumbar spine wo con Stat 05/01/23 01:12 CT pelvis w/IV con only Stat 05/01/23 03:29 MR hip LT wo con Stat 05/03/23 08:31 CT angio chest PE protocol Routine Lumbar Spine CT 05/01/23 00:42 Exam(s): CT L SPINE EXAM: CT Lumbar Spine Without Intravenous Contrast CLINICAL HISTORY: Reason for exam: increased pain. TECHNIQUE: Axial computed tomography images of the lumbar spine without intravenous contrast. CTDI is 39.4 mGy and DLP is 1180.79 mGy-cm. Automated exposure control was utilized for the study. A dose lowering technique was utilized adhering to the principles of ALARA. COMPARISON: Comparison made to prior MRI of the lumbar spine from December 07, 2022. FINDINGS: Vertebrae: Unremarkable. No acute fracture. Small Schmorl's node at superior endplate of L5 and inferior endplate of L1. Mild right and moderate left sacroiliac joint arthropathy. Discs/spinal canal/neural foramina: Moderate to advanced disc degeneration at L3-4 and L4-5. Moderate bilateral L5-S1 neuroforaminal stenoses with impingement of the bilateral L5 nerve or ganglia. No acute findings. No spinal canal stenosis. Soft tissues: Left nephrolithiasis. IMPRESSION: No evidence of acute lumbar spine pathology. Electronically signed by: Di Wilburn MD 05/01/23 02:[address] 05/01/23 01:12 Exam(s): CT PELVIS With Contrast IV Amt: 88 cc's of optiray 320 EXAM: CT Pelvis With Intravenous Contrast CLINICAL HISTORY: Reason for exam: left hip pain/swelling. TECHNIQUE: Axial computed tomography images of the pelvis with intravenous contrast. CTDI is 27.09 mGy and DLP is 1064.43 mGy-cm. Automated exposure control was utilized for the study. A dose lowering technique was utilized adhering to the principles of ALARA. CONTRAST: Patient received 88 cc's of optiray 320 of IV contrast COMPARISON: No relevant prior studies available. FINDINGS: Bowel: Unremarkable. No obstruction. No mucosal thickening. Appendix: No findings to suggest acute appendicitis. Intraperitoneal space: Unremarkable. No free air. No significant fluid collection. Bladder: Unremarkable. No mass. Reproductive: Unremarkable as visualized. Bones/joints: No dislocation. No acute fracture of the bilateral hips or pelvic bones. Soft tissues: Intramuscular hematoma in the left gluteus medius. Subcutaneous induration, skin thickening, and areas of cutaneous air in the abdominal pannus, correlate for trauma or injection sites. Vasculature: Unremarkable. No lower abdominal aortic aneurysm. Lymph nodes: Unremarkable. No enlarged lymph nodes. IMPRESSION: 1. Intramuscular hematoma in the left gluteus medius. Left hip MRI recommended for further evaluation. 2. Subcutaneous induration, skin thickening, and areas of cutaneous air in the abdominal pannus, correlate for trauma or injection sites. Electronically signed by: Domingo Barragan MD 05/01/23 03:13 AM Hip MRI 05/01/23 03:29 Exam(s): MRI LEFT HIP Without Contrast EXAM: MR Left Lower Extremity Without Intravenous Contrast, Hip CLINICAL HISTORY: Reason for exam: rec by rad, gluteal hematoma. TECHNIQUE: Multiplanar magnetic resonance images of the left hip without intravenous contrast. COMPARISON: No relevant prior studies available. FINDINGS: TENDONS: Flexors: Unremarkable. Extensors/Hamstring: Unremarkable. Abductors: Unremarkable. Adductors: Unremarkable. Rotators: Unremarkable. Muscles: There is diffuse increased T2 signal intensity within the muscle fibers of the gluteus medius. Additional heterogeneous region of mixed signal intensity within the mid and posterior muscle belly estimated at 10 x 7.3 x 5 cm in dimension. There is some additional increased T2 signal intensity within muscle fibers of the approximated gluteus elham. There is some increased signal intensity/edema within the muscle fibers of the obturator externus. There is some low signal intensity changes and thickening to the muscle belly of the left piriformis suggesting developing hematoma/injury here Fluid: Unremarkable. No joint effusion. Labrum: Unremarkable. Cartilage: Unremarkable. Bones/joints: Unremarkable. No acute fracture. No dislocation. Soft tissues: Some associated deep soft tissue edema. IMPRESSION: Posttraumatic changes with hematoma as described Electronically signed by: Kvng Greene MD 05/01/23 08:15 AM Chest X-Ray 05/01/23 10:51 XR chest 2V PA/lateral CLINICAL HISTORY: dyspnea on exertion TECHNIQUE: 2 views of the chest were obtained. Comparison: Comparison is made to chest radiograph 08/30/2022 FINDINGS: No lines and tubes are seen. The cardiomediastinal silhouette is normal. The lungs are clear. No evidence of pleural effusion or pneumothorax. IMPRESSION: No acute chest disease. ACT 112: Negative or not required by law. Electronically signed by: Tim Smith M.D. 05/01/2023 11:36 AM Chest CTA 05/03/23 08:31 CHEST CTA for PULMONARY ARTERIES CT DOSE: 909.21 mGy.cm HISTORY: recent DVTs; dyspnea on exertion x 1-2 months; eval PE, etc TECHNIQUE: Multiaxial CT images of the chest were performed following the intravenous administration of contrast to evaluate the pulmonary arteries. 3D/Maximal intensity projection images were also obtained. Sagittal and coronal reformations were also reviewed. A dose lowering technique was utilized adhe ring to the principles of ALARA. COMPARISON STUDY: Chest CT 11/26/2013. FINDINGS: Normal caliber thoracic aorta with no evidence for a dissection. The heart is mildly enlarged. No pleural or pericardial effusions. A few calcified granulomas within the right hepatic lobe. Prior cholecystectomy. The visualized spleen is unremarkable. Normal esophagus. The thyroid gland enhances normally. No mediastinal or hilar lymphadenopathy. The majority of the segmental and subsegmental pulmonary arteries are nondiagnostic due to the respiratory motion artifact. The main and lobar pulmonary arteries appear patent with no filling defects to suggest a pulmonary embolus. No acute fractures identified. No pneumothorax. The central airways are patent. A few scattered subcentimeter pulmonary nodules remain stable and are considered to be benign given the long- term stability. Dominant nodules within the lower lobes measure up to 5 mm. No new pulmonary nodules identified. Left basilar linear densities favor subsegmental atelectasis. Otherwise, no focal lung consolidations to suggest a pneumonia. No evidence for pulmonary edema. IMPRESSION: 1. Suboptimal evaluation of the pulmonary arteries due to the respiratory motion artifact. However, no evidence for central pulmonary embolus. 2. Mild cardiomegaly. No evidence for pulmonary edema. 3. Stable subcentimeter pulmonary nodules which are considered to be benign. No new pulmonary nodules identified. 3. Left basilar linear densities favor subsegmental atelectasis or scarring. ACT 112: Negative or not required by law. Electronically signed by: Scooter Samaniego M.D. 05/03/2023 10:32 AM 05/08/23 05/08/23 05/08/23 Range/Units 12:33 08:27 05:33 Hgb 11.1 L (14.0-18.0) g/dl Hct 33.8 L (42.0-52.0) % PT 12.9 H (9.0-12.0) Seconds INR 1.2 H (0.9-1.1) POC Glucose 147 H 115 H (70-99) mg/dl 05/07/23 Range/Units 20:48 Hgb (14.0-18.0) g/dl Hct (42.0-52.0) % PT (9.0-12.0) Seconds INR (0.9-1.1) POC Glucose 136 H (70-99) mg/dl Hospital Course (1) Hematoma of left buttock: Presented left hip pain, found to have L gluteus medius hematoma on CT. Confirmed on MRI. spontaneous, in the setting of therapeutic lovenox usage for recurrent VTE. (lovenox 120mg BID) orthopedics consulted; conservative Rx recommended. Hematoma and hematocrit remained stable and pain and mobility steadily improved. Eventually started on heparin drip and tolerated this without worsening. Transitioned to enoxaparin apx 48h prior to discharge and tolerated this without worsening of hematoma. Mr. Haney developed the most recent DVT while off anticoagulation (was supposed to be on xarelto but kept forgetting to take it). Prior to that was stable many years taking enoxaparin only ONCE a day (was prescribed to be twice) without clotting or bleeding. 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 My colleague Dr. Valenzuela discussed anticoagulation management with Dr. Cherry and Dr. Newton by phone. Complex situation with both a recent extensive DVT and a new significant hematoma. Ultimately after discussion with Mr. Haney decided to bridge back onto warfarin for the time being - this will be safer with respect to bleeding because of reversibility and ability to follow levels - vs continuing therapeutic enoxaparin which might be more favorable with respect to preventing clotting. He does have IVC filter in place. Given his issues with medication compliance, the remote warfarin failure may have been noncompliance rather than true failure of therapy but records are not available and he cannot remember. He was set up with [place] [facility] clinic and has INR check Friday. f/u with ortho Dr Aguilar Carroll - [facility] - 2 weeks post-d/c for recheck. f/u with heme/onc at cancer center -consider recheck antiphospholipid antibody panel. I did not send this since will not result soon and would not affect near-term management. "You were treated for buttock hematoma, related to your anticoagulation Unfortunately you also have a recent DVT in your leg, so this is a complicated situation We discussed options of staying on enoxaparin versus changing to warfarin anticoagulation - which may be less risk of bleeding and easier reversibility, but possibly higher risk of clotting because you failed warfarin once in the past On the balance it seems safer to use warfarin, at least in the short term for the next 3-6 weeks while the hematoma heals You need to continue the enoxaparin twice a day until the warfarin "kicks in" and your protime/INR is therapeutic in the 2.0-3.0 range. Once your INR is 2.0 or greater you should stop the enoxaparin and continue warfarin alone. We arranged follow-up with the [place] anticoagulation clinic to monitor your warfarin. It will likely need dose adjustments with blood draws, especially the first few weeks [facility] an make sure they are checking your protime/INR test. The anticoagulation clinic should contact you soon after that with the results and further instructions on how to dose your warfarin, and when to stop the enoxaparin We stopped all your blood pressure medications because your BP was dropping too much when you stand. Your doctor may need to restart one or more of these in the future. Trazodone can cause a drop in blood pressure with standing as well. If you keep having lightheadedness when you stand up, stop the trazodone if possible or cut the dose in half. Seek immediate medical attention if you develop significant lightheadedness / loss of consciousness, increase in pain or swelling from hematoma, increase in leg swelling / worsening DVT or chest pain. Blood thinners increase the risk of major bleeding - seek immediate medical attention if you develop signs of gastrointestinal bleeding like black/tarry or bloody stool. Follow up with orthopedics in 2 weeks to check on the hematoma" (2) Acute blood loss anemia: (3) Antiphospholipid syndrome: Long-standing dx with recurrent VTE. Most recent VTE -- extensive RLE DVTs just a few weeks ago (precipitated by being off ALL anticoagulation for 1-2 months). Fortunately has IVC filter in place. see #2 above re: discussion with hematology/oncology, anticoagulation clinic initiating warfarin with INR target of 2.0-3.0 doses 10 mg, 10 mg, 5 mg - discharge dose 5 mg daily complete enoxaparin --> coumadin bridge as outpatient, instructed to STOP enoxaparin once therapeutic on warfarin anticoagulation clinic referral made to [place], blood draw Friday (4) Acute pain of left hip: 2nd #1. MUCH improved/resolved. (5) Acute leg pain: hematoma (6) GERD (gastroesophageal reflux disease): Cont pepcid 20mg BID (7) Shortness of breath on exertion: CXR without infiltrates. Recent echo wnl. Recent cardiac catheterization wnl. CTA chest negative for PE, pulm edema, other pathology. Obstructive lung disease from long-standing tobacco usage? Recommended considering outpatient PFT (8) Dizziness: 2nd to SEVERE orthostatic hypotension (65 point drop) during this admission. Persisted despite stopping diltiazem and [place]. remained symptomatically hypotensive 05/06 with 30-point drop on standing I stopped his metoprolol and orthostatic symptoms resolved. He also takes trazodone 100 mg HS - instructed to hold this if having more orthostatic symptoms. BP mostly 140s/80s after stopping all these meds. Likely will need reinitiation of some antihypertensive medication once hematoma situation and activity level improves. I also suspect he was not actually taking all three of these medications regularly at home. Has primary care appt next week. (9) Uncontrolled type 2 diabetes mellitus with insulin therapy: a1c 9% in 03/2023. on glargine and novolog BG was well controlled on close to stated home dose of glargine (within 2 units). Therefore issue more likely related to compliance with insulin and diet, rather than inadequate treatment regimen. I did not change his dose on discharge. he has f/u with [facility] in near-future. (10) Stage III chronic kidney disease: baseline Cr mid 1's stable Cr 1.65 on 05/06 (11) Dyslipidemia: Cont statin Total Time Total Time Spent Total Time Spent (In Minutes): 55 minutes coordinating care for discharge Discharge Plan Discharge Items Patient Disposition: Home - Self-Care Reason For Visit: BUTTOCK HEMATOMA, ACUTE BLOOD LOSS ANEMIA Discharge Diagnosis: buttock hematoma Condition on Discharge: Fair Activity: Resume your previous activity Activity Comment: walking and everyday activities are ok, no heavy exertion or heavy lifting Lifting: No more than 5 pounds and Wait until after follow-up appointment Weightbearing: Full weightbearing Non-emergency contact: Primary Care Provider and Oncologist Call non-emergency contact if: you have any medication questions and your symptoms worsen Follow-up/Referrals: Aguilar Carroll MD [Physician] - (in 2 weeks after discharge) Dennis Macdonald DO [Primary Care Provider] - 05/14/23 1:00 pm Vi Nguyen MD [Physician] - (make an appointment as soon as possible, to follow up DVT and blood thinner plan) Diet: Carb Consistent or DM2 Addtl Attending Provider Instructions: You were treated for buttock hematoma, related to your anticoagulation Unfortunately you also have a recent DVT in your leg, so this is a complicated situation We discussed options of staying on enoxaparin versus changing to warfarin anticoagulation - which may be less risk of bleeding and easier reversibility, but possibly higher risk of clotting because you failed warfarin once in the past On the balance it seems safer to use warfarin, at least in the short term for the next 3-6 weeks while the hematoma heals You need to continue the enoxaparin twice a day until the warfarin "kicks in" and your protime/INR is therapeutic in the 2.0-3.0 range. Once your INR is 2.0 or greater you should stop the enoxaparin and continue warfarin alone. We arranged follow-up with the [place] anticoagulation clinic to monitor your warfarin. It will likely need dose adjustments with blood draws, especially the first few weeks You should have your blood drawn Friday by the [place] as planned an make sure they are checking your protime/INR test. The anticoagulation clinic should contact you soon after that with the results and further instructions on how to dose your warfarin, and when to stop the enoxaparin We stopped all your blood pressure medications because your BP was dropping too much when you stand. Your doctor may need to restart one or more of these in the future. Trazodone can cause a drop in blood pressure with standing as well. If you keep having lightheadedness when you stand up, stop the trazodone if possible or cut the dose in half. Seek immediate medical attention if you develop significant lightheadedness / loss of consciousness, increase in pain or swelling from hematoma, increase in leg swelling / worsening DVT or chest pain. Blood thinners increase the risk of major bleeding - seek immediate medical attention if you develop signs of gastrointestinal bleeding like black/tarry or bloody stool. Follow up with orthopedics in 2 weeks to check on the hematoma Pending Studies at Discharge: No Stand-Alone Forms: My [facility] [employer], Smoking Cessation Medications and DC Order Prescriptions: New warfarin 5 mg Tablet 5 mg PO DAILY@1600 Qty: 10 0RF Continued famotidine 20 mg tablet 20 mg PO BID Qty: 180 3RF gabapentin 400 mg capsule 400 mg PO BID Qty: 180 3RF atorvastatin 80 mg tablet 80 mg PO QPM Qty: 90 3RF nitroglycerin 0.4 mg tablet, sublingual 0.4 mg sublingual Q5M PRN (Reason: chest pain) Qty: 25 1RF Rx Instructions: until response; do not exceed 3 doses per episode Trulicity 0.75 mg/0.5 mL pen injector 0.75 mg subcut WK Rx Instructions: TAKES ON TUESDAYS enoxaparin [Lovenox] 120 mg/0.8 mL syringe 120 mg subcut Q12H Rx Instructions: Patient is taking at noon and at midnight lorazepam 0.5 mg tablet 0.5 mg PO Q8H PRN (Reason: Anxiety) Qty: 15 venlafaxine 150 mg capsule,extended release 24hr 150 mg PO QAM trazodone 100 mg tablet 100 mg PO HS oxycodone 5 mg tablet 5 - 10 mg PO Q8H PRN (Reason: pain) Qty: 20 0RF melatonin 10 mg Tablet 15 mg PO HS insulin glargine 100 unit/mL (3 mL) insulin pen 20 unit subcut QPM Discontinued diltiazem HCl 360 mg capsule,extended release 24 hr 360 mg PO QAM Qty: 90 3RF metoprolol succinate 50 mg tablet extended release 24 hr 50 mg PO QAM lisinopril 20 mg tablet 20 mg PO QAM Rx Instructions: *Note dose* Discharge Orders: Discharge Order (Routine); Ordered 05/08/23 Ordered By: Tanna Corey/Other Patient Handouts: Warfarin Oral Tablet, Back Safety: Sleeping Positions, ED Coccyx or Sacrum Contusion Admission Data Admit Date/Time: 05/01/23 09:59 Attending Provider: Tanna Coronel Admit Provider: Lauro Valenzuela Primary Care Provider: Dennis Macdonald Other Providers: Lauro Valenzuela; Aguilar Carroll; [facility] Other Interventions: Discharge Summary Assessment (RN) Last Done: 05/08/23 14:19 Coding Level of Care Code 35852 INP/OBS DISCH >30 MIN Diagnoses Hematoma of left buttock S30.0XXA Acute blood loss anemia D62 Antiphospholipid syndrome D68.61 Acute pain of left hip M25.552 Acute leg pain M79.605 Laterality: left GERD (gastroesophageal reflux disease) K21.9 Shortness of breath on exertion R06.02 Dizziness R42 Uncontrolled type 2 diabetes mellitus with insulin therapy E11.65; Z79.4 Stage 3b chronic kidney disease N18.32 Chronic kidney disease stage 3 subtype: stage 3b (GFR 30-44) Dyslipidemia E78.5
[2023-05-08] MEDS ORDERED: WARFARIN SOD 5 MG TAB PO SCH (16:00)
== END 2023-05-08 16:45 | disposition home or self-care (01) | DRG 813 ==
LOC: ED 23:47 → 2N 05-01 09:59 → SUATTDRO 05-01 09:59 → 2N 05-01 14:48

== ENCOUNTER 2023-05-11 14:59 | Inpatient (IN) ==
[2023-05-11 15:37] LABS: Basophils # (auto) 0.08 K/uL (0.00-0.20); Basophils % (auto) 0.7 %; Eosinophils # (auto) 0.18 K/uL (0.00-0.50); Eosinophils % (auto) 1.5 %; Hematocrit (blood only) 37.5 % (42.0-52.0); Hemoglobin 12.6 g/dl (14.0-18.0); Immature Granulocytes # (auto) 0.05 K/uL (0.01-0.20); Immature Granulocytes % (auto) 0.4 %; Lymphocytes # (auto) 1.73 K/uL (1.20-3.40); Lymphocytes % (auto) 14.8 %; Mean Corpuscular Hemoglobin 28.8 pg (25.0-34.0); Mean Corpuscular Hgb Conc 33.6 g/dL (32.0-36.0); Mean Corpuscular Volume 85.6 fL (80.0-100.0); Mean Platelet Volume 10.6 fL (9.4-12.4); Monocytes # (auto) 0.93 K/uL (0.11-0.59); Neutrophils # (auto) 8.71 K/uL (1.40-6.50); Neutrophils % (auto) 74.6 %; Platelet Count 367 K/uL (130-400); RDW Coefficient of Variation 13.8 % (11.5-14.5); RDW Standard Deviation 42.7 fL (36.4-46.3); Red Blood Count 4.38 M/uL (4.70-6.10); White Blood Count 11.68 K/ul (4.8-10.8)
[2023-05-11 15:54] LABS: Alanine Aminotransferase 19 U/L (7-52); Albumin Globulin Ratio 0.9 (0.9-2); Albumin Level 3.4 gm/dl (3.4-5.0); Alkaline Phosphatase 90 U/L (34-104); Anion Gap 9 (3-11); Aspartate Aminotransferase 23 U/L (13-39); BUN Creatinine Ratio 19.4 (10-20); Bilirubin,Total 1.8 mg/dl (0.2-1.0); Blood Urea Nitrogen 32 mg/dl (6-23); Calcium 8.7 mg/dl (8.6-10.3); Carbon Dioxide 25 mmol/L (21-32); Chloride 105 mmol/L (98-107); Est GFR (African American) 48.4 ml/min; Est GFR (Non-African American) 41.7 ml/min; Globulin 3.6 gm/dl (2.5-4.0); Glucose 183 mg/dl (70-99(Fasting)); Sodium 139 mmol/L (136-145)
[2023-05-11] MEDS ORDERED: OPTIRAY 320 500ml IV ONE (16:28)
[2023-05-11] MEDS ORDERED: HYDROmorphone INJ 0.5 MG/0.5 ML SYR IV STA (16:46)
--- NOTE | 2023-05-11 17:02 | CT Scan Report ---
CT femur LT w con, CT pelvis w/IV con only CT DOSE: 1574.54 mGy.cm CLINICAL HISTORY: Worsening left pelvic and left femur pain, recent hematoma TECHNIQUE: Multiaxial CT images of the pelvis and left femur were performed following the intravenous administration of contrast and reformatted in the sagittal and coronal planes. A dose lowering tech nique was utilized adhering to the principles of ALARA. COMPARISON STUDY: Pelvis CT 05/01/2023. Left hip MRI 05/01/2023. FINDINGS: An IVC filter is partially visualized. No retroperitoneal/extraperitoneal hematoma identifi ed. Subcutaneous nodules and subcutaneous gas within the left lower quadrant abdominal wall favors pr ior medication injection. This is similar to the prior study. The prostate gland remains enlarged. Th e bladder is unremarkable. There is again noted abnormal thickening and a heterogeneous appearance th roughout the majority of the left gluteus medius muscle which measures approximately 13 x 8 cm. This has slightly increased in size, previously measuring 13 x 6 cm. This favors an intramuscular hematoma . An underlying soft tissue mass or secondary infection would be impossible to exclude by imaging. Th erefore, continued follow-up recommended to ensure resolution. There is also thickening of the left o bturator externus muscle suggestive of an additional site of intramuscular hemorrhage. The intramuscu lar hemorrhage involving the left adductor muscles has slightly improved. No additional//new sites of intramuscular hemorrhage identified within the left hip/thigh. Subcutaneous edema and skin thickenin g within the left lateral thigh is noted. No acute fracture or dislocation within the pelvis, hips, o r left femur. There is a subtle focus of increased density within the inferior aspect of the suspecte d left gluteal hematoma best seen on image 79 of series 2. This could be due to layering clot. A smal l focus of active arterial extravasation is not excluded. IMPRESSION: 1. There is again noted abnormal thickening and a heterogeneous appearance throughout the majority of the left gluteus medius muscle which measures approximately 13 x 8 cm. This has slightly increased i n size, previously measuring 13 x 6 cm. This favors an intramuscular hematoma. An underlying soft tis yesy mass or secondary infection would be impossible to exclude by imaging. Therefore, continued follo w-up recommended to ensure resolution. 2. There is also thickening of the left obturator externus muscle suggestive of an additional site of intramuscular hemorrhage. 3. The intramuscular hemorrhage involving the left adductor muscles has slightly improved. 4. There is a subtle focus of increased density within the inferior aspect of the suspected left glut eal hematoma as described above. This could be due to layering clot. A small focus of active arterial extravasation is not excluded. ACT 112: Negative or not required by law. Electronically signed by: Scooter Samaniego M.D. 05/11/2023 5:00 PM
--- NOTE | 2023-05-11 17:12 | Emergency Department Note ---
Impression & Plan Hematoma of left buttock, halfway current use of anticoagulant therapy, Lupus anticoagulant disorder, Deep venous thrombosis of lower extremity ED Provider Note Provider: Len Simmons MD DATE OF SERVICE: 05/11/2023 CHIEF COMPLAINT: Increasing left leg pain HISTORY OF PRESENT ILLNESS: Patient is a 67-year-old gentleman history unfortunately of lupus anticoagulant disorder and VTE with IVC filter on warfarin currently, type 2 diabetes with neuropathy, CKD, and hypertension presenting here today via ambulance from his home. Evaluated here this past week here at the hospital for a hematoma in his left gluteal region. Patient's anticoagulation switched to warfarin. States PAST MEDICAL HISTORY: As noted above MEDICATIONS: Reviewed home medications SOCIAL HISTORY: Lives at home with PHYSICAL EXAM: GENERAL: alert and oriented in no acute distress on stretcher Head: normocephalic and atraumatic EYES: No injection, discharge or icterus. NECK: Trachea midline. ENT: Mucous membranes pink and moist. LUNGS: Airway patent. No retractions or tachypnea HEART: Regular rate and rhythm. No chest wall tenderness ABDOMEN: Soft and non-tender, without guarding or rebound. BACK: No left SI joint tenderness. Left bilateral flank tenderness. SKIN: Acyanotic, warm, dry, without rashes EXTREMITIES: pain with ROM of the left hip region. Some old hematoma present on the posterior aspect of the left thigh knee and calf area. 1+ left DP pulse appreciated with gross sensation intact although he reports some diminishment. Does have underlying neuropathy. NEUROLOGICAL: No aphasia. No facial droop or slurred speech. Limited strength of the left hip region due to pain. Gross sensation intact in the bilateral lower feet although he reports some decrease sensation of the entire left lower leg. CONTINUOUS CARDIAC MONITORING: was ordered and showed a heart rate of 90s bpm in NSR Patient's laboratory studies and imaging reviewed. Differential includes DVT, musculoskeletal, infection, joint effusion, trauma, lymphedema, idiopathic, CHF, as well as other pathologies. IMPRESSION/MEDICAL DECISION MAKING: Patient using some home pain medication but for the first time today took 4 steps of without a walker experience worsening pain in his left thigh and leg region and took 4 steps back. Denies any falls. Denies any abdominal pain or pain in the upper extremities. Pain down the entire leg predominately focused on the left hip region. Has used some home Tylenol as well as oxycodone he was discharged with. Did not help his pain and thus came here. No fevers. No large wounds. No significant trauma and I doubt spinal injury at this time. Basic blood work obtained here shows a slightly improved hemoglobin today at 12.6. Normal platelet count. Stable CKD. Appears to have perfusion in the left lower leg and I doubt acute vascular occlusion at this time. Has been restarted again on warfarin with Lovenox bridge as the patient has VTE's. CT of the pelvis and femur obtained given his pain to evaluate for changes of these hematomas with his increased pain now. Will increase size of the left gluteal medius hematoma with also now some possible intramuscular hemorrhage left obturator with improvement of hemorrhage around the left adductor muscle. The left gluteal hematoma has layering clots but a very small active extravasation cannot be excluded. Patient with recent DVTs on studies here are reviewed. Given some Dilaudid for pain control. Believe with increased evidence of some hemorrhage monitoring here and pain control is indicated. Given active VTE is unsure that full reversal is necessary. I doubt acute vascular occlusion at this time. INR 2.9. Patient does not need Lovenox additional at this time I doubt a compartment syndrome of the leg at this time. Pain is improved some with the Dilaudid. later arrives and states maybe little bit of red tinge to his urine. Will send UA but doubt significant internal bleeding. Hemoglobin again is improving. Again he will stop the Lovenox. Do not feel there is any acute need for interventional radiology consultation as I do not feel there is a significant bleed to be embolized. Discussed with the hospitalist team. DIAGNOSIS: Left buttock and thigh hematoma, left lower extremity pain DISPOSITION: Hospitalist will evaluate Patient was agreeable with this plan. Past Med/Surg History Medical History (Updated 05/11/23 @ 21:38 by Len Simmosn M.D.) Right leg DVT extensive, 04/2023 Antiphospholipid syndrome Yo filter in place GERD (gastroesophageal reflux disease) PTSD (post-traumatic stress disorder) Anxiety and depression History of COVID-19 05/2021 *FLU LIKE SYMPTOMS (ALL RESOLVED) Systemic lupus erythematosus REASON FOR LOVENOX Severe sleep apnea HAS NOT USED CPAP MACHINE IN YEARS Stage III chronic kidney disease Dyslipidemia Diabetic peripheral neuropathy Diabetes mellitus type 2, uncontrolled Chronic pain syndrome Deep venous thrombosis of lower extremity (04/23/11) Hypertension Surgical History History of colonoscopy H/O inguinal hernia repair History of umbilical hernia repair History of cholecystectomy History of arthroscopy of knee History of colonoscopy Family History Unknown Brain cancer Mother Nephrolithiasis Myocardial infarction Sister Nephrolithiasis Other No family history of adverse response to anesthesia Denies family history of Ovarian cancer Prostate cancer Diabetes Coronary heart disease Breast cancer Colorectal cancer Social History Smoking Status: Never smoker Tobacco Type: Cigars Age Started Using Tobacco: 61; Age Quit Using Tobacco: 64; Cigarettes Per Day: one per day; Second Hand Exposure: No; Do You Dip or Chew Tobacco: No; Hx Alcohol Use: No Hx Substance Use: No Preferred Language: Malay Communication Ability: Effective Visual Impairment: No Limitations Hearing Ability: Use of Hearing Aid Associate Creative Director Required: No Beliefs That Will Affect Care: None marital status: Current Living Situation: Spouse current occupational status: retired current occupation: retired from career as a [email or web address] Feels Safe at Home: Yes Childhood Exposure to Second-Hand Smoke: Yes Diet: regular caffeine: Yes Dental Care, Regularly: Yes Physical Activity Frequency: Does not Exercise Seatbelt Use: always Sunscreen Use: Yes Assistive Devices: Cane and Walker Allergies Allergies Allergy/AdvReac Type Severity Reaction Status Date / Time lanolin Allergy Intermediate WOOL WAX Verified 05/11/23 16:51 ALCOHOL moxifloxacin Allergy Intermediate hives Verified 05/11/23 16:51 aspirin AdvReac Intermediate STOMACH Verified 05/11/23 16:51 DISTRESS SOAPCLEAN Allergy Mild DETERGENTS Uncoded 05/11/23 16:51 CAUSED RASH Home Meds Home Medications Medication Instructions Recorded Confirmed trazodone 100 mg tablet 100 mg PO HS 11/16/18 05/11/23 venlafaxine 150 mg 150 mg PO QAM 11/16/18 05/11/23 capsule,extended release 24 hr lorazepam 0.5 mg tablet 0.5 mg PO Q8H PRN Anxiety #15 tabs 12/29/18 05/11/23 dulaglutide 0.75 mg/0.5 mL 0.75 mg subcut WK 03/05/23 05/11/23 subcutaneous pen injector (Trulicity) enoxaparin 120 mg/0.8 mL 120 mg subcut Q12H 04/14/23 05/11/23 subcutaneous syringe (Lovenox) insulin glargine 100 unit/mL (3 20 unit subcut QPM 04/29/23 05/11/23 mL) subcutaneous pen melatonin 10 mg tablet 15 mg PO HS 04/29/23 05/11/23 acetaminophen 500 mg tablet 1,000 mg PO Q6H PRN Pain 05/11/23 05/11/23 (Tylenol Extra Strength) Previous Rx's Medication Instructions Recorded famotidine 20 mg tablet 20 mg PO BID #180 tabs 06/13/22 gabapentin 400 mg capsule 400 mg PO BID #180 caps 01/28/23 nitroglycerin 0.4 mg sublingual 0.4 mg sublingual Q5M PRN chest 03/27/23 tablet pain #25 tabs oxycodone 5 mg tablet 5 - 10 mg (1 - 2 x 5 mg) PO Q8H 04/09/23 PRN pain #20 tabs atorvastatin 80 mg tablet 80 mg PO QPM Hyperlipidemia #90 04/22/23 tabs warfarin 5 mg tablet 5 mg PO DAILY@1600 #10 tabs 05/08/23 Results & Data (ED) Vital Signs Vital Signs - 24 hr 05/11/23 15:05 05/11/23 15:56 05/11/23 16:00 Temperature 36.6 C Temperature Source Oral Pulse Rate 101 H 104 H 92 H Pulse Rate from SpO2 Sensor 101 H 92 H Pulse Rhythm Regular Pulse Strength Normal Respiratory Rate 20 15 13 Respiratory Effort / Characteristics Non-Labored Spontaneous Respiratory Depth Normal Respiratory Pattern Regular Blood Pressure 103/69 Blood Pressure Mean 80 Blood Pressure Position Sitting Pulse Oximetry 100 93 95 Oxygen Delivery Method Room Air Sepsis Recent Fever Within 48 Hours No Sepsis New/Unexplained Change in Mental Status No Sepsis Action Taken by Nursing No Action Required 05/11/23 16:00 05/11/23 16:34 05/11/23 16:40 Temperature Temperature Source Pulse Rate 96 H 95 H Pulse Rate from SpO2 Sensor 97 H 95 H Pulse Rhythm Pulse Strength Respiratory Rate 22 16 Respiratory Effort / Characteristics Respiratory Depth Respiratory Pattern Blood Pressure 147/88 H Blood Pressure Mean 104 Blood Pressure Position Pulse Oximetry 95 94 Oxygen Delivery Method Sepsis Recent Fever Within 48 Hours Sepsis New/Unexplained Change in Mental Status Sepsis Action Taken by Nursing 05/11/23 16:50 05/11/23 17:00 05/11/23 17:00 Temperature Temperature Source Pulse Rate 100 H 98 H Pulse Rate from SpO2 Sensor 100 H 98 H Pulse Rhythm Pulse Strength Respiratory Rate 19 18 Respiratory Effort / Characteristics Respiratory Depth Respiratory Pattern Blood Pressure 146/93 H Blood Pressure Mean 110 Blood Pressure Position Pulse Oximetry 96 96 Oxygen Delivery Method Sepsis Recent Fever Within 48 Hours Sepsis New/Unexplained Change in Mental Status Sepsis Action Taken by Nursing 05/11/23 17:10 05/11/23 17:20 05/11/23 17:30 Temperature Temperature Source Pulse Rate 100 H 98 H 99 H Pulse Rate from SpO2 Sensor 100 H 99 H 97 H Pulse Rhythm Pulse Strength Respiratory Rate 16 14 15 Respiratory Effort / Characteristics Respiratory Depth Respiratory Pattern Blood Pressure Blood Pressure Mean Blood Pressure Position Pulse Oximetry 97 95 95 Oxygen Delivery Method Sepsis Recent Fever Within 48 Hours Sepsis New/Unexplained Change in Mental Status Sepsis Action Taken by Nursing 05/11/23 17:30 05/11/23 17:40 05/11/23 17:50 Temperature Temperature Source Pulse Rate 95 H 95 H Pulse Rate from SpO2 Sensor 95 H 96 H Pulse Rhythm Pulse Strength Respiratory Rate 17 16 Respiratory Effort / Characteristics Respiratory Depth Respiratory Pattern Blood Pressure 162/92 H Blood Pressure Mean 118 Blood Pressure Position Pulse Oximetry 97 96 Oxygen Delivery Method Sepsis Recent Fever Within 48 Hours Sepsis New/Unexplained Change in Mental Status Sepsis Action Taken by Nursing 05/11/23 18:00 05/11/23 18:00 05/11/23 18:10 Temperature Temperature Source Pulse Rate 97 H 102 H Pulse Rate from SpO2 Sensor 98 H 80 Pulse Rhythm Pulse Strength Respiratory Rate 12 17 Respiratory Effort / Characteristics Respiratory Depth Respiratory Pattern Blood Pressure 170/100 H Blood Pressure Mean 122 Blood Pressure Position Pulse Oximetry 97 97 Oxygen Delivery Method Sepsis Recent Fever Within 48 Hours Sepsis New/Unexplained Change in Mental Status Sepsis Action Taken by Nursing 05/11/23 18:20 05/11/23 18:30 05/11/23 18:33 Temperature Temperature Source Pulse Rate 99 H 100 H 101 H Pulse Rate from SpO2 Sensor 100 H 99 H 98 H Pulse Rhythm Pulse Strength Respiratory Rate 16 16 22 Respiratory Effort / Characteristics Respiratory Depth Respiratory Pattern Blood Pressure Blood Pressure Mean Blood Pressure Position Pulse Oximetry 98 95 95 Oxygen Delivery Method Sepsis Recent Fever Within 48 Hours Sepsis New/Unexplained Change in Mental Status Sepsis Action Taken by Nursing 05/11/23 18:33 12/03/23 18:40 05/11/23 18:50 Temperature Temperature Source Pulse Rate 102 H 101 H Pulse Rate from SpO2 Sensor 90 77 Pulse Rhythm Pulse Strength Respiratory Rate 22 16 Respiratory Effort / Characteristics Respiratory Depth Respiratory Pattern Blood Pressure 165/105 H Blood Pressure Mean 149 Blood Pressure Position Pulse Oximetry 93 94 Oxygen Delivery Method Sepsis Recent Fever Within 48 Hours Sepsis New/Unexplained Change in Mental Status Sepsis Action Taken by Nursing Laboratory Data 05/11/23 15:19 05/11/23 15:19 Lab Results 05/11/23 05/11/23 Range/Units 15:19 15:21 WBC 11.68 H (4.8-10.8) K/ul RBC 4.38 L (4.70-6.10) M/uL Hgb 12.6 L (14.0-18.0) g/dl Hct 37.5 L (42.0-52.0) % MCV 85.6 (80.0-100.0) fL MCH 28.8 (25.0-34.0) pg MCHC 33.6 (32.0-36.0) g/dL RDW Std Deviation 42.7 (36.4-46.3) fL RDW Coeff of Na 13.8 (11.5-14.5) % Plt Count 367 (130-400) K/uL MPV 10.6 (9.4-12.4) fL Immature Gran % (Auto) 0.4 % Neut % (Auto) 74.6 % Lymph % (Auto) 14.8 % Walton % (Auto) 8.0 % Eos % (Auto) 1.5 % Baso % (Auto) 0.7 % Neut # (Auto) 8.71 H (1.40-6.50) K/uL Lymph # (Auto) 1.73 (1.20-3.40) K/uL Walton # (Auto) 0.93 H (0.11-0.59) K/uL Eos # (Auto) 0.18 (0.00-0.50) K/uL Baso # (Auto) 0.08 (0.00-0.20) K/uL Immature Gran # (Auto) 0.05 (0.01-0.20) K/uL PT 29.6 H (9.0-12.0) Seconds INR 2.9 H (0.9-1.1) APTT 49.0 H* (21.0-31.0) Seconds PTT Ratio 1.7 Sodium 139 (136-145) mmol/L Potassium 4.0 (3.5-5.1) mmol/L Chloride 105 (98-107) mmol/L Carbon Dioxide 25 (21-32) mmol/L Anion Gap 9 (3-11) BUN 32 H (6-23) mg/dl Creatinine 1.65 H (0.6-1.4) mg/dl Est Cr Clr Drug Dosing Not Reportable Est GFR ( Amer) 48.4 ml/min Est GFR (Non-Af Amer) 41.7 ml/min BUN/Creatinine Ratio 19.4 (10-20) Glucose 183 H (70-99(Fasting)) mg/dl Calcium 8.7 (8.6-10.3) mg/dl Total Bilirubin 1.8 H (0.2-1.0) mg/dl AST 23 (13-39) U/L ALT 19 (7-52) U/L Alkaline Phosphatase 90 (34-104) U/L Total Protein 7.0 (6.0-8.3) gm/dl Albumin 3.4 (3.4-5.0) gm/dl Globulin 3.6 (2.5-4.0) gm/dl Albumin/Globulin Ratio 0.9 (0.9-2) Administered Medications Hydromorphone HCl (Hydromorphone Inj 0.5 Mg/0.5 Ml Syr) 0.5 mg IV Q4H PRN PRN Reason: Pain (5+) Stop: 05/25/23 19:00 Last Admin: 05/11/23 19:41 Dose: 0.5 mg Documented By: CPB Discontinued Medications Acetaminophen (Acetaminophen 325 Mg Tab) 650 mg PO NOW STA Stop: 05/11/23 19:02 Last Admin: 05/11/23 20:03 Dose: Not Given Documented By: CPB Hydromorphone HCl (Hydromorphone Inj 0.5 Mg/0.5 Ml Syr) 0.5 mg IV NOW STA Stop: 05/11/23 16:47 Last Admin: 05/11/23 16:50 Dose: 0.5 mg Documented By: ARS Hydromorphone HCl (Hydromorphone Inj 1 Mg/Ml Syringe) 0.5 mg IV NOW STA Stop: 05/11/23 18:24 Last Admin: 05/11/23 18:28 Dose: 0.5 mg Documented By: SANDRA Ioversol (Optiray 320 500ml) 90 ml IV ONCE ONE Stop: 05/11/23 16:29 Last Admin: 05/11/23 16:28 Dose: 90 ml Documented By: NEYMAR Imaging Data Radiologist's Impression: Pelvis CT 05/11/23 15:08 CT femur LT w con, CT pelvis w/IV con only CT DOSE: 1574.54 mGy.cm CLINICAL HISTORY: Worsening left pelvic and left femur pain, recent hematoma TECHNIQUE: Multiaxial CT images of the pelvis and left femur were performed following the intravenous administration of contrast and reformatted in the sagittal and coronal planes. A dose lowering technique was utilized adhering to the principles of ALARA. COMPARISON STUDY: Pelvis CT 05/01/2023. Left hip MRI 05/01/2023. FINDINGS: An IVC filter is partially visualized. No retroperitoneal/extraperitoneal hematoma identified. Subcutaneous nodules and subcutaneous gas within the left lower quadrant abdominal wall favors prior medication injection. This is similar to the prior study. The prostate gland remains enlarged. The bladder is unremarkable. There is again noted abnormal thickening and a heterogeneous appearance throughout the majority of the left gluteus medius muscle which measures approximately 13 x 8 cm. This has slightly increased in size, previously measuring 13 x 6 cm. This favors an intramuscular hematoma. An underlying soft tissue mass or secondary infection would be impossible to exclude by imaging. Therefore, continued follow-up recommended to ensure resolution. There is also thickening of the left obturator externus muscle suggestive of an additional site of intramuscular hemorrhage. The intramuscular hemorrhage involving the left adductor muscles has slightly improved. No additional//new sites of intramuscular hemorrhage identified within the left hip/thigh. Subcutaneous edema and skin thickening within the left lateral thigh is noted. No acute fracture or dislocation within the pelvis, hips, or left femur. There is a subtle focus of increased density within the inferior aspect of the suspected left gluteal hematoma best seen on image 79 of series 2. This could be due to layering clot. A small focus of active arterial extravasation is not excluded. IMPRESSION: 1. There is again noted abnormal thickening and a heterogeneous appearance throughout the majority of the left gluteus medius muscle which measures approximately 13 x 8 cm. This has slightly increased in size, previously measuring 13 x 6 cm. This favors an intramuscular hematoma. An underlying soft tissue mass or secondary infection would be impossible to exclude by imaging. Therefore, continued follow-up recommended to ensure resolution. 2. There is also thickening of the left obturator externus muscle suggestive of an additional site of intramuscular hemorrhage. 3. The intramuscular hemorrhage involving the left adductor muscles has slightly improved. 4. There is a subtle focus of increased density within the inferior aspect of the suspected left gluteal hematoma as described above. This could be due to layering clot. A small focus of active arterial extravasation is not excluded. ACT 112: Negative or not required by law. Electronically signed by: Scooter Samaniego M.D. 05/11/2023 5:[address] 05/11/23 16:18 CT femur LT w con, CT pelvis w/IV con only CT DOSE: 1574.54 mGy.cm CLINICAL HISTORY: Worsening left pelvic and left femur pain, recent hematoma TECHNIQUE: Multiaxial CT images of the pelvis and left femur were performed following the intravenous administration of contrast and reformatted in the sagittal and coronal planes. A dose lowering technique was utilized adhering to the principles of ALARA. COMPARISON STUDY: Pelvis CT 05/01/2023. Left hip MRI 05/01/2023. FINDINGS: An IVC filter is partially visualized. No retroperitoneal/extraperitoneal hematoma identified. Subcutaneous nodules and subcutaneous gas within the left lower quadrant abdominal wall favors prior medication injection. This is similar to the prior study. The prostate gland remains enlarged. The bladder is unremarkable. There is again noted abnormal thickening and a heterogeneous appearance throughout the majority of the left gluteus medius muscle which measures approximately 13 x 8 cm. This has slightly increased in size, previously measuring 13 x 6 cm. This favors an intramuscular hematoma. An underlying soft tissue mass or secondary infection would be impossible to exclude by imaging. Therefore, continued follow-up recommended to ensure resolution. There is also thickening of the left obturator externus muscle suggestive of an additional site of intramuscular hemorrhage. The intramuscular hemorrhage involving the left adductor muscles has slightly improved. No additional//new sites of intramuscular hemorrhage identified within the left hip/thigh. Subcutaneous edema and skin thickening within the left lateral thigh is noted. No acute fracture or dislocation within the pelvis, hips, or left femur. There is a subtle focus of increased density within the inferior aspect of the suspected left gluteal hematoma best seen on image 79 of series 2. This could be due to layering clot. A small focus of active arterial extravasation is not excluded. IMPRESSION: 1. There is again noted abnormal thickening and a heterogeneous appearance throughout the majority of the left gluteus medius muscle which measures approximately 13 x 8 cm. This has slightly increased in size, previously measuring 13 x 6 cm. This favors an intramuscular hematoma. An underlying soft tissue mass or secondary infection would be impossible to exclude by imaging. Therefore, continued follow-up recommended to ensure resolution. 2. There is also thickening of the left obturator externus muscle suggestive of an additional site of intramuscular hemorrhage. 3. The intramuscular hemorrhage involving the left adductor muscles has slightly improved. 4. There is a subtle focus of increased density within the inferior aspect of the suspected left gluteal hematoma as described above. This could be due to layering clot. A small focus of active arterial extravasation is not excluded. ACT 112: Negative or not required by law. Electronically signed by: Scooter Samaniego M.D. 05/11/2023 5:00 PM Discharge Plan Visit Data Chief Complaint: Leg Injury/Pain Stated Complaint: GO TO TRIAGE ED Provider: Len Simmons Discharge Problem: Hematoma of left buttock, halfway current use of anticoagulant therapy, Lupus anticoagulant disorder, Deep venous thrombosis of lower extremity Patient Disposition: Being Evaluated by Hospitalist Discharge Instructions Interventions: ED Discharge Assessment Last Done: 05/11/23 20:40
[2023-05-11 17:15] LABS: INR 2.9 (0.9-1.1); Partial Thromboplastin Ratio 1.7; Prothrombin Time 29.6 Seconds (9.0-12.0)
[2023-05-11] MEDS ORDERED: HYDROmorphone INJ 1 MG/ML SYRINGE IV STA (18:23)
--- NOTE | 2023-05-11 18:57 | History & Physical Report ---
Date of Service May 11, 2023 Assessment & Plan (1) Left leg pain: Plan: -Admit to the PCU on tele -Currently stable with pain adequately controlled -Patient experienced acute onset of worsening left LE pain after attempting to ambulate on his LLE -Was recently admitted to [facility] for left gluteal hematoma and had been discharged on Warfarin with Lovenox Bridge -CT of the femur and pelvis today shows a mildly increased left gluteal hematoma with new left obturator externus muscle hematoma -CT also noted "a subtle focus of increased density within the inferior aspect of the suspected left gluteal hematoma as described above. This could be due to layering clot. A small focus of active arterial extravasation is not excluded." -The patient has been hemodynamically stable, without tachycardia, and with stable Hgb -INR today is 2.9; given his therapeutic INR, continued Lovenox use, and increased pressure/use of the LLE today he likely created a new area of hemorrhage -Did not have his dose of Warfin today -Hold all anticoagulation at this time -Will obtain blood consent and type/screen, will monitor H&H q6h moving forward -Outlined his visible area of bruising on admission in case there is concern for continued bleeding while admitted -Will likely need further discussions with Dr. Newton and Hematology regarding anticoagulation on discharge -Pain control with tylenol and Dilaudid -OOB with assistance -BL JASPREET's for DVT PPX, hold chemical DVT PPX for now -HH/DMII diet -AM CBC, CMP, mag, PT/INR (2) Hematoma of left buttock: Plan: -See left leg pain (3) Lupus anticoagulant disorder: Plan: -Reason for systemic anticoagulation due to multiple prior clots in the past -Does have an IVC filter in place (4) Uncontrolled type 2 diabetes mellitus with insulin therapy: Plan: -Monitor BSG ACHS, goal is 110-140 -Will continue home 20 units lantus HS -Start CF of 50 ACHS -HH/DMII diet -Adjust regimen as needed (5) Hypertension: Plan: -Stable off antihypertensives -Continue to monitor Plan The patient was discussed with Dr. 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 He remained stable in the ED. Labs were significant for a stable Hgb and total bili of 1.8 with other LFT's WNL. CT of the femur wo con and CT of the pelvis w/IV con was read as "1. There is again noted abnormal thickening and a heterogeneous appearance throughout the majority of the left gluteus medius muscle which measures approximately 13 x 8 cm. This has slightly increased in size, previously measuring 13 x 6 cm. This favors an intramuscular hematoma. An underlying soft tissue mass or secondary infection would be impossible to exclude by imaging. Therefore, continued follow-up recommended to ensure resolution. 2. There is also thickening of the left obturator externus muscle suggestive of an additional site of intramuscular hemorrhage. 3. The intramuscular hemorrhage involving the left adductor muscles has slightly improved. 4. There is a subtle focus of increased density within the inferior aspect of the suspected left gluteal hematoma as described above. This could be due to layering clot. A small focus of active arterial extravasation is not excluded.". Prior to admission the patient was given 2 doses of 0.5 IV dilaudid. Per chart review, the patient was admitted from 05/01-05/08 with progressive left LE pain and found to have a large left gluteal hematoma. Orthopedics was consulted and recommenced conservative treatment and monitoring. His anticoagulation was held and his symptoms improved. He underwent trial on a heparin drip without complication. Dr. Cherry and Dr. Newton were consulted regarding future anticoagulation. With his complex history it was decided that his safest option was to be bridge to Warfarin as it is easier to reverse and monitor. He was bridged with Lovenox while admitted and restarted on Warfarin prior to discharge. At the time of the exam the patient was lying in bed in no acute distress with his sitting bedside, history was obtained from both. He states that he had been stable as far as symptoms since discharge home on 05/08. He had been taking his Lovenox and Warfarin as prescribed. He was usually using a walker to ambulate and had no complications. Earlier today he was trying to quickly hit a light switch and walked approximately 8 steps without his walker. He had acute onset of severe LLE pain, worse than his baseline since discharge. He denies worsening numbness in the LLE since last discharge and denies any recent falls. The only home medication he had today was his first lovenox injection of the day. His pain is currently an 8/10. He denies recent fever, chills, chest pain, SOB, abd pain, nausea, vomiting, diarrhea, dysuria, hematuria, melena, and recent trauma. He is a full code and would want his to make medical decisions for him if he cannot make them himself. Please refer to Dr. Gamino's attestation for any changes to the treatment plan Allergies Allergy/AdvReac Type Severity Reaction Status Date / Time lanolin Allergy Intermediate WOOL WAX Verified 05/11/23 16:51 ALCOHOL moxifloxacin Allergy Intermediate hives Verified 05/11/23 16:51 aspirin AdvReac Intermediate STOMACH Verified 05/11/23 16:51 DISTRESS SOAPCLEAN Allergy Mild DETERGENTS Uncoded 05/11/23 16:51 CAUSED RASH Home Medications Medication Instructions Recorded Confirmed Type trazodone 100 mg tablet 100 mg PO HS 11/16/18 05/11/23 History venlafaxine 150 mg 150 mg PO QAM 11/16/18 05/11/23 History capsule,extended release 24 hr famotidine 20 mg tablet 20 mg PO BID #180 tabs 06/13/22 05/11/23 Rx gabapentin 400 mg capsule 400 mg PO BID #180 caps 01/28/23 05/11/23 Rx dulaglutide 0.75 mg/0.5 mL 0.75 mg subcut WK 03/05/23 05/11/23 History subcutaneous pen injector (Trulicity) nitroglycerin 0.4 mg sublingual 0.4 mg sublingual Q5M PRN chest 03/27/23 05/11/23 Rx tablet pain #25 tabs atorvastatin 80 mg tablet 80 mg PO QPM Hyperlipidemia #90 04/22/23 05/11/23 Rx tabs melatonin 10 mg tablet 15 mg PO HS 04/29/23 05/11/23 History acetaminophen 500 mg tablet 1,000 mg PO Q6H PRN Pain 05/11/23 05/11/23 History (Tylenol Extra Strength) acetaminophen 325 mg tablet 650 mg (2 x 325 mg) PO Q4H PRN #0 05/20/23 Rx tabs enoxaparin 120 mg/0.8 mL 111 mg (0.74 mL) subcut Q12 2 days 05/20/23 Rx subcutaneous syringe (Lovenox) #2.96 mL insulin glargine 100 unit/mL (3 25 unit (0.25 mL) subcut QPM #15 mL 05/20/23 05/11/23 Rx mL) subcutaneous pen lorazepam 0.5 mg tablet 0.5 mg PO Q8H PRN Anxiety 10 days 05/20/23 Rx #10 tabs midodrine 2.5 mg tablet 7.5 mg (3 x 2.5 mg) PO 05/20/23 Rx TID@0800,1200,1700 #0 tabs warfarin 5 mg tablet 5 mg PO DAILY@1600 30 days #30 tabs 05/20/23 Rx Past Med/Surg History Medical History (Updated 05/14/23 @ 17:43 by Rhonda Good PA-C) Right leg DVT extensive, 04/2023 Antiphospholipid syndrome Yo filter in place GERD (gastroesophageal reflux disease) PTSD (post-traumatic stress disorder) Anxiety and depression History of COVID-19 05/2021 *FLU LIKE SYMPTOMS (ALL RESOLVED) Systemic lupus erythematosus REASON FOR LOVENOX Severe sleep apnea HAS NOT USED CPAP MACHINE IN YEARS Stage III chronic kidney disease Dyslipidemia Diabetic peripheral neuropathy Diabetes mellitus type 2, uncontrolled Chronic pain syndrome Deep venous thrombosis of lower extremity (04/23/11) Hypertension Surgical History History of colonoscopy H/O inguinal hernia repair History of umbilical hernia repair History of cholecystectomy History of arthroscopy of knee History of colonoscopy Family History Unknown Brain cancer Mother Nephrolithiasis Myocardial infarction Sister Nephrolithiasis Other No family history of adverse response to anesthesia Denies family history of Ovarian cancer Prostate cancer Diabetes Coronary heart disease Breast cancer Colorectal cancer Social History Smoking Status: Current some day smoker Tobacco Type: Cigars Age Started Using Tobacco: 61; Age Quit Using Tobacco: 64; Cigarettes Per Day: one per day; Second Hand Exposure: No; Do You Dip or Chew Tobacco: No; Hx Alcohol Use: No Hx Substance Use: No Preferred Language: Yakut Communication Ability: Effective Visual Impairment: No Limitations Hearing Ability: Use of Hearing Aid Specialty Person Required: No Beliefs That Will Affect Care: None marital status: Current Living Situation: Spouse Current Living Situation Comment: needs more help than what can give current occupational status: retired 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 Feels Safe at Home: No Is there a partner from a previous relationship who is making you feel unsafe now?: No Childhood Exposure to Second-Hand Smoke: Yes Diet: regular caffeine: Yes Dental Care, Regularly: Yes Physical Activity Frequency: Does not Exercise Seatbelt Use: always Sunscreen Use: Yes Assistive Devices: Cane and Wheelchair Physical Exam Physical Exam: Physical Exam: General: In no acute distress, stated age, well-nourished, non-toxic appearing HEENT: Normocephalic, atraumatic, no scleral icterus, pupils around round, symmetrical, and reactive to light, moist mucus membranes, trachea midline, no thyromegaly Chest/Pulm: No respiratory distress, symmetrical chest expansion, clear breath sounds throughout Cardiac: RRR, no murmurs noted Abdomen: Negative for ascites and bruising, normoactive bowel sounds, soft, non-tender to palpation throughout Musculoskeletal: No acute trauma on exam, patient with increased pain with movement of the LLE due to acute and sub-acute LLE hematomas Extremities: Radial, dorsalis pedis, and posterior tibial pulses are intact and symmetrical, no edema noted in the [facility] Skin: Patient with bruising in various stages of healing on the posterior and lateral aspect of the left lower leg from the mid thigh to the left calf, no bruising noted in the left buttocks or upper thigh, but the skin is firm and tender to palpation Neuro: Alert and oriented to person, place, month, year, and president, no focal defects, patient with intact sensation and motor function in the [facility] Psych: No acute distress, calm and cooperative during the exam Results & Data Results & Data Vital Signs (Past 12 Hours) Vital Signs Temp Pulse Resp BP Pulse Ox O2 Del Method 05/11/23 16:00 147/88 H 05/11/23 16:00 92 H 13 95 05/11/23 15:56 104 H 15 93 05/11/23 15:05 36.6 C 101 H 20 103/69 100 Room Air Laboratory Results Abnormal lab results 05/11/23 05/11/23 Range/Units 15:19 15:21 WBC 11.68 H (4.8-10.8) K/ul RBC 4.38 L (4.70-6.10) M/uL Hgb 12.6 L (14.0-18.0) g/dl Hct 37.5 L (42.0-52.0) % Neut # (Auto) 8.71 H (1.40-6.50) K/uL [place] # (Auto) 0.93 H (0.11-0.59) K/uL PT 29.6 H (9.0-12.0) Seconds INR 2.9 H (0.9-1.1) APTT 49.0 H* (21.0-31.0) Seconds BUN 32 H (6-23) mg/dl Creatinine 1.65 H (0.6-1.4) mg/dl Glucose 183 H (70-99(Fasting)) mg/dl Total Bilirubin 1.8 H (0.2-1.0) mg/dl Diagnostic Findings Pelvis CT 05/11/23 15:08 CT femur LT w con, CT pelvis w/IV con only CT DOSE: 1574.54 mGy.cm CLINICAL HISTORY: Worsening left pelvic and left femur pain, recent hematoma TECHNIQUE: Multiaxial CT images of the pelvis and left femur were performed following the intravenous administration of contrast and reformatted in the sagittal and coronal planes. A dose lowering technique was utilized adhering to the principles of ALARA. COMPARISON STUDY: Pelvis CT 05/01/2023. Left hip MRI 05/01/2023. FINDINGS: An IVC filter is partially visualized. No retroperitoneal/extraperitoneal hematoma identified. Subcutaneous nodules and subcutaneous gas within the left lower quadrant abdominal wall favors prior medication injection. This is similar to the prior study. The prostate gland remains enlarged. The bladder is unremarkable. There is again noted abnormal thickening and a heterogeneous appearance throughout the majority of the left gluteus medius muscle which measures approximately 13 x 8 cm. This has slightly increased in size, previously measuring 13 x 6 cm. This favors an intramuscular hematoma. An underlying soft tissue mass or secondary infection would be impossible to exclude by imaging. Therefore, continued follow-up recommended to ensure resolution. There is also thickening of the left obturator externus muscle suggestive of an additional site of intramuscular hemorrhage. The intramuscular hemorrhage involving the left adductor muscles has slightly improved. No additional//new sites of intramuscular hemorrhage identified within the left hip/thigh. Subcutaneous edema and skin thickening within the left lateral thigh is noted. No acute fracture or dislocation within the pelvis, hips, or left femur. There is a subtle focus of increased density within the inferior aspect of the suspected left gluteal hematoma best seen on image 79 of series 2. This could be due to layering clot. A small focus of active arterial extravasation is not excluded. IMPRESSION: 1. There is again noted abnormal thickening and a heterogeneous appearance throughout the majority of the left gluteus medius muscle which measures approximately 13 x 8 cm. This has slightly increased in size, previously measuring 13 x 6 cm. This favors an intramuscular hematoma. An underlying soft tissue mass or secondary infection would be impossible to exclude by imaging. Therefore, continued follow-up recommended to ensure resolution. 2. There is also thickening of the left obturator externus muscle suggestive of an additional site of intramuscular hemorrhage. 3. The intramuscular hemorrhage involving the left adductor muscles has slightly improved. 4. There is a subtle focus of increased density within the inferior aspect of the suspected left gluteal hematoma as described above. This could be due to l ayering clot. A small focus of active arterial extravasation is not excluded. ACT 112: Negative or not required by law. Electronically signed by: Scooter Samaniego M.D. 05/11/2023 5:[address] 05/11/23 16:18 CT femur LT w con, CT pelvis w/IV con only CT DOSE: 1574.54 mGy.cm CLINICAL HISTORY: Worsening left pelvic and left femur pain, recent hematoma TECHNIQUE: Multiaxial CT images of the pelvis and left femur were performed following the intravenous administration of contrast and reformatted in the sagittal and coronal planes. A dose lowering technique was utilized adhering to the principles of ALARA. COMPARISON STUDY: Pelvis CT 05/01/2023. Left hip MRI 05/01/2023. FINDINGS: An IVC filter is partially visualized. No retroperitoneal/e xtraperitoneal hematoma identified. Subcutaneous nodules and subcutaneous gas within the left lower quadrant abdominal wall favors prior medication injection. This is similar to the prior study. The prostate gland remains enlarged. The bladder is unremarkable. There is again noted abnormal thickening and a heterogeneous appearance throughout the majority of the left gluteus medius muscle which measures approximately 13 x 8 cm. This has slightly increased in size, previously measuring 13 x 6 cm. This favors an intramuscular hematoma. An underlying soft tissue mass or secondary infection would be impossible to exclude by imaging. Therefore, continued follow-up recommended to ensure resolution. There is also thickening of the left obturator externus muscle suggestive of an additional site of intramuscular hemorrhage. The intramuscular hemorrhage involving the left adductor muscles has slightly improved. No additional//new sites of intramuscular hemorrhage identified within the left hip/thigh. Subcutaneous edema and skin thickening within the left lateral thigh is noted. No acute fracture or dislocation within the pelvis, hips, or left femur. There is a subtle focus of increased density within the inferior aspect of the suspected left gluteal hematoma best seen on image 79 of series 2. This could be due to layering clot. A small focus of active arterial extravasation is not excluded. IMPRESSION: 1. There is again noted abnormal thickening and a heterogeneous appearance throughout the majority of the left gluteus medius muscle which measures approximately 13 x 8 cm. This has slightly increased in size, previously measuring 13 x 6 cm. This favors an intramuscular hematoma. An underlying soft tissue mass or secondary infection would be impossible to exclude by imaging. Therefore, continued follow-up recommended to ensure resolution. 2. There is also thickening of the left obturator externus muscle suggestive of an additional site of intramuscular hemorrhage. 3. The intramuscular hemorrhage involving the left adductor muscles has slightly improved. 4. There is a subtle focus of increased density within the inferior aspect of the suspected left gluteal hematoma as described above. This could be due to layering clot. A small focus of active arterial extravasation is not excluded. ACT 112: Negative or not required by law. Electronically signed by: Scooter Samaniego M.D. 05/11/2023 5:00 PM Code Status & VTE Plan Code Status Full code VTE Prophylaxis Plan VTE Prophylaxis will be ordered: Yes Supervising Physician Co-Signing Physician Notes I personally saw and examined the patient. I verified all barroso points and agree with Mal Quiñones PA-C with the following exceptions and/or additions: 67 year old male presents to the ER with acute onset LLE pain following recent admission 05/01-05/08 for left gluteal hematoma. Repeat CT showing increase in mild hematoma. O/E HS RRR, no murmurs, Chest CTAB, bruising on posterior and lateral aspects of LLE, DP/PT pulses intact, cap refil < 2 seconds in peripheries. A/P Left gluteal hematoma - hold anticoagulation at this time given increase in size and small extravasation not excluded. Serial H&H. Hold off vitamin K unless significant drop in hemoglobin given concurrent DVT. PG Care Time/CCT Total # of Minutes Spent Total Time Spent with Patient: Total time spent is greater than 50% in coordination of care (as documented) at patient's floor/unit and/or counseling patient: C[place] [address] INT INP/OBS CARE 2/55MIN Patient Type Established Medical Decision Making Moderate Complexity Diagnoses Left leg pain M79.605 Hematoma of left buttock S30.0XXA Lupus anticoagulant disorder D68.62 Uncontrolled type 2 diabetes mellitus with insulin therapy E11.65; Z79.4 Hypertension I10 Hypertension type: unspecified (5) Hypertension Hypertension type: unspecified Qualified Code(s): I10 - Essential (primary) hypertension
[2023-05-11] MEDS ORDERED: ACETAMINOPHEN 325 MG TAB PO STA (19:01)
[2023-05-11] MEDS: HYDROmorphone INJ 0.5 MG/0.5 ML SYR IV PRN (19:41)
[2023-05-11] MEDS ORDERED: GLUCAGON FOR INJ 1 MG VIAL SQ PRN (21:13)
[2023-05-11] MEDS ORDERED: GLUCOSE 10 TAB/TUBE PO PRN (21:13)
[2023-05-11] MEDS ORDERED: DEXTROSE 50% 50 ML SYRINGE IV PRN (21:13)
[2023-05-11] MEDS ORDERED: GLUCOSE 40% GEL 15 GM TUBE PO PRN (21:13)
[2023-05-11] MEDS ORDERED: LORazepam 0.5 MG TAB PO PRN (21:13)
[2023-05-11] MEDS ORDERED: CARBOHYDRATES FOR HYPOGLYCEMIA PO PRN (21:13)
[2023-05-11] MEDS ORDERED: MELATONIN 3 MG TAB PO ONE (21:30)
[2023-05-11] MEDS ORDERED: LANTUS PER UNIT CHARGE SC ONE (21:30)
[2023-05-11] MEDS: INSULIN ASPART PER UNIT CHARGE SC SCH (21:35)
[2023-05-11] MEDS: ACETAMINOPHEN 325 MG TAB PO SCH (22:02)
[2023-05-11] MEDS: traZODone HCL 100 MG TAB PO SCH (22:05)
[2023-05-11] MEDS: ATORVASTATIN 40 MG TAB PO SCH (22:06)
[2023-05-11] MEDS: FAMOTIDINE 20 MG TAB PO SCH (22:06)
[2023-05-11] MEDS: GABAPENTIN 400 MG CAP PO SCH (22:06)
[2023-05-11 22:16] LABS: Hematocrit (blood only) 35.9 % (42.0-52.0)
[2023-05-11] MEDS: Patient's HEIGHT &/or WEIGHT Needed SCH ×2 (22:25→22:30)
[2023-05-12] MEDS: ACETAMINOPHEN 325 MG TAB PO SCH ×6 (01:03→21:14)
[2023-05-12] MEDS: HYDROmorphone INJ 0.5 MG/0.5 ML SYR IV PRN (02:43)
[2023-05-12 02:54] LABS: Basophils # (auto) 0.08 K/uL (0.00-0.20); Basophils % (auto) 0.7 %; Eosinophils # (auto) 0.05 K/uL (0.00-0.50); Eosinophils % (auto) 0.4 %; Hematocrit (blood only) 35.6 % (42.0-52.0); Hemoglobin 11.4 g/dl (14.0-18.0); Immature Granulocytes # (auto) 0.05 K/uL (0.01-0.20); Immature Granulocytes % (auto) 0.4 %; Lymphocytes # (auto) 1.31 K/uL (1.20-3.40); Lymphocytes % (auto) 11.1 %; Mean Corpuscular Hemoglobin 27.9 pg (25.0-34.0); Mean Corpuscular Volume 87.3 fL (80.0-100.0); Mean Platelet Volume 10.6 fL (9.4-12.4); Monocytes # (auto) 1.16 K/uL (0.11-0.59); Monocytes % (auto) 9.8 %; Neutrophils # (auto) 9.14 K/uL (1.40-6.50); Neutrophils % (auto) 77.6 %; Platelet Count 306 K/uL (130-400); RDW Standard Deviation 43.7 fL (36.4-46.3); Red Blood Count 4.08 M/uL (4.70-6.10); White Blood Count 11.79 K/ul (4.8-10.8)
[2023-05-12 03:01] LABS: INR 2.3 (0.9-1.1); Prothrombin Time 23.9 Seconds (9.0-12.0)
[2023-05-12 03:10] LABS: Albumin Globulin Ratio 0.9 (0.9-2); Albumin Level 3.1 gm/dl (3.4-5.0); BUN Creatinine Ratio 21.1 (10-20); Bilirubin,Total 1.5 mg/dl (0.2-1.0); Calcium 8.3 mg/dl (8.6-10.3); Creatinine Clr Calc Pharmacy 60.4 ml/min; Est GFR (African American) 53.4 ml/min; Est GFR (Non-African American) 46.1 ml/min; Globulin 3.4 gm/dl (2.5-4.0); Potassium 4.3 mmol/L (3.5-5.1); Total Protein 6.5 gm/dl (6.0-8.3)
[2023-05-12] MEDS: GABAPENTIN 400 MG CAP PO SCH ×2 (08:53→20:19)
[2023-05-12] MEDS: VENLAFAXINE HCL XR 150 MG CAPXR PO SCH (08:53)
[2023-05-12] MEDS: FAMOTIDINE 20 MG TAB PO SCH ×2 (08:53→20:19)
[2023-05-12] MEDS: INSULIN ASPART PER UNIT CHARGE SC SCH ×4 (09:36→20:21)
[2023-05-12 12:31] LABS: Appearance Urine Clear (Clear); Bacteria Urine Automated Negative (Negative); Blood Urine Trace (Negative); Color Urine Dark Yellow; Glucose Urine UA Trace (Negative); Ketones Urine Trace (Negative); Leukocyte Esterase Urine Negative (Negative); Nitrite Urine Negative (Negative); Protein Urine 3+ (Negative); RBC Urine Automated 0-4 /hpf (0-4); Specific Gravity Urine > 1.045 (1.000-1.030); Urobilinogen Urine Negative (Negative)
[2023-05-12 12:34] LABS: Bilirubin Urine 1+ (Negative)
--- NOTE | 2023-05-12 12:36 | Hospitalist Progress Note ---
Date of Service May 12, 2023 Assessment & Plan (1) Left leg pain: Plan: -Pain control: Gabapentin (chronic), Tylenol and Dilaudid prn -Patient experienced acute worsening left LE pain 05/11 after attempting to ambulate on his LLE -INR on admission is 2.9; given therapeutic INR, continued Lovenox use, and increased pressure/use of the LLE today he likely created a new area of hemorrhage -Previously admitted 04/06-04/09 with DVT RLE. Admitted 05/01-05/08 for left gluteal hematoma, discharged on Warfarin with Lovenox Bridge -Last warfarin dose 05/10 -05/11: CT femur/pelvis shows a mildly increased left gluteal hematoma with new left obturator externus muscle hematoma - also noted "a subtle focus of increased density within the inferior aspect of the suspected left gluteal hematoma as described above. This could be due to layering clot. A small focus of active arterial extravasation is not excluded." -Hgb stable" 11.4, continue to trend -Hold all anticoagulation at this time -Hematology consulted, appreciate recs -Dr. Newton aware patient is inpatient -Outlined his visible area of bruising on admission in case there is concern for continued bleeding while admitted -OOB with assistance -BL JASPREET's for DVT PPX, hold chemical DVT PPX for now (2) Hematoma of left buttock: Plan: -See left leg pain (3) Lupus anticoagulant disorder: Plan: -Reason for systemic anticoagulation due to multiple prior clots in the past -RLE DVT admission 04/06-04/09 -Does have an IVC filter in place, per chart review was placed after DVT in Apr 2011 (4) Uncontrolled type 2 diabetes mellitus with insulin therapy: Plan: -Hgb A1c 03/2023- 9.0, which is improved from previous -Monitor BSG ACHS, goal is 110-140 -Will continue home 20 units lantus HS -Start CF of 50 ACHS -Pharmacy glycemic consult (5) Hypertension: Plan: -Slight elevations overnight, would not restart any medications at this time -Continue to monitor Plan Dispo: continued inpatient stay Admission and Anticipated Discharge Date Admission Date: May 11, 2023 Subjective Patient seen resting in bed, states pain is well controlled when he is not moving. Reports when he does get the pain in his left leg, it is sometimes sharp. He does have underlying neuropathy from his diabetes. Does not feel like the bruising is getting worse. Reports good appetite. Denies CP or SOB. tele 100-110s with PVCs Review of Systems Review of Systems: All systems reviewed & are unremarkable except as noted in Subjective Physical Exam Physical Exam: General: WN/WD, NAD, VS as above Resp: normal respiratory effort, lungs clear to auscultation CV: RRR, no murmur, no edema Abd: normal bowel sounds, non tender, no hepatosplenomegaly Extremities: Left leg with resolving bruising on thigh and calf, all of bruising within the previously outlined area. Pedal pulses intact. Pain with movement. Neuro: A&O x3, Skin: left leg bruising as above Results & Data Results & Data Vital Signs (Past 12 Hours) Vital Signs Pulse Pulse Resp BP BP Pulse Ox O2 Del Method 05/12/23 08:52 101 H 17 151/87 H 96 Room Air 05/12/23 07:38 98 H 13 133/77 94 Room Air 05/12/23 07:23 98 H 05/12/23 05:00 96 H 12 91 05/12/23 05:00 160/80 H 05/12/23 04:30 145/82 H 05/12/23 04:30 96 H 13 98 05/12/23 04:00 130/88 05/12/23 04:00 94 H 14 97 05/12/23 03:30 130/80 05/12/23 03:30 96 H 15 92 05/12/23 03:00 140/87 05/12/23 03:00 101 H 12 94 05/12/23 02:30 152/86 H 05/12/23 02:30 99 H 12 96 05/12/23 02:01 103 H 12 86 L 05/12/23 02:01 172/95 H 05/12/23 02:00 100 H 15 94 05/12/23 01:30 100 H 15 93 05/12/23 01:30 135/83 05/12/23 01:00 137/82 05/12/23 01:00 102 H 14 93 Laboratory Results CBC, CMP, PT/INR, UA reviewed PG Care Time/CCT Total # of Minutes Spent Total Time Spent with Patient: Total time spent is greater than 50% in coordination of care (as documented) at patient's floor/unit and/or counseling patient: Coding Level of Care Code 91179 SUB INP/OBS CARE 3/50MIN Diagnoses Left leg pain M79.605 Hematoma of left buttock S30.0XXA Lupus anticoagulant disorder D68.62 Uncontrolled type 2 diabetes mellitus with insulin therapy E11.65; Z79.4 Hypertension I10 Hypertension type: unspecified (5) Hypertension Hypertension type: unspecified Qualified Code(s): I10 - Essential (primary) hypertension
--- NOTE | 2023-05-12 15:54 | Oncology Consultation ---
Date of Consultation May 12, 2023 Assessment & Plan (1) Hematoma of left buttock: (2) Deep venous thrombosis of lower extremity: Plan 1. Recurrent DVT 2. Thrombophilic disorder, antiphospholipid antibody syndrome 3. Gluteal bleeding, hematoma, bleeding associated with anticoagulation This is a complicated situation given that the patient has needs for anticoagulation but also is actively bleeding which has progressed after discharge on parenteral anticoagulation with Lovenox/bridging to Coumadin. At this point my recommendation would be admission of the patient to the hospital. We should hold off all anticoagulation while we deal with the active bleeding. From a DVT standpoint I will recommend serial Dopplers of the lower extremities, which can be done q48 hours, sooner if needed; especially if he is symptomatic. Explained to the patient that he has an IVC filter in place which potentially protects against pulmonary embolism and cardiac decompensation. If we notice progression of DVT in that case my choice of anticoagulation would be a low-dose heparin protocol, titrated to Anti- Xa level of 0.1 to 0.3 international units/mL. In the light of this ongoing bleeding episode will recommend holding anticoagulation for now. Given the seriousness of the bleeding, the pain associated with it, will recommend holding anticoagulation for at least 7 to 10 days before resuming anticoagulation. The choice of anticoagulation again would be warfarin/enoxaparin given his history of antiphospholipid antibody syndrome. History of Present Illness Attending Physician: Jeovanny Rueda History of Present Illness The patient is a very pleasant 67-year-old gentleman, who is very well-known to our practice. He has a history of antiphospholipid antibody syndrome and recurrent DVTs. He was in the hospital recently and had Doppler of the lower extremities on 04/06/2023 which revealed extensive lower extremity DVT near- complete occlusive thrombus of the right femoral vein, popliteal vein, peroneal and posterior tibial veins. At that time the patient also had a bleeding episode and was noted to have bleeding in left gluteus elham, about a 10 cm size hematoma, which was confirmed on an MRI and CT scan of the left hip performed on 05/01/2023. He does have an IVC filter in place. During that admission the patient was discharged home on parenteral anticoagulation with bridging to warfarin given his complicated situation and history of antiphospholipid antibody syndrome. Yesterday the patient noticed severe pain in the left hip. He was brought to the ER. Repeat imaging was done on the same hip on 05/11/2023 which revealed worsening bleeding in the same area with new areas of bleeding. The patient has not noticed any bleeding anywhere else. He denies any blood in stool or urine. His hemoglobin has been stable. He denies any fever or chills. No blood in urine. Allergies Allergy/AdvReac Type Severity Reaction Status Date / Time lanolin Allergy Intermediate WOOL WAX Verified 05/11/23 16:51 ALCOHOL moxifloxacin Allergy Intermediate hives Verified 05/11/23 16:51 aspirin AdvReac Intermediate STOMACH Verified 05/11/23 16:51 DISTRESS SOAPCLEAN Allergy Mild DETERGENTS Uncoded 05/11/23 16:51 CAUSED RASH Home Medications Medication Instructions Recorded Confirmed Type trazodone 100 mg tablet 100 mg PO HS 11/16/18 05/11/23 History venlafaxine 150 mg 150 mg PO QAM 11/16/18 05/11/23 History capsule,extended release 24 hr lorazepam 0.5 mg tablet 0.5 mg PO Q8H PRN Anxiety #15 tabs 12/29/18 05/11/23 History famotidine 20 mg tablet 20 mg PO BID #180 tabs 06/13/22 05/11/23 Rx gabapentin 400 mg capsule 400 mg PO BID #180 caps 01/28/23 05/11/23 Rx dulaglutide 0.75 mg/0.5 mL 0.75 mg subcut WK 03/05/23 05/11/23 History subcutaneous pen injector (Trulicity) nitroglycerin 0.4 mg sublingual 0.4 mg sublingual Q5M PRN chest 03/27/23 05/11/23 Rx tablet pain #25 tabs oxycodone 5 mg tablet 5 - 10 mg (1 - 2 x 5 mg) PO Q8H 04/09/23 05/11/23 Rx PRN pain #20 tabs enoxaparin 120 mg/0.8 mL 120 mg subcut Q12H 04/14/23 05/11/23 History subcutaneous syringe (Lovenox) atorvastatin 80 mg tablet 80 mg PO QPM Hyperlipidemia #90 04/22/23 05/11/23 Rx tabs insulin glargine 100 unit/mL (3 20 unit subcut QPM 04/29/23 05/11/23 History mL) subcutaneous pen melatonin 10 mg tablet 15 mg PO HS 04/29/23 05/11/23 History warfarin 5 mg tablet 5 mg PO DAILY@1600 #10 tabs 05/08/23 05/11/23 Rx acetaminophen 500 mg tablet 1,000 mg PO Q6H PRN Pain 05/11/23 05/11/23 History (Tylenol Extra Strength) Patient History Medical History (Updated 05/11/23 @ 21:38 by Len Simmons M.D.) Right leg DVT extensive, 04/2023 Antiphospholipid syndrome Yo filter in place GERD (gastroesophageal reflux disease) PTSD (post-traumatic stress disorder) Anxiety and depression History of COVID-19 05/2021 *FLU LIKE SYMPTOMS (ALL RESOLVED) Systemic lupus erythematosus REASON FOR LOVENOX Severe sleep apnea HAS NOT USED CPAP MACHINE IN YEARS Stage III chronic kidney disease Dyslipidemia Diabetic peripheral neuropathy Diabetes mellitus type 2, uncontrolled Chronic pain syndrome Deep venous thrombosis of lower extremity (04/23/11) Hypertension Surgical History History of colonoscopy H/O inguinal hernia repair History of umbilical hernia repair History of cholecystectomy History of arthroscopy of knee History of colonoscopy Family History Unknown Brain cancer Mother Nephrolithiasis Myocardial infarction Sister Nephrolithiasis Other No family history of adverse response to anesthesia Denies family history of Ovarian cancer Prostate cancer Diabetes Coronary heart disease Breast cancer Colorectal cancer Social History Smoking Status: Current some day smoker Tobacco Type: Cigars Age Started Using Tobacco: 61; Age Quit Using Tobacco: 64; Cigarettes Per Day: one per day; Second Hand Exposure: No; Do You Dip or Chew Tobacco: No; Hx Alcohol Use: No Hx Substance Use: No Preferred Language: Armenian Communication Ability: Effective Visual Impairment: No Limitations Hearing Ability: Use of Hearing Aid Tracer Powder Blender Required: No Beliefs That Will Affect Care: None marital status: Current Living Situation: Spouse Current Living Situation Comment: needs more help than what can give current occupational status: retired 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 Other Information That Helps Us Care for You: No Feels Safe at Home: No Is there a partner from a previous relationship who is making you feel unsafe now?: No Any Concerns about Your Family Situation: No Would You Like to Speak to Someone About Your Situation: Yes Safety Concerns: Afraid for Self Childhood Exposure to Second-Hand Smoke: Yes Diet: regular caffeine: Yes Dental Care, Regularly: Yes Physical Activity Frequency: Does not Exercise Seatbelt Use: always Sunscreen Use: Yes Assistive Devices: Cane and Wheelchair Physical Exam Constitutional: WD/WN, vitals as above well developed and well nourished Eyes: normal visual ramirez by confrontation and PERRL ENMT: external ear and nose normal, oropharynx normal Neck: trachea midline, no thyromegaly Respiratory: normal respiratory effort, lungs clear to auscultation Cardiovascular: RRR, no murmur, no edema Chest (Breasts): normal inspection/palpation of breasts Gastrointestinal (Abdomen): normal bowel sounds, soft, nontender, no hepatosplenomegaly Musculoskeletal: no cyanosis or clubbing, extremities motor strength 5/5 Skin: no rashes, warm and dry Results & Data Vital Signs (Past 12 Hours) Vital Signs Pulse Pulse Resp BP BP Pulse Ox O2 Del Method 05/12/23 08:52 101 H 17 151/87 H 96 Room Air 05/12/23 07:38 98 H 13 133/77 94 Room Air 05/12/23 07:23 98 H 05/12/23 05:00 96 H 12 91 05/12/23 05:00 160/80 H 05/12/23 04:30 145/82 H 05/12/23 04:30 96 H 13 98 05/12/23 04:00 130/88 05/12/23 04:00 94 H 14 97
--- NOTE | 2023-05-12 17:39 | Ultrasound Report ---
ULTRASOUND BILATERAL LOWER EXTREMITY VENOUS CLINICAL HISTORY: Right lower extremity deep venous thrombosis. COMPARISON STUDY: Left lower extremity venous ultrasound dated 04/29/2023. Right lower extremity veno us ultrasound dated 04/06/2023. TECHNIQUE: Real-time, grayscale, and color Doppler sonography of the deep veins of the right and left lower extremity was performed from the inguinal crease to the calf. Compression and augmentation wer e utilized. FINDINGS: There is no sonographic evidence of deep venous thrombosis identified in the right or left lower extremity. The common femoral, superficial femoral, and popliteal veins are patent and normally compressible bilaterally. The right superficial femoral vein appears diminutive but is compressible with normal flow. Thrombus seen on the 04/06/2023 examination is no longer visualized. The greater sa phenous vein and the profunda femoris vein at the junction with the common femoral vein are clear in both legs. The visualized calf veins are patent bilaterally. IMPRESSION: There is no sonographic evidence of deep venous thrombosis identified in the right or lef t lower extremity. ACT 112: Negative or not required by law. Electronically signed by: Tawanda Duran M.D. 05/12/2023 5:37 PM
[2023-05-12] MEDS: traZODone HCL 100 MG TAB PO SCH (20:19)
[2023-05-12] MEDS: ATORVASTATIN 40 MG TAB PO SCH (20:19)
[2023-05-12] MEDS: LANTUS PER UNIT CHARGE SC SCH (20:21)
[2023-05-12] MEDS: MELATONIN 3 MG TAB PO SCH (23:05)
[2023-05-13] MEDS: ACETAMINOPHEN 325 MG TAB PO SCH ×3 (01:43→09:10)
[2023-05-13] MEDS ORDERED: PHARMACY GLYCEMIC MGMT CONSULT PRN (06:00)
[2023-05-13 07:02] LABS: Basophils # (auto) 0.07 K/uL (0.00-0.20); Basophils % (auto) 0.6 %; Eosinophils # (auto) 0.31 K/uL (0.00-0.50); Eosinophils % (auto) 2.6 %; Hematocrit (blood only) 31.5 % (42.0-52.0); Hemoglobin 10.5 g/dl (14.0-18.0); Immature Granulocytes # (auto) 0.06 K/uL (0.01-0.20); Immature Granulocytes % (auto) 0.5 %; Lymphocytes % (auto) 13.3 %; Mean Corpuscular Hemoglobin 28.4 pg (25.0-34.0); Mean Corpuscular Hgb Conc 33.3 g/dL (32.0-36.0); Mean Corpuscular Volume 85.1 fL (80.0-100.0); Mean Platelet Volume 10.6 fL (9.4-12.4); Monocytes # (auto) 1.27 K/uL (0.11-0.59); Monocytes % (auto) 10.6 %; Neutrophils # (auto) 8.72 K/uL (1.40-6.50); Neutrophils % (auto) 72.4 %; Platelet Count 278 K/uL (130-400); RDW Coefficient of Variation 13.9 % (11.5-14.5); RDW Standard Deviation 43.1 fL (36.4-46.3); White Blood Count 12.03 K/ul (4.8-10.8)
[2023-05-13 07:25] LABS: Albumin Globulin Ratio 0.9 (0.9-2); Albumin Level 2.9 gm/dl (3.4-5.0); BUN Creatinine Ratio 19.8 (10-20); Bilirubin,Total 1.2 mg/dl (0.2-1.0); Calcium 8.3 mg/dl (8.6-10.3); Creatinine Clr Calc Pharmacy 56.6 ml/min; Est GFR (African American) 49.5 ml/min; Est GFR (Non-African American) 42.7 ml/min; Globulin 3.3 gm/dl (2.5-4.0); Potassium 4.2 mmol/L (3.5-5.1); Total Protein 6.2 gm/dl (6.0-8.3)
[2023-05-13 07:29] LABS: INR 1.8 (0.9-1.1); Prothrombin Time 18.8 Seconds (9.0-12.0)
--- NOTE | 2023-05-13 07:48 | Hospitalist Progress Note ---
Date of Service May 13, 2023 Assessment & Plan (1) Left leg pain: Plan: -Pain control: Gabapentin (chronic), Tylenol and Dilaudid prn -Patient experienced acute worsening left LE pain 05/11 after attempting to ambulate on his LLE -INR on admission is 2.9; given therapeutic INR, continued Lovenox use, and increased pressure/use of the LLE today he likely created a new area of hemorrhage -Previously admitted 04/06-04/09 with DVT RLE. Admitted 05/01-05/08 for left gluteal hematoma, discharged on Warfarin with Lovenox Bridge -Last warfarin dose 05/10 -05/11: CT femur/pelvis shows a mildly increased left gluteal hematoma with new left obturator externus muscle hematoma - also noted "a subtle focus of increased density within the inferior aspect of the suspected left gluteal hematoma as described above. This could be due to layering clot. A small focus of active arterial extravasation is not excluded." -Hgb stable 10.5, continue to trend -Hematology consulted - Hold ALL anticoagulation for 7-10 days (last day 05/11), unless develops clot then start low-dose heparin protocol, titrated to Anti- Xa level of 0.1 to 0.3 international units/mL. - lower extremity Doppler q 48 hours - last done 05/12 - WNL - Recommended anticoagulation for discharge warfarin/enoxaparin -Dr. Newton aware patient is admitted -Outlined his visible area of bruising on admission - area continues to decrease -PT/OT -SCDs ordered (2) Hematoma of left buttock: Plan: Resolving -See left leg pain (3) Lupus anticoagulant disorder: Plan: -Reason for systemic anticoagulation due to multiple prior clots in the past -RLE DVT admission 04/06-04/09 -Does have an IVC filter in place, per chart review was placed after DVT in Apr 2011 (4) Uncontrolled type 2 diabetes mellitus with insulin therapy: Plan: -Hgb A1c 03/2023- 9.0, which is improved from previous -Monitor BSG ACHS, goal is 110-140 -Will continue home 20 units lantus HS -Start CF of 50 ACHS -Pharmacy glycemic consult (5) Hypertension: Plan: -Slight elevations overnight, would not restart any medications at this time - diltiazem, lisinopril and metoprolol d/c last admission secondary to orthostatic hypotension - suspect will need to be restarted once more ambulatory and bleeding continues to improve. Would lean towards diltiazem or metoprolol for rate control as well . Plan Dispo: continued inpatient stay Admission and Anticipated Discharge Date Admission Date: May 11, 2023 Subjective 1025 - Patient seen lying in bed. Reports that his pain in left leg has improved some, has been able to get up to the bathroom with walker, but has limited motion of the Left leg. Patient aware of plan of care. Reports very good appetite. Denies CP or SOB - does not feel his runs of PVCs. Tele - SR 90s, Overnight sinus tachycardia 100s with PVCs Review of Systems Review of Systems: All systems reviewed & are unremarkable except as noted in Subjective Physical Exam Physical Exam: General: WN/WD, NAD, VS as above Resp: normal respiratory effort, lungs clear to auscultation CV: RRR, no murmur, no edema Abd: normal bowel sounds, non tender, no hepatosplenomegaly Extremities: Left leg with resolving bruising on thigh and calf - decreases since yester., all of bruising within the previously outlined area. nontender to palpation. No bruising on left gluteal region. Pedal pulses intact. Pain with movement. Neuro: A&O x3, Skin: left leg bruising as above Results & Data Results & Data Vital Signs (Past 12 Hours) Vital Signs Temp Pulse Pulse Resp BP BP Pulse Ox 05/13/23 07:39 36.7 C 101 H 18 142/83 H 93 05/13/23 07:32 101 H 05/13/23 03:10 36.8 C 99 H 16 148/88 H 94 05/12/23 23:07 37.2 C 104 H 16 135/86 96 05/12/23 23:00 05/12/23 23:00 107 H 05/12/23 19:51 37 C 102 H 14 154/95 H 99 Pulse Ox O2 Del Method O2 Del Method 05/13/23 07:39 Room Air 05/13/23 07:32 05/13/23 03:10 Room Air 05/12/23 23:07 Room Air 05/12/23 23:00 94 Room Air 05/12/23 23:00 05/12/23 19:51 Room Air Laboratory Results CBC and chemistry, PT/INR reviewed Diagnostic Findings Venous Doppler Study 05/12/23 16:17 ULTRASOUND BILATERAL LOWER EXTREMITY VENOUS CLINICAL HISTORY: Right lower extremity deep venous thrombosis. COMPARISON STUDY: Left lower extremity venous ultrasound dated 04/29/2023. Right lower extremity venous ultrasound dated 04/06/2023. TECHNIQUE: Real-time, grayscale, and color Doppler sonography of the deep veins of the right and left lower extremity was performed from the inguinal crease to the calf. Compression and augmentation were utilized. FINDINGS: There is no sonographic evidence of deep venous thrombosis identified in the right or left lower extremity. The common femoral, superficial femoral, and popliteal veins are patent and normally compressible bilaterally. The right superficial femoral vein appears diminutive but is compressible with normal flow. Thrombus seen on the 04/06/2023 examination is no longer visualized. The greater saphenous vein and the profunda femoris vein at the junction with the common femoral vein are clear in both legs. The visualized calf veins are patent bilaterally. IMPRESSION: There is no sonographic evidence of deep venous thrombosis identified in the right or left lower extremity. ACT 112: Negative or not required by law. Electronically signed by: Tawanda Duran M.D. 05/12/2023 5:37 PM PG Care Time/CCT Total # of Minutes Spent Total Time Spent with Patient: Total time spent is greater than 50% in coordination of care (as documented) at patient's floor/unit and/or counseling patient: Coding Level of Care Code 25544 SUB INP/OBS CARE 2/35MIN Diagnoses Left leg pain M79.605 Hematoma of left buttock S30.0XXA Lupus anticoagulant disorder D68.62 Uncontrolled type 2 diabetes mellitus with insulin therapy E11.65; Z79.4 Hypertension I10 Hypertension type: unspecified (5) Hypertension Hypertension type: unspecified Qualified Code(s): I10 - Essential (primary) hypertension
[2023-05-13] MEDS: VENLAFAXINE HCL XR 150 MG CAPXR PO SCH (09:00)
[2023-05-13] MEDS: LANTUS PER UNIT CHARGE SC SCH ×2 (09:00→21:16)
[2023-05-13] MEDS: GABAPENTIN 400 MG CAP PO SCH ×2 (09:00→21:16)
[2023-05-13] MEDS: FAMOTIDINE 20 MG TAB PO SCH ×2 (09:00→21:17)
[2023-05-13] MEDS: INSULIN ASPART PER UNIT CHARGE SC SCH ×4 (09:01→21:15)
[2023-05-13] MEDS ORDERED: ACETAMINOPHEN 325 MG TAB PO PRN (11:23)
--- NOTE | 2023-05-13 12:57 | Pharmacy Report ---
Pharmacy Glycemic Short Note 2 - Date of Service May 13, 2023 - Glycemic Short BSG Results (Last 24 hours): 05/12/23 05/12/23 05/13/23 17:54 19:46 06:36 Glucose 210 H POC Glucose 198 H 224 H 05/13/23 05/13/23 07:27 11:17 Glucose POC Glucose 194 H 261 H OUTPATIENT ANTIDIABETIC REGIMEN: * A1c 9.0% 03/27/23 * Lantus 20 units QPM, Dulaglutide ASSESSMENT: * Patient admitted with bleeding after being sent home with warfarin/enoxaparin bridge for DVT. * BSGs elevated yesterday [phone] mg/dL. * Fasting this AM 194 mg/dL- gave an additional 10 units this morning, will monitor fasting * Lunch BSG elevated again today but breakfast insulin given ~2 hours before this BSG, may still be active. Will continue current novolog parameters. Will tighten if BSGs remain elevated PLAN FOR INPATIENT GLYCEMIC CONTROL: * Hold outpatient oral diabetes medications * Basal insulin * Lantus 0-10-20 units QAM per scale; 20 units qPM * Bolus insulin * NovoLog per scale ACHS or Q6hrs while NPO * Goal Range: Low 110 mg/dL - High 140 mg/dL * Correction Factor: 25 mg/dL/unit * Nutritional / Prandial insulin per carb ratio of 1 unit per 10 grams CHO consumed
--- NOTE | 2023-05-13 17:00 | Hematology/Oncology Prog Note ---
Date of Service May 13, 2023 Assessment & Plan (1) Hematoma of left buttock: (2) Deep venous thrombosis of lower extremity: Plan 1. Recurrent DVT 2. Thrombophilic disorder, antiphospholipid antibody syndrome 3. Gluteal bleeding, hematoma, bleeding associated with anticoagulation Currently on SCDs for DVT prophylaxis, has been 48 hours of anticoagulation. Doppler reviewed negative for DVT. And the question is timing of resumption of anticoagulation and the choice for anticoagulation. If we notice progression of DVT in that case my choice of anticoagulation would be a low-dose heparin protocol, titrated to Anti- Xa level of 0.1 to 0.3 international units/mL. At some point we will need to resume Lovenox/Coumadin for him. However will wait for now to get him over this episode of acute bleeding as he was readmitted and noticed worsening of the area of hematoma. Will reassess in 24 hours. His hemoglobin has dropped slightly however is holding steady. Does not need any blood transfusions as of now. Hematology will continue to follow and make appropriate recommendations. Admission and Anticipated Discharge Date Admission Date: May 13, 2023 Subjective Continues to complain of leg pain, however reports no bleeding. Reports no shortness of breath or chest pain. Reports no fever or chills s Review of Systems Review of Systems: Review of systems done, pertinent positive mentioned in HPI, complaining of leg pain Results & Data Vital Signs (Past 12 Hours) Vital Signs Temp Pulse Pulse Resp BP Pulse Ox O2 Del Method 05/13/23 16:21 99 H 05/13/23 15:42 36.5 C 55 L 18 147/80 H 93 Room Air 05/13/23 11:25 36.6 C 95 H 18 149/74 H 92 Room Air 05/13/23 07:39 36.7 C 101 H 18 142/83 H 93 Room Air 05/13/23 07:32 101 H
[2023-05-13] MEDS: traZODone HCL 100 MG TAB PO SCH (21:16)
[2023-05-13] MEDS: ATORVASTATIN 40 MG TAB PO SCH (21:17)
[2023-05-13] MEDS: MELATONIN 3 MG TAB PO SCH (22:50)
[2023-05-14] MEDS: INSULIN ASPART PER UNIT CHARGE SC SCH ×6 (00:22→20:51)
[2023-05-14] MEDS: GABAPENTIN 400 MG CAP PO SCH ×2 (08:46→20:37)
[2023-05-14] MEDS: VENLAFAXINE HCL XR 150 MG CAPXR PO SCH (08:46)
[2023-05-14] MEDS: FAMOTIDINE 20 MG TAB PO SCH ×2 (08:46→20:37)
[2023-05-14] MEDS: LANTUS PER UNIT CHARGE SC SCH (08:47)
[2023-05-14 09:13] LABS: Hematocrit (blood only) 33.7 % (42.0-52.0); Hemoglobin 11.2 g/dl (14.0-18.0); Mean Corpuscular Hemoglobin 28.6 pg (25.0-34.0); Mean Corpuscular Hgb Conc 33.2 g/dL (32.0-36.0); Mean Platelet Volume 10.9 fL (9.4-12.4); Platelet Count 326 K/uL (130-400); RDW Coefficient of Variation 13.9 % (11.5-14.5); RDW Standard Deviation 42.7 fL (36.4-46.3); Red Blood Count 3.92 M/uL (4.70-6.10); White Blood Count 11.05 K/ul (4.8-10.8)
[2023-05-14 09:22] LABS: Albumin Globulin Ratio 0.8 (0.9-2); Albumin Level 3.1 gm/dl (3.4-5.0); BUN Creatinine Ratio 19.2 (10-20); Bilirubin,Total 1.2 mg/dl (0.2-1.0); Calcium 8.6 mg/dl (8.6-10.3); Creatinine Clr Calc Pharmacy 62.2 ml/min; Est GFR (African American) 56.1 ml/min; Est GFR (Non-African American) 48.4 ml/min; Globulin 3.8 gm/dl (2.5-4.0); Potassium 3.6 mmol/L (3.5-5.1); Total Protein 6.9 gm/dl (6.0-8.3)
[2023-05-14 09:40] LABS: INR 1.3 (0.9-1.1); Prothrombin Time 13.8 Seconds (9.0-12.0)
--- NOTE | 2023-05-14 14:53 | Hospitalist Progress Note ---
Date of Service May 14, 2023 Assessment & Plan (1) Left leg pain: Plan: -Pain control: Gabapentin (chronic), Tylenol and Dilaudid prn -Patient experienced acute worsening left LE pain 05/11 after attempting to ambulate on his LLE -INR on admission is 2.9; given therapeutic INR, continued Lovenox use, and increased pressure/use of the LLE today he likely created a new area of hemorrhage -Previously admitted 04/06-04/09 with DVT RLE. Admitted 05/01-05/08 for left gluteal hematoma, discharged on Warfarin with Lovenox Bridge -Last warfarin dose 05/10 -05/11: CT femur/pelvis shows a mildly increased left gluteal hematoma with new left obturator externus muscle hematoma - also noted "a subtle focus of increased density within the inferior aspect of the suspected left gluteal hematoma as described above. This could be due to layering clot. A small focus of active arterial extravasation is not excluded." -Hgb stable 11.2, continue to trend -Hematology consulted - Hold ALL anticoagulation for 7-10 days (last day 05/11), unless develops clot then start low-dose heparin protocol, titrated to Anti- Xa level of 0.1 to 0.3 international units/mL. - Discussion with Dr. Iniguez on 05/14, may consider starting low -dose heparin protocal tomorrow as want to complete bridge to lovenox/coumadin while inpatient to prevent readmission - lower extremity Doppler q 48 hours - last done 05/14 - WNL - Recommended anticoagulation for discharge warfarin/enoxaparin -Dr. Newton aware patient is admitted -Outlined his visible area of bruising on admission - area continues to decrease -PT/OT -SCDs ordered (2) Hematoma of left buttock: Plan: Resolving -See left leg pain (3) Lupus anticoagulant disorder: Plan: -Reason for systemic anticoagulation due to multiple prior clots in the past -RLE DVT admission 04/06-04/09 -Does have an IVC filter in place, per chart review was placed after DVT in Apr 2011 (4) Uncontrolled type 2 diabetes mellitus with insulin therapy: Plan: -Hgb A1c 03/2023- 9.0, which is improved from previous -Pharmacy glycemic consult (5) Hypertension: Plan: -Slight elevations overnight, would not restart any medications at this time - diltiazem, lisinopril and metoprolol d/c last admission secondary to orthostatic hypotension - suspect will need to be restarted once more ambulatory and bleeding continues to improve. Would lean towards diltiazem or metoprolol for rate control as well . (6) Orthostatic hypotension: Plan: -problematic last admission, needed midodrine -Code purple 05/14 patient had syncopal episode in Ultrasound after standing after dopplers. Did not hit his head. -Will restart midodrine 2.5mg TID Plan Dispo: continued inpatient stay Admission and Anticipated Discharge Date Admission Date: May 13, 2023 Subjective Patient seen lying in bed. States pain is better but his movement is still limited because of his dizziness. PT/OT came to see the patient today and he could not even stand because he was so dizzy and feels like he is going to pass out. He feels dizzy when sitting up as well, but it does resolve after about 5 minutes. Of note, admission last week, was also struggling with orthostatic hypotension and was on midodrine for some of his stay. No pain in the leg. Good appetite. Denies CP or SOB. Physical Exam 2 Physical Exam: General: WN/WD, NAD, VS as above Resp: normal respiratory effort, lungs clear to auscultation CV: RRR, no murmur, no edema Abd: normal bowel sounds, non tender, no hepatosplenomegaly Extremities: Left leg with resolving bruising on thigh and calf - decreases since yester., all of bruising within the previously outlined area. nontender to palpation. No bruising on left gluteal region. Pedal pulses intact. Pain with movement. Neuro: A&O x3, Skin: left leg bruising as above Results & Data Results & Data Vital Signs (Past 12 Hours) Vital Signs Temp Pulse Pulse Resp BP BP Pulse Ox 05/14/23 12:03 36.6 C 104 H 16 145/90 H 96 05/14/23 08:24 36.7 C 90 16 147/91 H 95 05/14/23 07:31 98 H 05/14/23 03:48 36.6 C 84 16 146/82 H 94 O2 Del Method 05/14/23 12:03 Room Air 05/14/23 08:24 Room Air 05/14/23 07:31 05/14/23 03:48 Room Air Laboratory Results Reviewed CBC, Chemistry, INR Diagnostic Findings Venous Doppler Study 05/14/23 11:00 US venous doppler LE BI CLINICAL HISTORY: r/o DVT TECHNIQUE: Right lower extremity real-time compression venous ultrasound with Color Doppler imaging. Utilizing real-time ultrasonic imaging multiple real time high-resolution ultrasonic images with compression and noncompression maneuvers of the deep venous system in addition to color doppler imaging were performed from the common femoral vein through the proximal calf veins. COMPARISON: Comparison is made to a venous ultrasound 05/12/2023 FINDINGS/IMPRESSION: Minimal chronic appearing nonocclusive thrombus is seen in the right common femoral vein superficial femoral vein. This may have been present in the prior exam but not appreciated time of exam. No superficial venous thrombosis is identified. ACT 112: Negative or not required by law. Electronically signed by: Tim Smith M.D. 05/14/2023 5:27 PM PG Care Time/CCT Total # of Minutes Spent Total Time Spent with Patient: Total time spent is greater than 50% in coordination of care (as documented) at patient's floor/unit and/or counseling patient: Coding Level of Care Code 25917 SUB INP/OBS CARE 3/50MIN Diagnoses Left leg pain M79.605 Hematoma of left buttock S30.0XXA Lupus anticoagulant disorder D68.62 Uncontrolled type 2 diabetes mellitus with insulin therapy E11.65; Z79.4 Hypertension I10 Hypertension type: unspecified Orthostatic hypotension I95.1 (5) Hypertension Hypertension type: unspecified Qualified Code(s): I10 - Essential (primary) hypertension
[2023-05-14] MEDS: MIDODRINE HCL 2.5 MG TAB PO SCH (17:24)
--- NOTE | 2023-05-14 17:29 | Ultrasound Report ---
US venous doppler LE BI CLINICAL HISTORY: r/o DVT TECHNIQUE: Right lower extremity real-time compression venous ultrasound with Color Doppler imaging. Utilizing real-time ultrasonic imaging multiple real time high-resolution ultrasonic images with comp ression and noncompression maneuvers of the deep venous system in addition to color doppler imaging w ere performed from the common femoral vein through the proximal calf veins. COMPARISON: Comparison is made to a venous ultrasound 05/12/2023 FINDINGS/IMPRESSION: Minimal chronic appearing nonocclusive thrombus is seen in the right common femoral vein superficial femoral vein. This may have been present in the prior exam but not appreciated time of exam. No super ficial venous thrombosis is identified. ACT 112: Negative or not required by law. Electronically signed by: Tim Smith M.D. 05/14/2023 5:27 PM
[2023-05-14] MEDS ORDERED: Heparin IV Adult Wt-Based Low-Dose w/ INITIAL Bolus Protocol IV STA (19:15)
[2023-05-14 19:48] LABS: Basophils # (auto) 0.05 K/uL (0.00-0.20); Basophils % (auto) 0.4 %; Eosinophils # (auto) 0.23 K/uL (0.00-0.50); Hematocrit (blood only) 32.7 % (42.0-52.0); Hemoglobin 10.7 g/dl (14.0-18.0); Immature Granulocytes # (auto) 0.05 K/uL (0.01-0.20); Immature Granulocytes % (auto) 0.4 %; Lymphocytes # (auto) 1.46 K/uL (1.20-3.40); Lymphocytes % (auto) 12.8 %; Mean Corpuscular Hemoglobin 28.6 pg (25.0-34.0); Mean Corpuscular Hgb Conc 32.7 g/dL (32.0-36.0); Mean Corpuscular Volume 87.4 fL (80.0-100.0); Mean Platelet Volume 10.7 fL (9.4-12.4); Monocytes # (auto) 1.13 K/uL (0.11-0.59); Monocytes % (auto) 9.9 %; Neutrophils % (auto) 74.5 %; Platelet Count 305 K/uL (130-400); RDW Standard Deviation 44.9 fL (36.4-46.3); Red Blood Count 3.74 M/uL (4.70-6.10); White Blood Count 11.42 K/ul (4.8-10.8)
[2023-05-14] MEDS ORDERED: HEPARIN SODIUM/DEXTROSE 25,000 UNITS/500 ML BAG IV SCH (20:10)
[2023-05-14] MEDS ORDERED: HEPARIN SOD (PORCINE) 1000 UNIT/ML IV ONE (20:15)
[2023-05-14 20:20] LABS: INR 1.2 (0.9-1.1); Partial Thromboplastin Ratio 1.3; Partial Thromboplastin Time 36 Seconds (21-31); Prothrombin Time 13.1 Seconds (9.0-12.0)
[2023-05-14] MEDS: MELATONIN 3 MG TAB PO SCH (20:37)
[2023-05-14] MEDS: traZODone HCL 100 MG TAB PO SCH (20:37)
[2023-05-14] MEDS: ATORVASTATIN 40 MG TAB PO SCH (20:37)
[2023-05-14] MEDS ORDERED: LANTUS PER UNIT CHARGE SC SCH (21:00)
[2023-05-15 03:34] LABS: INR 1.2 (0.9-1.1); Prothrombin Time 13.2 Seconds (9.0-12.0)
[2023-05-15] MEDS: INSULIN ASPART PER UNIT CHARGE SC SCH ×4 (08:18→20:50)
[2023-05-15] MEDS: VENLAFAXINE HCL XR 150 MG CAPXR PO SCH (08:19)
[2023-05-15] MEDS: FAMOTIDINE 20 MG TAB PO SCH ×2 (08:19→20:49)
[2023-05-15] MEDS: GABAPENTIN 400 MG CAP PO SCH ×2 (08:19→20:48)
[2023-05-15] MEDS: MIDODRINE HCL 2.5 MG TAB PO SCH ×3 (08:20→16:43)
[2023-05-15 08:54] LABS: Hematocrit (blood only) 32.9 % (42.0-52.0); Hemoglobin 10.8 g/dl (14.0-18.0); Mean Corpuscular Hemoglobin 28.3 pg (25.0-34.0); Mean Corpuscular Hgb Conc 32.8 g/dL (32.0-36.0); Mean Corpuscular Volume 86.4 fL (80.0-100.0); Mean Platelet Volume 10.8 fL (9.4-12.4); Platelet Count 317 K/uL (130-400); RDW Coefficient of Variation 13.9 % (11.5-14.5); RDW Standard Deviation 42.8 fL (36.4-46.3); Red Blood Count 3.81 M/uL (4.70-6.10); White Blood Count 12.54 K/ul (4.8-10.8)
[2023-05-15 09:10] LABS: BUN Creatinine Ratio 20.4 (10-20); Calcium 8.5 mg/dl (8.6-10.3); Creatinine Clr Calc Pharmacy 62.1 ml/min; Est GFR (African American) 55.6 ml/min; Potassium 3.8 mmol/L (3.5-5.1)
--- NOTE | 2023-05-15 13:37 | Pharmacy Report ---
Pharmacy Glycemic Short Note 2 - Date of Service May 15, 2023 - Glycemic Short BSG Results (Last 24 hours): 05/14/23 05/14/23 05/15/23 16:12 20:45 07:19 Glucose POC Glucose 218 H 162 H 94 05/15/23 05/15/23 08:32 10:58 Glucose 98 POC Glucose 136 H OUTPATIENT ANTIDIABETIC REGIMEN: * A1c 9.0% 03/27/23 * Lantus 20 units QPM, Dulaglutide ASSESSMENT: 05/15: * BSGs [phone] mg/dL with 30 units of basal, 19 units of bolus * BSGs lower this morning, fasting 94 mg/dL- reduce lantus for this evening * Lunch BSG improved today. Will continue same novolog parameters for now 05/13 * Patient admitted with bleeding after being sent home with warfarin/enoxaparin bridge for DVT. * BSGs elevated yesterday [phone] mg/dL. * Fasting this AM 194 mg/dL- gave an additional 10 units this morning, will monitor fasting * Lunch BSG elevated again today but breakfast insulin given ~2 hours before this BSG, may still be active. Will continue current novolog parameters. Will tighten if BSGs remain elevated PLAN FOR INPATIENT GLYCEMIC CONTROL: * Hold outpatient oral diabetes medications * Basal insulin * Lantus 25 units qPM * Bolus insulin * NovoLog per scale ACHS or Q6hrs while NPO * Goal Range: Low 110 mg/dL - High 140 mg/dL * Correction Factor: 25 mg/dL/unit * Nutritional / Prandial insulin per carb ratio of 1 unit per 10 grams CHO consumed
--- NOTE | 2023-05-15 13:55 | Hospitalist Progress Note ---
Date of Service May 15, 2023 Assessment & Plan (1) Left leg pain: Plan: -Pain control: Gabapentin (chronic), Tylenol and Dilaudid prn -Patient experienced acute worsening left LE pain 05/11 after attempting to ambulate on his LLE -INR on admission is 2.9; given therapeutic INR, continued Lovenox use, and increased pressure/use of the LLE today he likely created a new area of hemorrhage -Previously admitted 04/06-04/09 with DVT RLE. Admitted 05/01-05/08 for left gluteal hematoma, discharged on Warfarin with Lovenox Bridge -05/11: CT femur/pelvis shows a mildly increased left gluteal hematoma with new left obturator externus muscle hematoma - also noted "a subtle focus of increased density within the inferior aspect of the suspected left gluteal hematoma as described above. This could be due to layering clot. A small focus of active arterial extravasation is not excluded." -Hgb stable, continue to trend -Hematology consulted - Discussion with Dr. Iniguez on 05/14, started low-dose heparin protocol after concern for clot on Doppler - Discussion 05/15 Plan to transition to PO anticoagulation, will start Coumadin 5mg tonight and switch to full dose heparin - Recommended anticoagulation for discharge warfarin/enoxaparin -Outlined his visible area of bruising on admission - area continues to decrease -PT/OT (2) Hematoma of left buttock: Plan: Resolving -See left leg pain (3) Lupus anticoagulant disorder: Plan: -Reason for systemic anticoagulation due to multiple prior clots in the past -RLE DVT admission 04/06-04/09 -Does have an IVC filter in place, per chart review was placed after DVT in Apr 2011 (4) Uncontrolled type 2 diabetes mellitus with insulin therapy: Plan: -Hgb A1c 03/2023- 9.0, which is improved from previous -Pharmacy glycemic consult * Lantus 25 units qPM * Goal Range: Low 110 mg/dL - High 140 mg/dL * Correction Factor: 25 mg/dL/unit * Nutritional / Prandial insulin per carb ratio of 1 unit per 10 grams CHO consumed (5) Hypertension: Plan: -Slight elevations overnight, would not restart any medications at this time - diltiazem, lisinopril and metoprolol d/c last admission secondary to orthostatic hypotension - suspect will need to be restarted once more ambulatory and bleeding continues to improve. Would lean towards diltiazem or metoprolol for rate control as well . (6) Orthostatic hypotension: Plan: -problematic last admission, needed midodrine -Code purple 05/14 patient had syncopal episode in Ultrasound after standing after dopplers. Did not hit his head. - continue midodrine 2.5mg TID - will check orthostatic vitals, consider increasing dose of midodrine (7) Stage III chronic kidney disease: Plan: Creatine stable - Would avoid lisinopril if possible Plan Dispo: continued inpatient stay Admission and Anticipated Discharge Date Admission Date: May 13, 2023 Supervising Physician Co-Signing Physician Notes Attending Attestation - Chart reviewed, care plan d/w FINN Good. I agree w/ the barroso components of her documentation. Lauro Valenzuela MD Subjective patient seen sitting up in bed. States that he can tell his left leg is starting to feel better, he is able to lift it more in the bed now than he used to be able to yesterday. States that he when he got up to the bathroom, he did feel dizzy and like he was going to pass out, but that did resolve much quicker than prior days. reports good appetite. denies chest pain or shortness of breath. Tele - SR with [facility] 90-100 Review of Systems Review of Systems: All systems reviewed & are unremarkable except as noted in Subjective Physical Exam Physical Exam: General: WN/WD, NAD, VS as above Resp: normal respiratory effort, lungs clear to auscultation CV: RRR, no murmur, no edema Abd: normal bowel sounds, non tender, no hepatosplenomegaly Extremities: Left leg with resolving bruising on thigh and calf - decreases since yesterday. nontender to palpation. Pedal pulses intact. Pain with movement. Neuro: A&O x3, Skin: left leg bruising as above Results & Data Results & Data Vital Signs (Past 12 Hours) Vital Signs Temp Pulse Resp BP BP Pulse Ox O2 Del Method 05/15/23 12:11 36.6 C 91 H 19 159/96 H 94 Room Air 05/15/23 09:54 Room Air 05/15/23 08:11 36.6 C 101 H 19 167/95 H 95 Room Air 05/15/23 03:00 36.7 C 97 H 19 157/75 H 94 Room Air Laboratory Results CBC, PT/INR, and chemistry reviewed PG Care Time/CCT Total # of Minutes Spent Total Time Spent with Patient: Total time spent is greater than 50% in coordination of care (as documented) at patient's floor/unit and/or counseling patient: Coding Level of Care Code 11139 SUB INP/OBS CARE 3/50MIN Diagnoses Left leg pain M79.605 Hematoma of left buttock S30.0XXA Lupus anticoagulant disorder D68.62 Uncontrolled type 2 diabetes mellitus with insulin therapy E11.65; Z79.4 Hypertension I10 Hypertension type: unspecified Orthostatic hypotension I95.1 Stage 3b chronic kidney disease N18.32 Chronic kidney disease stage 3 subtype: stage 3b (GFR 30-44) (5) Hypertension Hypertension type: unspecified Qualified Code(s): I10 - Essential (primary) hypertension (7) Stage III chronic kidney disease Chronic kidney disease stage 3 subtype: stage 3b (GFR 30-44) Qualified Code(s): N18.32 - Chronic kidney disease, stage 3b
--- NOTE | 2023-05-15 14:45 | Hematology/Oncology Prog Note ---
Date of Service May 15, 2023 Assessment & Plan (1) Hematoma of left buttock: (2) Deep venous thrombosis of lower extremity: Plan 1. Recurrent DVT 2. Thrombophilic disorder, antiphospholipid antibody syndrome 3. Gluteal bleeding, hematoma, bleeding associated with anticoagulation Reinitiated low-dose heparin protocol yesterday, after the repeat Doppler. He has been tolerating it well. Hemoglobin staying steady. Will recommend initiation of Coumadin as well so that he can be transition to outpatient once he is therapeutic with INR. Can be done here under safe monitoring while his hemoglobin is monitored. Disposition [place] I will leave that to our colleagues at hospital medicine to decide whether the patient is fit for discharge or not. Admission and Anticipated Discharge Date Admission Date: May 13, 2023 Subjective Doing better this a.m., pain is improved. Reports no active bleeding. Reports no fever or chills. Was able to eat normally. Left leg pain has improved significantly Review of Systems Review of Systems: Review of systems done, pertinent positive mentioned in HPI, complaining of leg pain Physical Exam Constitutional: WD/WN, vitals as above well developed and well nourished Eyes: normal visual ramirez by confrontation and PERRL ENMT: external ear and nose normal, oropharynx normal Neck: trachea midline, no thyromegaly Respiratory: normal respiratory effort, lungs clear to auscultation Cardiovascular: RRR, no murmur, no edema Chest (Breasts): normal inspection/palpation of breasts Gastrointestinal (Abdomen): normal bowel sounds, soft, nontender, no hepatosplenomegaly Musculoskeletal: no cyanosis or clubbing, extremities motor strength 5/5 Skin: no rashes, warm and dry Results & Data Vital Signs (Past 12 Hours) Vital Signs Temp Pulse Resp BP BP Pulse Ox O2 Del Method 05/15/23 12:11 36.6 C 91 H 19 159/96 H 94 Room Air 05/15/23 09:54 Room Air 05/15/23 08:11 36.6 C 101 H 19 167/95 H 95 Room Air 05/15/23 03:00 36.7 C 97 H 19 157/75 H 94 Room Air
[2023-05-15] MEDS ORDERED: Heparin IV Adult Wt-Based Standard *NO* INITIAL Bolus Protocol IV STA (17:10)
[2023-05-15] MEDS: WARFARIN SOD 5 MG TAB PO SCH (18:38)
[2023-05-15] MEDS: ATORVASTATIN 40 MG TAB PO SCH (20:48)
[2023-05-15] MEDS: traZODone HCL 100 MG TAB PO SCH (20:49)
[2023-05-15] MEDS: LANTUS PER UNIT CHARGE SC SCH (20:54)
[2023-05-15] MEDS: MELATONIN 3 MG TAB PO SCH (20:54)
[2023-05-15 21:02] LABS: ANTI-Xa, UFH(UnfractionatedHep 0.36 IU/ml (0.3-0.7)
[2023-05-15] MEDS: HEPARIN SODIUM/DEXTROSE 25,000 UNITS/500 ML BAG IV SCH (21:44)
[2023-05-16 07:06] LABS: Basophils # (auto) 0.12 K/uL (0.00-0.20); Eosinophils # (auto) 0.56 K/uL (0.00-0.50); Eosinophils % (auto) 4.8 %; Hematocrit (blood only) 32.1 % (42.0-52.0); Hemoglobin 11.3 g/dl (14.0-18.0); Immature Granulocytes # (auto) 0.07 K/uL (0.01-0.20); Immature Granulocytes % (auto) 0.6 %; Lymphocytes # (auto) 2.24 K/uL (1.20-3.40); Lymphocytes % (auto) 19.1 %; Mean Corpuscular Hgb Conc 35.2 g/dL (32.0-36.0); Mean Corpuscular Volume 85.1 fL (80.0-100.0); Mean Platelet Volume 10.7 fL (9.4-12.4); Monocytes # (auto) 1.12 K/uL (0.11-0.59); Monocytes % (auto) 9.5 %; Neutrophils # (auto) 7.63 K/uL (1.40-6.50); Platelet Count 343 K/uL (130-400); RDW Coefficient of Variation 14.1 % (11.5-14.5); RDW Standard Deviation 43.5 fL (36.4-46.3); Red Blood Count 3.77 M/uL (4.70-6.10); White Blood Count 11.74 K/ul (4.8-10.8)
[2023-05-16 07:20] LABS: BUN Creatinine Ratio 19.9 (10-20); Calcium 8.4 mg/dl (8.6-10.3); Creatinine Clr Calc Pharmacy 61.6 ml/min; Est GFR (African American) 56.1 ml/min; Est GFR (Non-African American) 48.4 ml/min
[2023-05-16 07:26] LABS: ANTI-Xa, UFH(UnfractionatedHep 0.26 IU/ml (0.3-0.7); INR 1.1 (0.9-1.1); Prothrombin Time 12.2 Seconds (9.0-12.0)
[2023-05-16] MEDS: VENLAFAXINE HCL XR 150 MG CAPXR PO SCH (08:12)
[2023-05-16] MEDS: MIDODRINE HCL 2.5 MG TAB PO SCH ×3 (08:13→16:30)
[2023-05-16] MEDS: FAMOTIDINE 20 MG TAB PO SCH ×2 (08:13→20:01)
[2023-05-16] MEDS: GABAPENTIN 400 MG CAP PO SCH ×2 (08:14→20:00)
[2023-05-16] MEDS: INSULIN ASPART PER UNIT CHARGE SC SCH ×4 (08:16→20:08)
--- NOTE | 2023-05-16 12:14 | Pharmacy Report ---
Pharmacy Glycemic Short Note 2 - Date of Service May 16, 2023 - Glycemic Short BSG Results (Last 24 hours): 05/15/23 05/15/23 05/16/23 15:52 20:05 06:47 Glucose 113 H POC Glucose 157 H 129 H 05/16/23 05/16/23 07:32 11:10 Glucose POC Glucose 119 H 162 H OUTPATIENT ANTIDIABETIC REGIMEN: * Lantus 20 units SC HS * Trulicity 0.75 mg SC every Friday * HbA1c: 9.0% (03/27/23) ASSESSMENT: 05/16: * Abdiaziz received 35 units of insulin yesterday, 25 units basal + 10 units bolus. BSGs were: [phone] mg/dL. * Fasting BSG improved to 119 mg/dL this AM after reducing basal dose yesterday. Continue with reduced dose. * No change to Novolog necessary. Remains on heparin drip. 05/15: * BSGs [phone] mg/dL with 30 units of basal, 19 units of bolus * BSGs lower this morning, fasting 94 mg/dL- reduce lantus for this evening * Lunch BSG improved today. Will continue same novolog parameters for now 05/13: * Patient admitted with bleeding after being sent home with warfarin/enoxaparin bridge for DVT. * BSGs elevated yesterday [phone] mg/dL. * Fasting this AM 194 mg/dL- gave an additional 10 units this morning, will monitor fasting * Lunch BSG elevated again today but breakfast insulin given ~2 hours before this BSG, may still be active. Will continue current novolog parameters. Will tighten if BSGs remain elevated PLAN FOR INPATIENT GLYCEMIC CONTROL: * Hold outpatient GLP1-RA * Basal insulin * Lantus 25 units SC HS * Bolus insulin * NovoLog per scale ACHS or Q6hrs while NPO * Goal Range: Low 110 mg/dL - High 140 mg/dL * Correction Factor: 25 mg/dL/unit * Nutritional / Prandial insulin per carb ratio of 1 unit per 10 grams CHO consumed
--- NOTE | 2023-05-16 12:42 | Hospitalist Progress Note ---
Date of Service May 16, 2023 Assessment & Plan (1) Left leg pain: Plan: -Patient experienced acute worsening left LE pain 05/11 after attempting to ambulate on his LLE -INR on admission is 2.9; given therapeutic INR, continued Lovenox use, and increased pressure/use of the LLE today he likely created a new area of hemorrhage -Previously admitted 04/06-04/09 with DVT RLE. Admitted 05/01-05/08 for left gluteal hematoma, discharged on Warfarin with Lovenox Bridge -05/11: CT femur/pelvis shows a mildly increased left gluteal hematoma with new left obturator externus muscle hematoma - also noted "a subtle focus of increased density within the inferior aspect of the suspected left gluteal hematoma as described above. This could be due to layering clot. A small focus of active arterial extravasation is not excluded." -Hgb stable, continue to trend -Hematology consulted - Discussion with Dr. Iniguez on 05/14, started low-dose heparin protocol after concern for clot on Doppler - Discussion 05/15 Plan to transition to PO anticoagulation, will start Coumadin 5mg tonight and switch to full dose heparin. INR goal 2-3 - Recommended anticoagulation for discharge [facility] -Outlined his visible area of bruising on admission - area continues to decrease -Continue home Gabapentin -PT/OT (2) Hematoma of left buttock: Plan: Resolving -See left leg pain (3) Lupus anticoagulant disorder: Plan: -Reason for systemic anticoagulation due to multiple prior clots in the past -RLE DVT admission 04/06-04/09 -Does have an IVC filter in place, per chart review was placed after DVT in Apr 2011 (4) Uncontrolled type 2 diabetes mellitus with insulin therapy: Plan: -Hgb A1c 03/2023- 9.0, which is improved from previous -Pharmacy glycemic consult * Lantus 25 units qPM * Goal Range: Low 110 mg/dL - High 140 mg/dL * Correction Factor: 25 mg/dL/unit * Nutritional / Prandial insulin per carb ratio of 1 unit per 10 grams CHO consumed (5) Hypertension: Plan: -Slight elevations overnight, would not restart any medications at this time - diltiazem, lisinopril and metoprolol d/c last admission secondary to orthostatic hypotension - suspect will need to be restarted once more ambulatory and bleeding continues to improve. Would lean towards diltiazem or metoprolol for rate control as well . (6) Orthostatic hypotension: Plan: -problematic last admission, needed midodrine -Code purple 05/14 patient had syncopal episode in Ultrasound after standing after dopplers. Did not hit his head. - continue midodrine TID --> positive orthostatic vitals, will increase dose to 5mg (7) Stage III chronic kidney disease: Plan: Creatine stable - Would avoid lisinopril if possible Plan Dispo: continued inpatient stay until INR therapeutic Admission and Anticipated Discharge Date Admission Date: May 13, 2023 Supervising Physician Co-Signing Physician Notes Attending Attestation - Chart reviewed, care plan d/w FINN Good. I agree w/ the barroso components of her documentation. Lauro Valenzuela MD Subjective Patient sitting up in bed. Reports continues to feel better, no pain in the leg and is able to move more. Still getting seconds of dizziness when he stands, but then resolves. Good appetite. Denies CP or SOB Tele - SR PACs/PVCs 70-100, some bigemny overnight Review of Systems Review of Systems: All systems reviewed & are unremarkable except as noted in Subjective Physical Exam Physical Exam: General: WN/WD, NAD, VS as above Resp: normal respiratory effort, lungs clear to auscultation CV: RRR, no murmur, no edema Abd: normal bowel sounds, non tender, no hepatosplenomegaly Extremities: Left leg with resolving bruising on thigh and calf. nontender to palpation. Pedal pulses intact. Neuro: A&O x3, Skin: left leg bruising as above Results & Data Results & Data Vital Signs (Past 12 Hours) Vital Signs Temp Pulse Pulse Resp BP Pulse Ox O2 Del Method 05/16/23 11:28 36.6 C 81 19 131/82 95 Room Air 05/16/23 10:04 Room Air 05/16/23 07:38 36.3 C L 96 H 18 160/93 H 96 Room Air 05/16/23 07:20 98 H 05/16/23 05:02 36.3 C L 100 H 18 145/82 H 95 Room Air Laboratory Results CBC, chemistry and coagulation studies reviewed. PG Care Time/CCT Total # of Minutes Spent Total Time Spent with Patient: Total time spent is greater than 50% in coordination of care (as documented) at patient's floor/unit and/or counseling patient: Coding Level of Care Code 56162 SUB INP/OBS CARE 2/35MIN Diagnoses Left leg pain M79.605 Hematoma of left buttock S30.0XXA Lupus anticoagulant disorder D68.62 Uncontrolled type 2 diabetes mellitus with insulin therapy E11.65; Z79.4 Hypertension I10 Hypertension type: unspecified Orthostatic hypotension I95.1 Stage 3b chronic kidney disease N18.32 Chronic kidney disease stage 3 subtype: stage 3b (GFR 30-44) (5) Hypertension Hypertension type: unspecified Qualified Code(s): I10 - Essential (primary) hypertension (7) Stage III chronic kidney disease Chronic kidney disease stage 3 subtype: stage 3b (GFR 30-44) Qualified Code(s): N18.32 - Chronic kidney disease, stage 3b
[2023-05-16] MEDS: WARFARIN SOD 5 MG TAB PO SCH (16:29)
--- NOTE | 2023-05-16 18:49 | Hematology/Oncology Prog Note ---
Date of Service May 16, 2023 Assessment & Plan (1) Hematoma of left buttock: (2) Deep venous thrombosis of lower extremity: Plan 1. Recurrent DVT 2. Thrombophilic disorder, antiphospholipid antibody syndrome 3. Gluteal bleeding, hematoma, bleeding associated with anticoagulation Currently on heparin and being transitioned to Coumadin. Hematology will continue to follow and make appropriate recommendations. At this point there is no signs symptoms of repeat bleeding. Discharge per our colleagues from hospital medicine. Admission and Anticipated Discharge Date Admission Date: May 13, 2023 Subjective Currently doing well, reports no active bleeding or bruising. hemoglobin staying steady Review of Systems Review of Systems: All systems reviewed & are unremarkable except as noted in HPI & below Physical Exam Constitutional: WD/WN, vitals as above well developed and well nourished Eyes: normal visual ramirez by confrontation and PERRL ENMT: external ear and nose normal, oropharynx normal Neck: trachea midline, no thyromegaly Respiratory: normal respiratory effort, lungs clear to auscultation Cardiovascular: RRR, no murmur, no edema Chest (Breasts): normal inspection/palpation of breasts Gastrointestinal (Abdomen): normal bowel sounds, soft, nontender, no hepatosplenomegaly Musculoskeletal: no cyanosis or clubbing, extremities motor strength 5/5 Skin: no rashes, warm and dry Results & Data Vital Signs (Past 12 Hours) Vital Signs Temp Pulse Pulse Resp BP Pulse Ox O2 Del Method 05/16/23 15:30 36.5 C 91 H 18 132/81 96 Room Air 05/16/23 14:01 91 H 05/16/23 11:28 36.6 C 81 19 131/82 95 Room Air 05/16/23 10:04 Room Air 05/16/23 07:38 36.3 C L 96 H 18 160/93 H 96 Room Air 05/16/23 07:20 98 H
[2023-05-16] MEDS: traZODone HCL 100 MG TAB PO SCH (20:00)
[2023-05-16] MEDS: ATORVASTATIN 40 MG TAB PO SCH (20:00)
[2023-05-16] MEDS: LANTUS PER UNIT CHARGE SC SCH (20:08)
[2023-05-16] MEDS: MELATONIN 3 MG TAB PO SCH (20:08)
[2023-05-16] MEDS: HEPARIN SODIUM/DEXTROSE 25,000 UNITS/500 ML BAG IV SCH (21:38)
[2023-05-17 07:21] LABS: Hematocrit (blood only) 33.4 % (42.0-52.0); Hemoglobin 11.2 g/dl (14.0-18.0); Mean Corpuscular Hemoglobin 28.6 pg (25.0-34.0); Mean Corpuscular Hgb Conc 33.5 g/dL (32.0-36.0); Mean Corpuscular Volume 85.4 fL (80.0-100.0); Mean Platelet Volume 10.3 fL (9.4-12.4); Platelet Count 350 K/uL (130-400); RDW Coefficient of Variation 13.9 % (11.5-14.5); RDW Standard Deviation 42.8 fL (36.4-46.3); Red Blood Count 3.91 M/uL (4.70-6.10); White Blood Count 11.02 K/ul (4.8-10.8)
[2023-05-17 07:40] LABS: BUN Creatinine Ratio 18.3 (10-20); Calcium 8.7 mg/dl (8.6-10.3); Creatinine Clr Calc Pharmacy 60.4 ml/min; Est GFR (Non-African American) 45.7 ml/min; Potassium 3.9 mmol/L (3.5-5.1)
[2023-05-17] MEDS: GABAPENTIN 400 MG CAP PO SCH ×2 (07:50→21:16)
[2023-05-17] MEDS: VENLAFAXINE HCL XR 150 MG CAPXR PO SCH (07:50)
[2023-05-17] MEDS: FAMOTIDINE 20 MG TAB PO SCH ×2 (07:50→21:15)
[2023-05-17] MEDS: MIDODRINE HCL 2.5 MG TAB PO SCH ×3 (07:51→16:52)
[2023-05-17] MEDS: INSULIN ASPART PER UNIT CHARGE SC SCH ×4 (07:55→21:11)
[2023-05-17 08:12] LABS: ANTI-Xa, UFH(UnfractionatedHep 0.32 IU/ml (0.3-0.7)
[2023-05-17 08:56] LABS: INR 1.2 (0.9-1.1); Prothrombin Time 13.5 Seconds (9.0-12.0)
--- NOTE | 2023-05-17 12:05 | Hematology/Oncology Prog Note ---
Date of Service May 17, 2023 Assessment & Plan (1) Hematoma of left buttock: (2) Deep venous thrombosis of lower extremity: Plan 1. Recurrent DVT 2. Thrombophilic disorder, antiphospholipid antibody syndrome 3. Gluteal bleeding, hematoma, bleeding associated with anticoagulation Currently on heparin, being bridged to Coumadin. He is on the low-dose heparin protocol, INR still not therapeutic. Continue the same treatment. Discharge per our colleagues from hospital medicine. Thank you for this interesting hematological consult. Hematology will continue to follow the patient and make appropriate recommendations. Admission and Anticipated Discharge Date Admission Date: May 13, 2023 Subjective Chaparro reports slight pain when he gets up in the left leg. However the pain is not worsening. Reports no active bleeding or bruising. Reports no fever chills or night sweats. Reports no nausea or vomiting. Reports no headache. Review of Systems Review of Systems: Review of systems done, pertinent positive mentioned in HPI, complaining of leg pain Results & Data Vital Signs (Past 12 Hours) Vital Signs Temp Pulse Pulse Resp BP BP Pulse Ox 05/17/23 11:12 85 18 152/86 H 96 05/17/23 08:34 05/17/23 07:32 37.0 C 100 H 18 146/92 H 94 05/17/23 07:17 103 H 05/17/23 02:48 36.4 C L 100 H 18 131/80 94 05/17/23 00:04 O2 Del Method 05/17/23 11:12 Room Air 05/17/23 08:34 Room Air 05/17/23 07:32 Room Air 05/17/23 07:17 05/17/23 02:48 Room Air 05/17/23 00:04 Room Air
[2023-05-17] MEDS ORDERED: DOCUSATE SODIUM/SENNA 50/8.6MG TAB PO PRN (12:44)
[2023-05-17] MEDS ORDERED: POLYETHYLENE (MIRALAX) 17 GM PACK PO PRN (12:44)
[2023-05-17] MEDS ORDERED: WARFARIN SOD 10 MG TAB PO ONE (14:59)
--- NOTE | 2023-05-17 15:28 | Hospitalist Progress Note ---
Date of Service May 17, 2023 Assessment & Plan (1) Left leg pain: Plan: -Patient experienced acute worsening left LE pain 05/11 after attempting to ambulate on his LLE -INR on admission is 2.9; given therapeutic INR, continued Lovenox use, and increased pressure/use of the LLE today he likely created a new area of hemorrhage -Previously admitted 04/06-04/09 with DVT RLE. Admitted 05/01-05/08 for left gluteal hematoma, discharged on Warfarin with Lovenox Bridge -05/11: CT femur/pelvis shows a mildly increased left gluteal hematoma with new left obturator externus muscle hematoma - also noted "a subtle focus of increased density within the inferior aspect of the suspected left gluteal hematoma as described above. This could be due to layering clot. A small focus of active arterial extravasation is not excluded." -Hgb stable, continue to trend -Hematology consulted - Discussion with Dr. Iniguez on 05/14, started low-dose heparin protocol after concern for clot on Doppler - Discussion 05/15 Plan to transition to PO anticoagulation, will start Coumadin 5mg tonight and switch to full dose heparin. INR goal 2-3 - Coumadin increased to 10mg for 05/17 only - Recommended anticoagulation for discharge [facility] -Outlined his visible area of bruising on admission - area continues to decrease -Continue home Gabapentin -PT/OT (2) Hematoma of left buttock: Plan: Resolving -See left leg pain (3) Lupus anticoagulant disorder: Plan: -Reason for systemic anticoagulation due to multiple prior clots in the past -RLE DVT admission 04/06-04/09 -Does have an IVC filter in place, per chart review was placed after DVT in Apr 2011 (4) Uncontrolled type 2 diabetes mellitus with insulin therapy: Plan: -Hgb A1c 03/2023- 9.0, which is improved from previous -Pharmacy glycemic consult * Lantus 25 units qPM * Goal Range: Low 110 mg/dL - High 140 mg/dL * Correction Factor: 25 mg/dL/unit * Nutritional / Prandial insulin per carb ratio of 1 unit per 10 grams CHO consumed (5) Hypertension: Plan: -Slight elevations overnight, would not restart any medications at this time - diltiazem, lisinopril and metoprolol d/c last admission secondary to orthostatic hypotension - suspect will need to be restarted once more ambulatory and bleeding continues to improve. Would lean towards diltiazem or metoprolol for rate control as well . (6) Orthostatic hypotension: Plan: -problematic last admission, needed midodrine but was discharged without it. -Code purple 05/14 patient had syncopal episode in Ultrasound after standing after dopplers. Did not hit his head. - continue midodrine TID --> continues to be symptomatic, increase dose to 7.5mg -AM cortisol WNL (7) Stage III chronic kidney disease: Plan: Creatine stable - Would avoid lisinopril if possible Plan Dispo: continued inpatient stay until INR therapeutic. Okay to downgrade to med/tele Admission and Anticipated Discharge Date Admission Date: May 13, 2023 Supervising Physician Co-Signing Physician Notes Attending Attestation - Chart reviewed, care plan d/w FINN Good. I agree w/ the barroso components of her documentation. Lauro Valenzuela MD Subjective patient seen sitting in bed. States that he has been getting up to the chair for meals, but continues to get dizzy upon standing. level of dizziness is consistent despite increase of midodrine. However dizziness only at last for couple seconds. Denies that the room is spinning. does report to me blurry vision, but with further questioning seems to be only when he is not wearing his glasses and this resolves when he is wearing his glasses. States that this was happening even prior to admission 2 weeks ago. I encouraged him to keep his glasses on. Does have some left leg pain when getting up to the bathroom. Tele - NSR 80-90s Review of Systems Review of Systems: All systems reviewed & are unremarkable except as noted in Subjective Physical Exam Physical Exam: General: WN/WD, NAD, VS as above Resp: normal respiratory effort, lungs clear to auscultation CV: RRR, no murmur, no edema Abd: normal bowel sounds, non tender, no hepatosplenomegaly Extremities: Left leg with resolving bruising on thigh and calf. nontender to palpation. Pedal pulses intact. Neuro: A&O x3, Skin: left leg bruising as above Results & Data Results & Data Vital Signs (Past 12 Hours) Vital Signs Temp Pulse Pulse Resp BP BP Pulse Ox 05/17/23 15:12 37.0 C 90 18 138/91 96 05/17/23 11:12 85 18 152/86 H 96 05/17/23 08:34 05/17/23 07:32 37.0 C 100 H 18 146/92 H 94 05/17/23 07:17 103 H O2 Del Method 05/17/23 15:12 Room Air 05/17/23 11:12 Room Air 05/17/23 08:34 Room Air 05/17/23 07:32 Room Air 05/17/23 07:17 Laboratory Results CBC, chemistry, coagulation studies reviewed AM cortisol reviewed PG Care Time/CCT Total # of Minutes Spent Total Time Spent with Patient: Total time spent is greater than 50% in coordination of care (as documented) at patient's floor/unit and/or counseling patient: Coding Level of Care Code 24117 SUB INP/OBS CARE 3/50MIN Diagnoses Left leg pain M79.605 Hematoma of left buttock S30.0XXA Lupus anticoagulant disorder D68.62 Uncontrolled type 2 diabetes mellitus with insulin therapy E11.65; Z79.4 Hypertension I10 Hypertension type: unspecified Orthostatic hypotension I95.1 Stage 3b chronic kidney disease N18.32 Chronic kidney disease stage 3 subtype: stage 3b (GFR 30-44) (5) Hypertension Hypertension type: unspecified Qualified Code(s): I10 - Essential (primary) hypertension (7) Stage III chronic kidney disease Chronic kidney disease stage 3 subtype: stage 3b (GFR 30-44) Qualified Code(s): N18.32 - Chronic kidney disease, stage 3b
[2023-05-17] MEDS: HEPARIN SODIUM/DEXTROSE 25,000 UNITS/500 ML BAG IV SCH (21:10)
[2023-05-17] MEDS: LANTUS PER UNIT CHARGE SC SCH (21:11)
[2023-05-17] MEDS: traZODone HCL 100 MG TAB PO SCH (21:15)
[2023-05-17] MEDS: ATORVASTATIN 40 MG TAB PO SCH (21:15)
[2023-05-17] MEDS: MELATONIN 3 MG TAB PO SCH (21:18)
[2023-05-18 07:09] LABS: Basophils # (auto) 0.07 K/uL (0.00-0.20); Basophils % (auto) 0.6 %; Eosinophils # (auto) 0.47 K/uL (0.00-0.50); Eosinophils % (auto) 4.3 %; Hematocrit (blood only) 32.7 % (42.0-52.0); Hemoglobin 10.4 g/dl (14.0-18.0); Immature Granulocytes # (auto) 0.07 K/uL (0.01-0.20); Immature Granulocytes % (auto) 0.6 %; Lymphocytes # (auto) 2.76 K/uL (1.20-3.40); Mean Corpuscular Hemoglobin 27.9 pg (25.0-34.0); Mean Corpuscular Hgb Conc 31.8 g/dL (32.0-36.0); Mean Corpuscular Volume 87.7 fL (80.0-100.0); Mean Platelet Volume 10.5 fL (9.4-12.4); Monocytes # (auto) 1.18 K/uL (0.11-0.59); Monocytes % (auto) 10.7 %; Neutrophils % (auto) 58.8 %; Platelet Count 348 K/uL (130-400); RDW Coefficient of Variation 14.2 % (11.5-14.5); Red Blood Count 3.73 M/uL (4.70-6.10); White Blood Count 11.05 K/ul (4.8-10.8)
[2023-05-18 07:25] LABS: BUN Creatinine Ratio 19.8 (10-20); Calcium 8.4 mg/dl (8.6-10.3); Creatinine Clr Calc Pharmacy 56.7 ml/min; Est GFR (African American) 49.5 ml/min; Est GFR (Non-African American) 42.7 ml/min; Potassium 4.1 mmol/L (3.5-5.1)
[2023-05-18 08:04] LABS: ANTI-Xa, UFH(UnfractionatedHep 0.28 IU/ml (0.3-0.7); INR 1.6 (0.9-1.1)
[2023-05-18] MEDS: MIDODRINE HCL 2.5 MG TAB PO SCH ×3 (09:49→16:25)
[2023-05-18] MEDS: INSULIN ASPART PER UNIT CHARGE SC SCH ×4 (09:49→21:13)
[2023-05-18] MEDS: VENLAFAXINE HCL XR 150 MG CAPXR PO SCH (09:50)
[2023-05-18] MEDS: GABAPENTIN 400 MG CAP PO SCH ×2 (09:50→21:28)
[2023-05-18] MEDS: FAMOTIDINE 20 MG TAB PO SCH ×2 (09:50→21:29)
--- NOTE | 2023-05-18 11:45 | Hospitalist Progress Note ---
Date of Service May 18, 2023 Assessment & Plan (1) Left leg pain: Plan: -Patient experienced acute worsening left LE pain 05/11 after attempting to ambulate on his LLE -INR on admission is 2.9; given therapeutic INR, continued Lovenox use, and increased pressure/use of the LLE today he likely created a new area of hemorrhage -Previously admitted 04/06-04/09 with DVT RLE. Admitted 05/01-05/08 for left gluteal hematoma, discharged on Warfarin with Lovenox Bridge -05/11: CT femur/pelvis shows a mildly increased left gluteal hematoma with new left obturator externus muscle hematoma - also noted "a subtle focus of increased density within the inferior aspect of the suspected left gluteal hematoma as described above. This could be due to layering clot. A small focus of active arterial extravasation is not excluded." -Hgb stable, continue to trend -Hematology consulted - Discussion with Dr. Iniguez on 05/14, started low-dose heparin protocol after concern for clot on Doppler - Discussion 05/15 Plan to transition to PO anticoagulation, will start Coumadin 5mg tonight and switch to full dose heparin. INR goal 2-3 - Coumadin increased to 10mg for 05/17 only. we will continue on 5 mg daily - Recommended anticoagulation for discharge [facility]madin [facility] -Outlined his visible area of bruising on admission - area continues to decrease -Continue home Gabapentin -PT/OT for discharge planning (2) Hematoma of left buttock: Plan: Resolving -See left leg pain (3) Lupus anticoagulant disorder: Plan: -Reason for systemic anticoagulation due to multiple prior clots in the past -RLE DVT admission 04/06-04/09 -Does have an IVC filter in place, per chart review was placed after DVT in Apr 2011 (4) Uncontrolled type 2 diabetes mellitus with insulin therapy: Plan: -Hgb A1c 03/2023- 9.0, which is improved from previous -Pharmacy glycemic consult * Lantus 25 units qPM * Goal Range: Low 110 mg/dL - High 140 mg/dL * Correction Factor: 25 mg/dL/unit * Nutritional / Prandial insulin per carb ratio of 1 unit per 10 grams CHO consumed (5) Hypertension: Plan: -Slight elevations overnight, would not restart any medications at this time - diltiazem, lisinopril and metoprolol d/c last admission secondary to orthostatic hypotension - suspect will need to be restarted once more ambulatory and bleeding continues to improve. Would lean towards diltiazem or metoprolol for rate control as well . (6) Orthostatic hypotension: Plan: -problematic last admission, needed midodrine but was discharged without it. -Code purple 05/14 patient had syncopal episode in Ultrasound after standing after dopplers. Did not hit his head. - continue 7.5 midodrine TID -AM cortisol WNL (7) Stage III chronic kidney disease: Plan: Creatine stable Plan Dispo: continued inpatient stay until INR therapeutic - likely tomorrow. PT/OT for discharge planning Admission and Anticipated Discharge Date Admission Date: May 13, 2023 Supervising Physician Co-Signing Physician Notes Attending Attestation - Chart reviewed, care plan d/w FINN Good. I agree w/ the barroso components of her documentation. Lauro Valenzuela MD Subjective Patient seen sitting up in bed. Reports that he is feeling well. Has been up to the bathroom this morning, but does state he gets dizzy when this happens. I told him that I spoke with his yesterday and she was concerned about his mobility when he is able to return home. He tells me that when it is raining they have to use indoor stairs which are quite steep and that is what she is concerned about, he expresses the same concerns. He states that he continues to have dizziness, but it ends quickly. States that he had dizziness prior to previous admission as well, but he also tells me that he feels like his dizziness is improved. Tele [facility] Review of Systems Review of Systems: All systems reviewed & are unremarkable except as noted in Subjective Physical Exam Physical Exam: General: WN/WD, NAD, VS as above Resp: normal respiratory effort, lungs clear to auscultation CV: RRR, no murmur, no edema Abd: normal bowel sounds, non tender, no hepatosplenomegaly Extremities: Left leg with resolving bruising on thigh and calf. nontender to palpation. Pedal pulses intact. Mobility in bed significantly increased from earlier in stay Neuro: A&O x3, Skin: left leg bruising as above Results & Data Results & Data Vital Signs (Past 12 Hours) Vital Signs Temp Pulse Pulse Resp BP Pulse Ox O2 Del Method 12/10/23 11:15 36.5 C 91 H 16 130/83 93 Room Air 05/18/23 07:50 100 H 05/18/23 07:31 36.6 C 99 H 20 150/77 H 98 Room Air 05/18/23 03:34 36.9 C 74 18 132/74 96 Room Air 05/18/23 00:22 Room Air Laboratory Results CBC, chemistry, coagulation studies reviewed PG Care Time/CCT Total # of Minutes Spent Total Time Spent with Patient: Total time spent is greater than 50% in coordination of care (as documented) at patient's floor/unit and/or counseling patient: Coding Level of Care Code 19033 SUB INP/OBS CARE 2/35MIN Diagnoses Left leg pain M79.605 Hematoma of left buttock S30.0XXA Lupus anticoagulant disorder D68.62 Uncontrolled type 2 diabetes mellitus with insulin therapy E11.65; Z79.4 Hypertension I10 Hypertension type: unspecified Orthostatic hypotension I95.1 Stage 3b chronic kidney disease N18.32 Chronic kidney disease stage 3 subtype: stage 3b (GFR 30-44) (5) Hypertension Hypertension type: unspecified Qualified Code(s): I10 - Essential (primary) hypertension (7) Stage III chronic kidney disease Chronic kidney disease stage 3 subtype: stage 3b (GFR 30-44) Qualified Code(s): N18.32 - Chronic kidney disease, stage 3b
[2023-05-18 14:48] LABS: ANTI-Xa, UFH(UnfractionatedHep 0.32 IU/ml (0.3-0.7)
[2023-05-18] MEDS: WARFARIN SOD 5 MG TAB PO SCH (15:12)
[2023-05-18] MEDS: HEPARIN SODIUM/DEXTROSE 25,000 UNITS/500 ML BAG IV SCH (16:25)
[2023-05-18] MEDS: LANTUS PER UNIT CHARGE SC SCH (21:27)
[2023-05-18] MEDS: traZODone HCL 100 MG TAB PO SCH (21:29)
[2023-05-18] MEDS: ATORVASTATIN 40 MG TAB PO SCH (21:29)
[2023-05-18] MEDS: MELATONIN 3 MG TAB PO SCH (21:30)
[2023-05-19 07:14] LABS: BUN Creatinine Ratio 18.1 (10-20); Calcium 8.8 mg/dl (8.6-10.3); Creatinine Clr Calc Pharmacy 48.5 ml/min; Est GFR (African American) 41.3 ml/min; Est GFR (Non-African American) 35.6 ml/min
[2023-05-19 07:48] LABS: ANTI-Xa, UFH(UnfractionatedHep 0.34 IU/ml (0.3-0.7); INR 1.6 (0.9-1.1); Prothrombin Time 17.3 Seconds (9.0-12.0)
[2023-05-19] MEDS: FAMOTIDINE 20 MG TAB PO SCH ×2 (08:27→20:14)
[2023-05-19] MEDS: VENLAFAXINE HCL XR 150 MG CAPXR PO SCH (08:28)
[2023-05-19] MEDS: MIDODRINE HCL 2.5 MG TAB PO SCH ×3 (08:28→16:16)
[2023-05-19] MEDS: GABAPENTIN 400 MG CAP PO SCH ×2 (08:28→20:14)
[2023-05-19] MEDS: INSULIN ASPART PER UNIT CHARGE SC SCH ×4 (08:58→21:23)
[2023-05-19] MEDS ORDERED: WARFARIN SOD 10 MG TAB PO ONE (09:00)
[2023-05-19 09:19] LABS: Hematocrit (blood only) 32.4 % (42.0-52.0); Hemoglobin 10.4 g/dl (14.0-18.0); Mean Corpuscular Hemoglobin 28.4 pg (25.0-34.0); Mean Corpuscular Hgb Conc 32.1 g/dL (32.0-36.0); Mean Corpuscular Volume 88.5 fL (80.0-100.0); Mean Platelet Volume 10.8 fL (9.4-12.4); Platelet Count 358 K/uL (130-400); RDW Coefficient of Variation 14.5 % (11.5-14.5); Red Blood Count 3.66 M/uL (4.70-6.10); White Blood Count 10.63 K/ul (4.8-10.8)
[2023-05-19] MEDS: HEPARIN SODIUM/DEXTROSE 25,000 UNITS/500 ML BAG IV SCH (12:13)
--- NOTE | 2023-05-19 12:36 | Pharmacy Report ---
Pharmacy Glycemic Short Note 2 - Date of Service May 19, 2023 - Glycemic Short BSG Results (Last 24 hours): 05/18/23 05/18/23 05/19/23 17:30 20:22 06:22 Glucose 116 H POC Glucose 186 H 70 05/19/23 05/19/23 08:27 12:19 Glucose POC Glucose 120 H 193 H OUTPATIENT ANTIDIABETIC REGIMEN: * Lantus 20 units SC HS * Trulicity 0.75 mg SC every Friday * HbA1c: 9.0% (03/27/23) ASSESSMENT: 05/19 * BSGs yesterday were [phone] mg/dL. Patient received 49 units of insulin (25 units of basal and 24 units of bolus). * Fasting today is 120 mg/dL. * Continue regimen. Tighten CR slightly to prevent BSG jump at lunch. 05/16: * Abdiaziz received 35 units of insulin yesterday, 25 units basal + 10 units bolus. BSGs were: [phone] mg/dL. * Fasting BSG improved to 119 mg/dL this AM after reducing basal dose yesterday. Continue with reduced dose. * No change to Novolog necessary. Remains on heparin drip. 05/15: * BSGs [phone] mg/dL with 30 units of basal, 19 units of bolus * BSGs lower this morning, fasting 94 mg/dL- reduce lantus for this evening * Lunch BSG improved today. Will continue same novolog parameters for now 05/13: * Patient admitted with bleeding after being sent home with warfarin/enoxaparin bridge for DVT. * BSGs elevated yesterday [phone] mg/dL. * Fasting this AM 194 mg/dL- gave an additional 10 units this morning, will monitor fasting * Lunch BSG elevated again today but breakfast insulin given ~2 hours before this BSG, may still be active. Will continue current novolog parameters. Will tighten if BSGs remain elevated PLAN FOR INPATIENT GLYCEMIC CONTROL: * Hold outpatient GLP1-RA * Basal insulin * Lantus 25 units SC HS * Bolus insulin * NovoLog per scale ACHS or Q6hrs while NPO * Goal Range: Low 110 mg/dL - High 140 mg/dL * Correction Factor: 25 mg/dL/unit * Nutritional / Prandial insulin per carb ratio of 1 unit per 8 grams CHO consumed
--- NOTE | 2023-05-19 13:30 | Hospitalist Progress Note ---
Date of Service May 19, 2023 Assessment & Plan (1) Left leg pain: Plan: -Patient experienced acute worsening left LE pain 05/11 after attempting to ambulate on his LLE -INR on admission is 2.9; given therapeutic INR, continued Lovenox use, and increased pressure/use of the LLE today he likely created a new area of hemorrhage -Previously admitted 04/06-04/09 with DVT RLE. Admitted 05/01-05/08 for left gluteal hematoma, discharged on Warfarin with Lovenox Bridge -05/11: CT femur/pelvis shows a mildly increased left gluteal hematoma with new left obturator externus muscle hematoma - also noted "a subtle focus of increased density within the inferior aspect of the suspected left gluteal hematoma as described above. This could be due to layering clot. A small focus of active arterial extravasation is not excluded." -Hgb stable, continue to trend -Hematology consulted - Discussion with Dr. Iniguez on 05/14, started low-dose heparin protocol after concern for clot on Doppler - Discussion 05/15 Plan to transition to PO anticoagulation, will start Coumadin 5mg tonight and switch to full dose heparin. INR goal 2-3 - Coumadin increased to 10mg for 05/17 only. we will continue on 5 mg daily - Recommended anticoagulation for discharge Coumadin --> [facility] -Outlined his visible area of bruising on admission - area continues to decrease -Continue home Gabapentin -PT/OT for discharge planning --> recommend rehab (2) Hematoma of left buttock: Plan: Resolving -See left leg pain (3) Lupus anticoagulant disorder: Plan: -Reason for systemic anticoagulation due to multiple prior clots in the past -RLE DVT admission 04/06-04/09 -Does have an IVC filter in place, per chart review was placed after DVT in Apr 2011 (4) Uncontrolled type 2 diabetes mellitus with insulin therapy: Plan: -Hgb A1c 03/2023- 9.0, which is improved from previous -Pharmacy glycemic consult * Lantus 25 units qPM * Goal Range: Low 110 mg/dL - High 140 mg/dL * Correction Factor: 25 mg/dL/unit * Nutritional / Prandial insulin per carb ratio of 1 unit per 8 grams CHO consumed (5) Hypertension: Plan: -Slight elevations overnight, would not restart any medications at this time -Diltiazem, lisinopril and metoprolol d/c last admission secondary to orthostatic hypotension - suspect will need to be restarted once more ambulatory and bleeding continues to improve. Would lean towards diltiazem or metoprolol for rate control as well . (6) Orthostatic hypotension: Plan: -problematic last admission, needed midodrine but was discharged without it. -Code purple 05/14 patient had syncopal episode in Ultrasound after standing after dopplers. Did not hit his head. - continue 7.5 midodrine TID -AM cortisol WNL (7) Stage III chronic kidney disease: Plan: Creatine stable Plan Dispo: continued inpatient stay, Case management following for rehab placement Admission and Anticipated Discharge Date Admission Date: May 13, 2023 Supervising Physician Co-Signing Physician Notes Attending Attestation - Chart reviewed, care plan d/w FINN Good. I agree w/ the barroso components of her documentation. INR noted (1.6) - plan 10mg of coumadin today and repeat INR tomorrow. Cont heparin infusion. Dispo planning - rehab? Lauro Valenzuela MD Subjective patient seen sitting up in the chair, . States that he is feeling better today. Continues to have increased range of motion with left leg. States that dizziness also is improving. Explained to him that warfarin was not given last night, so we will give him 10 mg today but anticipate that going forward he will only need 5 mg daily. Discussion with him his sister and yesterday at bedside and he is agreeable to go to rehab if that is what PT recommends. Tele: sinus tachycardia 90-100s Review of Systems Review of Systems: All systems reviewed & are unremarkable except as noted in Subjective Physical Exam Physical Exam: General: WN/WD, NAD, VS as above. sitting up in the chair. Resp: normal respiratory effort, lungs clear to auscultation CV: RRR, no murmur, no edema Abd: normal bowel sounds, non tender, no hepatosplenomegaly Extremities: Left leg with resolving bruising on thigh and calf. nontender to palpation. Pedal pulses intact. Neuro: A&O x3, Skin: left leg bruising as above Results & Data Results & Data Vital Signs (Past 12 Hours) Vital Signs Temp Pulse Pulse Resp BP Pulse Ox O2 Del Method 05/19/23 11:31 36.6 C 96 H 16 131/77 92 Room Air 05/19/23 08:21 36.4 C L 94 H 16 153/79 H 94 Room Air 05/19/23 07:19 92 H 05/19/23 03:02 36.3 C L 95 H 18 153/98 H 94 Room Air Laboratory Results CBC, chemistry, coagulation studies reviewed PG Care Time/CCT Total # of Minutes Spent Total Time Spent with Patient: Total time spent is greater than 50% in coordination of care (as documented) at patient's floor/unit and/or counseling patient: Coding Level of Care Code 45240 SUB INP/OBS CARE 2/35MIN Diagnoses Left leg pain M79.605 Hematoma of left buttock S30.0XXA Lupus anticoagulant disorder D68.62 Uncontrolled type 2 diabetes mellitus with insulin therapy E11.65; Z79.4 Hypertension I10 Hypertension type: unspecified Orthostatic hypotension I95.1 Stage 3b chronic kidney disease N18.32 Chronic kidney disease stage 3 subtype: stage 3b (GFR 30-44) (5) Hypertension Hypertension type: unspecified Qualified Code(s): I10 - Essential (primary) hypertension (7) Stage III chronic kidney disease Chronic kidney disease stage 3 subtype: stage 3b (GFR 30-44) Qualified Code(s): N18.32 - Chronic kidney disease, stage 3b
[2023-05-19] MEDS: ATORVASTATIN 40 MG TAB PO SCH (20:14)
[2023-05-19] MEDS: LANTUS PER UNIT CHARGE SC SCH (21:23)
[2023-05-19] MEDS: MELATONIN 3 MG TAB PO SCH (21:24)
[2023-05-19] MEDS: traZODone HCL 100 MG TAB PO SCH (21:24)
[2023-05-20 06:38] LABS: Basophils # (auto) 0.09 K/uL (0.00-0.20); Basophils % (auto) 0.8 %; Eosinophils # (auto) 0.51 K/uL (0.00-0.50); Eosinophils % (auto) 4.7 %; Hematocrit (blood only) 31.4 % (42.0-52.0); Hemoglobin 10.7 g/dl (14.0-18.0); Immature Granulocytes # (auto) 0.07 K/uL (0.01-0.20); Immature Granulocytes % (auto) 0.6 %; Lymphocytes # (auto) 2.55 K/uL (1.20-3.40); Lymphocytes % (auto) 23.6 %; Mean Corpuscular Hemoglobin 28.9 pg (25.0-34.0); Mean Corpuscular Hgb Conc 34.1 g/dL (32.0-36.0); Mean Corpuscular Volume 84.9 fL (80.0-100.0); Mean Platelet Volume 10.2 fL (9.4-12.4); Monocytes % (auto) 11.1 %; Neutrophils % (auto) 59.2 %; Platelet Count 353 K/uL (130-400); RDW Coefficient of Variation 14.6 % (11.5-14.5); RDW Standard Deviation 44.4 fL (36.4-46.3); White Blood Count 10.82 K/ul (4.8-10.8)
[2023-05-20 07:43] LABS: ANTI-Xa, UFH(UnfractionatedHep 0.47 IU/ml (0.3-0.7); Prothrombin Time 21.3 Seconds (9.0-12.0)
[2023-05-20] MEDS: FAMOTIDINE 20 MG TAB PO SCH (07:55)
[2023-05-20] MEDS: VENLAFAXINE HCL XR 150 MG CAPXR PO SCH (07:55)
[2023-05-20] MEDS: GABAPENTIN 400 MG CAP PO SCH (07:55)
[2023-05-20] MEDS: MIDODRINE HCL 2.5 MG TAB PO SCH ×2 (07:55→11:54)
[2023-05-20] MEDS: INSULIN ASPART PER UNIT CHARGE SC SCH ×2 (09:04→13:05)
[2023-05-20] MEDS ORDERED: ENOXAPARIN 1 MG/KG SQ SCH (10:30)
[2023-05-20] MEDS ORDERED: ENOXAPARIN INJ 120 MG/0.8 ML SYR SQ SCH (11:00)
--- NOTE | 2023-05-20 13:30 | Discharge Summary ---
Discharge Summary Date of Service May 20, 2023 Notes For Next Care Provider For [facility]: * Continue Lovenox BID until pm of 05/22 * Continue Coumadin 5mg daily * Check INR on 05/22 * Will need correction INR follow up with [place] antico[facility] clinic Medication Changes From Visit - Lantus increased to 25 units nightly - will need Lovenox twice daily for 2 days - continue on Coumadin 5 mg daily - continue 7.5 mg midodrine 3 times daily diltiazem, lisinopril, metoprolol were discontinued during admission in April. None of these have been restarted. 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 He remained stable in the ED. Labs were significant for a stable Hgb and total bili of 1.8 with other LFT's WNL. CT of the femur wo con and CT of the pelvis w/IV con was read as "1. There is again noted abnormal thickening and a heterogeneous appearance throughout the majority of the left gluteus medius muscle which measures approximately 13 x 8 cm. This has slightly increased in size, previously measuring 13 x 6 cm. This favors an intramuscular hematoma. An underlying soft tissue mass or secondary infection would be impossible to exclude by imaging. Therefore, continued follow-up recommended to ensure resolution. 2. There is also thickening of the left obturator externus muscle suggestive of an additional site of intramuscular hemorrhage. 3. The intramuscular hemorrhage involving the left adductor muscles has slightly improved. 4. There is a subtle focus of increased density within the inferior aspect of the suspected left gluteal hematoma as described above. This could be due to layering clot. A small focus of active arterial extravasation is not excluded.". Prior to admission the patient was given 2 doses of 0.5 IV dilaudid. Per chart review, the patient was admitted from 05/01-05/08 with progressive left LE pain and found to have a large left gluteal hematoma. Orthopedics was consulted and recommenced conservative treatment and monitoring. His anticoagulation was held and his symptoms improved. He underwent trial on a heparin drip without complication. Dr. Cherry and Dr. Newton were consulted regarding future anticoagulation. With his complex history it was decided that his safest option was to be bridge to Warfarin as it is easier to reverse and monitor. He was bridged with Lovenox while admitted and restarted on Warfarin pr ior to discharge. At the time of the exam the patient was lying in bed in no acute distress with his sitting bedside, history was obtained from both. He states that he had been stable as far as symptoms since discharge home on 05/08. He had been taking his Lovenox and Warfarin as prescribed. He was usually using a walker to ambulate and had no complications. Earlier today he was trying to quickly hit a light switch and walked approximately 8 steps without his walker. He had acute onset of severe LLE pain, worse than his baseline since discharge. He denies worsening numbness in the LLE since last discharge and denies any recent falls. The only home medication he had today was his first lovenox injection of the day. His pain is currently an 8/10. He denies recent fever, chills, chest pain, SOB, abd pain, nausea, vomiting, diarrhea, dysuria, hematuria, melena, and recent trauma. He is a full code and would want his to make medical decisions for him if he cannot make them himself. Please refer to Dr. Gamion's attestation for any changes to the treatment plan Principal Dx & Hospital Course #1 = Principal Diagnosis (1) Left leg pain: -Patient experienced acute worsening left LE pain 05/11 after attempting to ambulate on his LLE -Previously admitted 04/06-04/09 with DVT RLE. Admitted 05/01-05/08 for left gluteal hematoma, discharged on Warfarin with Lovenox Bridge -05/11: CT femur/pelvis shows a mildly increased left gluteal hematoma with new left obturator externus muscle hematoma - also noted "a subtle focus of increased density within the inferior aspect of the suspected left gluteal hematoma as described above. This could be due to layering clot. A small focus of active arterial extravasation is not excluded." -Hgb stable, continue to trend -Hematology consulted - Discussion with Dr. Iniguez on 05/14, started low-dose heparin protocol after concern for clot on Doppler - Discussion 05/15 Plan to transition to PO anticoagulation, will start Coumadin 5mg tonight and switch to full dose heparin. INR goal 2-3 - Coumadin increased to 10mg for 05/17 only. we will continue on 5 mg daily - Anticoagulation on discharge: Coumadin 5mg -->correction follow up with [place] [facility] -Outlined his visible area of bruising on admission - area continues to decrease -Continue home Gabapentin (2) Hematoma of left buttock: Resolving -See left leg pain (3) Lupus anticoagulant disorder: -Reason for systemic anticoagulation due to multiple prior clots in the past -RLE DVT admission 04/06-04/09 -Does have an IVC filter in place, per chart review was placed after DVT in Apr 2011 (4) Uncontrolled type 2 diabetes mellitus with insulin therapy: -Hgb A1c 03/2023- 9.0, which is improved from previous -Lantus increased to 25 mg Okay to resume home trulicity (5) Hypertension: -Slight elevations overnight, would not restart any medications at this time -Diltiazem, lisinopril and metoprolol d/c last admission secondary to orth ostatic hypotension. NONE restarted. (6) Orthostatic hypotension: -problematic last admission, needed midodrine but was discharged without it. -Code purple 05/14 patient had syncopal episode in Ultrasound after standing after dopplers. Did not hit his head. - continue 7.5 midodrine TID -AM cortisol WNL (7) Stage III chronic kidney disease: Creatine stable Plan Dispo: [facility] to [facility] Exam General: WN/WD, NAD, VS as above. sitting up in the chair. Resp: normal respiratory effort, lungs clear to auscultation CV: RRR, no murmur, no edema Abd: normal bowel sounds, non tender, no hepatosplenomegaly Extremities: Left leg with resolving bruising on thigh and calf. nontender to palpation. Pedal pulses intact. Neuro: A&O x3, Updated Medication List Medication Instructions Recorded Confirmed Type trazodone 100 mg tablet 100 mg PO HS 11/16/18 05/11/23 History venlafaxine 150 mg 150 mg PO QAM 11/16/18 05/11/23 History capsule,extended release 24 hr lorazepam 0.5 mg tablet 0.5 mg PO Q8H PRN Anxiety #15 tabs 12/29/18 05/11/23 History famotidine 20 mg tablet 20 mg PO BID #180 tabs 06/13/22 05/11/23 Rx gabapentin 400 mg capsule 400 mg PO BID #180 caps 01/28/23 05/11/23 Rx dulaglutide 0.75 mg/0.5 mL 0.75 mg subcut WK 03/05/23 05/11/23 History subcutaneous pen injector (Trulicity) nitroglycerin 0.4 mg sublingual 0.4 mg sublingual Q5M PRN chest 03/27/23 05/11/23 Rx tablet pain #25 tabs oxycodone 5 mg tablet 5 - 10 mg (1 - 2 x 5 mg) PO Q8H 04/09/23 05/11/23 Rx PRN pain #20 tabs enoxaparin 120 mg/0.8 mL 120 mg subcut Q12H 04/14/23 05/11/23 History subcutaneous syringe (Lovenox) atorvastatin 80 mg tablet 80 mg PO QPM Hyperlipidemia #90 04/22/23 05/11/23 Rx tabs insulin glargine 100 unit/mL (3 20 unit subcut QPM 04/29/23 05/11/23 History mL) subcutaneous pen melatonin 10 mg tablet 15 mg PO HS 04/29/23 05/11/23 History warfarin 5 mg tablet 5 mg PO DAILY@1600 #10 tabs 05/08/23 05/11/23 Rx acetaminophen 500 mg tablet 1,000 mg PO Q6H PRN Pain 05/11/23 05/11/23 History (Tylenol Extra Strength) lorazepam 0.5 mg tablet 0.5 mg PO Q8H PRN Anxiety 10 days 05/20/23 Rx #10 tabs Hospital Stay Data Consultations 05/11/23 17:56 ED Decision to Admit Stat 05/12/23 15:42 Consult Hematology Routine Diagnostic Imagining Performed 05/11/23 15:08 CT pelvis w/IV con only Stat 05/11/23 16:18 CT femur LT w con Stat 05/12/23 16:17 US venous doppler LE BI Urgent 05/14/23 11:00 US venous doppler LE BI Routine Pending Results Patient Have Any Pending Studies at Discharge: No Discharge Instructions Given to Patient (Per Discharging Provider) Mr. Haney, you are hospitalized, after increasing bleeding in your left leg while you are bridging to new anticoagulation. During her hospital stay, we held your anticoagulation for a few days to allow for the bleeding to stop. And then we resumed anticoagulation with a heparin bridge to Coumadin. Your INR was therapeutic today, Which indicates the Coumadin is working. You will remain on Lovenox injections for the next 2 days. After that you will be solely on Coumadin for anticoagulation. You will need to check your INR again in 2 days, , May 22. Then further anticoagulation and INR management will be done by [facility] and then the [place] coagulation clinic. during your stay, you also experienced severe orthostatic dizziness, similar to last admission. During your stay we continue to hold all of your blood pressure medications, and started you on a medication called midodrine, which has seemed to help the your dizziness symptoms. You will continue on this medication, taking it 3 times a day. You will likely still have some dizziness, and it is important that you go slowly between transferring from sit to stand. During your stay, you are not given Trulicity, will giving Lantus and bolus insulin with NovoLog. At home you will restart Trulicity and we will increase your Lantus to 25 units each night. Discussed this with your PCP if you need further adjustments when you return home. Continue to monitor your blood sugars at home. If you experience any new or worsening symptoms, please contact your PCP, he matologist or return to the ER. It was our pleasure taking care of you, Rhonda Good PA-C For [facility]: * Continue Lovenox BID until pm of 05/22 * Continue Coumadin 5mg daily * Check INR on 05/22 * Will need correction follow up with [place] antico[facility] clinic Total Time Total Time Spent Total Time Spent (In Minutes): 50 Coding Level of Care Code 32752 INP/OBS DISCH >30 MIN Diagnoses Left leg pain M79.605 Hematoma of left buttock S30.0XXA Lupus anticoagulant disorder D68.62 Uncontrolled type 2 diabetes mellitus with insulin therapy E11.65; Z79.4 Hypertension I10 Hypertension type: unspecified Orthostatic hypotension I95.1 Stage 3b chronic kidney disease N18.32 Chronic kidney disease stage 3 subtype: stage 3b (GFR 30-44)
[2023-05-20] MEDS: WARFARIN SOD 5 MG TAB PO SCH (15:04)
== END 2023-05-20 15:36 | DRG 815 ==
LOC: ED 14:59 → EDINP 14:59 → SUATTDRO 19:00 → 2E 20:40 → SUATTDRO 05-13 09:12 → 2N 05-17 18:24

== ENCOUNTER 2024-08-10 01:20 | Inpatient (IN) ==
--- NOTE | 2024-08-10 01:36 | Emergency Department Note ---
Impression & Plan Generalized weakness, Ambulatory dysfunction, Hypoxia, Enterovirus infection, Rhinovirus infection, Acute kidney injury superimposed on chronic kidney disease, Elevated troponin ED Provider Note HISTORY OF PRESENT ILLNESS: Patient is a 68-year-old male presenting after a fall. Patient reports that this evening he was standing up when his leg suddenly felt very weak and gave out from underneath him. He initially stated he did not hit his head, but when asked what he landed on he states that he landed face first onto the ground. He is on Coumadin. He denies chest pain, shortness of breath or syncope. He does report that a few weeks ago he passed out and hit his head on his 's vacuum. Patient denies any current headache or changes in vision. Denies any numbness, tingling or weakness in extremities. He denies any dysuria or hematuria. Denies any recent fevers. He states that he has been feeling generally weak over the last few days. Denies any recent sick contact exposures. ROS: as above PHYSICAL EXAM: Constitutional: Patient appears in no acute distress. HENT: Head: Normocephalic and atraumatic. Eyes: EOMI, PERRL Mouth/Throat: Mucous membranes moist. Neck: Trachea midline. Neck supple. Cardiovascular: RRR, No murmurs, rubs or gallops. Intact distal pulses. Pulmonary/Chest: No respiratory distress. Breath sounds clear and equal bilaterally. No wheezes or rales. Abdominal: Abdomen soft, no tenderness, rebound or guarding. Musculoskeletal: No edema, tenderness or deformity noted. Skin: Warm and dry. No rash, erythema, pallor or cyanosis Psychiatric: Appropriate mood and affect for situation. Neurological: Alert and keenly responsive. CN II-XII grossly intact, moving all extremities equally and fully. MDM: - Vitals signs showed hypertension. - History obtained via patient. History as above. - Chronic conditions affecting care: DVT; CKD; DM-2; GERD; HTN; HLD - Differential diagnoses include, but are not limited to: CVA; intracranial hemorrhage; ACS; pneumonia; UTI; viral syndrome; dysrhythmia; electrolyte abnormality - Order placed for continuous cardiac monitoring. At this time, monitor showed rate of 84 bpm with normal sinus rhythm, per my interpretation. - External medical records reviewed. Primary care visit note dated 06/16/2024 was reviewed. Patient was seen for his multiple medical comorbidities. He was noted to have ambulatory dysfunction at that visit and he is following with PT at the [facility] and uses a wheeled walker at home. - EKG image interpreted by myself showed normal sinus rhythm. Rate 90 bpm. QT 386. No acute ischemic changes. Noted to have PVCs. - Laboratory workup interpreted by myself showed normal WBC; subtherapeutic INR (1.9); slight hyponatremia (Na 135); FALLON on CKD (Cr 1.94 - baseline around 1.5- 1.7); hyperglycemia (glucose 377); elevated total bilirubin (1.2); elevated troponin (24.1); normal lipase; normal TSH; negative alcohol - CXR image reviewed by myself is negative for pneumonia, per my interpretation. Radiology noted blunting of the left costophrenic angle concerning for left pleural effusion. - Viral respiratory panel positive for rhinovirus/enterovirus infections. - CT head wo contrast negative for acute intracranial pathology. - CT cervical spine wo contrast negative for acute injury. - Patient noted to be hypoxic on room air and was started on 2 L nasal cannula. - Discussed results with patient and his . expresses concern that the patient has been progressively getting weaker over the last few days, but states that this evening was the worst. She expresses concern about the patient's ability to get around at home. Will discuss case with hospitalist service for PT/OT assessment and further evaluation and management. - Discussion was had with bottle caser about patient's case and need for admission - Hospitalist, Dr. Garcia, consulted for admission - Patient admitted to [facility] hospitalist service for further evaluation and management. ASSESSMENT AND PLAN: Diagnosis: Generalized weakness; ambulatory dysfunction; rhinovirus infection; enterovirus infection; hypoxia; FALLON on CKD; elevated troponin Plan: admit Past Med/Surg History Problem List (Updated 08/10/24 @ 04:33 by Nancy Mak MD) Elevated troponin (Acute) Acute kidney injury superimposed on chronic kidney disease (Acute) Rhinovirus infection (Acute) Enterovirus infection (Acute) Hypoxia (Acute) Ambulatory dysfunction (Acute) Generalized weakness (Acute) Irritant contact dermatitis of neck Left knee DJD Left knee pain Hearing loss of right ear due to cerumen impaction Hypertension (Chronic) Anticoagulation management encounter Cervicogenic headache Ambulatory dysfunction Cough Orthostatic hypotension Lupus anticoagulant disorder (Acute) GERD (gastroesophageal reflux disease) CAD (coronary artery disease) Insomnia Depression Anxiety Abnormal nuclear stress test Shortness of breath on exertion Shortness of breath Hyperglycemia due to diabetes mellitus Yo filter in place (Chronic) Anemia (04/23/11) Diabetic nephropathy (Chronic) Nephrolithiasis Phimosis long term care pharmacist current use of anticoagulant therapy (Acute) Loss of protective sensation of skin of foot Uncontrolled type 2 diabetes mellitus with insulin therapy (Chronic) Obesity Erectile dysfunction Severe sleep apnea (Chronic) HAS NOT USED CPAP MACHINE IN YEARS Dyslipidemia Diabetic peripheral neuropathy (Chronic) Chronic pain syndrome Medical History Right leg DVT extensive, 04/2023 Antiphospholipid syndrome Yo filter in place PTSD (post-traumatic stress disorder) Anxiety and depression History of COVID-19 05/2021 *FLU LIKE SYMPTOMS (ALL RESOLVED) Systemic lupus erythematosus REASON FOR LOVENOX Stage III chronic kidney disease Diabetes mellitus type 2, uncontrolled Deep venous thrombosis of lower extremity (04/23/11) Surgical History History of colonoscopy H/O inguinal hernia repair History of umbilical hernia repair History of cholecystectomy History of arthroscopy of knee History of colonoscopy Family History Unknown Brain cancer Mother Nephrolithiasis Myocardial infarction Sister Nephrolithiasis Other No family history of adverse response to anesthesia Denies family history of Ovarian cancer Prostate cancer Diabetes Coronary heart disease Breast cancer Colorectal cancer Social History (Updated 06/16/24 @ 13:57 by ANGELIQUE Colunga) Smoking Status: Never smoker Tobacco Type: Pipe Age Started Using Tobacco: 61; Age Quit Using Tobacco: 64; Cigarettes Per Day: one per day; Second Hand Exposure: No; Do You Dip or Chew Tobacco: No; Hx Alcohol Use: No Hx Substance Use: No Preferred Language: Thai Communication Ability: Effective Visual Impairment: No Limitations Hearing Ability: Use of Hearing Aid Wall Steamer Required: No Beliefs That Will Affect Care: None marital status: Current Living Situation: Spouse Current Living Situation Comment: needs more help than what can give current occupational status: retired 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 Feels Safe at Home: Yes Childhood Exposure to Second-Hand Smoke: Yes Diet: regular caffeine: Yes Dental Care, Regularly: Yes Physical Activity Frequency: Does not Exercise Seatbelt Use: always Sunscreen Use: Yes Gender Identity: Male Assistive Devices: Cane, Glasses, Hearing Aid - Bilateral, Walker and Wheelchair Allergies Allergies Allergy/AdvReac Type Severity Reaction Status Date / Time lanolin Allergy Intermediate WOOL WAX Verified 06/16/24 13:51 ALCOHOL moxifloxacin Allergy Intermediate hives Verified 06/16/24 13:51 aspirin AdvReac Intermediate STOMACH Verified 06/16/24 13:51 DISTRESS SOAPCLEAN Allergy Mild DETERGENTS Uncoded 06/16/24 13:51 CAUSED RASH Home Meds Home Medications Medication Instructions Recorded Confirmed trazodone 100 mg tablet 100 mg PO HS 11/16/18 06/16/24 venlafaxine 150 mg 150 mg PO QAM 11/16/18 06/16/24 capsule,extended release 24 hr melatonin 10 mg tablet 15 mg PO HS 04/29/23 06/16/24 acetaminophen 500 mg tablet 1,000 mg PO Q6H PRN Pain 05/11/23 06/16/24 (Tylenol Extra Strength) warfarin 5 mg tablet (Jantoven) 5 mg PO QPM 09/24/23 06/16/24 Previous Rx's Medication Instructions Recorded acetaminophen 325 mg tablet 650 mg (2 x 325 mg) PO Q4H PRN #0 05/20/23 tabs insulin aspart U-100 100 unit/mL 5 unit (0.05 mL) subcut TID #15 mL 07/08/23 (3 mL) subcutaneous pen famotidine 20 mg tablet 20 mg PO BID #180 tabs 09/11/23 insulin glargine 100 unit/mL (3 20 unit (0.2 mL) subcut QPM #15 mL 01/26/24 mL) subcutaneous pen docusate sodium 100 mg capsule 100 mg PO DAILY #90 caps 03/22/24 (Colace) ergocalciferol (vitamin D2) 1,250 1,250 mcg PO .COMPLEX #12 caps 03/25/24 mcg (50,000 unit) capsule atorvastatin 80 mg tablet 80 mg PO QPM Hyperlipidemia #90 04/16/24 tabs gabapentin 400 mg capsule 400 mg PO BID #180 caps 04/16/24 triamcinolone acetonide 0.1 % 1 applic topical BID #30 grams 01/08/25 topical cream blood-glucose sensor (FreeStyle #3 ea 08/03/24 Jennifer 3 Plus Sensor device) Results & Data (ED) Vital Signs Vital Signs - 24 hr 08/10/24 01:27 08/10/24 01:27 08/10/24 01:58 Temperature 37.1 C Temperature Source Oral Pulse Rate 96 H 92 H Pulse Rate [Apical] Pulse Rhythm [Apical] Pulse Strength [Apical] Respiratory Rate 18 Respiratory Effort / Characteristics Non-Labored Spontaneous Respiratory Depth Normal Respiratory Pattern Regular Blood Pressure 161/92 H Blood Pressure [Right Arm] Blood Pressure Mean 115 Blood Pressure Mean [Right Arm] Pulse Oximetry 100 100 Oxygen Delivery Method Room Air Room Air Oxygen Flow Rate Sepsis Recent Fever Within 48 Hours Yes Sepsis New/Unexplained Change in Mental Status N/A Sepsis Action Taken by Nursing No Action Required Oxygen Flow Rate - Titration Pulse Oximetry Post Tiitration 08/10/24 02:13 08/10/24 04:30 Temperature Temperature Source Pulse Rate Pulse Rate [Apical] 84 Pulse Rhythm [Apical] Regular Pulse Strength [Apical] Normal Respiratory Rate 18 Respiratory Effort / Characteristics Non-Labored Spontaneous Respiratory Depth Normal Respiratory Pattern Blood Pressure Blood Pressure [Right Arm] 150/102 H Blood Pressure Mean Blood Pressure Mean [Right Arm] 118 Pulse Oximetry 87 L 96 Oxygen Delivery Method Room Air Nasal Cannula Oxygen Flow Rate 2 Sepsis Recent Fever Within 48 Hours Sepsis New/Unexplained Change in Mental Status Sepsis Action Taken by Nursing Oxygen Flow Rate - Titration 2 Pulse Oximetry Post Tiitration 96 Laboratory Data 08/10/24 01:33 08/10/24 01:33 Lab Results 08/10/24 08/10/24 Range/Units 01:15 01:33 WBC 9.40 (4.8-10.8) K/ul RBC 4.95 (4.70-6.10) M/uL Hgb 13.9 L (14.0-18.0) g/dl Hct 41.5 L (42.0-52.0) % MCV 83.8 (80.0-100.0) fL MCH 28.1 (25.0-34.0) pg MCHC 33.5 (32.0-36.0) g/dL RDW Std Deviation 40.7 (36.4-46.3) fL RDW Coeff of Na 13.2 (11.5-14.5) % Plt Count 180 (130-400) K/uL MPV 10.9 (9.4-12.4) fL Immature Gran % (Auto) 0.3 % Neut % (Auto) 74.3 % Lymph % (Auto) 11.1 % [place] % (Auto) 11.0 % Eos % (Auto) 2.7 % Baso % (Auto) 0.6 % Neut # (Auto) 6.99 H (1.40-6.50) K/uL Lymph # (Auto) 1.04 L (1.20-3.40) K/uL [place] # (Auto) 1.03 H (0.11-0.59) K/uL Eos # (Auto) 0.25 (0.00-0.50) K/uL Baso # (Auto) 0.06 (0.00-0.20) K/uL Immature Gran # (Auto) 0.03 (0.01-0.20) K/uL PT 19.3 H (9.0-12.0) Seconds INR 1.9 H (0.9-1.1) Sodium 135 L (136-145) mmol/L Potassium 3.9 (3.5-5.1) mmol/L Chloride 100 (98-107) mmol/L Carbon Dioxide 30 (21-32) mmol/L Anion Gap 5 (3-11) BUN 36 H (6-23) mg/dl Creatinine 1.94 H (0.6-1.4) mg/dl Est Cr Clr Drug Dosing 48.9 ml/min eGFR 36.56 BUN/Creatinine Ratio 18.6 (10-20) Glucose 377 H* (70-99(Fasting)) mg/dl Calcium 8.9 (8.6-10.3) mg/dl Magnesium 1.7 (1.7-2.4) mg/dl Total Bilirubin 1.2 H (0.2-1.0) mg/dl AST 22 (13-39) U/L ALT 20 (7-52) U/L Alkaline Phosphatase 88 (34-104) U/L Troponin I High Sens 24.1 H (0-20) pg/ml Total Protein 6.3 (6.0-8.3) gm/dl Albumin 3.2 L (3.4-5.0) gm/dl Globulin 3.1 (2.5-4.0) gm/dl Albumin/Globulin Ratio 1.0 (0.9-2) Lipase 18 (11-82) U/L TSH 1.199 (0.300-4.500) uIu/ml Ethyl Alcohol mg/dL < 10.0 (<10.0) mg/dl Adenovirus (PCR) Not Detected (NotDetected) B. pertussis DNA (PCR) Not Detected (NotDetected) B.parapertussis DNA PCR Not Detected (NotDetected) C. pneumoniae DNA (PCR) Not Detected (NotDetected) Coronavirus OC43 (PCR) Not Detected (NotDetected) Coronavirus HKU1 (PCR) Not Detected (NotDetected) Coronavirus 229E (PCR) Not Detected (NotDetected) SARS-CoV-2 (PCR) Not Detected (NotDetected) Coronavirus NL63 (PCR) Not Detected (NotDetected) Human Metapneumovir PCR Not Detected (NotDetected) Influenza Type A (PCR) Not Detected (NotDetected) Influenza Type B (PCR) Not Detected (NotDetected) M. pneumoniae (PCR) Not Detected (NotDetected) Parainfluenza 1 (PCR) Not Detected (NotDetected) Parainfluenza 2 (PCR) Not Detected (NotDetected) Parainfluenza 3 (PCR) Not Detected (NotDetected) Parainfluenza 4 (PCR) Not Detected (NotDetected) RSV (PCR) Not Detected (NotDetected) Entero/Rhino (PCR) DETECTED A (NotDetected) Imaging Data Radiologist's Impression: Cervical Spine CT 08/10/24 01:33 EXAM: CT cervical spine wo con CLINICAL HISTORY: fall from standing TECHNIQUE: Computed tomography of the cervical spine performed without intravenous contrast. Contiguous axial images were obtained from the skull base to T2, with sagittal and coronal reformatted images reconstructed from the axial data. CT scan was performed according to ALARA (as low as reasonably achievable). COMPARISON: 08 July 2023 FINDINGS: Loss of normal cervical lordosis with straightening of cervical spinal curvature. Spondylotic changes seen in cervical spine in the form of anterior and posterior osteophyte formation. Reduced intervertebral disc space seen at C4-C5 and C6-C7 levels. Cervical vertebral bodies are normal in height, with no evidence of fracture or subluxation. Lateral masses of C1 are symmetrical, and the dens is intact. Prevertebral soft tissues are not widened. The remaining suprahyoid and infrahyoid soft tissues in the neck are unremarkable. C2-C3: No disc bulge, mass effect on the cord or neuroforaminal narrowing. C3-C4: No disc bulge, mass effect on the cord or neuroforaminal narrowing. C4-C5: Left sided uncovertebral joint hypertrophy seen at C4-C5 level causing left neural foraminal stenosis. C5-C6: Blocked C5-C6 vertebrae with rudimentary intervertebral disc. C6-C7: No disc bulge, mass effect on the cord or neuroforaminal narrowing. C7-T1: No disc bulge, mass effect on the cord or neuroforaminal narrowing. IMPRESSION: 1. No acute fracture or subluxation in the cervical spine. 2. Loss of normal cervical lordosis with straightening of cervical spinal curvature. 3. Spondylotic changes seen in cervical spine in the form of anterior and posterior osteophyte formation. 4. Reduced intervertebral disc space seen at C4-C5 and C6-C7 levels. 5. C4-C5: Left sided uncovertebral joint hypertrophy seen at C4-C5 level causing left neural foraminal stenosis. 6. C5-C6: Blocked C5-C6 vertebrae with rudimentary intervertebral disc. No significant interval change as compared to prior study. Electronically signed by Kvng Enciso 08-10-2024 03:30 AM Chest X-Ray 08/10/24 01:33 EXAM: XR chest 1V portable CLINICAL HISTORY: Fall from standing TECHNIQUE: An X-ray image of the chest is obtained in AP projection. COMPARISON: CXR 06/13/2023. The lung apices on the cervical spine CT scan done on the same day were reviewed, 08/10/2024 01:01:00 HEALTH AND PHYSICAL EDUCATION PROFESSOR. FINDINGS: Pulmonary Parenchyma: Suspected faint paramediastinal upper zone opacities could be projectional. Linear opacity in the left lower zone, likely atelectasis. No definite pulmonary consolidation or collapse. Blunting of the left costophrenic angle. Heart and Mediastinum: Apparent cardiomegaly. Prominent hilar shadows. Bony Thorax: Mild inferior subluxation of the humeri. Soft Tissues: Soft tissues overlying the chest wall are unremarkable. IMPRESSION: 1. No gross airspace opacities. 2. Suspected faint upper zone bilateral opacities, which could be projectional. (The lung apices appear clear on the cervical spine CT scan done on the same day). Clinical correlation is advised. 3. Blunting of the left costophrenic angle, indicating mild left pleural effusion/thickening/atelectasis. (stable) Electronically signed by Flori Gallegos 08-10-2024 03:[address] 08/10/24 01:33 EXAM: CT head/brain wo con CLINICAL HISTORY: fall from standing TECHNIQUE: Multiple axial images are obtained from the skull base to the vertex without contrast. CT scan was performed according to ALARA (as low as reasonable achievable). COMPARISON: 08 July 2023. FINDINGS: There is cerebral atrophy. No evidence of space occupying lesion, hemorrhage, edema, mass effect, midline shift, extra axial collection, or hydrocephalus is noted. Basal cisterns are symmetric and normal in size and configuration. There are scattered periventricular hypodensities as can be seen with chronic microvascular ischemic changes. The peter-white matter differentiation is preserved. Visualized paranasal sinuses and mastoid air cells are well aerated. Orbital contents are within normal limits. Bony structures are intact. IMPRESSION: 1. No evidence of acute intracranial abnormality is demonstrated. 2. Chronic microvascular ischemic changes. 3. Cerebral atrophy. No other new interval abnormality since prior study. Electronically signed by Kvng Enciso 08-10-2024 02:26 AM Discharge Plan Visit Data Chief Complaint: Fall Stated Complaint: FALL, ON THINNERS, WEAKNESS, ILLNESS ED Provider: Nancy Mak Discharge Problem: Generalized weakness, Ambulatory dysfunction, Hypoxia, Enterovirus infection, Rhinovirus infection, Acute kidney injury superimposed on chronic kidney disease, Elevated troponin Forms Stand Alone Forms: [facility] Prescriptions Prescriptions: No Action insulin aspart U-100 100 unit/mL (3 mL) insulin pen 5 unit subcut TID Qty: 15 3RF famotidine 20 mg tablet 20 mg PO BID Qty: 180 3RF ergocalciferol (vitamin D2) 1,250 mcg (50,000 unit) capsule 1,250 mcg PO .COMPLEX Qty: 12 2RF Rx Instructions: 1,250 mcg orally once weekly; gabapentin 400 mg capsule 400 mg PO BID Qty: 180 3RF atorvastatin 80 mg tablet 80 mg PO QPM Qty: 90 3RF (DME) FreeStyle Jennifer 3 Plus Sensor Device See Rx Instructions .Route Qty: 3 11RF Rx Instructions: change sensor Q15D triamcinolone acetonide 0.1 % cream 1 applic topical BID Qty: 30 0RF Rx Instructions: apply to area on neck, twice a day for one week docusate sodium [Colace] 100 mg capsule 100 mg PO DAILY Qty: 90 3RF insulin glargine 100 unit/mL (3 mL) insulin pen 20 unit subcut QPM Qty: 15 2RF venlafaxine 150 mg capsule,extended release 24hr 150 mg PO QAM trazodone 100 mg tablet 100 mg PO HS melatonin 10 mg Tablet 15 mg PO HS acetaminophen [Tylenol Extra Strength] 500 mg Tablet 1,000 mg PO Q6H PRN (Reason: Pain) acetaminophen 325 mg Tablet 650 mg PO Q4H PRNQty: 0 0RF warfarin [Jantoven] 5 mg tablet 5 mg PO QPM Rx Instructions: unknown dose Referrals Referrals: Dennis Macdonald DO [Primary Care Provider] -
[2024-08-10 02:13] LABS: Basophils # (auto) 0.06 K/uL (0.00-0.20); Basophils % (auto) 0.6 %; Eosinophils # (auto) 0.25 K/uL (0.00-0.50); Eosinophils % (auto) 2.7 %; Hematocrit (blood only) 41.5 % (42.0-52.0); Hemoglobin 13.9 g/dl (14.0-18.0); Immature Granulocytes # (auto) 0.03 K/uL (0.01-0.20); Immature Granulocytes % (auto) 0.3 %; Lymphocytes # (auto) 1.04 K/uL (1.20-3.40); Lymphocytes % (auto) 11.1 %; Mean Corpuscular Hemoglobin 28.1 pg (25.0-34.0); Mean Corpuscular Hgb Conc 33.5 g/dL (32.0-36.0); Mean Corpuscular Volume 83.8 fL (80.0-100.0); Mean Platelet Volume 10.9 fL (9.4-12.4); Monocytes # (auto) 1.03 K/uL (0.11-0.59); Neutrophils # (auto) 6.99 K/uL (1.40-6.50); Neutrophils % (auto) 74.3 %; Platelet Count 180 K/uL (130-400); RDW Coefficient of Variation 13.2 % (11.5-14.5); RDW Standard Deviation 40.7 fL (36.4-46.3); Red Blood Count 4.95 M/uL (4.70-6.10)
--- NOTE | 2024-08-10 02:26 | CT Scan Report ---
EXAM: CT head/brain wo con CLINICAL HISTORY: fall from standing TECHNIQUE: Multiple axial images are obtained from the skull base to the vertex without contrast. CT scan was performed according to ALARA (as low as reasonable achievable). COMPARISON: 08 July 2023. FINDINGS: There is cerebral atrophy. No evidence of space occupying lesion, hemorrhage, edema, mass effect, midline shift, extra axial collection, or hydrocephalus is noted. Basal cisterns are symmetric and normal in size and configuration. There are scattered periventricular hypodensities as can be seen with chronic microvascular ischemic changes. The peter-white matter differentiation is preserved. Visualized paranasal sinuses and mastoid air cells are well aerated. Orbital contents are within normal limits. Bony structures are intact. IMPRESSION: 1. No evidence of acute intracranial abnormality is demonstrated. 2. Chronic microvascular ischemic changes. 3. Cerebral atrophy. No other new interval abnormality since prior study. Electronically signed by Kvng Enciso 08-10-2024 02:26 AM
[2024-08-10 02:32] LABS: INR 1.9 (0.9-1.1); Prothrombin Time 19.3 Seconds (9.0-12.0)
[2024-08-10 02:36] LABS: Albumin Level 3.2 gm/dl (3.4-5.0); BUN Creatinine Ratio 18.6 (10-20); Bilirubin,Total 1.2 mg/dl (0.2-1.0); Calcium 8.9 mg/dl (8.6-10.3); Creatinine Clr Calc Pharmacy 48.9 ml/min; Globulin 3.1 gm/dl (2.5-4.0); Magnesium 1.7 mg/dl (1.7-2.4); Potassium 3.9 mmol/L (3.5-5.1); Total Protein 6.3 gm/dl (6.0-8.3); Troponin I High Sensitivity 24.1 pg/ml (0-20)
[2024-08-10 03:11] LABS: Adenovirus PCR Not Detected (NotDetected); Bordetella parapertussis PCR Not Detected (NotDetected); Bordetella pertussis PCR Not Detected (NotDetected); Chlamydia pneumoniae PCR Not Detected (NotDetected); Coronavirus 229E PCR Not Detected (NotDetected); Coronavirus CoV-2 (COVID19)PCR Not Detected (NotDetected); Coronavirus HKU1 PCR Not Detected (NotDetected); Coronavirus NL63 PCR Not Detected (NotDetected); Coronavirus OC43PCR Not Detected (NotDetected); Human Metapneumovirus PCR Not Detected (NotDetected); Influenza A PCR Not Detected (NotDetected); Influenza B PCR Not Detected (NotDetected); Mycoplasma pneumoniae PCR Not Detected (NotDetected); Parainfluenza Virus 1 PCR Not Detected (NotDetected); Parainfluenza Virus 2 PCR Not Detected (NotDetected); Parainfluenza Virus 3 PCR Not Detected (NotDetected); Parainfluenza Virus 4 PCR Not Detected (NotDetected); Respiratory Syncytial VirusPCR Not Detected (NotDetected); Rhinovirus/Enterovirus PCR DETECTED (NotDetected)
[2024-08-10 03:14] LABS: Thyroid Stimulating Hormone 1.199 uIu/ml (0.300-4.500)
--- NOTE | 2024-08-10 03:30 | CT Scan Report ---
EXAM: CT cervical spine wo con CLINICAL HISTORY: fall from standing TECHNIQUE: Computed tomography of the cervical spine performed without intravenous contrast. Contiguous axial images were obtained from the skull base to T2, with sagittal and coronal reformatted images reconstructed from the axial data. CT scan was performed according to ALARA (as low as reasonably achievable). COMPARISON: 08 July 2023 FINDINGS: Loss of normal cervical lordosis with straightening of cervical spinal curvature. Spondylotic changes seen in cervical spine in the form of anterior and posterior osteophyte formation. Reduced intervertebral disc space seen at C4-C5 and C6-C7 levels. Cervical vertebral bodies are normal in height, with no evidence of fracture or subluxation. Lateral masses of C1 are symmetrical, and the dens is intact. Prevertebral soft tissues are not widened. The remaining suprahyoid and infrahyoid soft tissues in the neck are unremarkable. C2-C3: No disc bulge, mass effect on the cord or neuroforaminal narrowing. C3-C4: No disc bulge, mass effect on the cord or neuroforaminal narrowing. C4-C5: Left sided uncovertebral joint hypertrophy seen at C4-C5 level causing left neural foraminal stenosis. C5-C6: Blocked C5-C6 vertebrae with rudimentary intervertebral disc. C6-C7: No disc bulge, mass effect on the cord or neuroforaminal narrowing. C7-T1: No disc bulge, mass effect on the cord or neuroforaminal narrowing. IMPRESSION: 1. No acute fracture or subluxation in the cervical spine. 2. Loss of normal cervical lordosis with straightening of cervical spinal curvature. 3. Spondylotic changes seen in cervical spine in the form of anterior and posterior osteophyte formation. 4. Reduced intervertebral disc space seen at C4-C5 and C6-C7 levels. 5. C4-C5: Left sided uncovertebral joint hypertrophy seen at C4-C5 level causing left neural foraminal stenosis. 6. C5-C6: Blocked C5-C6 vertebrae with rudimentary intervertebral disc. No significant interval change as compared to prior study. Electronically signed by Kvng Enciso 08-10-2024 03:30 AM
--- NOTE | 2024-08-10 03:38 | XRay Report ---
EXAM: XR chest 1V portable CLINICAL HISTORY: Fall from standing TECHNIQUE: An X-ray image of the chest is obtained in AP projection. COMPARISON: CXR 06/13/2023. The lung apices on the cervical spine CT scan done on the same day were reviewed, 08/10/2024 01:01:00 ACQUISITION CONSULTANT. FINDINGS: Pulmonary Parenchyma: Suspected faint paramediastinal upper zone opacities could be projectional. Linear opacity in the left lower zone, likely atelectasis. No definite pulmonary consolidation or collapse. Blunting of the left costophrenic angle. Heart and Mediastinum: Apparent cardiomegaly. Prominent hilar shadows. Bony Thorax: Mild inferior subluxation of the humeri. Soft Tissues: Soft tissues overlying the chest wall are unremarkable. IMPRESSION: 1. No gross airspace opacities. 2. Suspected faint upper zone bilateral opacities, which could be projectional. (The lung apices appear clear on the cervical spine CT scan done on the same day). Clinical correlation is advised. 3. Blunting of the left costophrenic angle, indicating mild left pleural effusion/thickening/atelectasis. (stable) Electronically signed by Flori Gallegos 08-10-2024 03:38 AM
--- NOTE | 2024-08-10 05:04 | History & Physical Report ---
Date of Service August 10, 2024 Assessment & Plan (1) Enterovirus infection: Plan: Likely cause of weakness -Isolation -Supportive care - Tylenol -LR at 125mL/hr x 1L -Mg x 1gm -PT/OT (2) Uncontrolled type 2 diabetes mellitus with insulin therapy: Plan: Lantus 10u BID ISS Goal blood sugar 110 - 180 Continue Gabapentin (3) FALLON (acute kidney injury): Plan: Elevation of BUN=36, Cr=1.9 -LR at 125mL/hr x 1L -Encourage PO intake -Repeat labs in AM Plan Hyperlipidemia -Atorvastatin 80mg GERD -Pepcid 20mg BID History of Present Illness Chief Complaint: weakness Primary Care Provider: Dennis Macdonald DO Abdiaziz Ballesteros is a 68yo male with history of poorly controlled DM, CKD, SLE, DVT on Coumadin presenting with generalized weakness ongoing for the last several days. Patient fell yesterday, has felt very weak, difficulty ambulating No fever, chills, vomiting, diarrhea, cough or SOB Has been eating well No additional complaints In the ER afebrile and HD stable Allergies Allergy/AdvReac Type Severity Reaction Status Date / Time lanolin Allergy Intermediate WOOL WAX Verified 06/16/24 13:51 ALCOHOL moxifloxacin Allergy Intermediate hives Verified 06/16/24 13:51 aspirin AdvReac Intermediate STOMACH Verified 06/16/24 13:51 DISTRESS SOAPCLEAN Allergy Mild DETERGENTS Uncoded 06/16/24 13:51 CAUSED RASH Home Medications Medication Instructions Recorded Confirmed Type trazodone 100 mg tablet 100 mg PO HS 11/16/18 06/16/24 History venlafaxine 150 mg 150 mg PO QAM 11/16/18 06/16/24 History capsule,extended release 24 hr melatonin 10 mg tablet 15 mg PO HS 04/29/23 06/16/24 History acetaminophen 500 mg tablet 1,000 mg PO Q6H PRN Pain 05/11/23 06/16/24 History (Tylenol Extra Strength) acetaminophen 325 mg tablet 650 mg (2 x 325 mg) PO Q4H PRN #0 05/20/23 06/16/24 Rx tabs insulin aspart U-100 100 unit/mL 5 unit (0.05 mL) subcut TID #15 mL 07/08/23 06/16/24 Rx (3 mL) subcutaneous pen famotidine 20 mg tablet 20 mg PO BID #180 tabs 09/11/23 06/16/24 Rx warfarin 5 mg tablet (Jantoven) 5 mg PO QPM 09/24/23 06/16/24 History insulin glargine 100 unit/mL (3 20 unit (0.2 mL) subcut QPM #15 mL 01/26/24 06/16/24 Rx mL) subcutaneous pen docusate sodium 100 mg capsule 100 mg PO DAILY #90 caps 03/22/24 06/16/24 Rx (Colace) ergocalciferol (vitamin D2) 1,250 1,250 mcg PO .COMPLEX #12 caps 03/25/24 06/16/24 Rx mcg (50,000 unit) capsule atorvastatin 80 mg tablet 80 mg PO QPM Hyperlipidemia #90 04/16/24 06/16/24 Rx tabs gabapentin 400 mg capsule 400 mg PO BID #180 caps 04/16/24 06/16/24 Rx triamcinolone acetonide 0.1 % 1 applic topical BID #30 grams 06/16/24 06/16/24 Rx topical cream blood-glucose sensor (FreeStyle #3 ea 08/03/24 Rx Jennifer 3 Plus Sensor device) Past Med/Surg History Problem List Elevated troponin (Acute) Acute kidney injury superimposed on chronic kidney disease (Acute) Rhinovirus infection (Acute) Enterovirus infection (Acute) Hypoxia (Acute) Ambulatory dysfunction (Acute) Generalized weakness (Acute) Irritant contact dermatitis of neck Left knee DJD Left knee pain Hearing loss of right ear due to cerumen impaction Hypertension (Chronic) Anticoagulation management encounter Cervicogenic headache Ambulatory dysfunction Cough Orthostatic hypotension Lupus anticoagulant disorder (Acute) GERD (gastroesophageal reflux disease) CAD (coronary artery disease) Insomnia Depression Anxiety Abnormal nuclear stress test Shortness of breath on exertion Shortness of breath Hyperglycemia due to diabetes mellitus [place] filter in place (Chronic) Anemia (04/23/11) Diabetic nephropathy (Chronic) Nephrolithiasis Phimosis jail current use of anticoagulant therapy (Acute) Loss of protective sensation of skin of foot Uncontrolled type 2 diabetes mellitus with insulin therapy (Chronic) Obesity Erectile dysfunction Severe sleep apnea (Chronic) HAS NOT USED CPAP MACHINE IN YEARS Dyslipidemia Diabetic peripheral neuropathy (Chronic) Chronic pain syndrome Medical History Right leg DVT extensive, 04/2023 Antiphospholipid syndrome [place] filter in place PTSD (post-traumatic stress disorder) Anxiety and depression History of COVID-19 05/2021 *FLU LIKE SYMPTOMS (ALL RESOLVED) Systemic lupus erythematosus REASON FOR LOVENOX Stage III chronic kidney disease Diabetes mellitus type 2, uncontrolled Deep venous thrombosis of lower extremity (04/23/11) Surgical History History of colonoscopy H/O inguinal hernia repair History of umbilical hernia repair History of cholecystectomy History of arthroscopy of knee History of colonoscopy Family History Unknown Brain cancer Mother Nephrolithiasis Myocardial infarction Sister Nephrolithiasis Other No family history of adverse response to anesthesia Denies family history of Ovarian cancer Prostate cancer Diabetes Coronary heart disease Breast cancer Colorectal cancer Social History Smoking Status: Never smoker Tobacco Type: Pipe Age Started Using Tobacco: 61; Age Quit Using Tobacco: 64; Cigarettes Per Day: one per day; Second Hand Exposure: No; Do You Dip or Chew Tobacco: No; Hx Alcohol Use: No Hx Substance Use: No Preferred Language: Mohawk Communication Ability: Effective Visual Impairment: No Limitations Hearing Ability: Use of Hearing Aid Bureau Chief Required: No Beliefs That Will Affect Care: None marital status: Current Living Situation: Spouse Current Living Situation Comment: needs more help than what can give current occupational status: retired 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 Feels Safe at Home: Yes Childhood Exposure to Second-Hand Smoke: Yes Diet: regular caffeine: Yes Dental Care, Regularly: Yes Physical Activity Frequency: Does not Exercise Seatbelt Use: always Sunscreen Use: Yes Gender Identity: Male Assistive Devices: Cane, Glasses, Hearing Aid - Bilateral, Walker and Wheelchair Review of Systems Review of Systems: All systems reviewed & are unremarkable except as noted in HPI & below Physical Exam Physical Exam: General: patient resting comfortably, NAD, non-toxic in appearance, AA&O x 4 Skin: warm, dry, intact, no rashes or lesions HEENT: NC/AT, PERRL, EOMI, anicteric sclera, conjunctiva without injection, external ear normal to inspection and nontender, nares patent, moist mucus membranes, dentition intact, no oropharyngeal lesions, neck supple, trachea midline, no LAD, no thyromegaly, no JVD Heart: +S1/S2, regular, no m/r/g Lungs: equal air entry bilaterally, no rales/rhonchi/wheezes Abd: +BS, soft, NT/ND, no masses/organomegaly/ascites Ext: warm, 2+ pulses in UE/LE bilaterally, no clubbing/cyanosis or edema Neuro: nonfocal, patient AA&O x 4, speech intact, no facial droop, moving all extremities on command with equal strength 5/5 Results & Data Results & Data Vital Signs (Past 12 Hours) Vital Signs Temp Pulse Pulse Resp BP BP Pulse Ox 08/10/24 04:30 84 18 150/102 H 96 08/10/24 02:13 87 L 08/10/24 01:58 100 08/10/24 01:27 37.1 C 92 H 18 161/92 H 100 08/10/24 01:27 96 H O2 Del Method O2 Flow Rate 08/10/24 04:30 Nasal Cannula 2 08/10/24 02:13 Room Air 08/10/24 01:58 Room Air 08/10/24 01:27 Room Air 08/10/24 01:27 Laboratory Results Laboratory Results WBC 9.40 K/ul (4.8-10.8) 08/10/24 01:33 RBC 4.95 M/uL (4.70-6.10) 08/10/24 01:33 Hgb 13.9 g/dl (14.0-18.0) L 08/10/24 01:33 Hct 41.5 % (42.0-52.0) L 08/10/24 01:33 MCV 83.8 fL (80.0-100.0) 08/10/24 01:33 MCH 28.1 pg (25.0-34.0) 08/10/24 01:33 MCHC 33.5 g/dL (32.0-36.0) 08/10/24 01:33 RDW Std Deviation 40.7 fL (36.4-46.3) 08/10/24 01:33 RDW Coeff of Na 13.2 % (11.5-14.5) 08/10/24 01:33 Plt Count 180 K/uL (130-400) 08/10/24 01:33 MPV 10.9 fL (9.4-12.4) 08/10/24 01:33 Immature Gran % (Auto) 0.3 % 08/10/24 01:33 Neut % (Auto) 74.3 % 08/10/24 01:33 Lymph % (Auto) 11.1 % 08/10/24 01:33 Daniels % (Auto) 11.0 % 08/10/24 01:33 Eos % (Auto) 2.7 % 08/10/24 01:33 Baso % (Auto) 0.6 % 08/10/24 01:33 Neut # (Auto) 6.99 K/uL (1.40-6.50) H 08/10/24 01:33 Lymph # (Auto) 1.04 K/uL (1.20-3.40) L 08/10/24 01:33 Daniels # (Auto) 1.03 K/uL (0.11-0.59) H 08/10/24 01:33 Eos # (Auto) 0.25 K/uL (0.00-0.50) 08/10/24 01:33 Baso # (Auto) 0.06 K/uL (0.00-0.20) 08/10/24 01:33 Immature Gran # (Auto) 0.03 K/uL (0.01-0.20) 08/10/24 01:33 PT 19.3 Seconds (9.0-12.0) H 08/10/24 01:33 INR 1.9 (0.9-1.1) H 08/10/24 01:33 Sodium 135 mmol/L (136-145) L 08/10/24 01:33 Potassium 3.9 mmol/L (3.5-5.1) 08/10/24 01:33 Chloride 100 mmol/L (98-107) 08/10/24 01: Carbon Dioxide 30 mmol/L (21-32) 08/10/24 01:33 Anion Gap 5 (3-11) 08/10/24 01:33 BUN 36 mg/dl (6-23) H 08/10/24 01:33 Creatinine 1.94 mg/dl (0.6-1.4) H 08/10/24 01:33 Est Cr Clr Drug Dosing 48.9 ml/min 08/10/24 01:33 eGFR 36.56 08/10/24 01:33 BUN/Creatinine Ratio 18.6 (10-20) 08/10/24 01:33 Glucose 377 mg/dl (70-99(Fasting)) H* 08/10/24 01:33 Calcium 8.9 mg/dl (8.6-10.3) 08/10/24 01:33 Magnesium 1.7 mg/dl (1.7-2.4) 08/10/24 01:33 Total Bilirubin 1.2 mg/dl (0.2-1.0) H 08/10/24 01:33 AST 22 U/L (13-39) 08/10/24 01:33 ALT 20 U/L (7-52) 08/10/24 01:33 Alkaline Phosphatase 88 U/L (34-104) 08/10/24 01:33 Troponin I High Sens 24.1 pg/ml (0-20) H 08/10/24 01:33 Total Protein 6.3 gm/dl (6.0-8.3) 08/10/24 01:33 Albumin 3.2 gm/dl (3.4-5.0) L 08/10/24 01:33 Globulin 3.1 gm/dl (2.5-4.0) 08/10/24 01:33 Albumin/Globulin Ratio 1.0 (0.9-2) 08/10/24 01:33 Lipase 18 U/L (11-82) 08/10/24 01:33 TSH 1.199 uIu/ml (0.300-4.500) 08/10/24 01:33 Ethyl Alcohol mg/dL < 10.0 mg/dl (<10.0) 08/10/24 01:33 Adenovirus (PCR) Not Detected (NotDetected) 08/10/24 01:15 B. pertussis DNA (PCR) Not Detected (NotDetected) 08/10/24 01:15 B.parapertussis DNA PCR Not Detected (NotDetected) 08/10/24 01:15 C. pneumoniae DNA (PCR) Not Detected (NotDetected) 08/10/24 01:15 Coronavirus OC43 (PCR) Not Detected (NotDetected) 08/10/24 01:15 Coronavirus HKU1 (PCR) Not Detected (NotDetected) 08/10/24 01:15 Coronavirus 229E (PCR) Not Detected (NotDetected) 08/10/24 01:15 SARS-CoV-2 (PCR) Not Detected (NotDetected) 08/10/24 01:15 Coronavirus NL63 (PCR) Not Detected (NotDetected) 08/10/24 01:15 Human Metapneumovir PCR Not Detected (NotDetected) 08/10/24 01:15 Influenza Type A (PCR) Not Detected (NotDetected) 08/10/24 01:15 Influenza Type B (PCR) Not Detected (NotDetected) 08/10/24 01:15 M. pneumoniae (PCR) Not Detected (NotDetected) 08/10/24 01:15 Parainfluenza 1 (PCR) Not Detected (NotDetected) 08/10/24 01:15 Parainfluenza 2 (PCR) Not Detected (NotDetected) 08/10/24 01:15 Parainfluenza 3 (PCR) Not Detected (NotDetected) 08/10/24 01:15 Parainfluenza 4 (PCR) Not Detected (NotDetected) 08/10/24 01:15 RSV (PCR) Not Detected (NotDetected) 08/10/24 01:15 Entero/Rhino (PCR) DETECTED (NotDetected) A 08/10/24 01:[address] 08/10/24 01:33 EXAM: CT cervical spine wo con CLINICAL HISTORY: fall from standing TECHNIQUE: Computed tomography of the cervical spine performed without intravenous contrast. Contiguous axial images were obtained from the skull base to T2, with sagittal and coronal reformatted images reconstructed from the axial data. CT scan was performed according to ALARA (as low as reasonably achievable). COMPARISON: 08 July 2023 FINDINGS: Loss of normal cervical lordosis with straightening of cervical spinal curvature. Spondylotic changes seen in cervical spine in the form of anterior and posterior osteophyte formation. Reduced intervertebral disc space seen at C4-C5 and C6-C7 levels. Cervical vertebral bodies are normal in height, with no evidence of fracture or subluxation. Lateral masses of C1 are symmetrical, and the dens is intact. Prevertebral soft tissues are not widened. The remaining suprahyoid and infrahyoid soft tissues in the neck are unremarkable. C2-C3: No disc bulge, mass effect on the cord or neuroforaminal narrowing. C3-C4: No disc bulge, mass effect on the cord or neuroforaminal narrowing. C4-C5: Left sided uncovertebral joint hypertrophy seen at C4-C5 level causing left neural foraminal stenosis. C5-C6: Blocked C5-C6 vertebrae with rudimentary intervertebral disc. C6-C7: No disc bulge, mass effect on the cord or neuroforaminal narrowing. C7-T1: No disc bulge, mass effect on the cord or neuroforaminal narrowing. IMPRESSION: 1. No acute fracture or subluxation in the cervical spine. 2. Loss of normal cervical lordosis with straightening of cervical spinal curvature. 3. Spondylotic changes seen in cervical spine in the form of anterior and posterior osteophyte formation. 4. Reduced intervertebral disc space seen at C4-C5 and C6-C7 levels. 5. C4-C5: Left sided uncovertebral joint hypertrophy seen at C4-C5 level causing left neural foraminal stenosis. 6. C5-C6: Blocked C5-C6 vertebrae with rudimentary intervertebral disc. No significant interval change as compared to prior study. Electronically signed by Kvng Enciso 08-10-2024 03:30 AM Chest X-Ray 08/10/24 01:33 EXAM: XR chest 1V portable CLINICAL HISTORY: Fall from standing TECHNIQUE: An X-ray image of the chest is obtained in AP projection. COMPARISON: CXR 06/13/2023. The lung apices on the cervical spine CT scan done on the same day were reviewed, 08/10/2024 01:01:00 CLINICAL MEDICAL TRANSCRIPTIONIST. FINDINGS: Pulmonary Parenchyma: Suspected faint paramediastinal upper zone opacities could be projectional. Linear opacity in the left lower zone, likely atelectasis. No definite pulmonary consolidation or collapse. Blunting of the left costophrenic angle. Heart and Mediastinum: Apparent cardiomegaly. Prominent hilar shadows. Bony Thorax: Mild inferior subluxation of the humeri. Soft Tissues: Soft tissues overlying the chest wall are unremarkable. IMPRESSION: 1. No gross airspace opacities. 2. Suspected faint upper zone bilateral opacities, which could be projectional. (The lung apices appear clear on the cervical spine CT scan done on the same day). Clinical correlation is advised. 3. Blunting of the left costophrenic angle, indicating mild left pleural effusion/thickening/atelectasis. (stable) Electronically signed by Flori Gallegos 08-10-2024 03:[address] 08/10/24 01:33 EXAM: CT head/brain wo con CLINICAL HISTORY: fall from standing TECHNIQUE: Multiple axial images are obtained from the skull base to the vertex without contrast. CT scan was performed according to ALARA (as low as reasonable achievable). COMPARISON: 08 July 2023. FINDINGS: There is cerebral atrophy. No evidence of space occupying lesion, hemorrhage, edema, mass effect, midline shift, extra axial collection, or hydrocephalus is noted. Basal cisterns are symmetric and normal in size and configuration. There are scattered periventricular hypodensities as can be seen with chronic microvascular ischemic changes. The peter-white matter differentiation is preserved. Visualized paranasal sinuses and mastoid air cells are well aerated. Orbital contents are within normal limits. Bony structures are intact. IMPRESSION: 1. No evidence of acute intracranial abnormality is demonstrated. 2. Chronic microvascular ischemic changes. 3. Cerebral atrophy. No other new interval abnormality since prior study. Electronically signed by Kvng Enciso 08-10-2024 02:26 AM PG Care Time/CCT Total # of Minutes Spent Total Time Spent with Patient: Total time spent is greater than 50% in coordination of care (as documented) at patient's floor/unit and/or counseling patient: Coding Level of Care Code 29974 INT INP/OBS CARE 3/75MIN Diagnoses Enterovirus infection B34.1 Uncontrolled type 2 diabetes mellitus with insulin therapy E11.65; Z79.4 F[place]ON (acute kidney injury) N17.9
[2024-08-10] MEDS: LACTATED RINGER'S 1,000 ML IV STA (05:26)
[2024-08-10] MEDS: NovoLIN-R INSULIN PER UNIT CHARGE SC STA (05:26)
[2024-08-10] MEDS ORDERED: DEXTROSE 50% 50 ML SYRINGE IV PRN (08:32)
[2024-08-10] MEDS ORDERED: ONDANSETRON INJ 2 MG/ML 2 ML VIAL IV PRN (08:32)
[2024-08-10] MEDS ORDERED: CARBOHYDRATES FOR HYPOGLYCEMIA PO PRN (08:32)
[2024-08-10] MEDS ORDERED: GLUCAGON FOR INJ 1 MG VIAL SQ PRN (08:32)
[2024-08-10] MEDS ORDERED: GLUCOSE 40% GEL 15 GM TUBE PO PRN (08:32)
[2024-08-10] MEDS ORDERED: GLUCOSE 10 TAB/TUBE PO PRN (08:32)
[2024-08-10] MEDS ORDERED: ACETAMINOPHEN 325 MG TAB PO PRN (08:32)
[2024-08-10] MEDS: GABAPENTIN 400 MG CAP PO SCH (09:31)
[2024-08-10] MEDS: VENLAFAXINE HCL XR 150 MG CAPXR PO SCH (09:31)
[2024-08-10] MEDS: DOCUSATE SODIUM 100 MG CAP PO SCH (09:31)
[2024-08-10] MEDS: FAMOTIDINE 20 MG TAB PO SCH (09:31)
[2024-08-10] MEDS: INSULIN ASPART PER UNIT CHARGE SC SCH (09:31)
[2024-08-10] MEDS: MAGNESIUM SULFATE / D5W 1 GM/100 ML BAG IV ONE (09:37)
[2024-08-10] MEDS: LANTUS PER UNIT CHARGE SQ SCH (09:41)
--- NOTE | 2024-08-10 12:16 | Hospitalist Progress Note ---
Date of Service August 10, 2024 Assessment & Plan (1) Enterovirus infection: Plan: 68-year-old male who presents with weakness and falls with acute on chronic weakness due to enterovirus infection. Weakness, ambulatory dysfunction Acutely worsened due to enteroviral infection PT/OT pending Supportive care for viral infection Also with peripheral neuropathy due to his diabetes Enterovirus infection No hypoxia, improving 3/4 PT/OT pending Type II DM Continue Lantus 10 units twice daily, sliding scale with goal range [id number] Definitely hyperglycemic on admission, improving but still above goal range 3/4 SSI parameters narrowed History of DVT With positive lupus anticoagulant. On warfarin, slightly subtherapeutic at 1.9. Recheck 08/11. Warfarin continued [place] Creatinine elevated at 1.9, equivocal on 08/10 Hold nephrotoxins Completed 1 L supplemental fluids Encourage p.o. Trend labs daily Chronic stable issues: Hyperlipidemia: Continue statin GERD: Continue Pepcid twice daily DVT prophylaxis: Anticoagulated on warfarin. Is slightly subtherapeutic at 1.9. Repeat INR pending in AM. CODE STATUS: Full code Diet: Heart healthy, DM 2 (2) Uncontrolled type 2 diabetes mellitus with insulin therapy: (3) [place] (acute kidney injury): Admission and Anticipated Discharge Date Admission Date: August 10, 2024 Subjective Seen at the bedside. No acute distress. Feels improved, still feels globally weak but improving compared to prior. Denies shortness of breath. Endorses dry cough. Denies abdominal pain. Chest pain chest pressure Physical Exam Physical Exam: General: A&Ox3. NAD. Cooperative. HEENT: Atraumatic, normocephalic. Vision and hearing grossly intact Pulm: Diminished but grossly clear.. Symmetrical chest rise. No increase in work of breathing. No respiratory distress. Cardiac: RRR, -mrg. Radial pulses intact and symmetrical. Abdominal: Nontender, nondistended, soft. BS present. Results & Data Results & Data Vital Signs (Past 12 Hours) Vital Signs Temp Pulse Pulse Resp BP BP Pulse Ox 08/10/24 09:00 76 18 133/86 95 08/10/24 07:29 79 08/10/24 07:12 77 18 158/91 H 96 08/10/24 06:00 88 18 140/90 92 08/10/24 05:15 84 08/10/24 04:30 84 18 150/102 H 96 08/10/24 02:13 87 L 08/10/24 01:58 100 08/10/24 01:27 37.1 C 92 H 18 161/92 H 100 08/10/24 01:27 96 H O2 Del Method O2 Flow Rate 08/10/24 09:00 Room Air 08/10/24 07:29 08/10/24 07:12 Room Air 08/10/24 06:00 Nasal Cannula 2 08/10/24 05:15 08/10/24 04:30 Nasal Cannula 2 08/10/24 02:13 Room Air 08/10/24 01:58 Room Air 08/10/24 01:27 Room Air 08/10/24 01:27 PG Care Time/CCT Total # of Minutes Spent Total Time Spent with Patient: Total time spent is greater than 50% in coordination of care (as documented) at patient's floor/unit and/or counseling patient: Coding Level of Care Code 32599 SUB INP/OBS CARE 3/50MIN Diagnoses Enterovirus infection B34.1 Uncontrolled type 2 diabetes mellitus with insulin therapy E11.65; Z79.4 F[place] (acute kidney injury) N17.9
[2024-08-10 16:38] VITALS: RESP 16
[2024-08-10] MEDS: MELATONIN 3 MG TAB PO SCH (20:57)
[2024-08-10] MEDS: ATORVASTATIN 40 MG TAB PO SCH (21:44)
[2024-08-10] MEDS: WARFARIN SOD 5 MG TAB PO SCH (22:30)
[2024-08-10] MEDS: traZODone HCL 100 MG TAB PO SCH (22:30)
[2024-08-11 05:59] LABS: Appearance Urine Clear (Clear); Bacteria Urine Automated None Seen (None Seen); Bilirubin Urine Negative (Negative); Blood Urine 1+ (Negative); Cast Urine Automated 0-2 /lpf (0-2); Color Urine Yellow; Epithelial Cell Urine Auto 0-2 /hpf (0-2); Glucose Urine UA Trace (Negative); Ketones Urine Negative (Negative); Leukocyte Esterase Urine Negative (Negative); Nitrite Urine Negative (Negative); Protein Urine 3+ (Negative); Specific Gravity Urine 1.011 (1.000-1.030); Urobilinogen Urine Negative (Negative); WBC Urine Automated 0-5 /hpf (0-5)
[2024-08-11 06:35] LABS: Hematocrit (blood only) 40.2 % (42.0-52.0); Hemoglobin 13.4 g/dl (14.0-18.0); Mean Corpuscular Hemoglobin 28.3 pg (25.0-34.0); Mean Corpuscular Hgb Conc 33.3 g/dL (32.0-36.0); Mean Corpuscular Volume 84.8 fL (80.0-100.0); Mean Platelet Volume 10.9 fL (9.4-12.4); Platelet Count 172 K/uL (130-400); RDW Coefficient of Variation 12.6 % (11.5-14.5); RDW Standard Deviation 39.6 fL (36.4-46.3); Red Blood Count 4.74 M/uL (4.70-6.10); White Blood Count 7.34 K/ul (4.8-10.8)
[2024-08-11 06:57] LABS: INR 1.3 (0.9-1.1); Prothrombin Time 14.2 Seconds (9.0-12.0)
[2024-08-11 07:01] LABS: Albumin Level 2.9 gm/dl (3.4-5.0); BUN Creatinine Ratio 17.7 (10-20); Bilirubin Direct 0.2 mg/dl (0-0.2); Bilirubin,Total 1.1 mg/dl (0.2-1.0); Calcium 8.5 mg/dl (8.6-10.3); Creatinine Clr Calc Pharmacy 48.8 ml/min; Potassium 3.5 mmol/L (3.5-5.1); Total Protein 5.9 gm/dl (6.0-8.3)
[2024-08-11 07:40] VITALS: BP 165/84; PULSE 89; TEMP 97.7; O2SAT 94
[2024-08-11 08:50] LABS: Estimated Average Glucose 309 mg/dl; Hemoglobin A1C 12.4 % (4.5-5.6)
--- NOTE | 2024-08-11 17:40 | Discharge Summary ---
Discharge Summary Date of Service August 11, 2024 Principal Dx & Hospital Course #1 = Principal Diagnosis (1) Enterovirus infection: 68-year-old male who presents with weakness and falls with acute on chronic weakness due to enterovirus infection. Weakness, ambulatory dysfunction Acutely worsened due to enteroviral infection improved, PT/OT cleared for home with home health, uses walker Also with peripheral neuropathy due to his diabetes Enterovirus infection No hypoxia, improving supportive care Type II DM, uncontrolled. A1c 12.5%. Has been closely followed by healthcare educator at endocrine clinic and was seen there within the past two weeks, but is chronically noncompliant with his insulin and probably his diet. He was reasonably controlled on 20 units glargine and premeal while in the hospital. -DM educator not available this week, bedside RN provided extensive DM education -follow up in endo clinic -continue same insulin dosing advised last endo DM appointment -referral made to ambulatory case management History of DVT, warfarin anticoagulation With positive lupus anticoagulant. On warfarin - continue. followed by [facility]. 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 I do not see evidence of [place] this admission Creatinine elevated at 1.9, last check in our system 04/01 and it was 1.74, treated with IV fluids improved to 1.8 -baseline Cr 1.6-1.9 per last nephrology note by Dr. Hernandez Chronic stable issues: Hyperlipidemia: Continue statin GERD: Continue Pepcid twice daily (2) Uncontrolled type 2 diabetes mellitus with insulin therapy: (3) Stage III chronic kidney disease: (4) Lupus anticoagulant disorder: Admission HPI Per Admitting Provider Abdiaziz Ballesteros is a 68yo male with history of poorly controlled DM, CKD, SLE, DVT on Coumadin presenting with generalized weakness ongoing for the last several days. Patient fell yesterday, has felt very weak, difficulty ambulating No fever, chills, vomiting, diarrhea, cough or SOB Has been eating well No additional complaints In the ER afebrile and HD stable Discharge Exam PHYSICAL EXAMINATION Last 24h vital signs reviewed, see documentation in flowsheet General: comfortable appearing, no distress HEENT: Normocephalic, atraumatic, pupils round and equal, sclerae anicteric, no conjunctival injection, moist mucus membranes Lungs: Normal respiratory effort. Clear to auscultation bilaterally. No RRW Heart: Regular rate and rhythm, no murmurs. No JVD Abdomen: Soft, nontender, nondistended. Bowel sounds present. Extremities: Warm, dry, well-perfused. No extremity edema. Neuro: Alert and oriented x 4, face symmetric, moves 4 extremities well Psych: Normal affect and behavior Discharge Plan Discharge Items Patient Disposition: Home - Home Health Services Reason For Visit: WEAKNESS Discharge Diagnosis: enterovirus URI, generalized weakness, fall, uncontrolled diabetes Activity: Resume your previous activity Weightbearing: Full weightbearing Non-emergency contact: Primary Care Provider Call non-emergency contact if: you have any medication questions and your symptoms worsen Follow-up/Referrals: Kyle Grissom, PALoisC [Physician Marketing And Promotions Manager] - Dennis Macdonald DO [Primary Care Provider] - 08/18/24 1:00 pm Diet: Carb Consistent or DM2 Addtl Attending Provider Instructions: You had weakness related to enterovirus (upper respiratory virus) You can take guaifenasin to loosen mucus - this is available over the counter as tablets or cough syrup Your lightheadedness on standing might be caused by the trazodone. I sent a prescription for a reduced dose. Follow up with [facility]. Your blood sugar is very poorly controlled, your A1c was 12.5% which calculates to an average blood sugar of 450! Please keep track of your blood sugars and log the insulin that you take - follow up A[facility] with healthcare educator and endocrinology clinic Its critical to use your insulin as directed - per last diabetes note: 08/02/24 Plan from last visit: 1. Lantus 35 units 2. Aspart: 20 units with breakfast and supper 3. Please allow Gill to supervise your injections when she is home. Pending Studies at Discharge: No Stand-Alone Forms: My Mailpile, Smoking Cessation Medications and DC Order Prescriptions: New trazodone 50 mg tablet 50 mg PO HS Qty: 30 0RF Continued famotidine 20 mg tablet 20 mg PO BID Qty: 180 3RF ergocalciferol (vitamin D2) 1,250 mcg (50,000 unit) capsule 1,250 mcg PO .COMPLEX Qty: 12 2RF Rx Instructions: last filled mar 2024 84 day supply 1,250 mcg orally once weekly; gabapentin 400 mg capsule 400 mg PO BID Qty: 180 3RF atorvastatin 80 mg tablet 80 mg PO QPM Qty: 90 3RF Rx Instructions: no fill history unable to verify (DME) FreeStyle Jennifer 3 Plus Sensor Device See Rx Instructions .Route Qty: 3 11RF Rx Instructions: change sensor Q15D triamcinolone acetonide 0.1 % cream 1 applic topical BID Qty: 30 0RF Rx Instructions: no fill history unable to verify apply to area on neck, twice a day for one week docusate sodium [Colace] 100 mg capsule 100 mg PO DAILY Qty: 90 3RF Rx Instructions: otc unable to verify venlafaxine 150 mg capsule,extended release 24hr 150 mg PO QAM melatonin 10 mg Tablet 15 mg PO HS Rx Instructions: otc unable to verify acetaminophen [Tylenol Extra Strength] 500 mg Tablet 1,000 mg PO Q6H PRN (Reason: Pain) Rx Instructions: otc unable to verify warfarin [Jantoven] 5 mg tablet 5 mg PO QPM Rx Instructions: no fill history unable to verify unknown dose Changed insulin aspart U-100 100 unit/mL (3 mL) insulin pen 20 unit subcut TID Qty: 15 3RF Rx Instructions: 20 units with each meal plus sliding scale insulin glargine 100 unit/mL (3 mL) insulin pen 35 unit subcut QPM Qty: 15 2RF Rx Instructions: no fill history unable to verify Discontinued trazodone 100 mg tablet 100 mg PO HS acetaminophen 325 mg Tablet 650 mg PO Q4H PRNQty: 0 0RF Rx Instructions: otc unable to verify Discharge Orders: Discharge Order (Routine); Ordered 08/11/24 Ordered By: Tanna Corey/Other Patient Handouts: High Blood Sugar (Hyperglycemia), Managing Type 2 Diabetes, How to Check Your Blood Sugar, Insulin How To Use Where Inject, Understanding Carbohydrates Admission Data Admit Date/Time: 08/10/24 05:03 Attending Provider: Tanna Coronel Admit Provider: Chandrika Garcia Primary Care Provider: Dennis Macdonald Other Providers: Chandrika Garcia; [facility] Other Interventions: Discharge Summary Assessment (RN) Last Done: 08/11/24 10:19 Hospital Stay Data Consultations 08/10/24 04:26 ED Decision to Admit Stat Diagnostic Imagining Performed 08/10/24 01:33 CT cervical spine wo con Stat CT head/brain wo con Stat Pending Results Patient Have Any Pending Studies at Discharge: No Discharge Instructions Given to Patient (Per Discharging Provider) You had weakness related to enterovirus (upper respiratory virus) You can take guaifenasin to loosen mucus - this is available over the counter as tablets or cough syrup Your lightheadedness on standing might be caused by the trazodone. I sent a prescription for a reduced dose. Follow up with [facility]. Your blood sugar is very poorly controlled, your A1c was 12.5% which calculates to an average blood sugar of 450! Please keep track of your blood sugars and log the insulin that you take - follow up [facility] with healthcare educator and endocrinology clinic Its critical to use your insulin as directed - per last diabetes note: 08/02/24 Plan from last visit: 1. Lantus 35 units 2. Aspart: 20 units with breakfast and supper 3. Please allow Gill to supervise your injections when she is home. Total Time Total Time Spent Total Time Spent (In Minutes): I personally spent: 50 minutes today on clinical care activities including: reviewing chart notes and vital signs, chart review from DM clinic notes reviewing labs reviewing studies discussion with edi consultant(s) discussion with nurse care manager examining and counseling the patient discussions with bedside RN writing orders discharge instructions documentation Coding Level of Care Code 60857 INP/OBS DISCH >30 MIN Diagnoses Enterovirus infection B34.1 Uncontrolled type 2 diabetes mellitus with insulin therapy E11.65; Z79.4 Stage 3b chronic kidney disease N18.32 Chronic kidney disease stage 3 subtype: stage 3b (GFR 30-44) Lupus anticoagulant disorder D68.62
--- NOTE | 2024-08-11 20:52 | Electrocardiogram Report ---
Test Reason : Blood Pressure : */* mmHG Vent. Rate : 90 BPM Atrial Rate : 90 BPM P-R Int : 172 ms QRS Dur : 106 ms QT Int : 386 ms P-R-T Axes : 38 -25 42 degrees QTcB Int : 472 ms Sinus rhythm with occasional Premature ventricular complexes Moderate voltage criteria for LVH, may be normal variant ( R in aVL , Theo product ) Nonspecific ST and T wave abnormality Abnormal ECG When compared with ECG of 06-Apr-2023 21:28, Premature ventricular complexes are now Present Criteria for Septal infarct are no longer Present Confirmed by Duong Ramirez ([id number]) on 08/11/2024 8:51:54 PM Referred By: REFERRED SELF Confirmed By: Duong Ramirez
== END 2024-08-11 16:45 | disposition home health service (06) | DRG 866 ==
LOC: SUATTDRO → ED 01:20 → EDINP 05:03 → SUATTDRO 05:03 → 3E 08:33